=== PATIENT | male | born 1940 | race Caucasian/White ===

== ENCOUNTER 2020-01-12 19:39 | Emergency (ER) | payer MEDICARE, MEDICAID, SELFPAY ==
[2020-01-12] VITALS (7 sets, daily range): BP systolic 147–170; BP diastolic 52–63; PULSE 65–76; RESP 18–24; TEMP 37.6; O2SAT 93–98
--- NOTE | ~2020-01-12 | XR_ITS ---
EXAMINATION: XR chest 2V DATE: 01/12/2020 21:04 INDICATION: Shortness of breath. TECHNIQUE: Frontal and lateral views of the chest were obtained. COMPARISON: Chest single view 12/14/2017, CT abdomen and pelvis 12/14/2018 FINDINGS: There is chronic eventration of anterior right hemidiaphragm. There are airspace opacities in the lower lung zones. No pleural effusion or pneumothorax. Calcified right hilar and mediastinal l ymph nodes are consistent with old granulomatous disease. Cardiomegaly is noted. IMPRESSION: 1. Airspace opacities in the lower lung zones, likely atelectasis. 2. Cardiomegaly. Reviewed, dictated and finalized at location A.
--- NOTE | 2020-01-12 20:15 | ED.EXTPRO ---
HPI - Extremity Problem General Chief complaint: Extremity Problem,Nontraumatic Stated complaint: leg swelling, low urine output Time Seen by Provider: 01/12/20 20:02 Source: patient and RN notes reviewed Mode of arrival: ambulatory Limitations: no limitations History of Present Illness HPI Narrative: A 79 y/o male presents to the ED with constant BLE swelling beginning this morning. He states that his kidneys are at 21% but that he hasn't taken a water pill in 2 years. He reports that last night his legs were fine but that when he woke up this morning they were swollen and that he has had a decrease in urine output. He notes that he has chronic chills, chronic SOB, and chronic CP but that his CP has gotten more severe today. He also notes some epistaxis today. He denies any N/V/D or fevers. MD Complaint: extremity swelling Onset (ago): hour(s) (this morning) Pain Consistency: constant Location: lower extremity (CÉSAR) Associated symptoms: chest pain (chronic but has gotten more severe), shortness of breath (chronic) and other (chills (chornic), decreased urine output, and epistaxis) Related Data Home Medications Medication Instructions Recorded Confirmed aspirin 81 mg tablet,delayed 81 mg PO DAILY 12/13/19 release cholecalciferol (vitamin D3) 125 5,000 unit PO DAILY 12/13/19 mcg (5,000 unit) capsule hydralazine 50 mg tablet 50 mg PO TID 12/13/19 insulin aspart U-100 100 unit/mL 1 sliding scale dose SUB-Q 12/13/19 subcutaneous cartridge USEASDIRECTD insulin degludec 100 unit/mL (3 100 unit SUB-Q DAILY 12/13/19 mL) subcutaneous pen lutein 20 mg capsule 40 mg PO DAILY 12/13/19 omeprazole 20 mg tablet,delayed 20 mg PO DAILY 12/13/19 release diltiazem HCl 60 mg 240 mg PO DAILY cap 12/14/19 capsule,extended release 12 hr fluticasone propionate 50 1 spray NASAL DAILY 12/14/19 mcg/actuation nasal spray,suspension Allergies Allergy/AdvReac Type Severity Reaction Status Date / Time ranitidine Allergy Severe HIVES Verified 01/12/20 19:48 tocainide Allergy Severe HIVES Verified 01/12/20 19:48 lorazepam Allergy Unknown Other Verified 01/12/20 19:48 Review of Systems Review of Systems: All systems reviewed & are unremarkable except as noted in HPI and below Constitutional: Constitutional: Reports chills (chronic) and Denies fever(s) ENT: Reports epistaxis Cardiovascular: Cardiovascular: Reports chest pain (chornic but more severe) and Reports leg edema (CÉSAR) Respiratory: Respiratory: Reports dyspnea (chronic) Gastrointestinal: Gastrointestinal: Denies diarrhea, Denies nausea and Denies vomiting Genitourinary: Genitourinary: Reports other (decreased urine output) [facility] Past Medical History Medical History (Updated 01/13/20 @ 04:06 by Alf Cohn MD) A-fib Acute and chronic respiratory failure with hypoxia Acute hypercapnic respiratory failure due to obstructive sleep apnea Anemia Arthritis CKD (chronic kidney disease) Diabetes Dialysis patient Diaphragm paralysis Diverticulitis DM II (diabetes mellitus, type II), controlled Early cataracts, bilateral GERD (gastroesophageal reflux disease) History of colon cancer History of hemodialysis History of inguinal hernia History of kidney stones Hx: UTI (urinary tract infection) Hypercholesteremia Hypertension BILL (obstructive sleep apnea) Pancreatitis Surgical History Surgical History (Updated 01/12/20 @ 20:28 by Christiano Pizarro) H/O arthroscopy of knee H/O prostatectomy History of appendectomy History of bladder surgery History of colonoscopy History of hemorrhoidectomy History of inguinal hernia repair History of local excision of skin lesion History of spinal surgery History of transurethral resection of prostate Hx of arthroscopic knee surgery Hx of colectomy Hx of tracheostomy Social History Social History (Updated 01/12/20 @ 20:38 by Christiano Pizarro) Smoking status: Unknown if ever smoked Exam Const: General: no
--- NOTE | 2020-01-12 20:24 | ECG_ITS ---
Measurements Intervals [place] Rate: 67 P: 28 DC: 207 QRS: -58 QRSD: 126 T: 82 QT: 393 QTc: 415 Interpretive Statements SINUS RHYTHM WITH FIRST DEGREE AV BLOCK LEFT ANTERIOR FASCICULAR BLOCK VOLTAGE CRITERIA FOR LVH LATERAL INFARCT, AGE INDETERMINATE BASELINE ARTIFACT- I, II, AVR ABNORMAL ECG Electronically Signed On 01-13-2020 8:20:05 CDT by Jose De Jesus Saunders D.O.
[2020-01-12 20:36] LABS: Basophils Percent Auto 0.3 % (0.2-1.2); Eosinophils Absolute Auto 0.1 K/mm3 (0-0.3); Hematocrit 30.2 % (42.0-52.0); Hemoglobin 9.1 g/dL (14.0-18.0); Immature Granulocyte Absolute 0.03 K/mm3 (0.00-0.031); Immature Granulocyte Percent A 0.3 % (0-0.5); Lymphocytes Absolute Auto 0.89 K/mm3 (0.9-3.2); Lymphocytes Percent Auto 10.1 % (18.3-44.2); Mean Corpuscular HGB Conc 30.1 g/dl (32-36); Mean Corpuscular Hemoglobin 27.7 pg (26-34); Mean Corpuscular Volume 91.8 fl (80-100); Mean Platelet Volume 9.7 fl (7.4-10.4); Monocytes Absolute Auto 0.9 K/mm3 (0.1-0.6); Monocytes Percent Auto 9.8 % (2.6-8.5); Neutrophils Absolute Auto 6.9 K/mm3 (1.3-6.7); Neutrophils Percent Auto 78.5 % (45.5-73.1); Platelet Count Result 208 k/mm3 (150-375); Red Blood Count 3.29 M/mm3 (4.6-6.20); Red Cell Distribution Width 14.6 % (11.5-14.5); White Blood Count 8.8 K/mm3 (4.5-10.0)
[2020-01-12 20:42] LABS: Base Excess ABG 0.5 mEq/l (+/-2.0); Fractional Inspired Oxygen 24 %; HCO3 ABG 26.9 mEq/l (22.0-26.0); Oxygen Content ABG 12.9 %vol (16.0-22.0); Oxygen Saturation ABG 92.9 % (95.0-100.0); PCO2 ABG 52.4 mmHg (35.0-45.0); PO2 ABG 70.8 mmHg (80.0-100.0); PO2 FiO2 Ratio Arterial Blood 2.95 %; Total Hemoglobin 9.9 g/dL (12.0-18.0); pH ABG 7.329 (7.350-7.450)
[2020-01-12 20:44] LABS: Device NASAL CANNULA; Modified Allen's Test Pass; Site Drawn RIGHT RADIAL
[2020-01-12 20:46] LABS: Prothrombin Time 12.9 Seconds (11.1-14.7)
[2020-01-12 20:47] LABS: Partial Thromboplastin Time 33.5 SECONDS (22.3-36.8)
[2020-01-12 20:48] LABS: Blood Urea Nitrogen 59 mg/dL (9-20); Calcium 8.7 mg/dL (8.4-10.2); Carbon Dioxide 29 mmol/L (22-30); Chloride 104 mmol/L (98-107); Estimated CRCL calculation 19 ml/min; Estimated Glomerular Filt Rate 18; Glucose 113 mg/dL (75-110); Potassium 4.8 mmol/L (3.4-5.0); Sodium 139 mmol/L (137-145)
[2020-01-12 21:00] LABS: NT Pro B Type Natriuretic Pept 621 PG/ML (5-100); Troponin I 0.015 ng/mL (0.000-0.034)
== END 2020-01-12 22:53 | disposition home or self-care (01) ==
PROVIDERS: Emergency Provider Emergency Medicine; PCP Family Medicine
DX: R06.00 Dyspnea, unspecified (principal); E11.22 Type 2 diabetes mellitus with diabetic chronic kidney disease; I12.0 Hypertensive chronic kidney disease with stage 5 chronic kidney disease or end stage renal disease; N18.6 End stage renal disease; Z99.2 Dependence on renal dialysis; Z79.4 Long term (current) use of insulin; I48.91 Unspecified atrial fibrillation; M19.90 Unspecified osteoarthritis, unspecified site; D64.9 Anemia, unspecified; K21.9 Gastro-esophageal reflux disease without esophagitis; H26.9 Unspecified cataract; Z85.038 Personal history of other malignant neoplasm of large intestine; Z87.442 Personal history of urinary calculi; Z87.440 Personal history of urinary (tract) infections; E78.00 Pure hypercholesterolemia, unspecified; G47.33 Obstructive sleep apnea (adult) (pediatric); J96.21 Acute and chronic respiratory failure with hypoxia; Z90.49 Acquired absence of other specified parts of digestive tract; Z90.79 Acquired absence of other genital organ(s); I44.0 Atrioventricular block, first degree; I44.4 Left anterior fascicular block; R94.31 Abnormal electrocardiogram [ECG] [EKG]
CPT/HCPCS: 36415; 36600; 71046; 80048; 82805; 83880; 84484; 85025; 85610; 85730; 93005; 99284

== ENCOUNTER 2020-05-02 21:45 | Inpatient (IN) | payer MEDICARE, SELFPAY ==
--- NOTE | ~2020-05-02 | XR_ITS ---
XR chest 1V portable DATE: 05/12/2020 06:23 INDICATION: Pneumonia TECHNIQUE: Portable AP chest on 05/12/2020 at 0519 hours COMPARISON: 05/11/2020 portable AP chest at 0544 hours FINDINGS: ET tube tip 3.4 cm above aicha in satisfactory position. A nasogastric tube is present in the stomach. IMPRESSION: Reviewed, dictated and finalized at location A. IMPRESSION:
--- NOTE | ~2020-05-02 | XR_ITS ---
EXAMINATION: XR abdomen obstructive series DATE: 05/07/2020 13:01 INDICATION: Small bowel obstruction. TECHNIQUE: Upright and supine views of the abdomen were obtained. COMPARISON: CT abdomen and pelvis 05/02/2020, chest single view 05/07/2020 FINDINGS: There are no dilated loops of bowel. There is no free intraperitoneal gas. The nasogastric tube tip is in the stomach. There is a cholecystostomy tube in expected position. There are airspace opacities at the lung bases. Calcified right hilar and mediastinal lymph nodes are consistent with ol d granulomatous disease. IMPRESSION: 1. Normal bowel gas pattern. 2. Stable airspace opacities at the lung bases, consistent with atelectasis versus pneumonia. Reviewed, dictated and finalized at location A. IMPRESSION: 1. Normal bowel gas pattern. 2. Stable airspace opacities at the lung bases, consistent with atelectasis luis miguel cesar pneumonia.
--- NOTE | ~2020-05-02 | XR_ITS ---
XR chest 1V portable DATE: 05/11/2020 06:14 INDICATION: Pneumonia TECHNIQUE: Portable AP chest on 05/11/2020 0544 hours COMPARISON: 05/10/2020 portable AP chest at 0531 hours FINDINGS: ET and NG tubes in satisfactory position. Moderately large right pleural effusion is again noted, as well as infiltrate and/or atelectasis thro ughout the right lung and left perihilar and lower lung zones. There is no significant change compare d to 05/10/2020. IMPRESSION: No significant change in moderately large right pleural effusion and bilateral infiltrate s since 05/10/2020 Reviewed, dictated and finalized at location A. IMPRESSION: No significant change in moderately large right pleural effusion an d bilateral infiltrates since 05/10/2020
--- NOTE | ~2020-05-02 | XR_ITS ---
EXAMINATION: XR chest 1V portable DATE: 05/08/2020 06:13 INDICATION: Acute respiratory failure. Pneumonia. TECHNIQUE: A single frontal view of the chest was obtained. COMPARISON: Chest single view 05/07/2020, CT abdomen and pelvis 05/02/2020 FINDINGS: There is a small right pleural effusion. There are airspace opacities in all right lung zon es with a lower zone predominance. Calcified right lung nodules and calcified right hilar and mediast inal lymph nodes are consistent with old granulomatous disease. There are airspace opacities in left mid and lower lung zones with a lower lung predominance. No pneumothorax. Cardiomegaly is noted. The endotracheal tube tip is 2.3 cm above the aicha. The nasogastric tube tip is beyond the inferior mar gin of the radiograph, but at least to the stomach. IMPRESSION: 1. Diffuse lung disease with a lower lung predominance with worsening on the left, consistent with at electasis versus pneumonia. 2. Stable small right pleural effusion. 3. Cardiomegaly. Reviewed, dictated and finalized at location A. IMPRESSION: 1. Diffuse lung disease with a lower lung predominance with worsening on the le ft, consistent with atelectasis versus pneumonia. 2. Stable small right pleural effusion. 3. Cardiomegaly.
--- NOTE | ~2020-05-02 | CT_ITS ---
EXAMINATION: CT brain wo con DATE: 05/09/2020 11:50 INDICATION: Sudden left upper extremity paresis TECHNIQUE: Computed tomography (CT) of the head was performed without intravenous contrast. The mA wa s adjusted according to patient size. Iterative reconstruction technique was employed. Exam dose: 68 1.00 mGy-cm total exam DLP. COMPARISON: 05/03/2020 CT brain FINDINGS: Bilateral vertebral artery and carotid siphon internal carotid artery calcifications are no corinna. There is nonspecific diminished attenuation of the subcortical and periventricular cerebral white mat ter, likely due to chronic small vessel ischemic changes. No intracranial mass lesion or hemorrhage is evident. No midline shift or mass effect. No subdural or epidural hematoma. No fracture or bone destruction of the cranial vault. The paranasal sinuses and mastoid air cells ar e unremarkable, with minimal soft tissue thickening. IMPRESSION: Cerebral atherosclerosis and chronic small vessel ischemic changes of the cerebral hemis phere No acute intracranial abnormality Reviewed, dictated and finalized at Location A. Reviewed, dictated and finalized at location B. IMPRESSION: Cerebral atherosclerosis and chronic small vessel ischemic changes of the cerebral hemisphere No acute intracranial abnormality
--- NOTE | ~2020-05-02 | XR_ITS ---
EXAMINATION: XR chest 1V portable DATE: 05/06/2020 06:40 INDICATION: Acute respiratory failure. Pneumonia. TECHNIQUE: A single frontal view of the chest was obtained. COMPARISON: Chest single view 05/05/2020 FINDINGS: There are airspace opacities in the mid and lower lung zones with a lower lung predominance , right worse than left. There are small pleural effusions. No pneumothorax. Calcified right hilar an d mediastinal lymph nodes are consistent with old granulomatous disease. The heart size is normal. Th e endotracheal tube tip is 2.4 cm above the aicha. The nasogastric tube tip is in the stomach. There is a cholecystostomy tube in expected position. IMPRESSION: 1. Worsened airspace opacities in the mid and lower lung zones, right worse than left, consistent wit h atelectasis versus pneumonia. 2. Stable small pleural effusions. Reviewed, dictated and finalized at location A. IMPRESSION: 1. Worsened airspace opacities in the mid and lower lung zones, right worse suhas n left, consistent with atelectasis versus pneumonia. 2. Stable small pleural effusions.
--- NOTE | ~2020-05-02 | XR_ITS ---
EXAMINATION: XR chest 1V portable EXAM DATE: 05/16/2020 06:06 INDICATION: Respiratory failure. Pneumonia TECHNIQUE: Portable AP frontal chest x-ray was obtained. Comparison is made to prior examination from 05/15. FINDINGS: Endotracheal tube tip is 2-3 centimeters above the aicha (ideal range is between 2 to 5 cm ). Nasogastric tube is in position. Small to moderate right pleural effusion, probably partially loculated. There is moderate amount of b ilateral edema and/or pneumonia. Scattered regions of linear subsegmental atelectasis. There is no pn eumothorax suspected. There is cardiomegaly. The bones and soft tissues are unremarkable. Account ing for differences in technique, there is no significant interval change. IMPRESSION: 1. Tubes in position. 2. Stable airspace disease. 3. Small to moderate right pleural effusion. Reviewed, dictated and finalized at location A.
--- NOTE | ~2020-05-02 | XR_ITS ---
EXAMINATION: XR abdomen NG/feed tube insert INDICATION: OG placement TECHNIQUE: Portable AP KUB-NG at 1733 hours COMPARISON: 05/07/2020 FINDINGS: The OG tube is in the stomach. There are airspace opacities of the visualized lung bases. C ardiomegaly is noted. IMPRESSION: 1. OG tube in the stomach. Reviewed, dictated and finalized at location A. IMPRESSION: 1. OG tube in the stomach.
--- NOTE | ~2020-05-02 | CT_ITS ---
EXAMINATION: CT guide absc cath placement DATE: 05/03/2020 16:56 INDICATION: Acute cholecystitis TECHNIQUE: The procedure including the risks and benefits was discussed with the patient. Risks discu ssed included bleeding and infection. The patient understood the risks and benefits and agreed to pro ceed. The patient was confirmed to be receiving appropriate antibiotic coverage. The skin overlying the abdomen was prepped and draped in usual sterile fashion. Anesthetic was administered with 1% lid ocaine subcutaneously. Sedation was provided by the department of anesthesia. Utilizing CT guidance a n 18-gauge trocar needle was advanced into the gallbladder. The inner stylette was removed and there was spontaneous reflux of black-colored bile. Is a J-wire was advanced and the gallbladder with posit ioning confirmed by CT. Utilizing Seldinger technique the needle was removed over the wire and the tr act was serially dilated to 9 Qatari. An 8.5 Qatari drain was placed over the wire, position confirme d by CT and the pigtail tip was locked. The catheter was stitched to the skin with suture. Antibiotic appointment and a sterile dressing were applied. There were no immediate complications. The dose-nicolasa gth product was 176.03 mGy-cm. FINDINGS: CT images demonstrate the catheter along with a few calcified gallstones within the dilated gallbladder. 20 mL bile was aspirated for testing. IMPRESSION: 1. Successful CT-guided percutaneous cholecystostomy tube placement. 2. Deep mL fluid was sent for aerobic and anaerobic cultures. 3. The catheter will be managed by Dr. Lawson. A catheter cholangiogram may be performed not less than 48 hours after tube placement if clinically indicated to assess cystic duct patency. If cholecystect harper is not eventually performed and the infectious episode has resolved, the tube may be removed over a guidewire, preferably not less than 3 weeks after placement to allow time for a mature catheter tr act to form to prevent bile leakage and peritonitis. Reviewed, dictated and finalized at location A. IMPRESSION: 1. Successful CT-guided percutaneous cholecystostomy tube placement. 2. Deep mL fluid was sent for aerobic and anaerobic cultures. 3. The catheter will be managed by Dr. Lawson. A catheter cholangiogram may be p erformed not less than 48 hours after tube placement if clinically indicated to assess cystic duct patency. If cholecystectomy is not eventually performed and the infectious episode has resolved, the tube may be removed over a guidewire, preferably not less than 3 weeks after placement to allow time for a mature ca theter tract to form to prevent bile leakage and peritonitis.
--- NOTE | ~2020-05-02 | CT_ITS ---
EXAMINATION: CT brain wo con DATE: 05/03/2020 15:54 INDICATION: Lethargy. TECHNIQUE: Computed tomography (CT) of the head was performed without intravenous contrast. The mA wa s adjusted according to patient size. Iterative reconstruction technique was employed. The dose-lengt h product was 681.00 mGy-cm. COMPARISON: Head CT 05/01/2018 FINDINGS: Motion artifact is noted. There is no intracranial hemorrhage, acute infarction, or abnorma l intracranial mass lesion. There are scattered areas of low attenuation in the cerebral white matter , which is within normal limits for the patient's age. The ventricles are normal in size. There is mi ld mucosal thickening in the paranasal sinuses. The mastoid air cells are normal. IMPRESSION: 1. Normal aging brain. Sensitivity is decreased by motion artifact. Reviewed, dictated and finalized at location A.
--- NOTE | ~2020-05-02 | XR_ITS ---
EXAMINATION: XR chest 1V portable DATE: 05/10/2020 06:14 INDICATION: Pneumonia. TECHNIQUE: A single frontal view of the chest was obtained. COMPARISON: Chest single view 05/09/2020 FINDINGS: There is a moderate-sized right pleural effusion. There are airspace opacities in all right lung zones and in left mid and lower lung zones. No pneumothorax. Cardiomegaly is noted. Calcified r ight hilar and mediastinal lymph nodes are consistent with old granulomatous disease. The endotrachea l tube tip is 3.2 cm above the aicha. The nasogastric tube tip is in the stomach. IMPRESSION: 1. Worsened moderate-sized right pleural effusion. 2. Airspace opacities in all right lung zones and in left mid and lower lung zones with slight worsen ing on the left, consistent with atelectasis versus pneumonia. 3. Cardiomegaly. Reviewed, dictated and finalized at location A. IMPRESSION: 1. Worsened moderate-sized right pleural effusion. 2. Airspace opacities in all right lung zones and in left mid and lower lung zo tarsha with slight worsening on the left, consistent with atelectasis versus pneum onia. 3. Cardiomegaly.
--- NOTE | ~2020-05-02 | XR_ITS ---
EXAMINATION: XR chest 1V portable DATE: 05/14/2020 13:24 INDICATION: Right pleural effusion status post thoracentesis. TECHNIQUE: A single frontal view of the chest was obtained. COMPARISON: Chest single view at 5:42 AM, CT abdomen and pelvis 05/02/2020 FINDINGS: There are airspace opacities in all right lung zones and in left perihilar region and left lower lung zone. There is a small loculated right pleural effusion. No pneumothorax. Cardiomegaly is noted. The endotracheal tube tip is 1.9 cm above the aicha. The nasogastric tube tip is beyond the i nferior margin of the radiograph, but at least to the stomach. IMPRESSION: 1. Small loculated right pleural effusion with improvement status post thoracentesis. 2. Stable airspace opacities in right lung, left perihilar region, and left lower lung zone, consiste nt with atelectasis versus pneumonia. 3. Cardiomegaly. Reviewed, dictated and finalized at location A. IMPRESSION: 1. Small loculated right pleural effusion with improvement status post thoracen tesis. 2. Stable airspace opacities in right lung, left perihilar region, and left low er lung zone, consistent with atelectasis versus pneumonia. 3. Cardiomegaly.
--- NOTE | ~2020-05-02 | XR_ITS ---
EXAMINATION: XR abdomen NG/feed tube insert EXAM DATE: 05/07/2020 13:52 INDICATION: Feeding tube placement. TECHNIQUE: Frontal projection(s) of the abdomen for interpretation. Comparison is made to prior exami nation from earlier same date. FINDINGS: Feeding tube tip, side-port project over gastric bubble, adequate. Upper abdominal bowel g as pattern is nonobstructive. Bibasilar airspace disease and small pleural effusions. IMPRESSION: Feeding tube overlying expected position. Reviewed, dictated and finalized at location A.
--- NOTE | ~2020-05-02 | XR_ITS ---
EXAMINATION: XR abdomen NG/feed tube insert DATE: 05/03/2020 21:08 INDICATION: Orogastric tube placement. TECHNIQUE: A supine view of the abdomen on 2 radiographs was obtained. COMPARISON: Abdomen single view 12/06/2017 FINDINGS: The right lower abdomen is excluded. There are no dilated loops of bowel. The nasogastric t ube tip is in the stomach. There is a cholecystostomy tube in expected position. IMPRESSION: 1. Nasogastric tube tip in the stomach. Reviewed, dictated and finalized at location A.
--- NOTE | ~2020-05-02 | XR_ITS ---
EXAMINATION: XR chest 1V portable DATE: 05/09/2020 06:07 INDICATION: Acute respiratory failure. Pneumonia. TECHNIQUE: A single frontal view of the chest was obtained. COMPARISON: Chest single view 05/08/2020, CT abdomen and pelvis 05/02/2020 FINDINGS: Calcified right lung nodules and calcified right hilar and mediastinal lymph nodes are cons istent with old granulomatous disease. There are airspace opacities in all right lung zones with a lo wer lung predominance. There are airspace opacities in left lower lung zone. There is a small right p leural effusion. No pneumothorax. Cardiomegaly is noted. The endotracheal tube tip is 2.9 cm above th e aicha. The nasogastric tube tip is beyond the inferior margin of the radiograph, but at least to t he stomach. IMPRESSION: 1. Airspace opacities in right lung and left lower lung zone with worsening on the right, consistent with atelectasis versus pneumonia. 2. Stable small right pleural effusion. 3. Cardiomegaly. Reviewed, dictated and finalized at location A.
--- NOTE | ~2020-05-02 | XR_ITS ---
EXAMINATION: XR chest 1V portable DATE: 05/03/2020 17:16 INDICATION: Abnormal lung auscultation. TECHNIQUE: A single frontal view of the chest was obtained. COMPARISON: Chest 2 views 01/12/2020 FINDINGS: Again seen is elevation of right hemidiaphragm. There are airspace opacities in the lower l kristy zones. No pleural effusion or pneumothorax. Cardiomegaly is noted. IMPRESSION: 1. Airspace opacities in the lower lung zones with worsening on the left, consistent with atelectasis versus pneumonia. 2. Chronic elevation of right hemidiaphragm. 3. Cardiomegaly. Reviewed, dictated and finalized at location A. IMPRESSION: 1. Airspace opacities in the lower lung zones with worsening on the left, consi stent with atelectasis versus pneumonia. 2. Chronic elevation of right hemidiaphragm. 3. Cardiomegaly.
--- NOTE | ~2020-05-02 | XR_ITS ---
EXAMINATION: XR chest ET placement EXAM DATE: 05/07/2020 13:52 INDICATION: ReIntubated. Respiratory failure. TECHNIQUE: Portable AP frontal chest x-ray was obtained. Comparison is made to prior examination from earlier same date. FINDINGS: Endotracheal tube tip is 2-3 centimeters above the aicha (ideal range is between 2 to 5 cm ). There is a nasogastric tube seen with tip collimated off the study, but below the left hemidiaphr agm. Again there is patchy bilateral mid and lower lung zone atelectasis and/or infection. There are likel y small pleural effusions. There is no pneumothorax suspected. The cardiomediastinal silhouette is prominent but magnified on this AP technique. The bones and soft tissues are unremarkable. There is no significant interval change compared to prior exam. IMPRESSION: 1. Line(s) and tube(s) in position. 2. Stable airspace disease and other findings as above. Reviewed, dictated and finalized at location A.
--- NOTE | ~2020-05-02 | XR_ITS ---
EXAMINATION: XR chest 1V portable INDICATION: Acute respiratory failure, pneumonia TECHNIQUE: Portable AP chest at 0537 hours COMPARISON: 05/04/2020 FINDINGS: The endotracheal tube ends approximately 3.0 cm above the aicha. The nasogastric tube is in the stomach. The lung volumes are low. There is stable elevation of the right hemidiaphragm. Perih ilar and bibasilar airspace opacities persist without significant change. There is a small stable rig ht pleural effusion. No pneumothorax is identified. The cardiomediastinal silhouette is stable. IMPRESSION: 1. Stable perihilar and bibasilar airspace opacities, consistent with atelectasis versus pneumonia. 2. Small, stable right pleural effusion. Reviewed, dictated and finalized at location A. IMPRESSION: 1. Stable perihilar and bibasilar airspace opacities, consistent with atelectas is versus pneumonia. 2. Small, stable right pleural effusion.
--- NOTE | ~2020-05-02 | XR_ITS ---
EXAMINATION: XR chest ET placement DATE: 05/03/2020 21:03 INDICATION: Intubation. TECHNIQUE: A single frontal view of the chest was obtained. COMPARISON: Chest single view at 5:08 PM FINDINGS: There is elevation of right hemidiaphragm. There are airspace opacities in the perihilar re gions and lower lung zones. There is a small right pleural effusion. No pneumothorax. Cardiomegaly is noted. Calcified right hilar lymph nodes are consistent with old granulomatous disease. The endotrac heal tube tip is 1.9 cm above the aicha. The nasogastric tube tip is in the stomach. IMPRESSION: 1. Worsened airspace opacities in the perihilar regions and lower lung zones, consistent with atelect asis versus pneumonia. 2. Small right pleural effusion. 3. Cardiomegaly. Reviewed, dictated and finalized at location A. IMPRESSION: 1. Worsened airspace opacities in the perihilar regions and lower lung zones, c onsistent with atelectasis versus pneumonia. 2. Small right pleural effusion. 3. Cardiomegaly.
--- NOTE | ~2020-05-02 | XR_ITS ---
EXAMINATION: XR chest 1V portable EXAM DATE: 05/13/2020 06:04 INDICATION: Respiratory failure. Pneumonia TECHNIQUE: Portable AP frontal chest x-ray was obtained. Comparison is made to prior examination from 05/12/2020. FINDINGS: Endotracheal tube tip is 2-3 centimeters above the aicha (ideal range is between 2 to 5 cm ). Nasogastric tube is in position. Moderate right pleural effusion. There is moderate amount of bilateral edema and/or pneumonia. There is no pneumothorax suspected. The cardiomediastinal silhouette is prominent but magnified on this AP technique. The bones and soft tissues are unremarkable. There is no significant interval change compared to prior exam. IMPRESSION: 1. Tubes in position. 2. Stable airspace disease and other findings as above. Reviewed, dictated and finalized at location A.
--- NOTE | ~2020-05-02 | XR_ITS ---
EXAMINATION: XR chest ET placement INDICATION: Endotracheal tube placement TECHNIQUE: Portable AP chest at 1734 hours COMPARISON: 0519 hours FINDINGS: The endotracheal tube ends approximately 2.5 cm above the aicha. The nasogastric tube is f ollowed as far as the stomach. Its tip is beyond the inferior margin of the radiograph. There are dif fuse airspace opacities throughout the right hemithorax. A moderate to large right pleural effusion i s unchanged. There are stable stable left basilar airspace opacities. No pneumothorax is identified. Stable cardiomegaly is noted. IMPRESSION: 1. Endotracheal and nasogastric tubes in adequate position. 2. Diffuse opacification of the right hemithorax and left lung base, consistent with atelectasis vers us pneumonia. 3. Moderate to large right pleural effusion. Reviewed, dictated and finalized at location A. IMPRESSION: 1. Endotracheal and nasogastric tubes in adequate position. 2. Diffuse opacification of the right hemithorax and left lung base, consistent with atelectasis versus pneumonia. 3. Moderate to large right pleural effusion.
--- NOTE | ~2020-05-02 | XR_ITS ---
EXAMINATION: XR chest 1V portable EXAM DATE: 05/15/2020 05:50 INDICATION: Respiratory failure. Pneumonia TECHNIQUE: Portable AP frontal chest x-ray was obtained. Comparison is made to prior examination from . FINDINGS: Endotracheal tube tip is 2 centimeters above the aicha (ideal range is between 2 to 5 cm). Nasogastric tube is in position. Small right pleural effusion. There is moderate amount of bilateral edema and/or pneumonia. Scattered regions of linear subsegmental atelectasis. There is no pneumothorax suspected. The cardiomediasti nal silhouette is prominent but magnified on this AP technique. The bones and soft tissues are unre markable. There is no significant interval change compared to prior exam. IMPRESSION: 1. Tubes in position. 2. Stable airspace disease. 3. Small right pleural effusion Reviewed, dictated and finalized at location A.
--- NOTE | ~2020-05-02 | US_ITS ---
EXAMINATION: US thoracentesis DATE: 05/14/2020 13:34 INDICATION: pleural effusion TECHNIQUE: The skin was prepped and draped in sterile fashion. 1% lidocaine was used for local anesth esia. Under ultrasound guidance, a 5 Fr catheter with trochar was advanced into the right pleural eff usion. Fluid was aspirated. The catheter was removed, and a dressing was applied. There were no immed iate complications. FINDINGS: Ultrasound images demonstrate a right pleural effusion and the catheter within the fluid. IMPRESSION: 1. Successful ultrasound-guided thoracentesis yielding 150 mL of serosanguineous fluid. Reviewed, dictated and finalized at location A. IMPRESSION: 1. Successful ultrasound-guided thoracentesis yielding 150 mL of serosanguineo us fluid.
--- NOTE | ~2020-05-02 | XR_ITS ---
EXAMINATION: XR chest 1V portable EXAM DATE: 05/14/2020 06:08 INDICATION: Respiratory failure. Pneumonia TECHNIQUE: Portable AP frontal chest x-ray was obtained. Comparison is made to prior examination from 05/13/2020. FINDINGS: Endotracheal tube tip is 2-3 centimeters above the aicha (ideal range is between 2 to 5 cm ). Nasogastric tube is in position. Moderate right pleural effusion. There is moderate amount of bilateral edema and/or pneumonia. There is no pneumothorax suspected. The cardiomediastinal silhouette is prominent but magnified on this AP technique. The bones and soft tissues are unremarkable. There is no significant interval change compared to prior exam. IMPRESSION: 1. Tubes in position. 2. Stable airspace disease and other findings as above. Reviewed, dictated and finalized at location A.
--- NOTE | ~2020-05-02 | US_ITS ---
EXAMINATION: US renal BI DATE: 05/04/2020 15:33 INDICATION: Acute kidney disease on chronic kidney disease. TECHNIQUE: Multiple ultrasound grayscale images of the kidneys were obtained. COMPARISON: CT abdomen and pelvis 05/02/2020 FINDINGS: Sensitivity is decreased by obesity. The right kidney measures 9.0 x 5.1 x 6.5 cm. The left kidney me asures 10.9 x 5.6 x 5.5 cm. The kidneys demonstrate normal parenchymal echogenicity. There is no hydr onephrosis. The bladder is decompressed by a Merrill catheter. IMPRESSION: 1. Normal kidney sizes. No hydronephrosis. Reviewed, dictated and finalized at location A.
--- NOTE | ~2020-05-02 | XR_ITS ---
EXAMINATION: XR chest 1V portable DATE: 05/07/2020 06:19 INDICATION: Acute respiratory failure. Pneumonia. TECHNIQUE: A single frontal view of the chest was obtained. COMPARISON: Chest single view 05/06/2020, CT abdomen and pelvis 05/02/2020 FINDINGS: There is mild elevation of right hemidiaphragm. There are airspace opacities in right mid a nd lower lung zones and left lower lung zone. There are small pleural effusions. Calcified hilar and mediastinal lymph nodes are consistent with old granulomatous disease. No pneumothorax. Cardiomegaly is noted. The endotracheal tube tip is 3.1 cm above the aicha. The nasogastric tube tip is beyond th e inferior margin of the radiograph, but at least to the stomach. IMPRESSION: 1. Airspace opacities in right mid and lower lung zones and left lower lung zone with slight improvem ent, consistent with atelectasis versus pneumonia. 2. Small pleural effusions. 3. Cardiomegaly. Reviewed, dictated and finalized at location A. IMPRESSION: 1. Airspace opacities in right mid and lower lung zones and left lower lung zon e with slight improvement, consistent with atelectasis versus pneumonia. 2. Small pleural effusions. 3. Cardiomegaly.
--- NOTE | ~2020-05-02 | XR_ITS ---
EXAMINATION: XR chest 1V portable DATE: 05/17/2020 10:09 INDICATION: Pneumonia. TECHNIQUE: A single frontal view of the chest was obtained. COMPARISON: Chest single view 05/16/2020, CT abdomen and pelvis 05/02/2020 FINDINGS: Again seen is elevation of right hemidiaphragm. There is a small right pleural effusion. Th ere are airspace opacities in all right lung zones with a lower lung predominance. There are mild air space opacities in left lower lung zone. Calcified right lung nodules and calcified right hilar and m ediastinal lymph nodes are consistent with old granulomatous disease. No pneumothorax. Cardiomegaly i s noted. The endotracheal tube tip is 4.2 cm above the aicha. The nasogastric tube tip is in the sto mach. There is a cholecystostomy tube in right upper quadrant. IMPRESSION: 1. Stable small right pleural effusion. 2. Unchanged airspace opacities in right lung and left lower lung zone, consistent with atelectasis v ersus pneumonia. 3. Cardiomegaly. Reviewed, dictated and finalized at location A. IMPRESSION: 1. Stable small right pleural effusion. 2. Unchanged airspace opacities in right lung and left lower lung zone, consist ent with atelectasis versus pneumonia. 3. Cardiomegaly.
--- NOTE | ~2020-05-02 | US_ITS ---
EXAMINATION: US abdomen limited DATE: 05/03/2020 12:27 INDICATION: Acute cholecystitis for plan percutaneous cholecystostomy tube placement. TECHNIQUE: Multiple grayscale and Doppler ultrasound images of the upper quadrant of the abdomen were obtained. COMPARISON: None FINDINGS: And seen is dilation of the gallbladder with wall thickening consistent with acute cholecystitis. The liver and gallbladder are high riding position entirely above the anterior inferior costal margin. T he pleura and aerated lung overlie much of the planned anterior transhepatic approach to the gallblad jordan. And there were multiple loops of bowel positioned anterior to the gallbladder. A direct peroneal approach to the gallbladder is precluded by loops of bowel which extend between the gallbladder and anterior abdominal wall. IMPRESSION: 1. Acute cholecystitis with no safe approach to the gallbladder identified on the press operator apprentice ultrasound fo r planned ultrasound-guided cholecystostomy tube placement which was deferred. Cholecystostomy tube p lacement will be attempted utilizing CT guidance. Reviewed, dictated and finalized at location A. IMPRESSION: 1. Acute cholecystitis with no safe approach to the gallbladder identified on t he press operator apprentice ultrasound for planned ultrasound-guided cholecystostomy tube placemen t which was deferred. Cholecystostomy tube placement will be attempted utilrain g CT guidance.
--- NOTE | ~2020-05-02 | CT_ITS ---
EXAMINATION: CT abdomen pelvis wo con DATE: 05/02/2020 22:51 INDICATION: Right upper quadrant abdominal pain. TECHNIQUE: Computed tomography (CT) of the abdomen and pelvis was performed without intravenous contr ast. Automated exposure control and iterative reconstruction technique were employed. The dose-length product was 1115.41 mGy-cm. COMPARISON: CT abdomen and pelvis 12/14/2018 FINDINGS: The visualized portions of the lung bases demonstrate mild atelectasis. There is elevation of right hemidiaphragm. No pleural effusion. Calcified right hilar and mediastinal lymph nodes are co nsistent with old granulomatous disease. Cardiomegaly is noted. There are coronary artery calcificati ons. No pericardial effusion. There is a 4.2 cm cyst in the liver. Calcifications in the liver and sp gale are consistent with old granulomatous disease. The gallbladder is distended and contains gallsto tarsha. Gallbladder wall thickening is noted. These findings are consistent with acute cholecystitis. Th e pancreas and adrenal glands are normal. There are cysts in the kidneys measuring up to 2.6 cm on th e left. The prostate is severely enlarged. There is diverticulosis of the colon without evidence of d iverticulitis. There are changes of right hemicolectomy. There are no pathologically enlarged lymph n odes. There is no free intraperitoneal fluid. There are bridging endplate osteophytes at multiple lev els in the spine, consistent with diffuse idiopathic skeletal hyperostosis (DISH). There is moderate lumbar spondylosis. IMPRESSION: 1. Acute cholecystitis. Reviewed, dictated and finalized at location A. IMPRESSION: 1. Acute cholecystitis.
--- NOTE | ~2020-05-02 | XR_ITS ---
XR shoulder LT 1V DATE: 05/12/2020 10:00 INDICATION: Left shoulder pain TECHNIQUE: Portable AP view COMPARISON: None FINDINGS: No fracture or dislocation, periosteal reaction or bone destruction is detected. ET and NG tubes are incidentally noted. IMPRESSION: No fracture or dislocation Reviewed, dictated and finalized at location A. IMPRESSION: No fracture or dislocation
--- NOTE | ~2020-05-02 | XR_ITS ---
EXAMINATION: XR chest 1V portable INDICATION: Respiratory failure TECHNIQUE: Portable AP chest at 0529 hours COMPARISON: 05/03/2020 FINDINGS: The endotracheal tube ends 2.5 cm above the aicha. The nasogastric tube is in the stomach. Elevation of the right hemidiaphragm is again noted. Bibasilar and perihilar airspace opacities pers ist with slight improvement. A small right pleural effusion is unchanged. There is no pneumothorax. S table cardiomegaly is noted. IMPRESSION: 1. Persistent but improved perihilar and bibasilar opacities, consistent with atelectasis versus pneu monia. 2. Small right pleural effusion, stable. 3. Stable cardiomegaly. Reviewed, dictated and finalized at location A. IMPRESSION: 1. Persistent but improved perihilar and bibasilar opacities, consistent with a telectasis versus pneumonia. 2. Small right pleural effusion, stable. 3. Stable cardiomegaly.
--- NOTE | ~2020-05-02 | US_ITS ---
EXAMINATION: US carotid duplex BI DATE: 05/10/2020 09:30 INDICATION: Left hemiparesis. TECHNIQUE: Grayscale, color Doppler, and pulsed Doppler images of the cervical carotid arteries were obtained. The degree of vessel stenosis is placed in one of the following categories: normal, <50%, 5 0-69%, >=70% but less than near-occlusion, near-occlusion, or total occlusion. Note that percent sten osis relative to normal distal artery lumen diameter is indirectly measured from velocity measurement s as described by Alf, et al. Radiology 2003; 229:340-346. COMPARISON: None. FINDINGS: RIGHT: The right common carotid artery (CCA) peak systolic velocity (PSV) is 98 cm/s. The right internal car otid artery (ICA) PSV is 169 cm/s. The right ICA end-diastolic velocity (EDV) is 9 cm/s. The right IC A/CCA PSV ratio is 1.7. Grayscale and color Doppler images yield an estimate of >=50% diameter reduct ion from plaque in the ICA. There is antegrade flow in the right vertebral artery. LEFT: The left CCA PSV is 132 cm/s. The left ICA PSV is 136 cm/s. The left ICA EDV is 14 cm/s. The left ICA /CCA PSV ratio is 1.0. Grayscale and color Doppler images yield an estimate of <50% diameter reductio n from plaque in the ICA. There is antegrade flow in the left vertebral artery. IMPRESSION: 1. 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 2. <50% stenosis in the left internal carotid artery. Reviewed, dictated and finalized at location A.
[2020-05-02 21:47] VITALS: BP 177/53; PULSE 71; RESP 19; TEMP 37.1; O2SAT 94
[2020-05-02 22:15] LABS: Basophils Percent Auto 0.3 % (0.2-1.2); Eosinophils Percent Auto 0.3 % (0-4.4); Hematocrit 30.4 % (42.0-52.0); Hemoglobin 9.5 g/dL (14.0-18.0); Immature Granulocyte Absolute 0.07 K/mm3 (0.00-0.031); Immature Granulocyte Percent A 0.5 % (0-0.5); Lymphocytes Percent Auto 5.3 % (18.3-44.2); Mean Corpuscular HGB Conc 31.3 g/dl (32-36); Mean Corpuscular Hemoglobin 28.8 pg (26-34); Mean Corpuscular Volume 92.1 fl (80-100); Mean Platelet Volume 8.8 fl (7.4-10.4); Monocytes Absolute Auto 0.8 K/mm3 (0.1-0.6); Monocytes Percent Auto 6.2 % (2.6-8.5); Neutrophils Absolute Auto 11.5 K/mm3 (1.3-6.7); Neutrophils Percent Auto 87.4 % (45.5-73.1); Platelet Count Result 224 k/mm3 (150-375); Red Cell Distribution Width 14.2 % (11.5-14.5); White Blood Count 13.2 K/mm3 (4.5-10.0)
[2020-05-02 22:27] LABS: Alanine Aminotransferase 17 U/L (4-50); Alkaline Phosphatase 116 U/L (38-126); Aspartate Amino Transferase 23 U/L (17-59); Bilirubin,Total 0.9 mg/dL (0.2-1.3); Blood Urea Nitrogen 59 mg/dL (9-20); Carbon Dioxide 30 mmol/L (22-30); Chloride 100 mmol/L (98-107); Estimated CRCL calculation 17 ml/min; Estimated Glomerular Filt Rate 16; Glucose 152 mg/dL (75-110); Lipase 134 U/L (23-300); Potassium 5.2 mmol/L (3.4-5.0); Sodium 136 mmol/L (137-145)
[2020-05-02] MEDS: MORPHINE SULFATE 4 MG/ML INJ IV PUSH (22:36)
[2020-05-02] MEDS: ONDANSETRON INJ 4 MG/2 ML VIAL IV PUSH (22:36)
--- NOTE | 2020-05-02 22:47 | ED.GENADULT ---
HPI - General Adult General Chief complaint: Abdominal Pain Stated complaint: Abd and back pain Time Seen by Provider: 05/02/20 22:12 History of Present Illness HPI narrative: Patient is a 80-year-old male who presents the ER with upper abdominal pain. Reports he had symptoms yesterday last several hours sharp and associated nausea. It went away overnight and he woke up pain-free. This evening he ate about 5 [employer] tacos and had sudden onset upper abdominal pain. He rates to his back. Mild nausea but no vomiting. He has had no fever/chills/sweats. No history of gallbladder disease. He is found no alleviating factors. Related Data Home Medications Medication Instructions Recorded Confirmed aspirin 81 mg tablet,delayed 81 mg PO DAILY 09/01/19 05/03/20 release lutein 20 mg capsule 40 mg PO DAILY 09/01/19 05/03/20 cholecalciferol (vitamin D3) 125 5,000 unit PO DAILY 12/13/19 05/03/20 mcg (5,000 unit) capsule diltiazem HCl [DILT-XR] 240 mg PO DAILY 05/03/20 05/03/20 hydralazine 50 mg PO Q8H 05/03/20 05/03/20 insulin aspart U-100 [Novolog 5 - 15 unit SUBCUT 24XD 05/03/20 05/03/20 Flexpen U-100 Insulin] insulin degludec [Tresiba 20 - 25 unit SUBCUT HS 05/03/20 05/03/20 FlexTouch U-100] Allergies Allergy/AdvReac Type Severity Reaction Status Date / Time lisinopril Allergy Unknown Verified 03/08/20 15:48 lorazepam AdvReac Unknown unknown Verified 03/08/20 15:48 ranitidine AdvReac Unknown unknown Verified 03/08/20 15:48 tocainide AdvReac Unknown unknown Verified 03/08/20 15:48 Review of Systems Review of Systems: All systems reviewed & are unremarkable except as noted in HPI and below Constitutional: Constitutional: Denies chills, Denies fever(s) and Denies weakness Cardiovascular: Cardiovascular: Denies chest pain Respiratory: Respiratory: Denies dyspnea and Denies wheezing Gastrointestinal: Gastrointestinal: Reports abdominal pain, Denies diarrhea, Reports nausea and Denies vomiting [facility] Past Medical History Medical History A-fib Acute and chronic respiratory failure with hypoxia Acute hypercapnic respiratory failure due to obstructive sleep apnea Anemia Arthritis CKD (chronic kidney disease) Complex sleep apnea syndrome Diabetes Dialysis patient Diaphragm paralysis Diverticulitis DM II (diabetes mellitus, type II), controlled Early cataracts, bilateral GERD (gastroesophageal reflux disease) History of colon cancer History of hemodialysis History of inguinal hernia History of kidney stones Hx: UTI (urinary tract infection) Hypercholesteremia Hypertension BILL (obstructive sleep apnea) Pancreatitis Restrictive lung disease Surgical History Surgical History H/O arthroscopy of knee H/O prostatectomy History of appendectomy History of bladder surgery History of colonoscopy History of hemorrhoidectomy History of inguinal hernia repair History of local excision of skin lesion History of spinal surgery History of transurethral resection of prostate Hx of arthroscopic knee surgery Hx of colectomy Hx of tracheostomy Family History Family History Mother Family history of cardiovascular disease, Onset Age: 94 Acute myocardial infarction Father Malignant neoplasm of prostate Sibling Diabetes mellitus Acute myocardial infarction Other Hypertension Social History Social History Smoking status: Never smoker Alcohol intake: never Substance use: never Substance use type: does not use Gender identity (if verbalized by the patient): Male Spiritual care concerns: No Exam Narrative: Exam Narrative: GENERAL: Chronically ill and uncomfortable-appearing, well-nourished. HEAD: Normocephalic, atraumatic. ENT: Mucous membranes moist. CHEST: Clear to ausculta
[2020-05-02 22:59] VITALS: BP 195/58; PULSE 80; RESP 20; O2SAT 94
--- NOTE | 2020-05-02 23:27 | PC.NURSE ---
Assumed care of pt at this time. Report from YUDI Jansen
[2020-05-02 23:30] LABS: Add Urine Microscopic? YES; Appearance Urine Clear (Clear); Bilirubin Urine Negative (Negative); Blood Urine Negative (Negative); Color Urine Yellow (Yellow); Glucose Urine UA Negative (Negative); Ketones Urine Negative (Negative); Leukocyte Esterase Ur Negative LEU/UL (Negative); Mucus Urine Rare /lpf; Nitrate Urine Negative (Negative); Protein Urine 2+ mg/dL (Negative); RBC Urine 0-2 /hpf (0-2); Specific Grav Ur 1.016 (1.001-1.035); Squamous Epithelial Cell Urine Rare /hpf (Few); Urobilinogen Urine Negative mg/dL (<2.0); WBC Urine 0-3 /hpf
[2020-05-02 23:41] VITALS: BP 199/64; PULSE 84; RESP 15; O2SAT 92
[2020-05-03] VITALS (19 sets, daily range): BP systolic 129–180; BP diastolic 36–85; PULSE 61–82; RESP 15–25; TEMP 36.2–36.8; O2SAT 90–100; BMI 31.9
--- NOTE | 2020-05-03 00:56 | ADMGEN ---
This patient, Jose Miguel Suarez Sr., was admitted to 2 Medical Room 248-. Patient/family oriented to hospital policies and general routines including ID bracelet, bed and alarms, visiting hours, pain management, procedures, bathroom and other care routines, personal items, smoking policy, room service/diet, and visiting hours. Valuables list has been completed. Information on how to activate the Rapid Response Team has been discussed. Patient/Family are encouraged to report perceived risks to care and to ask questions if they do not understand what they are told or what they should do.
--- NOTE | 2020-05-03 03:23 | PM.IMHP ---
H&P: HPI History of Present Illness Chief complaint: cholecystitis Narrative: This is a Diabetic 80 year old male with known CKD stage IV and Chronic respiratory failure who presented to the hospital with a complaint of RUQ abdominal pain that started after he ate fast food. He describes his pain as stabbing and occuring in the Epigastrium and RUQ and radiating towards his back and right shoulder. Associated symptoms include nausea. He denies any fever, chills, vomiting, chest pain,cough, dysuria, hematuria, diarrhea, or worsening shortness of breath. Routine labs were obtained in the ER and he was found to have mild leukocytosis. CT abd/pelvis demonstrated acute cholecystitis. The patient was treated w/ IV Zosyn and General Surgery was consulted by ER provider. We have been asked to admit the patient to the hospital for further care. He has no other complaints. Review of Systems Review of Systems: All systems reviewed & are unremarkable except as noted in HPI and below PMFSH Past Medical History Medical History A-fib Acute and chronic respiratory failure with hypoxia Acute hypercapnic respiratory failure due to obstructive sleep apnea Anemia Arthritis CKD (chronic kidney disease) Complex sleep apnea syndrome Diabetes Dialysis patient Diaphragm paralysis Diverticulitis DM II (diabetes mellitus, type II), controlled Early cataracts, bilateral GERD (gastroesophageal reflux disease) History of colon cancer History of hemodialysis History of inguinal hernia History of kidney stones Hx: UTI (urinary tract infection) Hypercholesteremia Hypertension BILL (obstructive sleep apnea) Pancreatitis Restrictive lung disease Surgical History Surgical History H/O arthroscopy of knee H/O prostatectomy History of appendectomy History of bladder surgery History of colonoscopy History of hemorrhoidectomy History of inguinal hernia repair History of local excision of skin lesion History of spinal surgery History of transurethral resection of prostate Hx of arthroscopic knee surgery Hx of colectomy Hx of tracheostomy Family History Family History Mother Family history of cardiovascular disease, Onset Age: 94 Acute myocardial infarction Father Malignant neoplasm of prostate Sibling Diabetes mellitus Acute myocardial infarction Other Hypertension Social History Social History Smoking status: Never smoker Alcohol intake: never Substance use: never Substance use type: does not use Gender identity (if verbalized by the patient): Male Spiritual care concerns: No Meds Home Medications and Allergies Home Medications Medication Instructions Recorded Confirmed Type aspirin 81 mg tablet,delayed 81 mg PO DAILY 09/01/19 12/19/19 History release lutein 20 mg capsule 20 mg PO DAILY 09/01/19 12/19/19 History cholecalciferol (vitamin D3) 125 5,000 unit PO DAILY 12/13/19 History mcg (5,000 unit) capsule omeprazole 20 mg tablet,delayed 20 mg PO DAILY 12/13/19 History release fluticasone propionate 50 1 spray NASAL DAILY 12/14/19 History mcg/actuation nasal spray,suspension albuterol sulfate 90 mcg/actuation 1 inhalation INHALATION Q4H #8.5 gm 01/25/20 Rx aerosol inhaler insulin degludec 100 unit/mL (3 10 - 20 unit SUB-Q DAILY 90 Days 04/25/20 05/03/20 Rx mL) subcutaneous pen #20 ml diltiazem HCl [DILT-XR] 240 mg PO DAILY 05/03/20 05/03/20 History hydralazine 50 mg PO Q8H 05/03/20 05/03/20 History Allergies Allergy/AdvReac Type Severity Reaction Status Date / Time lisinopril Allergy Unknown Verified 03/08/20 15:48 lorazepam AdvReac Unknown unknown Verified 03/08/20 15:48 ranitidine AdvReac Unknown unknown Verified 03/08/20 15:48 tocainide AdvReac Unknown unknown Veri
[2020-05-03] MEDS: SODIUM CHLORIDE 0.9% IV 1,000 ML 75 ML IV CONT (04:41)
[2020-05-03 05:44] LABS: Basophils Percent Auto 0.2 % (0.2-1.2); Hematocrit 31.9 % (42.0-52.0); Hemoglobin 9.6 g/dL (14.0-18.0); Immature Granulocyte Absolute 0.11 K/mm3 (0.00-0.031); Immature Granulocyte Percent A 0.8 % (0-0.5); Lymphocytes Absolute Auto 0.75 K/mm3 (0.9-3.2); Lymphocytes Percent Auto 5.6 % (18.3-44.2); Mean Corpuscular HGB Conc 30.1 g/dl (32-36); Mean Corpuscular Hemoglobin 27.9 pg (26-34); Mean Corpuscular Volume 92.7 fl (80-100); Mean Platelet Volume 9.3 fl (7.4-10.4); Monocytes Percent Auto 7.1 % (2.6-8.5); Neutrophils Absolute Auto 11.5 K/mm3 (1.3-6.7); Neutrophils Percent Auto 86.3 % (45.5-73.1); Platelet Count Result 236 k/mm3 (150-375); Red Blood Count 3.44 M/mm3 (4.6-6.20); Red Cell Distribution Width 14.3 % (11.5-14.5); White Blood Count 13.4 K/mm3 (4.5-10.0)
[2020-05-03 05:57] LABS: Blood Urea Nitrogen 69 mg/dL (9-20); Calcium 8.7 mg/dL (8.4-10.2); Carbon Dioxide 31 mmol/L (22-30); Chloride 101 mmol/L (98-107); Estimated CRCL calculation 20 ml/min; Estimated Glomerular Filt Rate 16; Glucose 160 mg/dL (75-110); Potassium 5.5 mmol/L (3.4-5.0); Sodium 137 mmol/L (137-145)
[2020-05-03 06:46] LABS: Glucose Point of Care 160 (65-105)
[2020-05-03] MEDS: PANTOPRAZOLE SODIUM IV 40 MG VIAL IV PUSH (08:23)
[2020-05-03] MEDS: SODIUM POLYSTYRENE SULFONONATE 15 GM/60 ML BTL PO (08:24)
--- NOTE | 2020-05-03 08:45 | PC.NURSE ---
Called patient's Luanne with updates on patient's status and plan of care for today. Per Luanne, patient can have episodes of confusion and lethargy at baseline. It is typical for patient to have some degree of confusion in morning and afternoon hours. Will call and notify surgeon and find out plan from surgery's standpoint.
--- NOTE | 2020-05-03 08:48 | PM.CNGS ---
Assessment and Plan Assessment and plan (1) Acute cholecystitis: Code(s): K81.0 - Acute cholecystitis Status: Acute Assessment and Plan: Patient is very lethargic this morning and not answering questions appropriately, white count slightly increased, continue antibiotics will check stat coags, set up for percutaneous cholecystostomy (2) Acute on chronic renal failure: Qualifiers: Acute renal failure type: unspecified Chronic kidney disease stage: stage 3 (moderate) Qualified Code(s): N17.9 - Acute kidney failure, unspecified; N18.3 - Chronic kidney disease, stage 3 (moderate) Code(s): N17.9 - Acute kidney failure, unspecified; N18.9 - Chronic kidney disease, unspecified Status: Acute Assessment and Plan: continue current management per primary team, last hemodialysis in 2018 (3) Type 2 diabetes mellitus with hyperglycemia: Qualifiers: Diabetes mellitus termite helper insulin use: with termite helper use Qualified Code(s): E11.65 - Type 2 diabetes mellitus with hyperglycemia; Z79.4 - termite helper (current) use of insulin Code(s): E11.65 - Type 2 diabetes mellitus with hyperglycemia Status: Chronic Assessment and Plan: continue current management per primary team (4) Essential hypertension: Code(s): I10 - Essential (primary) hypertension Status: Chronic Assessment and Plan: continue current management per primary team History of Present Illness Consult details Consult date: 05/03/20 Reason for consult: abdominal pain Requesting physician: Lobo Ruiz MD Narrative: The patient is a 80-year-old male with multiple medical issues including chronic renal failure, diabetes presenting to the hospital complaining of severe upper abdominal pain over the last 24-48 hours. The patient reports that the pain is mostly located in the middle and right upper abdomen. The patient reports that the pain had actually resolved overnight however, returned after eating some fast food. The patient reports associated bloating and nausea. The patient reports similar symptoms in the past, but never this severe. The patient is somewhat lethargic this morning, and is having difficulty answering questions. I did talk to his , she confirmed this is his baseline. Review of Systems Review of Systems: ROS unobtainable: Yes unobtainable due to mental status PMFSH Past Medical History Medical History A-fib Acute and chronic respiratory failure with hypoxia Acute hypercapnic respiratory failure due to obstructive sleep apnea Anemia Arthritis CKD (chronic kidney disease) Complex sleep apnea syndrome Diabetes Dialysis patient Diaphragm paralysis Diverticulitis DM II (diabetes mellitus, type II), controlled Early cataracts, bilateral GERD (gastroesophageal reflux disease) History of colon cancer History of hemodialysis History of inguinal hernia History of kidney stones Hx: UTI (urinary tract infection) Hypercholesteremia Hypertension BILL (obstructive sleep apnea) Pancreatitis Restrictive lung disease Surgical History Surgical History H/O arthroscopy of knee H/O prostatectomy History of appendectomy History of bladder surgery History of colonoscopy History of hemorrhoidectomy History of inguinal hernia repair History of local excision of skin lesion History of spinal surgery History of transurethral resection of prostate Hx of arthroscopic knee surgery Hx of colectomy Hx of tracheostomy Family History Family History Mother Family history of cardiovascular disease, Onset Age: 94 Acute myocardial infarction Father Malignant neoplasm of prostate Sibling Diabetes mellitus Acute myocardial infarction Other Hypertension Social History Social History (Reviewed 05/03/20 @ 08:55 by Kristi
--- NOTE | 2020-05-03 09:42 | PM.IMPN ---
Progress Note: A&P Assessment and Plan (1) Acute cholecystitis: Code(s): K81.0 - Acute cholecystitis Status: Acute Assessment and Plan: Patient presents with abdominal pain, nausea, and vomiting; CT abdomen shows acute cholecystitis. Appreciate general surgery recommendations - noted plan for perc cholecystostoomy tube this afternoon. NPO. Continue IV zosyn. Given lethargy I have ordered blood cultures but results may not be as sensitive since he has received antibiotics already. Leukocytosis improved today, will monitor. Pain control. (2) Acute on chronic renal failure: Qualifiers: Acute renal failure type: unspecified Chronic kidney disease stage: stage 3 (moderate) Qualified Code(s): N17.9 - Acute kidney failure, unspecified; N18.3 - Chronic kidney disease, stage 3 (moderate) Code(s): N17.9 - Acute kidney failure, unspecified; N18.9 - Chronic kidney disease, unspecified Status: Acute Assessment and Plan: Cr 3.6 this AM; was previously on hemodialysis per patient. 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 Monitor urine output and renal function. Avoid nephrotoxic agents. Renally dose medications. (3) Hyperkalemia: Code(s): E87.5 - Hyperkalemia Status: Acute Assessment and Plan: Hyperkalemia may be related to worsening renal function. Up to 5.5 this AM, given Kayexelate and monitor BMP. Check Mg in AM. (4) Chronic respiratory failure not affecting current episode of care: Code(s): J96.10 - Chronic respiratory failure, unspecified whether with hypoxia or hypercapnia Status: Chronic Assessment and Plan: Tolerating his home O2 requirement of 2L/min NC today. No evidence of respiratory distress. Continue bronchodilators prn. (5) Essential hypertension: Code(s): I10 - Essential (primary) hypertension Status: Chronic Assessment and Plan: Last ; home cardizem and oral hydralazine held due to NPO for procedure, will resume when he can have a diet. Hydralazine IV available PRN if needed. Monitor BP and adjust treatment as needed. (6) Anemia of chronic kidney failure: Qualifiers: Chronic kidney disease stage: stage 3 (moderate) Qualified Code(s): N18.3 - Chronic kidney disease, stage 3 (moderate); D63.1 - Anemia in chronic kidney disease Code(s): N18.9 - Chronic kidney disease, unspecified; D63.1 - Anemia in chronic kidney disease Status: Chronic Assessment and Plan: H&H low but stable. No evidence of acute bleeding. Monitor CBC and transfuse PRN. 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 NPO for procedure. Check A1c in AM. Subjective Date/time seen: 05/03/20 09:35 Interval history: Mr. Suarez is a 80yo M admitted due to acute cholecystitis. He is lethargic this morning, answers all of my questions appropriately but drifts to sleep in between. He describes abdominal pain but denies nausea or vomiting this morning. He tells me he wears 2L O2 at home and denies chest pain or SOB. Review of Systems Review of Systems: Narrative: Twelve systems were reviewed with pertinent positives and negatives as per HPI. Exam Narrative: Exam Narrative: General: Male resting sitting up in bed in no acute distress, trouble staying awake on my
[2020-05-03 10:12] LABS: INR 1.1; Prothrombin Time 13.9 Seconds (11.1-14.7)
[2020-05-03 10:13] LABS: Partial Thromboplastin Time 38.3 SECONDS (22.3-36.8)
--- NOTE | 2020-05-03 11:16 | PCOTNOTE ---
Attempted OT evaluation, Per RN pt is currently off the unit for a procedure. Will attempt at later time.
[2020-05-03 12:40] LABS: Glucose Point of Care 150 (65-105)
--- NOTE | 2020-05-03 13:01 | WPDANESEPPF ---
Anes - Initial Pre Proc Eval Procedure: Operation Date: 05/03/20 14:00 Proposed Procedures p Post Procedure Recovery- Abscess Drain Placement - Brannon Johnson MD Date/Time: 05/03/20 13:01 Surgeon: Lobo Ruiz MD Pre Op Diagnosis: cholecystitis Patient Data Age: 80 Gender: M Height: 6 ft Weight: 106.9 kg Last Vital Signs Temp 97.7 F 05/03/20 08:38 Pulse 64 05/03/20 08:38 Resp 16 05/03/20 08:38 BP 146/53 H 05/03/20 08:38 Pulse Ox 91 05/03/20 09:37 Allergies Allergy/AdvReac Type Severity Reaction Status Date / Time lisinopril Allergy Unknown Verified 03/08/20 15:48 lorazepam AdvReac Unknown unknown Verified 03/08/20 15:48 ranitidine AdvReac Unknown unknown Verified 03/08/20 15:48 tocainide AdvReac Unknown unknown Verified 03/08/20 15:48 Home Medications Medication Instructions Recorded Confirmed Type aspirin 81 mg tablet,delayed 81 mg PO DAILY 09/01/19 05/03/20 History release lutein 20 mg capsule 40 mg PO DAILY 09/01/19 05/03/20 History cholecalciferol (vitamin D3) 125 5,000 unit PO DAILY 12/13/19 05/03/20 History mcg (5,000 unit) capsule diltiazem HCl [DILT-XR] 240 mg PO DAILY 05/03/20 05/03/20 History hydralazine 50 mg PO Q8H 05/03/20 05/03/20 History insulin aspart U-100 [Novolog 5 - 15 unit SUBCUT 24XD 05/03/20 05/03/20 History Flexpen U-100 Insulin] insulin degludec [Tresiba 20 - 25 unit SUBCUT HS 05/03/20 05/03/20 History FlexTouch U-100] Laboratory Tests 05/02/20 05/02/20 05/02/20 22:02 22:02 23:12 WBC 13.2 K/mm3 H K/mm3 (4.5-10.0) RBC 3.30 M/mm3 L M/mm3 (4.6-6.20) Hgb 9.5 g/dL L g/dL (14.0-18.0) Hct 30.4 % L % (42.0-52.0) MCV 92.1 fl fl (80-100) MCH 28.8 pg pg (26-34) MCHC 31.3 g/dl L g/dl (32-36) RDW 14.2 % % (11.5-14.5) Plt Count 224 k/mm3 k/mm3 (150-375) MPV 8.8 fl fl (7.4-10.4) Immature Gran % (Auto) 0.5 % % (0-0.5) Neut % (Auto) 87.4 % H % (45.5-73.1) Lymph % (Auto) 5.3 % L % (18.3-44.2) Morris % (Auto) 6.2 % % (2.6-8.5) Eos % (Auto) 0.3 % % (0-4.4) Baso % (Auto) 0.3 % % (0.2-1.2) Lymph # (Auto) 0.70 K/mm3 L K/mm3 (0.9-3.2) Morris # (Auto) 0.8 K/mm3 H K/mm3 (0.1-0.6) Eos # (Auto) 0.0 K/mm3 K/mm3 (0-0.3) Baso # (Auto) 0.0 K/mm3 K/mm3 (0.0-0.1) Abs Immat Gran (auto) 0.07 K/mm3 H K/mm3 (0.00-0.031) Absolute Neuts (auto) 11.5 K/mm3 H K/mm3 (1.3-6.7) Absolute Nucleated RBC 0.0 K/mm3 K/mm3 (0.0-0.012) Nucleated RBC % 0.0 % % (0.0-0.2) PT INR APTT Sodium 136 mmol/L L mmol/L (137-145) Potassium 5.2 mmol/L H mmol/L (3.4-5.0) Chloride 100 mmol/L mmol/L (98-107) Carbon Dioxide 30 mmol/L mmol/L (22-30) BUN 59 mg/dL H mg/dL (9-20) Creatinine 3.70 mg/dL H mg/dL (0.7-1.3) Estim Creat Clear Calc 17 ml/min ml/min Estimated GFR 16 L (59 - ) Glucose 152 mg/dL H mg/dL (75-110) POC Capillary Glucose Calcium 9.0 mg/dL mg/dL (8.4-10.2) Total Bilirubin 0.9 mg/dL mg/dL (0.2-1.3) AST 23 U/L U/L (17-59) ALT 17 U/L U/L (4-50) Alkaline Phosphatase 116 U/L U/L (38-126) Total Protein 8.0 g/dL g/dL (6.3-8.2) Albumin 4.0 g/dL g/dL (3.5-5.1) Lipase 134 U/L U/L (23-300) Urine Color Yellow (Yellow) Urine Appearance Clear (Clear) Urine pH 5.0 (5.0-9.0) Ur Specific Thomas 1.016 (1.001-1.035) Urine Protein 2+ mg/dL H mg/dL (Negative) Urine Glucose (UA) Negative mg/dL mg/dL (Negative) Urine Ketones Negative mg/dL mg/dL (Negative) Ur Blood (Man) Negative (Negative
--- NOTE | 2020-05-03 14:40 | PM.CNNEP ---
Assessment and Plan Assessment and plan (1) FELIPE (acute kidney injury): Code(s): N17.9 - Acute kidney failure, unspecified Status: Acute (2) Chronic kidney disease, stage IV (severe): Code(s): N18.4 - Chronic kidney disease, stage 4 (severe) Status: Chronic (3) Hyperkalemia: Code(s): E87.5 - Hyperkalemia Status: Acute (4) Acute cholecystitis: Code(s): K81.0 - Acute cholecystitis Status: Acute (5) Essential hypertension: Code(s): I10 - Essential (primary) hypertension Status: Chronic (6) Diabetes: Code(s): E11.9 - Type 2 diabetes mellitus without complications Status: Chronic (7) Anemia: Code(s): D64.9 - Anemia, unspecified Status: Acute Assessment and Plan: . Additional Plan Jose Miguel has suffered an acute insult on top of his baseline kidney disease. I suspect his acute insult is more related to his recently diagnosed acute cholecystitis perhaps worsened by some prerenal factors as I am unclear how well he was eating and drinking prior to admission. I suppose there could be some component of disease progression given his known chronic kidney disease but when he last saw Dr. White in clinic approximately three months ago, his kidney function had been relatively stable at around 2.8-2.9 mg/dL. For further evaluation of his acute kidney injury, I will check a renal ultrasound, check urine electrolytes, and follow the trend of his urine output and repeat labs. Given the severity of his kidney disease at baseline with a GFR in the 20s, there is a possibility that he may require renal replacement therapy/dialysis again although it is difficult to say if it will be temporary as it was two years ago versus chronic since his kidney function may not recover. I will continue follow the patient with you while he was hospitalized make further recommendations during his hospital course. Thank you for allowing me to participate in the care this patient. History of Present Illness Reason for Consult Consult date: 05/03/20 Reason for consult: acute renal failure (on chronic kidney disease stage IV) Chief Complaint Chief complaint: cholecystitis History of Present Illness Narrative: All of the information I have obtain has been from review of the electronic medical record as well as discussion with physicians and nurses involved in his care as the patient is unable to provide me any meaningful history due to his current clinical status/mentation. The patient is a 80 year old male with and extensive past medical history as outlined below who presented to [facility] ER with complaints of right upper quadrant abdominal pain. The patient's abdominal pain started almost immediately after he had some fast food and described it as a stabbing sensation localized to the epigastric area as well as the right upper quadrant with radiation to his back and right shoulder. Associated symptoms included nausea but no fever, chills, vomiting, chest pain, hematuria, or dysuria.As the symptoms seem to be progressively getting worse, he presented to the hospital ER for further evaluation. Workup and evaluation in the emergency room demonstrated the patient to be hemodynamically stable but routine labs demonstrated a mild leukocytosis As well as an elevated BUN and creatinine above his baseline. A CT scan of the abdomen and pelvis demonstrated evidence of acute cholecystitis. Appropriate cultures were obtained and he was started on IV antibiotic therapy and general surgery was consulted for further evaluation of this finding. He was subsequent admitted the hospital for further evaluation and therapy. Since his admission, he has been seen by General surgery and he is tentatively on schedule for placement of a cholecystectomy tube for decompression of his gallbladder later today. Renal consultation was requested due to his acute kidney injury on top of his ba
--- NOTE | 2020-05-03 15:15 | PC.NURSE ---
Patient to CT via stretcher for CT guided abscess catheter placement.
[2020-05-03 17:06] LABS: Glucose Point of Care 169 (65-105)
[2020-05-03] MEDS: NALOXONE HCL 0.4 MG/ML VIAL 0.2 MG IV PUSH (17:06)
--- NOTE | 2020-05-03 17:16 | SUR.PHASEI ---
1715: Dr. Ross called to come observe patient for a higher level of care.
--- NOTE | 2020-05-03 17:17 | SUR.PHASEI ---
Anesthesia at the bedside when patient arrived to recovery. Patient had a nasal airway present and was wearing a simple mask w/ 10L O2. He was only sating at 91% and belly breathing. Patient was very lethargic and arousable only for a brief second with a sternal rub. RN checked BG and it was 169. Patient was then given 0.5mL of Narcan. Until the Bipap arrived, anesthesia was bagging the patient. Patient was more alert after the Narcan and stated, I can't breathe! The Bipap was applied by respiratory and stat chest x-ray was taken. The settings on the Bipap are 15/5; Rate=10; and 50% FIO2.
--- NOTE | 2020-05-03 18:14 | PM.IMPN ---
Subjective Date/time seen: 05/03/20 18:14 Interval history: Mr. Suarez is a 80yo M admitted due to acute cholecystitis. pt sob in recovery started on bipap abg ordered, cxr shows left sided pneumonia. pt needed narcan presently on bipap. transfer to imu order abg, bc and start iv abx pt seen and examined post op rrr chest decreased bs bl abdo post op cholecystitis tender abdo legs non edematous Objective Data Vital Signs Vital Signs: Vital Signs - 24 hr 05/02/20 21:47 05/02/20 22:59 05/02/20 23:41 Temperature 37.1 C Pulse Rate 71 80 84 Respiratory Rate 19 20 15 Blood Pressure 177/53 H 195/58 H 199/64 H Pulse Oximetry 94 94 92 05/03/20 00:08 05/03/20 00:46 05/03/20 01:00 Temperature 36.2 C L Pulse Rate 78 82 80 Respiratory Rate 18 15 16 Blood Pressure 164/85 H 161/54 H 180/60 H Pulse Oximetry 90 90 95 05/03/20 06:00 05/03/20 08:38 05/03/20 09:37 Temperature 36.8 C 36.5 C Pulse Rate 76 64 Respiratory Rate 18 16 Blood Pressure 141/50 H 146/53 H Pulse Oximetry 96 91 91 05/03/20 14:00 05/03/20 17:10 05/03/20 17:15 Temperature 36.2 C L Pulse Rate 62 69 69 Respiratory Rate 16 22 H 19 Blood Pressure 153/36 H 178/55 H Pulse Oximetry 99 98 98 Intake/Output Intake/Output: Intake & Output 04/30/20 05/01/20 05/02/20 05/03/20 23:59 23:59 23:59 23:59 Intake Total 150 Output Total 300 Balance -150 Meds/Results Medications: Active Medications Generic Name Dose Route Start Last Admin Trade Name Freq PRN Reason Stop Dose Admin Albuterol 2.5 mg 05/03/20 03:24 Albuterol Sulf Neb 2.5mg/0.5ml INHALATION Q6HRT PRN Shortness Of Breath Albuterol 1 puff 05/03/20 08:00 Proventil Hfa INHALATION Q4HRT ALEX Dextrose 12.5 gm 05/03/20 00:52 Dextrose 50% Syringe IV PUSH PRN PRN Hypoglycemia Protocol Glucagon 1 mg 05/03/20 00:52 Glucagon For Inj IM PRN PRN Hypoglycemia Protocol Hydralazine HCl 10 mg 05/03/20 07:20 Apresoline Hcl Inj IV PUSH Q8H PRN Blood Pressure - High Acetaminophen 1,000 mg in 100 mls @ 400 mls/hr 05/02/20 23:58 Ofirmev 1,000 Mg Ivpb IVPB 05/03/20 23:59 Q6H PRN Mild Pain (1-3) or Fever Piperacillin Sod/Tazobactam Sod 2.25 gm in 50 mls @ 100 mls/hr 05/03/20 07:00 05/03/20 14:08 Zosyn 2.25 Gm/D5w 50 Ml IVPB Infused Q8HR ALEX Infusion Dextrose 1,000 mls @ 100 mls/hr 05/03/20 00:52 Dextrose 5% 1,000 Ml IVPB PRN PRN Hypoglycemia Protocol Sodium Chloride 1,000 mls @ 75 mls/hr 05/03/20 00:55 05/03/20 04:41 Normal Saline Iv IV CONT 75 mls/hr .[id number] ALEX Administration Lactated Ringer's 1,000 mls @ 30 mls/hr 05/03/20 15:25 Lr - Lactated Ringers Iv IV CONT .Q24H ALEX Insulin Aspart 2 - 5 units 05/03/20 06:00 05/03/20 12:38 Novolog SUB-Q Not Given Q6HR ALEX Protocol Morphine Sulfate 2 mg 05/03/20 07:22 Morphine Sulfate Inj IV PUSH Q4H PRN Pain Rated 7-10 Ondansetron HCl 4 mg 05/02/20 23:58 Zofran Inj IV PUSH Q4H PRN Nausea Pantoprazole Sodium 40 mg 05/03/20 09:00 05/03/20 08:23 Protonix Iv IV PUSH 40 mg QAM ALEX Administration Radiology Results: ITS Impressions Abdomen/Pelvis CT 05/02/20 22:55 IMPRESSION: 1. Acute cholecystitis. Abdomen Ultrasound 05/03/20 12:33 IMPRESSION: 1. Acute cholecystitis with no safe approach to the gallbladder identified on the geek squad manager ultrasound for planned ultrasound-guided cholecystostomy tube placement which was deferred. Cholecystostomy tube placement will be attempted utilizing CT guidance. Head CT 05/03/20 16:04 IMPRESSION: 1. Normal aging brain. Sensitivity is decreased by motion artifact. Catheter Placement CT 05/03/20 17:08 IMPRESSION: 1. Successful CT-guided percutaneous cholecystostomy tube placement. 2. Deep mL fluid was sent for aerobic and anaerobic cultures. 3. The catheter will be
[2020-05-03 18:31] LABS: Alveolar/Arterial O2 Gradient 185.3 mmHg; Base Excess ABG -3.3 mEq/l (+/-2.0); Fractional Inspired Oxygen 50 %; HCO3 ABG 28.2 mEq/l (22.0-26.0); Oxygen Content ABG 14.3 %vol (16.0-22.0); Oxyhemoglobin 89.5 % THb (90.0-100.0); PO2 ABG 65.8 mmHg (80.0-100.0); PO2 FiO2 Ratio Arterial Blood 1.32 %; Total Hemoglobin 11.3 g/dL (12.0-18.0)
[2020-05-03 18:36] LABS: Oxygen Saturation ABG 83.4 % (95.0-100.0); PCO2 ABG 93.7 mmHg (35.0-45.0); pH ABG 7.096 (7.350-7.450)
[2020-05-03 18:37] LABS: Device NON-INVASIVE VENT; Modified Allen's Test Pass; Non-Invasive Expiratory Pressure 5 CMH2O; Non-Invasive Inspiratory Pressure 15 CMH2O; Non-Invasive Vent Rate 10 /MIN; Site Drawn LEFT RADIAL
--- NOTE | 2020-05-03 18:55 | SUR.PHASEI ---
174: Dr. Ross returned RN's call and came down to see the patient in PACU a little later. She put in orders for a STAT ABG.
--- NOTE | 2020-05-03 19:25 | SUR.PHASEI ---
0: Called Luanne to get consent for patient to be intubated in PACU and sent to ICU. YUDI Conti Verified as well.
--- NOTE | 2020-05-03 19:33 | PC.NURSE ---
Pt significant other, Luanne & David villavicencio notified that patient is being intubated & will be transferred to ICU.
--- NOTE | 2020-05-03 19:45 | SUR.PHASEI ---
1939: PATIENT INTUBATED IN RECOVERY AND TRANSFERRED TO ICU BED 9.
--- NOTE | 2020-05-03 19:50 | PC.NURSE ---
This patient, Jose Miguel Kristi Suarez Sr., was received from [[id number] ] on 05/03/20 at 1950. Personal belongings list checked and signed. Patient/family oriented to unit policies and routines
--- NOTE | 2020-05-03 19:50 | PCDIET ---
This patient, Jose Miguel Kristi Suarez Sr., was received from [ [id number]] on 05/03/20 at 1950. Personal belongings list checked and signed. Patient/family oriented to unit policies and routines
--- NOTE | 2020-05-03 19:56 | WPDPROCEDUR ---
Procedures Intubation Intubation Date: 05/03/20 Intubation Time: 19:45 Consent: Consent given from POA A pre-procedural Time-Out was completed immediately before starting the procedure and confirmed: Patient Identification, Site, Procedure, Patient Position and the Availability of Requisite Equipment: Yes Sedative: other (propofol) Mg given: 100 Paralytic: succinylcholine Mg given: 100 Laryngoscope: other (Glidescope 4) ET tube size: 7.5 Tube secured depth (cm): 23 Tube secured location: teeth Tube placement confirmation: visualized tube passing through cords, equal breath sounds bilaterally and no breath sounds over epigastrium Patient tolerated procedure: no complications Intubation complications: difficult intubation (First attempt with MAC 4 blade provided a grade 4 view, very limited extension on neck. Glidescope 4 provided full grade 1 view and easy intubation.)
[2020-05-03] MEDS: MIDAZOLAM HCL 2 MG/2 ML VIAL 4 MG IV PUSH (20:55)
[2020-05-03 21:00] LABS: Glucose Point of Care 164 (65-105)
[2020-05-03] MEDS: MORPHINE SULFATE 2 MG/ML INJ IV PUSH (21:01)
[2020-05-03 21:34] LABS: Alveolar/Arterial O2 Gradient 426.1 mmHg; Base Excess ABG -1.8 mEq/l (+/-2.0); Carboxyhemoglobin 0.4 % THb (0-2.0); Fractional Inspired Oxygen 100 %; HCO3 ABG 26.9 mEq/l (22.0-26.0); Methemoglobin ABG 0.5 %THb (0-1.5); Oxygen Content ABG 18.7 %vol (16.0-22.0); Oxygen Saturation ABG 99.3 % (95.0-100.0); Oxyhemoglobin 97.9 % THb (90.0-100.0); PO2 ABG 222.1 mmHg (80.0-100.0); PO2 FiO2 Ratio Arterial Blood 2.22 %; Reduced Hemoglobin 1.2 %THb (0-5.0); Total Hemoglobin 13.2 g/dL (12.0-18.0)
[2020-05-03 21:37] LABS: pH ABG 7.236 (7.350-7.450)
[2020-05-03 21:38] LABS: Arterial Blood Gas Vent Mode CMV; Arterial Blood Gas Ventilator rate 15 /MIN; Device VENTILATOR; Modified Allen's Test Pass; PCO2 ABG 64.8 mmHg (35.0-45.0); Site Drawn LEFT RADIAL
[2020-05-03 21:39] LABS: Arterial Blood Gas PEEP 5 cmH2O; Arterial Blood Gas Pressure Support 0 cmH2O; Arterial Blood Gas Tidal Volume 450 ml
[2020-05-04] VITALS (32 sets, daily range): BP systolic 120–149; BP diastolic 56–68; PULSE 51–69; RESP 17–20; TEMP 36.4–37.3; O2SAT 100
[2020-05-04 00:28] LABS: Alveolar/Arterial O2 Gradient 220.2 mmHg; Base Excess ABG 1.1 mEq/l (+/-2.0); Carboxyhemoglobin 0.3 % THb (0-2.0); Fractional Inspired Oxygen 60 %; Methemoglobin ABG 0.6 %THb (0-1.5); Oxygen Content ABG 13.4 %vol (16.0-22.0); Oxygen Saturation ABG 99.2 % (95.0-100.0); Oxyhemoglobin 97.5 % THb (90.0-100.0); PCO2 ABG 36.4 mmHg (35.0-45.0); PO2 ABG 167.6 mmHg (80.0-100.0); PO2 FiO2 Ratio Arterial Blood 2.79 %; Reduced Hemoglobin 1.6 %THb (0-5.0); Total Hemoglobin 9.5 g/dL (12.0-18.0); pH ABG 7.454 (7.350-7.450)
[2020-05-04 00:29] LABS: Arterial Blood Gas Vent Mode CMV; Arterial Blood Gas Ventilator rate 19 /MIN; Device VENTILATOR; Modified Allen's Test Pass; Site Drawn RIGHT RADIAL
[2020-05-04 00:30] LABS: Arterial Blood Gas PEEP 5 cmH2O; Arterial Blood Gas Pressure Support 0 cmH2O; Arterial Blood Gas Tidal Volume 450 ml
[2020-05-04 01:25] LABS: Glucose Point of Care 142 (65-105)
[2020-05-04 04:24] LABS: Alveolar/Arterial O2 Gradient 218.6 mmHg; Arterial Blood Gas Ventilator rate 19 /MIN; Base Excess ABG 1.3 mEq/l (+/-2.0); Device VENTILATOR; Fractional Inspired Oxygen 50 %; HCO3 ABG 24.1 mEq/l (22.0-26.0); Modified Allen's Test Pass; Oxygen Content ABG 18.8 %vol (16.0-22.0); PCO2 ABG 32.7 mmHg (35.0-45.0); PO2 ABG 101.1 mmHg (80.0-100.0); PO2 FiO2 Ratio Arterial Blood 2.02 %; Site Drawn LEFT RADIAL; Total Hemoglobin 13.7 g/dL (12.0-18.0); pH ABG 7.485 (7.350-7.450)
[2020-05-04 04:25] LABS: Arterial Blood Gas PEEP 5 cmH2O; Arterial Blood Gas Tidal Volume 450 ml; Arterial Blood Gas Vent Mode CMV
[2020-05-04 04:51] LABS: Basophils Percent Auto 0.1 % (0.2-1.2); Hematocrit 25.4 % (42.0-52.0); Hemoglobin 8.2 g/dL (14.0-18.0); Immature Granulocyte Absolute 0.03 K/mm3 (0.00-0.031); Immature Granulocyte Percent A 0.3 % (0-0.5); Lymphocytes Absolute Auto 0.31 K/mm3 (0.9-3.2); Lymphocytes Percent Auto 3.3 % (18.3-44.2); Mean Corpuscular HGB Conc 32.3 g/dl (32-36); Mean Corpuscular Hemoglobin 28.7 pg (26-34); Mean Corpuscular Volume 88.8 fl (80-100); Mean Platelet Volume 9.7 fl (7.4-10.4); Monocytes Absolute Auto 0.6 K/mm3 (0.1-0.6); Monocytes Percent Auto 6.8 % (2.6-8.5); Neutrophils Absolute Auto 8.5 K/mm3 (1.3-6.7); Neutrophils Percent Auto 89.5 % (45.5-73.1); Platelet Count Result 181 k/mm3 (150-375); Red Blood Count 2.86 M/mm3 (4.6-6.20); Red Cell Distribution Width 14.1 % (11.5-14.5); White Blood Count 9.5 K/mm3 (4.5-10.0)
[2020-05-04 04:54] LABS: Glucose Point of Care 154 (65-105)
[2020-05-04 05:03] LABS: Alanine Aminotransferase 19 U/L (4-50); Albumin Level 3.3 g/dL (3.5-5.1); Alkaline Phosphatase 70 U/L (38-126); Aspartate Amino Transferase 20 U/L (17-59); Bilirubin,Total 1.4 mg/dL (0.2-1.3); Blood Urea Nitrogen 76 mg/dL (9-20); Calcium 8.5 mg/dL (8.4-10.2); Carbon Dioxide 27 mmol/L (22-30); Chloride 101 mmol/L (98-107); Estimated CRCL calculation 17 ml/min; Estimated Glomerular Filt Rate 13; Glucose 164 mg/dL (75-110); Magnesium 2.5 mg/dL (1.6-2.3); Potassium 5.1 mmol/L (3.4-5.0); Sodium 135 mmol/L (137-145)
[2020-05-04 05:22] LABS: Hemoglobin A1C 5.7 % (<5.7)
[2020-05-04] MEDS: SODIUM CHLORIDE 0.9% IV 1,000 ML 999 ML IV CONT (08:31)
[2020-05-04] MEDS: PANTOPRAZOLE SODIUM IV 40 MG VIAL IV PUSH (08:31)
--- NOTE | 2020-05-04 09:12 | WPDCNINT ---
Assessment and Plan Assessment and plan (1) Acute and chronic respiratory failure with hypercapnia: Code(s): J96.22 - Acute and chronic respiratory failure with hypercapnia Status: Acute Assessment and Plan: Patient with acute hypercapnic respiratory failure post cholecystostomy tube placement normal could be related to sedation and pain medication. Patient failed BiPAP and was intubated on 05/03/2020 -chest x-ray and ABGs reviewed. Hypercapnia has resolved, patient with peep of 5 and 50% FiO2, -wean FiO2 and decreased respiratory rate -continue bronchodilators -patient on vancomycin and Zosyn -on fentanyl and Versed for sedation, maintain RASS of 0 to -2, daily sedation vacation (2) Acute cholecystitis: Code(s): K81.0 - Acute cholecystitis Status: Acute Assessment and Plan: Patient presented with abdominal pain with nausea. CT scan of the abdomen and pelvis revealed acute cholecystitis -status post cholecystostomy drain placement on 05/03/2020 -WBC count has normalized -continue vancomycin and Zosyn (3) Acute on chronic renal failure: Qualifiers: Acute renal failure type: unspecified Chronic kidney disease stage: stage 3 (moderate) Qualified Code(s): N17.9 - Acute kidney failure, unspecified; N18.3 - Chronic kidney disease, stage 3 (moderate) Code(s): N17.9 - Acute kidney failure, unspecified; N18.9 - Chronic kidney disease, unspecified Status: Acute Assessment and Plan: Patient with acute on chronic kidney disease, baseline creatinine of 2.8-2.9 per nephrology note. -patient with severe sepsis, not adequately fluid-resuscitated -will give additional IV fluid bolus of 1 L today -continue maintenance IV fluids -nephrology following the patient -right upper quadrant ultrasound has been ordered and pending (4) Hyperkalemia: Code(s): E87.5 - Hyperkalemia Status: Acute Assessment and Plan: Hyperkalemia improving after Kayexalate (5) Essential hypertension: Code(s): I10 - Essential (primary) hypertension Status: Chronic Assessment and Plan: Patient with history of essential hypertension, blood pressures have been stable (6) Type 2 diabetes mellitus with hyperglycemia: Qualifiers: Diabetes mellitus termination clerk insulin use: with shelter use Qualified Code(s): E11.65 - Type 2 diabetes mellitus with hyperglycemia; Z79.4 - termite inspector (current) use of insulin Code(s): E11.65 - Type 2 diabetes mellitus with hyperglycemia Status: Chronic Assessment and Plan: Continue sliding scale insulin and Accu-Cheks (7) Anemia: Code(s): D64.9 - Anemia, unspecified Status: Acute Assessment and Plan: Anemia likely related to chronic kidney disease -will check stool for occult blood and iron panel along with folic acid and vitamin B12 -continue to monitor hemoglobin, transfuse as needed (8) DVT prophylaxis: Code(s): Z29.9 - Encounter for prophylactic measures, unspecified Status: Acute Assessment and Plan: SCDs Additional Plan Will discuss with family and updated them with patient's condition and plan of care Code status: Full code Critical care time spent: 47 minutes Due to a high probability of clinically significant, life threatening deterioration, the patient required my highest level of preparedness to intervene emergently and I personally spent this critical care time directly and personally managing the patient. This critical care time included obtaining a history; examining the patient; pulse oximetry; ordering and review of studies; arranging urgent treatment with development of a management plan; evaluation of patient's response to treatment; frequent reassessment; and discussions with other providers. It was exclusive of separately billable procedures and treating other patients and teaching time. Please see Assessment and Plan section and the rest of the note for fu
--- NOTE | 2020-05-04 09:25 | PCOTNOTE ---
D/C from OT at this time due to severe decline in medical status. Patient transferred to ICU and intubated at this time. OT evaluation will be completed when medically appropriate.
[2020-05-04] MEDS: SODIUM CHLORIDE 0.9% IV 1,000 ML 75 ML IV CONT (09:42)
--- NOTE | 2020-05-04 09:49 | PM.PNGS ---
Progress Note: A&P Assessment and Plan (1) Acute cholecystitis: Code(s): K81.0 - Acute cholecystitis Status: Acute Assessment and Plan: cholecystostomy tube in place and draining. This should alleviate the acute cholecystitis. Continue to gravity drainage. (2) Acute and chronic respiratory failure with hypercapnia: Code(s): J96.22 - Acute and chronic respiratory failure with hypercapnia Status: Acute Assessment and Plan: Continue critical care management per Medical Services. Subjective Subjective Date/Time Seen: 05/04/20 09:49 Interval history: Unable to obtain as patient developed respiratory failure after is cholecystostomy tube was placed yesterday. He is sedated and on mechanical ventilation in the ICU. Cholecystostomy tube was able to be placed using CT guidance. Review of Systems Review of Systems: ROS unobtainable: Yes unobtainable due to endotracheal tube Exam GI: Inspection: non-distended and other ( Cholecystostomy tube in place, draining bile) GI Palp: Yes Soft to palpation and No Tenderness to palpation present (GI) ( patient sedated unable to determine) Auscultation: Hypoactive bowel sounds present Objective Data Vital Signs Vital Signs: Vital Signs - 24 hr 05/03/20 14:00 05/03/20 17:10 05/03/20 17:15 Temperature 36.2 C L Pulse Rate 62 69 69 Respiratory Rate 16 22 H 19 Blood Pressure 153/36 H 178/55 H Pulse Oximetry 99 98 98 05/03/20 17:30 05/03/20 17:45 05/03/20 18:00 Temperature Pulse Rate 65 64 63 Respiratory Rate 23 H 23 H 25 H Blood Pressure 166/50 H 161/54 H 160/53 H Pulse Oximetry 98 97 94 05/03/20 18:15 05/03/20 18:30 05/03/20 18:45 Temperature Pulse Rate 64 68 68 Respiratory Rate 20 24 H 24 H Blood Pressure 151/50 H 163/48 H 168/58 H Pulse Oximetry 96 97 96 05/03/20 20:00 05/03/20 20:07 05/03/20 22:00 Temperature 36.6 C Pulse Rate 61 64 63 Respiratory Rate 16 21 H Blood Pressure 178/61 H 129/67 Pulse Oximetry 100 100 100 05/03/20 22:20 05/04/20 00:00 05/04/20 01:57 Temperature 37.3 C Pulse Rate 66 62 68 Respiratory Rate 20 Blood Pressure 133/68 Pulse Oximetry 100 100 05/04/20 01:58 05/04/20 04:00 05/04/20 04:31 Temperature 36.6 C Pulse Rate 68 67 67 Respiratory Rate 19 19 Blood Pressure 134/62 137/60 Pulse Oximetry 100 100 100 05/04/20 06:00 05/04/20 08:00 05/04/20 08:23 Temperature 37.0 C Pulse Rate 66 68 67 Respiratory Rate 19 19 Blood Pressure 136/68 149/64 H Pulse Oximetry 100 100 100 05/04/20 09:26 Temperature Pulse Rate 62 Respiratory Rate 17 Blood Pressure Pulse Oximetry Intake/Output Intake/Output: Intake & Output 05/01/20 05/02/20 05/03/20 05/04/20 23:59 23:59 23:59 23:59 Intake Total 400 949 Output Total 380 730 Balance 20 219 Meds/Results Medications: Active Medications Generic Name Dose Route Start Last Admin Trade Name Freq PRN Reason Stop Dose Admin Albuterol 2.5 mg 05/04/20 14:00 Albuterol Sulf Neb 2.5mg/0.5ml INHALATION Q6HRT ALEX Dextrose 12.5 gm 05/03/20 00:52 Dextrose 50% Syringe IV PUSH PRN PRN Hypoglycemia Protocol Glucagon 1 mg 05/03/20 00:52 Glucagon For Inj IM PRN PRN Hypoglycemia Protocol Hydralazine HCl 10 mg 05/03/20 07:20 Apresoline Hcl Inj IV PUSH Q8H PRN Blood Pressure - High Piperacillin Sod/Tazobactam Sod 2.25 gm in 50 mls @ 100 mls/hr 05/03/20 07:00 05/04/20 05:35 Zosyn 2.25 Gm/D5w 50 Ml IVPB Infused Q8HR ALEX Infusion Dextrose 1,000 mls @ 100 mls/hr 05/03/20 00:52 Dextrose 5% 1,000 Ml IVPB PRN PRN Hypoglycemia Protocol Azithromycin 250 mg/ Dextrose 250 mls @ 250 mls/hr 05/03/20 20:00 05/03/20 23:30 IVPB Infused Q24H ALEX Infusion Midazolam HCl 50 mg in 100 mls @ 6 mls/hr 05/03/20 20:15 07/18/20 09:26 Versed 50 Mg/D5w 100 Ml IV CONT 3 mg/hr .[id number] ALEX 6 mls/hr Admin
--- NOTE | 2020-05-04 09:53 | PCPTNOTE ---
Patient has experienced a significant decline in his medical situation...he is now on the ICU and intubated...he will be d/c'd from PT...we will happy to re-evaluate this patient again as circumstances permit
[2020-05-04 11:42] LABS: Folic Acid 6.6 ng/mL (2.76->20)
[2020-05-04 11:48] LABS: Glucose Point of Care 116 (65-105)
[2020-05-04 11:48] LABS: Iron 13 ug/dL (49-181)
[2020-05-04 11:58] LABS: Percent Iron Saturation 6 % (20-50)
--- NOTE | 2020-05-04 12:36 | PM.PNNEP ---
Progress Note: A&P Assessment and Plan (1) FELIPE (acute kidney injury): Code(s): N17.9 - Acute kidney failure, unspecified Status: Acute Assessment and Plan: suspect due to acute infection (cholecystitis) on top of possible pre-renal factors urine electrolytes pending renal ultrasound without hydronephrosis still making urine agree with trial of IVFs (2) Chronic kidney disease, stage IV (severe): Code(s): N18.4 - Chronic kidney disease, stage 4 (severe) Status: Chronic Assessment and Plan: baseline creatinine ~ 2.8 - 2.9mg/dl from review of outpatient records due to diabetes, hypertension, and BILL (3) Hyperkalemia: Code(s): E87.5 - Hyperkalemia Status: Acute Assessment and Plan: resolving likely due to #1 (4) Acute cholecystitis: Code(s): K81.0 - Acute cholecystitis Status: Acute Assessment and Plan: General Surgery following s/p cholecystectomy tube placement continue antibiotics (5) Essential hypertension: Code(s): I10 - Essential (primary) hypertension Status: Chronic Assessment and Plan: stable hemodynamics at this time follow trend (6) Anemia: Code(s): D64.9 - Anemia, unspecified Status: Acute Assessment and Plan: due to acute illness and CKD follow trend of H/H consider Epogen if H/H falls further (7) Diabetes: Code(s): E11.9 - Type 2 diabetes mellitus without complications Status: Chronic Assessment and Plan: follow accuchecks on SSI Will continue to follow. Subjective Date/time seen: 05/04/20 12:36 Events noted yesterday afternoon/evening -- s/p cholecystectomy tube placement but following procedure, appeared more lethargic and short of breath; ABG with significant CO2 retention so attempted BiPAP but failed this intervention and patient subsequently intubated; no distress at this time and discussed case with family at bedside. Exam Narrative: Exam Narrative: General: WD/WN male in NAD; intubated and sedated Heart: normal S1 and S2; no rub Lungs: decreased at tje faser Abdomen: soft, nontender, nondistended, positive bowel sounds Extremities: no cyanosis or clubbing; no edema Skin: warm and dry Objective Data Vital Signs Vital Signs: Vital Signs Temp Pulse Resp BP Pulse Ox 05/04/20 12:00 36.7 C 69 17 147/63 H 100 05/04/20 11:33 60 17 05/04/20 11:25 62 17 05/04/20 10:00 62 17 146/60 H 100 05/04/20 09:26 62 17 05/04/20 08:23 67 100 05/04/20 08:00 37.0 C 68 19 149/64 H 100 05/04/20 06:00 66 19 136/68 100 05/04/20 04:31 67 100 05/04/20 04:00 36.6 C 67 19 137/60 100 05/04/20 01:58 68 19 134/62 100 05/04/20 01:57 68 05/04/20 00:00 37.3 C 62 20 133/68 100 05/03/20 22:20 66 100 05/03/20 22:00 63 21 H 129/67 100 05/03/20 20:07 64 100 05/03/20 20:00 36.6 C 61 16 178/61 H 100 05/03/20 18:45 68 24 H 168/58 H 96 05/03/20 18:30 68 24 H 163/48 H 97 05/03/20 18:15 64 20 151/50 H 96 05/03/20 18:00 63 25 H 160/53 H 94 05/03/20 17:45 64 23 H 161/54 H 97 05/03/20 17:30 65 23 H 166/50 H 98 05/03/20 17:15 69 19 178/55 H 98 05/03/20 17:10 69 22 H 98 05/03/20 14:00 36.2 C L 62 16 153/36 H 99 Intake/Output Intake/Output: Intake & Output 05/01/20 05/02/20 05/03/20 05/04/20 23:59 23:59 23:59 23:59 Intake Total 400 2010 Output Total 380 730 Balance 20 1280 Meds/Results Medications: Active Medications Generic Name Dose Route Start Last Admin Trade Name Freq PRN Reason Stop Dose Admin Albuterol 2.5 mg 05/04/20 14:00 Albuterol Sulf Neb 2.5mg/0.5ml INHALATION Q6HRT [facility] Dextrose 12.5 gm 05/03/20 00:52 Dextrose 50% Syringe IV PUSH PRN PRN Hypoglycemia Protocol Glucagon 1 mg 05/03/20 00:52 Glucagon For Inj IM PRN PRN Hy
[2020-05-04] MEDS: ALBUTEROL SULFATE NEB 2.5 MG/0.5 ML INH INHALATION ×2 (15:12→19:45)
[2020-05-04] MEDS: IPRATROPIUM BR 0.02% INH SOLN 0.5 MG/2.5 ML VIAL INHALATION ×2 (15:13→19:45)
--- NOTE | 2020-05-04 15:55 | PM.IMPN ---
Progress Note: A&P Assessment and Plan (1) Acute cholecystitis: Code(s): K81.0 - Acute cholecystitis Status: Acute Assessment and Plan: Patient presents with abdominal pain, nausea, and vomiting; CT abdomen shows acute cholecystitis. perc cholecystostoomy tube placed 05/03 Continue IV zosyn and vancomycin. WBC now normal (2) Acute on chronic renal failure: Qualifiers: Acute renal failure type: unspecified Chronic kidney disease stage: stage 3 (moderate) Qualified Code(s): N17.9 - Acute kidney failure, unspecified; N18.3 - Chronic kidney disease, stage 3 (moderate) Code(s): N17.9 - Acute kidney failure, unspecified; N18.9 - Chronic kidney disease, unspecified Status: Acute Assessment and Plan: Cr 4.3 this AM; was previously on hemodialysis per patient. Monitor urine output and renal function. Nephrology seeing and renal sonogram from today pending. (3) Hyperkalemia: Code(s): E87.5 - Hyperkalemia Status: Acute Assessment and Plan: Hyperkalemia may be related to worsening renal function. Up to 5.1 this AM, (4) Essential hypertension: Code(s): I10 - Essential (primary) hypertension Status: Chronic Assessment and Plan: Last ; home cardizem and oral hydralazine held, . Hydralazine IV available PRN if needed. Monitor BP and adjust treatment as needed. (5) Anemia of chronic kidney failure: Qualifiers: Chronic kidney disease stage: stage 3 (moderate) Qualified Code(s): N18.3 - Chronic kidney disease, stage 3 (moderate); D63.1 - Anemia in chronic kidney disease Code(s): N18.9 - Chronic kidney disease, unspecified; D63.1 - Anemia in chronic kidney disease Status: Chronic Assessment and Plan: H&H low but stable. No evidence of acute bleeding. Monitor CBC and transfuse PRN. (6) Type 2 diabetes mellitus with hyperglycemia: Qualifiers: Diabetes mellitus termite control servicer insulin use: with termite control servicer use Qualified Code(s): E11.65 - Type 2 diabetes mellitus with hyperglycemia; Z79.4 - exterminator helper termite (current) use of insulin Code(s): E11.65 - Type 2 diabetes mellitus with hyperglycemia Status: Chronic Assessment and Plan: Monitor accu-cheks and cover with SSI for now. NPO for procedure. A1c only 5.7. (7) Acute and chronic respiratory failure with hypercapnia: Code(s): J96.22 - Acute and chronic respiratory failure with hypercapnia Status: Acute Assessment and Plan: Lethargic post cholecystostomy tube. Placement and failed BiPAP so mechanically ventilated after intubation. Wean as possible Subjective Date/time seen: 05/04/20 15:55 Interval history: Date of visit 05/04, Mr. Suarez is a 80yo M admitted due to acute cholecystitis. pt sob in recovery after choly cystostomy tube placement, started on bipap and eventually had to be intubated and mechanically ventilated. Now sedated on mechanical ventilation in ICU Exam Narrative: Exam Narrative: Blood pressure 134/56 pulse 60 sat 100% on FiO2 of 40% peep of 5 afebrile HEENT: Pupils midposition and and minimal reactive. Cardiovascular: Rate and rhythm are regular. Respiratory: Lungs clear to auscultation. Respirations even and nonlabored. Abdomen: Soft, mildly distended, obese bowel sounds present. Extremities: Peripheral pulses intact. No edema appreciated. Neuro: On the vent sedated Objective Data Vital Signs Vital Signs: Vital Signs - 24 hr 05/03/20 17:10 05/03/20 17:15 05/03/20 17:30 Temperature Pulse Rate 69 69 65 Respiratory Rate 22 H 19 23 H Blood Pressure 178/55 H 166/50 H Pulse Oximetry 98 98 98 05/03/20 17:45 05/03/20 18:00 05/03/20 18:15 Temperature Pulse Rate 64 63 64 Respiratory Rate 23 H 25 H 20 Blood Pr
[2020-05-04 18:13] LABS: Glucose Point of Care 86 (65-105)
[2020-05-05] VITALS (38 sets, daily range): BP systolic 124–176; BP diastolic 52–104; PULSE 50–81; RESP 16–19; TEMP 36.6–37.3; O2SAT 97–100
[2020-05-05] MEDS: IPRATROPIUM BR 0.02% INH SOLN 0.5 MG/2.5 ML VIAL INHALATION ×4 (01:01→19:39)
[2020-05-05] MEDS: ALBUTEROL SULFATE NEB 2.5 MG/0.5 ML INH INHALATION ×4 (01:01→19:39)
[2020-05-05] MEDS: SODIUM CHLORIDE 0.9% IV 1,000 ML 75 ML IV CONT ×2 (01:14→14:13)
[2020-05-05 01:27] LABS: Glucose Point of Care 83 (65-105)
[2020-05-05 04:06] LABS: Hematocrit 28.5 % (42.0-52.0); Hemoglobin 8.9 g/dL (14.0-18.0); Mean Corpuscular HGB Conc 31.2 g/dl (32-36); Mean Corpuscular Hemoglobin 28.5 pg (26-34); Mean Corpuscular Volume 91.3 fl (80-100); Mean Platelet Volume 9.8 fl (7.4-10.4); Platelet Count Result 187 k/mm3 (150-375); Red Blood Count 3.12 M/mm3 (4.6-6.20); Red Cell Distribution Width 14.5 % (11.5-14.5); White Blood Count 12.9 K/mm3 (4.5-10.0)
[2020-05-05 04:18] LABS: Lactic Acid 1.4 mmol/L (0.7-2.1)
[2020-05-05 04:19] LABS: Alveolar/Arterial O2 Gradient 122.6 mmHg; Base Excess ABG -0.1 mEq/l (+/-2.0); Carboxyhemoglobin 0.3 % THb (0-2.0); Device VENTILATOR; Fractional Inspired Oxygen 35 %; HCO3 ABG 24.2 mEq/l (22.0-26.0); Methemoglobin ABG 0.3 %THb (0-1.5); Modified Allen's Test Unable to perform; Oxygen Content ABG 14.8 %vol (16.0-22.0); Oxygen Saturation ABG 96.4 % (95.0-100.0); Oxyhemoglobin 94.2 % THb (90.0-100.0); PCO2 ABG 38.1 mmHg (35.0-45.0); PO2 ABG 82.7 mmHg (80.0-100.0); PO2 FiO2 Ratio Arterial Blood 2.36 %; Reduced Hemoglobin 5.2 %THb (0-5.0); Site Drawn LEFT RADIAL; Total Hemoglobin 11.1 g/dL (12.0-18.0)
[2020-05-05 04:20] LABS: Arterial Blood Gas PEEP 5 cmH2O; Arterial Blood Gas Tidal Volume 450 ml; Arterial Blood Gas Vent Mode CMV; Arterial Blood Gas Ventilator rate 17 /MIN
[2020-05-05 04:20] LABS: Alanine Aminotransferase 16 U/L (4-50); Albumin Level 3.2 g/dL (3.5-5.1); Alkaline Phosphatase 67 U/L (38-126); Aspartate Amino Transferase 23 U/L (17-59); Bilirubin,Total 1.1 mg/dL (0.2-1.3); Blood Urea Nitrogen 76 mg/dL (9-20); Calcium 8.4 mg/dL (8.4-10.2); Carbon Dioxide 24 mmol/L (22-30); Chloride 106 mmol/L (98-107); Estimated CRCL calculation 18 ml/min; Estimated Glomerular Filt Rate 15; Glucose 92 mg/dL (75-110); Magnesium 2.5 mg/dL (1.6-2.3); Phosphorus 3.6 mg/dL (2.5-4.5); Potassium 4.3 mmol/L (3.4-5.0); Sodium 139 mmol/L (137-145)
[2020-05-05 05:58] LABS: Glucose Point of Care 86 (65-105)
[2020-05-05] MEDS: PANTOPRAZOLE SODIUM IV 40 MG VIAL IV PUSH (08:17)
[2020-05-05] MEDS: hydrALAZINE HCL 20 MG/ML VIAL 10 MG IV PUSH (11:07)
[2020-05-05 12:03] LABS: Glucose Point of Care 86 (65-105)
--- NOTE | 2020-05-05 12:13 | PM.PNGS ---
Progress Note: A&P Assessment and Plan (1) Acute cholecystitis: Code(s): K81.0 - Acute cholecystitis Status: Acute Assessment and Plan: discussed with answering service telephone operator . okay to start tube feedings. Cholecystitis being drained externally and working well. (2) Acute and chronic respiratory failure with hypercapnia: Code(s): J96.22 - Acute and chronic respiratory failure with hypercapnia Status: Acute Assessment and Plan: Possibly start trying to extubate tomorrow. Subjective Subjective Date/Time Seen: 05/05/20 12:13 Patient reports: other ( Unable to obtain, patient still on ventilator) Review of Systems Review of Systems: ROS unobtainable: Yes unobtainable due to endotracheal tube Exam GI: Inspection: incision ( pigtail catheter in place, draining bile) GI Palp: Yes Soft to palpation and No Tenderness to palpation present (GI) Objective Data Vital Signs Vital Signs: Vital Signs - 24 hr 05/04/20 12:40 05/04/20 13:25 05/04/20 14:00 Temperature Pulse Rate 58 L 64 57 L Respiratory Rate 17 17 Blood Pressure 134/56 L Pulse Oximetry 100 100 05/04/20 14:50 05/04/20 15:00 05/04/20 15:15 Temperature Pulse Rate 58 L 59 L 62 Respiratory Rate 17 17 Blood Pressure Pulse Oximetry 100 05/04/20 15:25 05/04/20 16:00 05/04/20 16:48 Temperature 36.7 C Pulse Rate 58 L 56 L 60 Respiratory Rate 17 17 17 Blood Pressure 137/60 Pulse Oximetry 100 05/04/20 16:49 05/04/20 17:15 05/04/20 18:00 Temperature Pulse Rate 60 58 L 60 Respiratory Rate 17 17 Blood Pressure 139/62 Pulse Oximetry 100 100 05/04/20 19:47 05/04/20 19:49 05/04/20 19:57 Temperature Pulse Rate 57 L 57 L 58 L Respiratory Rate 17 17 Blood Pressure Pulse Oximetry 100 05/04/20 20:00 05/04/20 22:00 05/04/20 23:25 Temperature 36.4 C L Pulse Rate 53 L 54 L 51 L Respiratory Rate 17 17 Blood Pressure 120/57 L 141/60 H Pulse Oximetry 100 100 100 05/04/20 23:53 05/05/20 00:00 05/05/20 00:55 Temperature 36.6 C Pulse Rate 50 L 57 L Respiratory Rate 17 Blood Pressure 147/62 H Pulse Oximetry 100 100 100 05/05/20 01:01 05/05/20 01:19 05/05/20 02:00 Temperature Pulse Rate 59 L 61 57 L Respiratory Rate 17 17 17 Blood Pressure 141/62 H Pulse Oximetry 100 05/05/20 02:06 05/05/20 02:07 05/05/20 03:57 Temperature Pulse Rate 59 L 59 L 60 Respiratory Rate 17 17 Blood Pressure Pulse Oximetry 99 05/05/20 04:00 05/05/20 05:25 05/05/20 05:28 Temperature Pulse Rate 67 56 L 57 L Respiratory Rate 18 17 17 Blood Pressure 157/67 H Pulse Oximetry 100 05/05/20 06:00 05/05/20 07:40 05/05/20 07:48 Temperature Pulse Rate 58 L 61 57 L Respiratory Rate 19 17 18 Blood Pressure 164/63 H Pulse Oximetry 100 05/05/20 07:50 05/05/20 07:56 05/05/20 08:00 Temperature 36.9 C Pulse Rate 57 L 58 L 56 L Respiratory Rate 17 17 Blood Pressure 167/71 H Pulse Oximetry 100 100 05/05/20 08:08 05/05/20 08:11 05/05/20 10:00 Temperature Pulse Rate 61 60 60 Respiratory Rate 17 17 17 Blood Pressure 166/65 H Pulse Oximetry 100 Intake/Output Intake/Output: Intake & Output 05/02/20 05/03/20 05/04/20 05/05/20 23:59 23:59 23:59 23:59 Intake Total 400 3019 1048 Output Total 380 1480 990 Balance 20 1539 58 Meds/Results Medications: Active Medications Generic Name Dose Route Start Last Admin Trade Name Freq PRN Reason Stop Dose Admin Albuterol 2.5 mg 05/04/20 14:00 05/05/20 07:47 Albuterol Sulf Neb 2.5mg/0.5ml INHALATION 2.5 mg Q6HRT ALEX Administration Dextrose 12.5 gm 05/03/20 00:52 Dextrose 50% Syringe IV PUSH PRN PRN Hypoglycemia Protocol Glucagon 1 mg 05/03/20 00:52 Glucagon For Inj IM PRN PRN Hypoglycemia Protocol Hydralazine HCl 10 mg 05/03/20 07:20 05/05/20 11:07 Apresoline Hcl Inj IV PUSH 10 mg Q8H PRN A
--- NOTE | 2020-05-05 13:03 | WPDINTPN ---
Progress Note: A&P Assessment and Plan (1) Acute and chronic respiratory failure with hypercapnia: Code(s): J96.22 - Acute and chronic respiratory failure with hypercapnia Status: Acute Assessment and Plan: Patient with acute hypercapnic respiratory failure post cholecystostomy tube placement normal could be related to sedation and pain medication. Patient failed BiPAP and was intubated on 05/03/2020 -chest x-ray and ABGs reviewed. Hypercapnia has resolved, patient with peep of 5 and 50% FiO2, -wean FiO2 and decreased respiratory rate -continue bronchodilators -patient on vancomycin and Zosyn -on fentanyl and Versed for sedation, maintain RASS of 0 to -2, daily sedation vacation (2) Acute cholecystitis: Code(s): K81.0 - Acute cholecystitis Status: Acute Assessment and Plan: Patient presented with abdominal pain with nausea. CT scan of the abdomen and pelvis revealed acute cholecystitis -status post cholecystostomy drain placement on 05/03/2020 -leukocytosis persists -cultures from the gallbladder fluid growing Enterococcus species -continue vancomycin and Zosyn -discuss with surgery, okay to start tube feeds (3) Acute on chronic renal failure: Qualifiers: Acute renal failure type: unspecified Chronic kidney disease stage: stage 3 (moderate) Qualified Code(s): N17.9 - Acute kidney failure, unspecified; N18.3 - Chronic kidney disease, stage 3 (moderate) Code(s): N17.9 - Acute kidney failure, unspecified; N18.9 - Chronic kidney disease, unspecified Status: Acute Assessment and Plan: Patient with acute on chronic kidney disease, baseline creatinine of 2.8-2.9 per nephrology note. -patient with severe sepsis, not adequately fluid-resuscitated -patient received IV fluid bolus on 05/04/2020: Urine output March improved with improvement in creatinine and -continue maintenance IV fluids -nephrology following the patient -renal ultrasound showed normal kidney, no hydronephrosis (4) Hyperkalemia: Code(s): E87.5 - Hyperkalemia Status: Acute Assessment and Plan: Resolved (5) Essential hypertension: Code(s): I10 - Essential (primary) hypertension Status: Chronic Assessment and Plan: Patient with hypertension, will add amlodipine and hydralazine per tube (6) Type 2 diabetes mellitus with hyperglycemia: Qualifiers: Diabetes mellitus terminal make up operator insulin use: with terminal make up operator use Qualified Code(s): E11.65 - Type 2 diabetes mellitus with hyperglycemia; Z79.4 - residential (current) use of insulin Code(s): E11.65 - Type 2 diabetes mellitus with hyperglycemia Status: Chronic Assessment and Plan: Continue sliding scale insulin and Accu-Cheks (7) Anemia: Qualifiers: Anemia type: unspecified type Qualified Code(s): D64.9 - Anemia, unspecified Code(s): D64.9 - Anemia, unspecified Status: Acute Assessment and Plan: Anemia likely related to chronic kidney disease -will check stool for occult blood -likely anemia of chronic disease -continue to monitor hemoglobin, transfuse as needed (8) DVT prophylaxis: Code(s): Z29.9 - Encounter for prophylactic measures, unspecified Status: Acute Assessment and Plan: SCDs Additional Plan Discussed with patient's POA significant other and updated her with patient's condition and plan of care. I answered all questions. According the POA patient's wishes a do not resuscitate Code status: Do not resuscitate Critical care time spent: 36 minutes Due to a high probability of clinically significant, life threatening deterioration, the patient required my highest level of preparedness to intervene emergently and I personally spent this critical care time directly and personally managing the patient. This critical care time included obtaining a history; examining the patient; pulse oximetry; ordering and review of studies; arranging u
[2020-05-05] MEDS: hydrALAZINE HCL 25 MG TABLET PO (13:14)
[2020-05-05] MEDS: amLODIPine BESYLATE 5 MG TABLET 10 MG PO (13:14)
[2020-05-05 14:45] LABS: Blood Urea Nitrogen 72 mg/dL (9-20); Calcium 8.6 mg/dL (8.4-10.2); Carbon Dioxide 24 mmol/L (22-30); Chloride 107 mmol/L (98-107); Estimated CRCL calculation 18 ml/min; Estimated Glomerular Filt Rate 14; Glucose 108 mg/dL (75-110); Magnesium 2.3 mg/dL (1.6-2.3); Potassium 4.1 mmol/L (3.4-5.0); Sodium 140 mmol/L (137-145)
[2020-05-05] MEDS: METOPROLOL TARTRATE 25 MG TABLET PO ×2 (14:56→20:23)
--- NOTE | 2020-05-05 15:35 | PM.PNNEP ---
Progress Note: A&P Assessment and Plan (1) FELIPE (acute kidney injury): Code(s): N17.9 - Acute kidney failure, unspecified Status: Acute Assessment and Plan: suspect due to acute infection (cholecystitis) on top of possible pre-renal factors urine electrolytes pending renal ultrasound without hydronephrosis still making urine agree with trial of IVFs (2) Chronic kidney disease, stage IV (severe): Code(s): N18.4 - Chronic kidney disease, stage 4 (severe) Status: Chronic Assessment and Plan: baseline creatinine ~ 2.8 - 2.9mg/dl from review of outpatient records due to diabetes, hypertension, and BILL (3) Hyperkalemia: Code(s): E87.5 - Hyperkalemia Status: Acute Assessment and Plan: resolving likely due to #1 (4) Acute cholecystitis: Code(s): K81.0 - Acute cholecystitis Status: Acute Assessment and Plan: General Surgery following s/p cholecystostomy tube placement gallbladder fluid culture positive for Enterococcus continue antibiotics (5) Essential hypertension: Code(s): I10 - Essential (primary) hypertension Status: Chronic Assessment and Plan: stable hemodynamics at this time follow trend (6) Anemia: Qualifiers: Anemia type: unspecified type Qualified Code(s): D64.9 - Anemia, unspecified Code(s): D64.9 - Anemia, unspecified Status: Acute Assessment and Plan: due to acute illness and CKD follow trend of H/H consider Epogen if H/H falls further (7) Diabetes: Code(s): E11.9 - Type 2 diabetes mellitus without complications Status: Chronic Assessment and Plan: follow accuchecks on SSI Will continue to follow. Subjective Date/time seen: 05/05/20 15:35 Remains on mechanical ventilation/ventilator support; remains hemodynamically stable; reasonable urine output in the last 24 hours; no other acute issues overnight or this AM. Exam Narrative: Exam Narrative: General: WD/WN male in NAD; intubated and sedated Heart: normal S1 and S2; no rub Lungs: decreased at tje faser Abdomen: soft, nontender, nondistended, positive bowel sounds Extremities: no cyanosis or clubbing; no edema Skin: warm and dry Objective Data Vital Signs Vital Signs: Vital Signs Temp Pulse Resp BP Pulse Ox 05/05/20 14:56 70 05/05/20 14:22 71 16 100 05/05/20 14:00 81 17 152/58 H 100 05/05/20 13:38 72 17 05/05/20 13:36 79 17 05/05/20 12:10 79 97 05/05/20 12:00 37.0 C 79 17 176/88 H 100 05/05/20 10:00 60 17 166/65 H 100 05/05/20 08:11 60 17 05/05/20 08:08 61 17 05/05/20 08:00 36.9 C 56 L 17 167/71 H 100 05/05/20 07:56 58 L 17 05/05/20 07:50 57 L 100 05/05/20 07:48 57 L 18 05/05/20 07:40 61 17 05/05/20 06:00 58 L 19 164/63 H 100 05/05/20 05:28 57 L 17 05/05/20 05:25 56 L 17 05/05/20 04:00 67 18 157/67 H 100 05/05/20 03:57 60 99 05/05/20 02:07 59 L 17 05/05/20 02:06 59 L 17 05/05/20 02:00 57 L 17 141/62 H 100 05/05/20 01:19 61 17 05/05/20 01:01 59 L 17 05/05/20 00:55 57 L 100 05/05/20 00:00 36.6 C 50 L 17 147/62 H 100 05/04/20 23:53 100 05/04/20 23:25 51 L 100 05/04/20 22:00 54 L 17 141/60 H 100 05/04/20 20:00 36.4 C L 53 L 17 120/57 L 100 05/04/20 19:57 58 L 17 05/04/20 19:49 57 L 100 05/04/20 19:47 57 L 17 05/04/20 18:00 60 17 139/62 100 05/04/20 17:15 58 L 100 05/04/20 16:49 60 17 05/04/20 16:48 60 17 05/04/20 16:00 36.7 C 56 L 17 137/60 100 Intake/Output Intake/Output: Intake & Output 07/16/20 05/03/20 05/04/20 05/05/20 23:59 23:59 23:59 23:59 Intake Total 400 3019 1803 Output Total 380 1480 990 Balance 20 7119 813 Meds/Results Medications: Active Medications Generic Name Dose Route Start Last Ad
--- NOTE | 2020-05-05 15:35 | P.PNNP_ITS ---
Progress Note: A&P Assessment and Plan (1) FELIPE (acute kidney injury): Code(s): N17.9 - Acute kidney failure, unspecified Status: Acute Assessment and Plan: * suspect due to acute infection (cholecystitis) on top of possible pre-renal factors * urine electrolytes pending * renal ultrasound without hydronephrosis * still making urine * agree with trial of IVFs (2) Chronic kidney disease, stage IV (severe): Code(s): N18.4 - Chronic kidney disease, stage 4 (severe) Status: Chronic Assessment and Plan: * baseline creatinine ~ 2.8 - 2.9mg/dl from review of outpatient records * due to diabetes, hypertension, and BILL (3) Hyperkalemia: Code(s): E87.5 - Hyperkalemia Status: Acute Assessment and Plan: * resolving * likely due to #1 (4) Acute cholecystitis: Code(s): K81.0 - Acute cholecystitis Status: Acute Assessment and Plan: * General Surgery following * s/p cholecystostomy tube placement * gallbladder fluid culture positive for Enterococcus * continue antibiotics (5) Essential hypertension: Code(s): I10 - Essential (primary) hypertension Status: Chronic Assessment and Plan: * stable hemodynamics at this time * follow trend (6) Anemia: Qualifiers: Anemia type: unspecified type Qualified Code(s): D64.9 - Anemia, unspecified Code(s): D64.9 - Anemia, unspecified Status: Acute Assessment and Plan: * due to acute illness and CKD * follow trend of H/H * consider Epogen if H/H falls further (7) Diabetes: Code(s): E11.9 - Type 2 diabetes mellitus without complications Status: Chronic Assessment and Plan: * follow accuchecks * on SSI Will continue to follow. Subjective Date/time seen: 05/05/20 15:35 Remains on mechanical ventilation/ventilator support; remains hemodynamically stable; reasonable urine output in the last 24 hours; no other acute issues overnight or this AM. Exam Narrative: Exam Narrative: General: WD/WN male in NAD; intubated and sedated Heart: normal S1 and S2; no rub Lungs: decreased at tje faser Abdomen: soft, nontender, nondistended, positive bowel sounds Extremities: no cyanosis or clubbing; no edema Skin: warm and dry Objective Data Vital Signs Vital Signs: Vital Signs Temp Pulse Resp BP Pulse Ox 05/05/20 14:56 70 05/05/20 14:22 71 16 100 05/05/20 14:00 81 17 152/58 H 100 05/05/20 13:38 72 17 05/05/20 13:36 79 17 05/05/20 12:10 79 97 05/05/20 12:00 37.0 C 79 17 176/88 H 100 05/05/20 10:00 60 17 166/65 H 100 05/05/20 08:11 60 17 05/05/20 08:08 61 17 05/05/20 08:00 36.9 C 56 L 17 167/71 H 100 05/05/20 07:56 58 L 17 05/05/20 07:50 57 L 100 05/05/20 07:48 57 L 18 05/05/20 07:40 61 17 05/05/20 06:00 58 L 19 164/63 H 100 05/05/20 05:28 57 L 17 05/05/20 05:25 56 L 17 05/05/20 04:00 67 18 157/67 H 100 05/05/20 03:57 60 99 05/05/20 02:07 59 L 17 05/05/20 02:06 59 L 17 05/05/20 02:00 57 L 17 141/62 H 100 05/05/20 01:19 61 17 05/05/20 01:01 59 L 17 05/05/20 00:55 57 L 100
--- NOTE | 2020-05-05 17:32 | PM.IMPN ---
Progress Note: A&P Assessment and Plan (1) Acute cholecystitis: Code(s): K81.0 - Acute cholecystitis Status: Acute Assessment and Plan: Patient presents with abdominal pain, nausea, and vomiting; CT abdomen shows acute cholecystitis. perc cholecystostoomy tube placed 05/03 Continue IV zosyn and vancomycin. WBC now normal anf bile growing enterococcus (2) Acute on chronic renal failure: Qualifiers: Acute renal failure type: unspecified Chronic kidney disease stage: stage 3 (moderate) Qualified Code(s): N17.9 - Acute kidney failure, unspecified; N18.3 - Chronic kidney disease, stage 3 (moderate) Code(s): N17.9 - Acute kidney failure, unspecified; N18.9 - Chronic kidney disease, unspecified Status: Acute Assessment and Plan: Cr 4.1 this AM; was previously on hemodialysis per patient. Monitor urine output and renal function. Nephrology seeing and renal sonogram 05/04 no obstruction (3) Hyperkalemia: Code(s): E87.5 - Hyperkalemia Status: Acute Assessment and Plan: Hyperkalemia may be related to worsening renal function. Up to 4.3 this AM, (4) Essential hypertension: Code(s): I10 - Essential (primary) hypertension Status: Chronic Assessment and Plan: Last 150/56; can restart oral med per OG when needed. Hydralazine IV available PRN if needed. Monitor BP and adjust treatment as needed. (5) Anemia of chronic kidney failure: Qualifiers: Chronic kidney disease stage: stage 3 (moderate) Qualified Code(s): N18.3 - Chronic kidney disease, stage 3 (moderate); D63.1 - Anemia in chronic kidney disease Code(s): N18.9 - Chronic kidney disease, unspecified; D63.1 - Anemia in chronic kidney disease Status: Chronic Assessment and Plan: H&H low but stable. No evidence of acute bleeding. Monitor CBC , suspect all anemia Chronic disease (6) Type 2 diabetes mellitus with hyperglycemia: Qualifiers: Diabetes mellitus correction insulin use: with ad terminal makeup operator use Qualified Code(s): E11.65 - Type 2 diabetes mellitus with hyperglycemia; Z79.4 - terminal system operator (current) use of insulin Code(s): E11.65 - Type 2 diabetes mellitus with hyperglycemia Status: Chronic Assessment and Plan: Monitor accu-cheks and cover with SSI for now. A1c only 5.7. (7) Acute and chronic respiratory failure with hypercapnia: Code(s): J96.22 - Acute and chronic respiratory failure with hypercapnia Status: Acute Assessment and Plan: Lethargic post cholecystostomy tube. Placement and failed BiPAP so mechanically ventilated after intubation. Wean as possible Subjective Date/time seen: 05/05/20 17:32 Interval history: Date of visit 05/05, Mr. Suarez is a 80yo M admitted due to acute cholecystitis. pt sob in recovery after choly cystostomy tube placement, started on bipap and eventually had to be intubated and mechanically ventilated. Now sedated on mechanical ventilation in ICU Exam Narrative: Exam Narrative: Blood pressure 1350/56 pulse 70 sat 100% on FiO2 of 35% peep of 5 afebrile HEENT: Pupils midposition and and reactive. Mouth ET and OG tubes secured Cardiovascular: Rate and rhythm are regular. Respiratory: Lungs clear to auscultation. Respirations even and nonlabored. Abdomen: Soft, mildly distended, obese bowel sounds present. percutaneous RUQ cholecystostomy tube in place and draing dark bile. Extremities: Peripheral pulses intact. No edema appreciated. Neuro: On the vent sedated Objective Data Vital Signs Vital Signs: Vital Signs - 24 hr 05/04/20 18:00 05/04/20 19:47 05/04/20 19:49 Temperature Pulse Rate 60 57 L 57 L Respiratory Rate 17 17 Blood Pressure 139/62 Pulse Oximetry 100 100 05/04/20 19:57 07
[2020-05-05 18:09] LABS: Glucose Point of Care 97 (65-105)
[2020-05-05 22:50] LABS: Creatinine Urine 83.6 mg/dL; Total Protein Urine Random 151 mg/dL
[2020-05-05 22:58] LABS: Sodium Urine Random 45 meq/L
[2020-05-06] VITALS (38 sets, daily range): BP systolic 123–154; BP diastolic 52–69; PULSE 58–85; RESP 17–25; TEMP 36.5–37.3; O2SAT 95–100; BMI 34.2
[2020-05-06 00:10] LABS: Glucose Point of Care 160 (65-105)
[2020-05-06] MEDS: ALBUTEROL SULFATE NEB 2.5 MG/0.5 ML INH INHALATION ×4 (01:20→20:24)
[2020-05-06] MEDS: IPRATROPIUM BR 0.02% INH SOLN 0.5 MG/2.5 ML VIAL INHALATION ×4 (01:21→20:24)
[2020-05-06 03:24] LABS: Alveolar/Arterial O2 Gradient 120.1 mmHg; Base Excess ABG -2.9 mEq/l (+/-2.0); Carboxyhemoglobin 0.3 % THb (0-2.0); Fractional Inspired Oxygen 35 %; HCO3 ABG 21.3 mEq/l (22.0-26.0); Methemoglobin ABG 0.4 %THb (0-1.5); Oxygen Content ABG 13.1 %vol (16.0-22.0); Oxygen Saturation ABG 96.9 % (95.0-100.0); Oxyhemoglobin 94.8 % THb (90.0-100.0); PCO2 ABG 34.7 mmHg (35.0-45.0); PO2 ABG 89.1 mmHg (80.0-100.0); PO2 FiO2 Ratio Arterial Blood 2.55 %; Reduced Hemoglobin 4.5 %THb (0-5.0); Total Hemoglobin 9.7 g/dL (12.0-18.0); pH ABG 7.406 (7.350-7.450)
[2020-05-06 03:26] LABS: Device VENTILATOR; Modified Allen's Test Pass; Site Drawn RIGHT RADIAL
[2020-05-06 03:27] LABS: Arterial Blood Gas PEEP 5 cmH2O; Arterial Blood Gas Pressure Support 0 cmH2O; Arterial Blood Gas Tidal Volume 450 ml; Arterial Blood Gas Vent Mode CMV; Arterial Blood Gas Ventilator rate 17 /MIN
[2020-05-06 04:48] LABS: Hematocrit 28.1 % (42.0-52.0); Hemoglobin 8.8 g/dL (14.0-18.0); Mean Corpuscular HGB Conc 31.3 g/dl (32-36); Mean Corpuscular Hemoglobin 28.6 pg (26-34); Mean Corpuscular Volume 91.2 fl (80-100); Platelet Count Result 263 k/mm3 (150-375); Red Blood Count 3.08 M/mm3 (4.6-6.20); Red Cell Distribution Width 14.6 % (11.5-14.5); White Blood Count 9.5 K/mm3 (4.5-10.0)
[2020-05-06 05:01] LABS: Lactic Acid 1.2 mmol/L (0.7-2.1)
[2020-05-06 05:03] LABS: Alanine Aminotransferase 16 U/L (4-50); Albumin Level 3.5 g/dL (3.5-5.1); Alkaline Phosphatase 68 U/L (38-126); Aspartate Amino Transferase 23 U/L (17-59); Blood Urea Nitrogen 75 mg/dL (9-20); Calcium 8.8 mg/dL (8.4-10.2); Carbon Dioxide 23 mmol/L (22-30); Chloride 106 mmol/L (98-107); Estimated CRCL calculation 18 ml/min; Estimated Glomerular Filt Rate 14; Glucose 155 mg/dL (75-110); Magnesium 2.5 mg/dL (1.6-2.3); Phosphorus 4.9 mg/dL (2.5-4.5); Potassium 4.5 mmol/L (3.4-5.0); Sodium 137 mmol/L (137-145)
[2020-05-06] MEDS: SODIUM CHLORIDE 0.9% IV 1,000 ML 75 ML IV CONT ×2 (05:03→18:06)
[2020-05-06] MEDS: amLODIPine BESYLATE 5 MG TABLET 10 MG PO (08:33)
[2020-05-06] MEDS: PANTOPRAZOLE SODIUM IV 40 MG VIAL IV PUSH (08:34)
[2020-05-06] MEDS: METOPROLOL TARTRATE 25 MG TABLET PO ×2 (08:34→21:20)
--- NOTE | 2020-05-06 11:30 | P.PNNP_ITS ---
Progress Note: A&P Assessment and Plan (1) FELIPE (acute kidney injury): Code(s): N17.9 - Acute kidney failure, unspecified Status: Acute Assessment and Plan: * suspect due to acute infection (cholecystitis) on top of possible pre-renal factors * urine electrolytes non pre renal * renal ultrasound without hydronephrosis * still making urine. This improved with IV fluids yesterday. Creatinine is stable around 4. (2) Chronic kidney disease, stage IV (severe): Code(s): N18.4 - Chronic kidney disease, stage 4 (severe) Status: Chronic Assessment and Plan: * baseline creatinine ~ 2.8 - 2.9mg/dl from review of outpatient records * His creatinine does vary quite a bit however and has been as high as 4 as an outpatient in the past. * At 1 point he was on dialysis during an episode of acute kidney injury. * due to diabetes, hypertension, and BILL . He also has dysautoregulation and so over control of his blood pressure will tend to make his creatinine rise. His systolic is 147 right now which is about where he belongs. (3) Hyperkalemia: Code(s): E87.5 - Hyperkalemia Status: Acute Assessment and Plan: * resolving * likely due to #1 (4) Acute cholecystitis: Code(s): K81.0 - Acute cholecystitis Status: Acute Assessment and Plan: * General Surgery following * s/p cholecystostomy tube placement * gallbladder fluid culture positive for Enterococcus * Afebrile and his white count is okay. * continue antibiotics (5) Essential hypertension: Code(s): I10 - Essential (primary) hypertension Status: Chronic Assessment and Plan: * stable hemodynamics at this time * Goal is a systolic of 140-150. (6) Anemia: Qualifiers: Anemia type: unspecified type Qualified Code(s): D64.9 - Anemia, unspecified Code(s): D64.9 - Anemia, unspecified Status: Acute Assessment and Plan: * due to acute illness and CKD * follow trend of H/H * consider Epogen if H/H falls further (7) Diabetes: Code(s): E11.9 - Type 2 diabetes mellitus without complications Status: Chronic Assessment and Plan: * follow accuchecks * on SSI Will continue to follow. Additional Plan Subjective Date/time seen: 05/06/20 11:30 Interval history: Jose Miguel is in the ICU on the ventilator. Sedated with midazolam and fentanyl. He looks comfortable. Review of Systems Review of Systems: ROS unobtainable: Yes unobtainable due to endotracheal tube Exam Narrative: Exam Narrative: General: WD/WN male in NAD; intubated and sedated Heart: normal S1 and S2; no rub Lungs: decreased at tje faser Abdomen: soft, nontender, nondistended, positive bowel sounds Extremities: no edema Skin: No rash Objective Data Vital Signs Vital Signs: Vital Signs - 24 hr 05/05/20 12:00 05/05/20 12:10 05/05/20 13:36 Temperature 37.0 C Pulse Rate 79 79 79 Respiratory Rate 17 17 Blood Pressure 176/88 H Pulse Oximetry 100 97 05/05/20 13:38 05/05/20 14:00 05/05/20 14:22 Temperature Pulse Rate 72 81 71 Respiratory Rate 17 17 16 Blood Pressure 152/58 H Pulse Oximetry 100 100 05/05/20 14:56 05/05/20 16:00 05/05/20 17:06
--- NOTE | 2020-05-06 11:30 | PM.PNNEP ---
Progress Note: A&P Assessment and Plan (1) FELIPE (acute kidney injury): Code(s): N17.9 - Acute kidney failure, unspecified Status: Acute Assessment and Plan: suspect due to acute infection (cholecystitis) on top of possible pre-renal factors urine electrolytes non pre renal renal ultrasound without hydronephrosis still making urine. This improved with IV fluids yesterday. Creatinine is stable around 4. (2) Chronic kidney disease, stage IV (severe): Code(s): N18.4 - Chronic kidney disease, stage 4 (severe) Status: Chronic Assessment and Plan: baseline creatinine ~ 2.8 - 2.9mg/dl from review of outpatient records His creatinine does vary quite a bit however and has been as high as 4 as an outpatient in the past. At 1 point he was on dialysis during an episode of acute kidney injury. due to diabetes, hypertension, and BILL . He also has dysautoregulation and so over control of his blood pressure will tend to make his creatinine rise. His systolic is 147 right now which is about where he belongs. (3) Hyperkalemia: Code(s): E87.5 - Hyperkalemia Status: Acute Assessment and Plan: resolving likely due to #1 (4) Acute cholecystitis: Code(s): K81.0 - Acute cholecystitis Status: Acute Assessment and Plan: General Surgery following s/p cholecystostomy tube placement gallbladder fluid culture positive for Enterococcus Afebrile and his white count is okay. continue antibiotics (5) Essential hypertension: Code(s): I10 - Essential (primary) hypertension Status: Chronic Assessment and Plan: stable hemodynamics at this time Goal is a systolic of 140-150. (6) Anemia: Qualifiers: Anemia type: unspecified type Qualified Code(s): D64.9 - Anemia, unspecified Code(s): D64.9 - Anemia, unspecified Status: Acute Assessment and Plan: due to acute illness and CKD follow trend of H/H consider Epogen if H/H falls further (7) Diabetes: Code(s): E11.9 - Type 2 diabetes mellitus without complications Status: Chronic Assessment and Plan: follow accuchecks on SSI Will continue to follow. Additional Plan Subjective Date/time seen: 05/06/20 11:30 Interval history: Jose Miguel is in the ICU on the ventilator. Sedated with midazolam and fentanyl. He looks comfortable. Review of Systems Review of Systems: ROS unobtainable: Yes unobtainable due to endotracheal tube Exam Narrative: Exam Narrative: General: WD/WN male in NAD; intubated and sedated Heart: normal S1 and S2; no rub Lungs: decreased at tje faser Abdomen: soft, nontender, nondistended, positive bowel sounds Extremities: no edema Skin: No rash Objective Data Vital Signs Vital Signs: Vital Signs - 24 hr 05/05/20 12:00 05/05/20 12:10 05/05/20 13:36 Temperature 37.0 C Pulse Rate 79 79 79 Respiratory Rate 17 17 Blood Pressure 176/88 H Pulse Oximetry 100 97 05/05/20 13:38 05/05/20 14:00 05/05/20 14:22 Temperature Pulse Rate 72 81 71 Respiratory Rate 17 17 16 Blood Pressure 152/58 H Pulse Oximetry 100 100 05/05/20 14:56 05/05/20 16:00 05/05/20 17:06 Temperature 37.2 C Pulse Rate 70 70 72 Respiratory Rate 17 Blood Pressure 153/58 H Pulse Oximetry 100 98 05/05/20 17:10 05/05/20 18:00 05/05/20 18:35 Temperature Pulse Rate 68 66 66 Respiratory Rate 17 17 17 Blood Pressure 155/52 H Pulse Oximetry 100 05/05/20 19:40 05/05/20 19:55 05/05/20 20:00 Temperature 37.3 C Pulse Rate 68 62 68 Respiratory Rate 16 16 18 Blood Pressure 163/56 H Pulse Oximetry 98 99 05/05/20 20:23 05/05/20 22:00 05/05/20 22:50 Temperature Pulse Rate 66 58 L 57 L Respiratory Rate 17 Blood Pressure 124/104 H Pulse Oximetry 100 100 05/06/20 00:00 05/06/20 01:21 05/06/20 02:00 Temperature 36.5 C Pulse Rate 64 64 61 Resp
[2020-05-06 12:19] LABS: Glucose Point of Care 165 (65-105)
--- NOTE | 2020-05-06 13:16 | WPDINTPN ---
Progress Note: A&P Assessment and Plan (1) Acute and chronic respiratory failure with hypercapnia: Code(s): J96.22 - Acute and chronic respiratory failure with hypercapnia Status: Acute Assessment and Plan: Patient with acute hypercapnic respiratory failure post cholecystostomy tube placement normal could be related to sedation and pain medication. Patient failed BiPAP and was intubated on 05/03/2020 -chest x-ray and ABGs reviewed. Hypercapnia has resolved, patient with peep of 5 and 35% FiO2, -wean FiO2 and decreased respiratory rate -continue bronchodilators -patient on vancomycin and Zosyn - patient on 35% FiO2, will switch fentanyl and Versed to Precedex infusion - once patient is more awake, will place him on spontaneous breathing trial and evaluate for extubation (2) Acute cholecystitis: Code(s): K81.0 - Acute cholecystitis Status: Acute Assessment and Plan: Patient presented with abdominal pain with nausea. CT scan of the abdomen and pelvis revealed acute cholecystitis -status post cholecystostomy drain placement on 05/03/2020 -leukocytosis persists -cultures from the gallbladder fluid growing Enterococcus species -continue vancomycin and Zosyn -discuss with surgery, tolerating tube, currently on hold for possible extubation (3) Acute on chronic renal failure: Qualifiers: Acute renal failure type: unspecified Chronic kidney disease stage: stage 3 (moderate) Qualified Code(s): N17.9 - Acute kidney failure, unspecified; N18.3 - Chronic kidney disease, stage 3 (moderate) Code(s): N17.9 - Acute kidney failure, unspecified; N18.9 - Chronic kidney disease, unspecified Status: Acute Assessment and Plan: Patient with acute on chronic kidney disease, baseline creatinine of 2.9-4.[address] White with his healthcare administrative assistant -patient with severe sepsis, not adequately fluid-resuscitated -patient received IV fluid bolus on 05/04/2020: Urine output March improved with improvement in creatinine and -continue maintenance IV fluids -nephrology following the patient -renal ultrasound showed normal kidney, no hydronephrosis - will maintain systolic blood pressures close to 140s which per Dr. White higher blood pressures improved his creatinine (4) Hyperkalemia: Code(s): E87.5 - Hyperkalemia Status: Acute Assessment and Plan: Resolved (5) Essential hypertension: Code(s): I10 - Essential (primary) hypertension Status: Chronic Assessment and Plan: Patient with hypertension, continue amlodipine and metoprolol (6) Type 2 diabetes mellitus with hyperglycemia: Qualifiers: Diabetes mellitus terminal press operator insulin use: with fpc use Qualified Code(s): E11.65 - Type 2 diabetes mellitus with hyperglycemia; Z79.4 - penitentiary (current) use of insulin Code(s): E11.65 - Type 2 diabetes mellitus with hyperglycemia Status: Chronic Assessment and Plan: Continue sliding scale insulin and Accu-Cheks (7) Anemia: Qualifiers: Anemia type: unspecified type Qualified Code(s): D64.9 - Anemia, unspecified Code(s): D64.9 - Anemia, unspecified Status: Acute Assessment and Plan: Anemia likely related to chronic kidney disease -will check stool for occult blood -likely anemia of chronic disease -continue to monitor hemoglobin, transfuse as needed (8) DVT prophylaxis: Code(s): Z29.9 - Encounter for prophylactic measures, unspecified Status: Acute Assessment and Plan: SCDs Additional Plan Discussed with patient's POA significant other and updated her with patient's condition and plan of care. I answered all questions. Code status: Do not resuscitate Critical care time spent: 33 minutes Due to a high probability of clinically significant, life threatening deterioration, the patient required my highest level of preparedness to intervene emergently and I personally spen
--- NOTE | 2020-05-06 14:46 | PM.PNGS ---
Progress Note: A&P Assessment and Plan (1) Acute cholecystitis: Code(s): K81.0 - Acute cholecystitis Status: Acute Assessment and Plan: cont drain and abx, improving (2) Acute and chronic respiratory failure with hypercapnia: Code(s): J96.22 - Acute and chronic respiratory failure with hypercapnia Status: Acute Assessment and Plan: wean vent as rohit per water meter mechanic (3) Chronic kidney disease, stage IV (severe): Code(s): N18.4 - Chronic kidney disease, stage 4 (severe) Status: Chronic Assessment and Plan: cont to follow closely, may need acute HD (4) Diabetes: Code(s): E11.9 - Type 2 diabetes mellitus without complications Status: Chronic Assessment and Plan: mgmt per primary Subjective Subjective Date/Time Seen: 05/06/20 14:46 intubated, no acute issues Review of Systems Review of Systems: ROS unobtainable: Yes unobtainable due to endotracheal tube Exam Resp: Auscultation: diminished lung sounds Cardio: Rate: regular rate Rhythm: regular rhythm GI: Other: soft, sl dist, RUQ drain c bilious output Objective Data Vital Signs Vital Signs: Vital Signs - 24 hr 05/05/20 14:56 05/05/20 16:00 05/05/20 17:06 Temperature 37.2 C Pulse Rate 70 70 72 Respiratory Rate 17 Blood Pressure 153/58 H Pulse Oximetry 100 98 05/05/20 17:10 05/05/20 18:00 05/05/20 18:35 Temperature Pulse Rate 68 66 66 Respiratory Rate 17 17 17 Blood Pressure 155/52 H Pulse Oximetry 100 05/05/20 19:40 05/05/20 19:55 05/05/20 20:00 Temperature 37.3 C Pulse Rate 68 62 68 Respiratory Rate 16 16 18 Blood Pressure 163/56 H Pulse Oximetry 98 99 05/05/20 20:23 05/05/20 22:00 05/05/20 22:50 Temperature Pulse Rate 66 58 L 57 L Respiratory Rate 17 Blood Pressure 124/104 H Pulse Oximetry 100 100 05/06/20 00:00 05/06/20 01:21 05/06/20 02:00 Temperature 36.5 C Pulse Rate 64 64 61 Respiratory Rate 18 17 17 Blood Pressure 151/62 H 145/54 H Pulse Oximetry 99 98 100 05/06/20 04:00 05/06/20 04:23 05/06/20 05:26 Temperature 36.8 C Pulse Rate 67 76 66 Respiratory Rate 17 17 Blood Pressure 154/57 H Pulse Oximetry 99 96 05/06/20 06:00 05/06/20 07:55 05/06/20 08:00 Temperature 37.2 C Pulse Rate 66 66 66 Respiratory Rate 17 17 17 Blood Pressure 125/52 L 131/69 Pulse Oximetry 99 99 96 05/06/20 08:34 05/06/20 09:50 05/06/20 09:51 Temperature Pulse Rate 71 70 71 Respiratory Rate 17 17 Blood Pressure Pulse Oximetry 05/06/20 09:53 05/06/20 10:00 05/06/20 10:50 Temperature Pulse Rate 70 70 70 Respiratory Rate 17 17 17 Blood Pressure 141/60 H Pulse Oximetry 100 05/06/20 11:10 05/06/20 12:00 05/06/20 12:10 Temperature Pulse Rate 62 61 62 Respiratory Rate 17 17 Blood Pressure 123/53 L Pulse Oximetry 99 98 05/06/20 12:15 05/06/20 13:09 05/06/20 14:00 Temperature 36.6 C Pulse Rate 60 60 Respiratory Rate 17 17 Blood Pressure 124/52 L Pulse Oximetry 98 05/06/20 14:08 Temperature Pulse Rate 60 Respiratory Rate 17 Blood Pressure Pulse Oximetry Intake/Output Intake/Output: Intake & Output 05/03/20 05/04/20 05/05/20 05/06/20 23:59 23:59 23:59 23:59 Intake Total 400 3019 2379 2326.9 Output Total 380 1480 2070 1220 Balance 20 3344 029 0359.9 Meds/Results Medications: Active Medications Generic Name Dose Route Start Last Admin Trade Name Freq PRN Reason Stop Dose Admin Albuterol 2.5 mg 05/04/20 14:00 05/06/20 13:58 Albuterol Sulf Neb 2.5mg/0.5ml INHALATION 2.5 mg Q6HRT ALEX Administration Amlodipine Besylate 10 mg 05/05/20 12:25 05/06/20 08:33 Norvasc PO 10 mg QAM ALEX Administration Dextrose 12.5 gm 05/03/20 00:52 Dextrose 50% Syringe IV PUSH PRN PRN Hypoglycemia Protocol Glucagon 1 mg 05/03/20 00:52 Glucagon For Inj IM PRN PRN Hypoglycemia Protocol Hydra
[2020-05-06 18:02] LABS: Glucose Point of Care 167 (65-105)
[2020-05-06 23:18] LABS: Glucose Point of Care 205 (65-105)
[2020-05-06] MEDS: INSULIN ASPART (*BKC) 100 UNITS/ML SUB-Q (23:36)
--- NOTE | 2020-05-06 23:56 | PM.IMPN ---
Progress Note: A&P Assessment and Plan (1) Acute cholecystitis: Code(s): K81.0 - Acute cholecystitis Status: Acute Assessment and Plan: Patient presents with abdominal pain, nausea, and vomiting; CT abdomen shows acute cholecystitis. perc cholecystostoomy tube placed 05/03 Continue IV zosyn and vancomycin. WBC now normal and bile growing enterococcus (2) Acute on chronic renal failure: Qualifiers: Acute renal failure type: unspecified Chronic kidney disease stage: stage 3 (moderate) Qualified Code(s): N17.9 - Acute kidney failure, unspecified; N18.3 - Chronic kidney disease, stage 3 (moderate) Code(s): N17.9 - Acute kidney failure, unspecified; N18.9 - Chronic kidney disease, unspecified Status: Acute Assessment and Plan: Cr 4.1 again this AM; was previously on hemodialysis per patient. Monitor urine output and renal function. Nephrology seeing and renal sonogram 05/04 no obstruction (3) Hyperkalemia: Code(s): E87.5 - Hyperkalemia Status: Acute Assessment and Plan: Hyperkalemia may be related to worsening renal function. Up to 4.5 this AM, (4) Essential hypertension: Code(s): I10 - Essential (primary) hypertension Status: Chronic Assessment and Plan: Last 150/56; can restart oral med per OG when needed. Hydralazine IV available PRN if needed. Monitor BP and adjust treatment as needed. (5) Anemia of chronic kidney failure: Qualifiers: Chronic kidney disease stage: stage 3 (moderate) Qualified Code(s): N18.3 - Chronic kidney disease, stage 3 (moderate); D63.1 - Anemia in chronic kidney disease Code(s): N18.9 - Chronic kidney disease, unspecified; D63.1 - Anemia in chronic kidney disease Status: Chronic Assessment and Plan: H&H low but stable hgb 8.8,. No evidence of acute bleeding. Monitor CBC , suspect all anemia Chronic disease (6) Type 2 diabetes mellitus with hyperglycemia: Qualifiers: Diabetes mellitus marine oil terminal superintendent insulin use: with marine oil terminal superintendent use Qualified Code(s): E11.65 - Type 2 diabetes mellitus with hyperglycemia; Z79.4 - continuous churn buttermaker (current) use of insulin Code(s): E11.65 - Type 2 diabetes mellitus with hyperglycemia Status: Chronic Assessment and Plan: Monitor accu-cheks and cover with SSI for now. A1c only 5.7. (7) Acute and chronic respiratory failure with hypercapnia: Code(s): J96.22 - Acute and chronic respiratory failure with hypercapnia Status: Acute Assessment and Plan: Lethargic post cholecystostomy tube. failed BiPAP so mechanically ventilated after intubation. Wean as possible Subjective Date/time seen: 05/06/20 23:56 Interval history: Date of visit 05/06, Mr. Suarez is a 80yo M admitted due to acute cholecystitis. pt sob in recovery after choly cystostomy tube placement, started on bipap and eventually had to be intubated and mechanically ventilated. Now sedated on mechanical ventilation in ICU Exam Narrative: Exam Narrative: Blood pressure 142/50 pulse 60 sat 100% on FiO2 of 35% peep of 5 afebrile HEENT: Pupils midposition and and reactive. Mouth ET and OG tubes secured with tube feedings now Cardiovascular: Rate and rhythm are regular. Respiratory: Lungs clear to auscultation. Respirations even and nonlabored. Abdomen: Soft, mildly distended, obese bowel sounds present. percutaneous RUQ cholecystostomy tube in place and draining dark bile. Extremities: Peripheral pulses intact. No edema appreciated. Neuro: On the vent sedated Objective Data Vital Signs Vital Signs: Vital Signs - 24 hr 05/06/20 00:00 05/06/20 01:21 05/06/20 02:00 Temperature 36.5 C Pulse Rate 64 64 61 Respiratory Rate 18 17 17 Blood Pressure 151/62 H 145/54 H Pulse
[2020-05-07] VITALS (38 sets, daily range): BP systolic 117–179; BP diastolic 54–87; PULSE 55–118; RESP 16–28; TEMP 36.4–37.3; O2SAT 95–100
[2020-05-07] MEDS: IPRATROPIUM BR 0.02% INH SOLN 0.5 MG/2.5 ML VIAL INHALATION ×4 (02:52→20:35)
[2020-05-07] MEDS: ALBUTEROL SULFATE NEB 2.5 MG/0.5 ML INH INHALATION ×4 (02:52→20:16)
[2020-05-07 04:21] LABS: Hematocrit 23.1 % (42.0-52.0); Hemoglobin 7.2 g/dL (14.0-18.0); Mean Corpuscular HGB Conc 31.2 g/dl (32-36); Mean Corpuscular Hemoglobin 28.1 pg (26-34); Mean Corpuscular Volume 90.2 fl (80-100); Mean Platelet Volume 9.1 fl (7.4-10.4); Platelet Count Result 204 k/mm3 (150-375); Red Blood Count 2.56 M/mm3 (4.6-6.20); Red Cell Distribution Width 14.4 % (11.5-14.5); White Blood Count 7.1 K/mm3 (4.5-10.0)
[2020-05-07 04:37] LABS: Alanine Aminotransferase 16 U/L (4-50); Alkaline Phosphatase 80 U/L (38-126); Aspartate Amino Transferase 19 U/L (17-59); Bilirubin,Total 1.2 mg/dL (0.2-1.3); Blood Urea Nitrogen 66 mg/dL (9-20); Calcium 8.5 mg/dL (8.4-10.2); Carbon Dioxide 23 mmol/L (22-30); Chloride 109 mmol/L (98-107); Estimated CRCL calculation 19 ml/min; Estimated Glomerular Filt Rate 15; Glucose 180 mg/dL (75-110); Magnesium 2.5 mg/dL (1.6-2.3); Phosphorus 4.5 mg/dL (2.5-4.5); Potassium 4.6 mmol/L (3.4-5.0); Sodium 138 mmol/L (137-145)
[2020-05-07 04:46] LABS: Alveolar/Arterial O2 Gradient 104.7 mmHg; Base Excess ABG -2.9 mEq/l (+/-2.0); Carboxyhemoglobin 0.3 % THb (0-2.0); Fractional Inspired Oxygen 30 %; HCO3 ABG 21.3 mEq/l (22.0-26.0); Methemoglobin ABG 0.5 %THb (0-1.5); Oxygen Content ABG 10.5 %vol (16.0-22.0); Oxygen Saturation ABG 94.2 % (95.0-100.0); Oxyhemoglobin 91.5 % THb (90.0-100.0); PCO2 ABG 34.3 mmHg (35.0-45.0); PO2 ABG 68.9 mmHg (80.0-100.0); Reduced Hemoglobin 7.7 %THb (0-5.0); Total Hemoglobin 8.1 g/dL (12.0-18.0); pH ABG 7.411 (7.350-7.450)
[2020-05-07 04:50] LABS: Arterial Blood Gas PEEP 5 cmH2O; Arterial Blood Gas Tidal Volume 450 ml; Arterial Blood Gas Vent Mode CMV; Arterial Blood Gas Ventilator rate 17 /MIN; Device VENTILATOR; Modified Allen's Test Pass; Site Drawn RIGHT RADIAL
[2020-05-07] MEDS: SODIUM CHLORIDE 0.9% IV 1,000 ML 75 ML IV CONT (08:13)
[2020-05-07] MEDS: PANTOPRAZOLE SODIUM IV 40 MG VIAL IV PUSH (08:16)
--- NOTE | 2020-05-07 08:53 | P.PNNP_ITS ---
Progress Note: A&P Assessment and Plan (1) FELIPE (acute kidney injury): Code(s): N17.9 - Acute kidney failure, unspecified Status: Acute Assessment and Plan: * suspect due to acute infection (cholecystitis) on top of possible pre-renal factors * urine electrolytes non pre renal * renal ultrasound without hydronephrosis * still making urine. * creatinine is a little bit better at 3.8. Will Stop the routine IV fluids. I think he is hydrated enough. And he is getting obligate IV fluids with all his IV medications. (2) Chronic kidney disease, stage IV (severe): Code(s): N18.4 - Chronic kidney disease, stage 4 (severe) Status: Chronic Assessment and Plan: * baseline creatinine ~ 2.8 - 2.9mg/dl from review of outpatient records * His creatinine does vary quite a bit however and has been as high as 4 as an outpatient in the past. * At 1 point he was on dialysis during an episode of acute kidney injury. * due to diabetes, hypertension, and BILL . He also has dysautoregulation and so over control of his blood pressure will tend to make his creatinine rise. His systolic is 147 right now which is about where he belongs. (3) Hyperkalemia: Code(s): E87.5 - Hyperkalemia Status: Acute Assessment and Plan: * resolving * likely due to #1 (4) Acute cholecystitis: Code(s): K81.0 - Acute cholecystitis Status: Acute Assessment and Plan: * General Surgery following * s/p cholecystostomy tube placement * gallbladder fluid culture positive for Enterococcus * Afebrile and his white count is okay. * continue antibiotics (5) Essential hypertension: Code(s): I10 - Essential (primary) hypertension Status: Chronic Assessment and Plan: * stable hemodynamics at this time * Goal is a systolic of 140s-150s. (6) Anemia: Qualifiers: Anemia type: unspecified type Qualified Code(s): D64.9 - Anemia, unspecified Code(s): D64.9 - Anemia, unspecified Status: Acute Assessment and Plan: * due to acute illness and CKD * Will give EPO. (7) Diabetes: Code(s): E11.9 - Type 2 diabetes mellitus without complications Status: Chronic Assessment and Plan: * follow accuchecks * on SSI Will continue to follow. Additional Plan Subjective Date/time seen: 05/07/20 08:53 Interval history: Jose Miguel is in the ICU on the ventilator. fentanyl and midazolam were stopped. Now on Precedex. He looks comfortable. He rouse is a little when I shake his shoulder and call his name. But he does not open his eyes. Review of Systems Review of Systems: ROS unobtainable: Yes unobtainable due to endotracheal tube Exam Narrative: Exam Narrative: General: WD/WN male in NAD; intubated and sedated Heart: normal S1 and S2; no rub Lungs: decreased at the bases Abdomen: soft, nontender, nondistended, positive bowel sounds Extremities: no edema Skin: No rash Or subcu nodules Objective Data Vital Signs Vital Signs: Vital Signs - 24 hr 05/06/20 09:50 05/06/20 09:51 05/06/20 09:53 Temperature Pulse Rate 70 71 70 Respiratory Rate 17 17 17 Blood Pressure Pulse Oximetry 05/06/20 10:00 05/06/20 10:50 05/06/20 11:10 Temperature Pulse Rate 70 70
--- NOTE | 2020-05-07 08:53 | PM.PNNEP ---
Progress Note: A&P Assessment and Plan (1) FELIPE (acute kidney injury): Code(s): N17.9 - Acute kidney failure, unspecified Status: Acute Assessment and Plan: suspect due to acute infection (cholecystitis) on top of possible pre-renal factors urine electrolytes non pre renal renal ultrasound without hydronephrosis still making urine. creatinine is a little bit better at 3.8. Will Stop the routine IV fluids. I think he is hydrated enough. And he is getting obligate IV fluids with all his IV medications. (2) Chronic kidney disease, stage IV (severe): Code(s): N18.4 - Chronic kidney disease, stage 4 (severe) Status: Chronic Assessment and Plan: baseline creatinine ~ 2.8 - 2.9mg/dl from review of outpatient records His creatinine does vary quite a bit however and has been as high as 4 as an outpatient in the past. At 1 point he was on dialysis during an episode of acute kidney injury. due to diabetes, hypertension, and BILL . He also has dysautoregulation and so over control of his blood pressure will tend to make his creatinine rise. His systolic is 147 right now which is about where he belongs. (3) Hyperkalemia: Code(s): E87.5 - Hyperkalemia Status: Acute Assessment and Plan: resolving likely due to #1 (4) Acute cholecystitis: Code(s): K81.0 - Acute cholecystitis Status: Acute Assessment and Plan: General Surgery following s/p cholecystostomy tube placement gallbladder fluid culture positive for Enterococcus Afebrile and his white count is okay. continue antibiotics (5) Essential hypertension: Code(s): I10 - Essential (primary) hypertension Status: Chronic Assessment and Plan: stable hemodynamics at this time Goal is a systolic of 140s-150s. (6) Anemia: Qualifiers: Anemia type: unspecified type Qualified Code(s): D64.9 - Anemia, unspecified Code(s): D64.9 - Anemia, unspecified Status: Acute Assessment and Plan: due to acute illness and CKD Will give EPO. (7) Diabetes: Code(s): E11.9 - Type 2 diabetes mellitus without complications Status: Chronic Assessment and Plan: follow accuchecks on SSI Will continue to follow. Additional Plan Subjective Date/time seen: 05/07/20 08:53 Interval history: Jose Miguel is in the ICU on the ventilator. fentanyl and midazolam were stopped. Now on Precedex. He looks comfortable. He rouse is a little when I shake his shoulder and call his name. But he does not open his eyes. Review of Systems Review of Systems: ROS unobtainable: Yes unobtainable due to endotracheal tube Exam Narrative: Exam Narrative: General: WD/WN male in NAD; intubated and sedated Heart: normal S1 and S2; no rub Lungs: decreased at the bases Abdomen: soft, nontender, nondistended, positive bowel sounds Extremities: no edema Skin: No rash Or subcu nodules Objective Data Vital Signs Vital Signs: Vital Signs - 24 hr 05/06/20 09:50 05/06/20 09:51 05/06/20 09:53 Temperature Pulse Rate 70 71 70 Respiratory Rate 17 17 17 Blood Pressure Pulse Oximetry 05/06/20 10:00 05/06/20 10:50 05/06/20 11:10 Temperature Pulse Rate 70 70 62 Respiratory Rate 17 17 Blood Pressure 141/60 H Pulse Oximetry 100 99 05/06/20 12:00 05/06/20 12:10 05/06/20 12:15 Temperature 36.6 C Pulse Rate 61 62 Respiratory Rate 17 17 Blood Pressure 123/53 L Pulse Oximetry 98 05/06/20 13:09 05/06/20 14:00 05/06/20 14:04 Temperature Pulse Rate 60 60 61 Respiratory Rate 17 17 Blood Pressure 124/52 L Pulse Oximetry 98 99 05/06/20 14:08 05/06/20 15:10 05/06/20 15:38 Temperature Pulse Rate 60 61 62 Respiratory Rate 17 17 17 Blood Pressure Pulse Oximetry 05/06/20 16:00 05/06/20 16:33 05/06/20 17:23 Temperature 36.8 C Pulse Rate 60 60 Respirat
--- NOTE | 2020-05-07 09:41 | P.PNIM_ITS ---
Progress Note: A&P Assessment and Plan (1) Acute and chronic respiratory failure with hypercapnia: Code(s): J96.22 - Acute and chronic respiratory failure with hypercapnia Status: Acute Assessment and Plan: * Lethargic post cholecystostomy tube requiring BiPAP. He ultimately failed BiPAP so mechanically ventilated after intubation on 05/03/20. * Chest x-ray multi lobar airspace disease with some improvement. * Continue albuterol And Atrovent * Wean mechanical ventilation as tolerated. * Appreciate spares scheduler input.. (2) Acute cholecystitis: Code(s): K81.0 - Acute cholecystitis Status: Acute Assessment and Plan: * Patient presents with abdominal pain, nausea, and vomiting with CT abdomen showing acute cholecystitis. * Perc cholecystostomy tube placed 05/03/20 and being followed by Gen Surg - appreciate their input. * Cx growing Enterococus; UCx Negative; BCx NGTD. WBC remaining normal * Continue IV zosyn and vancomycin * Consider Reglan to help with gut motility and TF. (3) Acute on chronic renal failure: Qualifiers: Acute renal failure type: unspecified Chronic kidney disease stage: stage 3 (moderate) Qualified Code(s): N17.9 - Acute kidney failure, unspecified; N18.3 - Chronic kidney disease, stage 3 (moderate) Code(s): N17.9 - Acute kidney failure, unspecified; N18.9 - Chronic kidney disease, unspecified Status: Acute Assessment and Plan: * Baseline creatinine 2.8 to 3.4 range. * Creatinine climbed to 4.3 before trending down to 3.9 today. * Patient was previously on hemodialysis in the past * renal ultrasound showed normal size kidneys. No hydronephrosis. * Good urine output. Nephrology following and appreciate their input. (4) Hyperkalemia: Code(s): E87.5 - Hyperkalemia Status: Acute Assessment and Plan: * potassium 5.5 early in admission. * Hyperkalemia may be related to worsening renal function. * Potassium improved and remaining stable. Continue to monitor. (5) Essential hypertension: Code(s): I10 - Essential (primary) hypertension Status: Chronic Assessment and Plan: * Blood pressure reviewed on 05/07/2020. * Blood pressure well controlled. * Currently on Norvasc and metoprolol. Metoprolol held this morning because of low heart rate which has improved. * Oral hydralazine has been held. * Continue Hydralazine IV available PRN if needed. Monitor BP and adjust treatment as needed. (6) Anemia of chronic kidney failure: Qualifiers: Chronic kidney disease stage: stage 3 (moderate) Qualified Code(s): N18.3 - Chronic kidney disease, stage 3 (moderate); D63.1 - Anemia in chronic kidney disease Code(s): N18.9 - Chronic kidney disease, unspecified; D63.1 - Anemia in chronic kidney disease Status: Chronic Assessment and Plan: * hemoglobin low but only in the 10-11 range. * Since admission, hemoglobin in the 8-9 range but 7.2 today. * No evidence of active bleeding. Continue Protonix. * repeat H&H later today to ensure stability. (7) Type 2 diabetes mellitus with hyperglycemia: Qualifiers: Diabetes mellitus half-way insulin use: with half-way use Qualified Code(s): E11.65 - Type 2 diabetes mellitus with hyperglycemia; Z79.4 - showcase maker (current) use of insulin Code(s): E11.65 - Type 2 diabetes mellitus with h
--- NOTE | 2020-05-07 09:41 | PM.IMPN ---
Progress Note: A&P Assessment and Plan (1) Acute and chronic respiratory failure with hypercapnia: Code(s): J96.22 - Acute and chronic respiratory failure with hypercapnia Status: Acute Assessment and Plan: Lethargic post cholecystostomy tube requiring BiPAP. He ultimately failed BiPAP so mechanically ventilated after intubation on 05/03/20. Chest x-ray multi lobar airspace disease with some improvement. Continue albuterol And Atrovent Wean mechanical ventilation as tolerated. Appreciate repairer resistance welding machines input.. (2) Acute cholecystitis: Code(s): K81.0 - Acute cholecystitis Status: Acute Assessment and Plan: Patient presents with abdominal pain, nausea, and vomiting with CT abdomen showing acute cholecystitis. Perc cholecystostomy tube placed 05/03/20 and being followed by Gen Surg - appreciate their input. Cx growing Enterococus; UCx Negative; BCx NGTD. WBC remaining normal Continue IV zosyn and vancomycin Consider Reglan to help with gut motility and TF. (3) Acute on chronic renal failure: Qualifiers: Acute renal failure type: unspecified Chronic kidney disease stage: stage 3 (moderate) Qualified Code(s): N17.9 - Acute kidney failure, unspecified; N18.3 - Chronic kidney disease, stage 3 (moderate) Code(s): N17.9 - Acute kidney failure, unspecified; N18.9 - Chronic kidney disease, unspecified Status: Acute Assessment and Plan: Baseline creatinine 2.8 to 3.4 range. Creatinine climbed to 4.3 before trending down to 3.9 today. Patient was previously on hemodialysis in the past renal ultrasound showed normal size kidneys. No hydronephrosis. Good urine output. Nephrology following and appreciate their input. (4) Hyperkalemia: Code(s): E87.5 - Hyperkalemia Status: Acute Assessment and Plan: potassium 5.5 early in admission. Hyperkalemia may be related to worsening renal function. Potassium improved and remaining stable. Continue to monitor. (5) Essential hypertension: Code(s): I10 - Essential (primary) hypertension Status: Chronic Assessment and Plan: Blood pressure reviewed on 05/07/2020. Blood pressure well controlled. Currently on Norvasc and metoprolol. Metoprolol held this morning because of low heart rate which has improved. Oral hydralazine has been held. Continue Hydralazine IV available PRN if needed. Monitor BP and adjust treatment as needed. (6) Anemia of chronic kidney failure: Qualifiers: Chronic kidney disease stage: stage 3 (moderate) Qualified Code(s): N18.3 - Chronic kidney disease, stage 3 (moderate); D63.1 - Anemia in chronic kidney disease Code(s): N18.9 - Chronic kidney disease, unspecified; D63.1 - Anemia in chronic kidney disease Status: Chronic Assessment and Plan: hemoglobin low but only in the 10-11 range. Since admission, hemoglobin in the 8-9 range but 7.2 today. No evidence of active bleeding. Continue Protonix. repeat H&H later today to ensure stability. (7) Type 2 diabetes mellitus with hyperglycemia: Qualifiers: Diabetes mellitus director long term care insulin use: with halfway use Qualified Code(s): E11.65 - Type 2 diabetes mellitus with hyperglycemia; Z79.4 - senior care (current) use of insulin Code(s): E11.65 - Type 2 diabetes mellitus with hyperglycemia Status: Chronic Assessment and Plan: A1c 5.7. Glucose monitored on 05/07/2020. Glucose well controlled. Continue Monitor accu-cheks and cover with SSI for now. Subjective Date/time seen: 05/07/20 09:41 Interval history: 80yo male here for acute cholecystitis. Pt SOB in recovery after Cholecystostomy tube placement
[2020-05-07] MEDS: amLODIPine BESYLATE 5 MG TABLET 10 MG PO (09:49)
[2020-05-07] MEDS: EPOETIN ALFA 10,000 UNITS/ML VIAL 10000 UNITS IV PUSH (09:49)
[2020-05-07] MEDS: BISACODYL 10 MG SUPPOSITORY RECTAL (10:55)
--- NOTE | 2020-05-07 11:04 | PM.PNGS ---
Progress Note: A&P Assessment and Plan (1) Acute cholecystitis: Code(s): K81.0 - Acute cholecystitis Status: Acute Assessment and Plan: Improving. WBC normal, afebrile. Cholecystostomy tube working well. Continue to monitor drain and continue IV antibiotics. (2) Acute and chronic respiratory failure with hypercapnia: Code(s): J96.22 - Acute and chronic respiratory failure with hypercapnia Status: Acute Assessment and Plan: Wean vent per Batch Records Clerk. (3) Chronic kidney disease, stage IV (severe): Code(s): N18.4 - Chronic kidney disease, stage 4 (severe) Status: Chronic Assessment and Plan: Continue to monitor, slight improvement today. Nephrology following and stopped IV fluids today. Has not required HD as of yet. (4) Diabetes: Code(s): E11.9 - Type 2 diabetes mellitus without complications Status: Chronic Assessment and Plan: Management per primary service Additional Plan Discussed plan of care with Dr. Lawson. Subjective Subjective Date/Time Seen: 05/07/20 09:04 Interval history: Patient intubated and sedated in the ICU. Review of Systems Review of Systems: ROS unobtainable: Yes unobtainable due to endotracheal tube Exam Const: General: no acute distress and other (sedated, intubated) Resp: Auscultation: diminished lung sounds Cardio: Rate: regular rate Rhythm: regular rhythm GI: Inspection: non-distended GI Palp: Yes Soft to palpation and Yes Tenderness to palpation present (GI) (grimacing with upper abd palpation) Other: RUQ drain with bilious output Urinary Catheter: Urinary Catheter: patent and draining Extrem: General: normal to inspection and no edema Objective Data Vital Signs Vital Signs: Vital Signs - 24 hr 05/06/20 11:10 05/06/20 12:00 05/06/20 12:10 Temperature Pulse Rate 62 61 62 Respiratory Rate 17 17 Blood Pressure 123/53 L Pulse Oximetry 99 98 05/06/20 12:15 05/06/20 13:09 05/06/20 14:00 Temperature 98 F Pulse Rate 60 60 Respiratory Rate 17 17 Blood Pressure 124/52 L Pulse Oximetry 98 05/06/20 14:04 05/06/20 14:08 05/06/20 15:10 Temperature Pulse Rate 61 60 61 Respiratory Rate 17 17 Blood Pressure Pulse Oximetry 99 05/06/20 15:38 05/06/20 16:00 05/06/20 16:33 Temperature 98.3 F Pulse Rate 62 60 Respiratory Rate 17 17 Blood Pressure 139/57 L Pulse Oximetry 99 05/06/20 17:23 05/06/20 18:00 05/06/20 20:00 Temperature 98.2 F Pulse Rate 60 60 63 Respiratory Rate 17 17 Blood Pressure 142/58 H 142/60 H Pulse Oximetry 100 99 97 05/06/20 20:24 05/06/20 20:31 05/06/20 20:33 Temperature Pulse Rate 66 64 66 Respiratory Rate 19 25 H Blood Pressure Pulse Oximetry 98 05/06/20 21:14 05/06/20 21:20 05/06/20 22:00 Temperature Pulse Rate 71 67 62 Respiratory Rate 17 17 Blood Pressure 144/54 H Pulse Oximetry 96 05/06/20 23:21 05/07/20 00:00 05/07/20 02:00 Temperature 97.9 F Pulse Rate 61 62 62 Respiratory Rate 17 17 Blood Pressure 156/56 H 153/57 H Pulse Oximetry 95 96 96 05/07/20 02:10 05/07/20 02:52 05/07/20 02:58 Temperature Pulse Rate 58 L 57 L 57 L Respiratory Rate 17 17 Blood Pressure Pulse Oximetry 96 05/07/20 04:00 05/07/20 05:07 05/07/20 06:00 Temperature 97.6 F Pulse Rate 59 L 61 56 L Respiratory Rate 17 17 Blood Pressure 162/87 H 160/58 H Pulse Oximetry 96 96 96 05/07/20 07:58 05/07/20 08:00 05/07/20 08:19 Temperature 98.3 F Pulse Rate 56 L 55 L Respiratory Rate 17 17 Blood Pressure 147/54 H Pulse Oximetry 97 05/07/20 09:00 05/07/20 09:10 05/07/20 09:49 Temperature Pulse Rate 70 69 65 Respiratory Rate 17 17 Blood Pressure Pulse Oximetry 96 05/07/20 10:00 Temperature Pulse Rate 64 Respiratory Rate 16 Blood Pressure 145/55 H Pulse Oximetry 97 Intake/Output Intake/Output: Intake & Output 05/04/20 05/05/20 05/06/20
--- NOTE | 2020-05-07 11:24 | PCDIET ---
Nutrition Follow-Up Complete: Nutrition Diagnosis: Inadequate oral intake related to oral intubation as evidenced by need for enteral feedings. Nutrition Goal: Patient to meet estimated nutritional needs. Goal in progress. Tube feedings held earlier today for 330mL residual. Bowel sounds hypoactive. MD sarita Lackey with plan to re-start tube feedings later today. Last recorded weight is 116.8 kg which is increased from last review. +I/O. Bowel Motility: No documented BM. Dulcolax suppository given. Labs Reviewed: Hgb (7.2), Hct (23.1), Glu (180), BUN (66), Cr (3.9), Ma (2.5), Alb (3.0) Meds Noted: Albuterol, Precedex, Azithromycin, Fentanyl, Zosyn, Reglan, Novolog, Versed, Protonix, Vancomycin Additional Notes: No reported skin breakdown. Will continue to monitor with same goal. Nutrition Monitoring and Evaluation: Follow up every Wednesday/Wednesday. Follow daily in ICU rounds.
[2020-05-07 11:35] LABS: Hemoglobin 8.4 g/dL (14.0-18.0)
[2020-05-07 11:36] LABS: Glucose Point of Care 186 (65-105)
[2020-05-07] MEDS: METOCLOPRAMIDE HCL INJ 10 MG/2 ML VIAL 5 MG IV PUSH ×3 (11:50→23:39)
--- NOTE | 2020-05-07 12:39 | WPDINTPN ---
Progress Note: A&P Assessment and Plan (1) Acute and chronic respiratory failure with hypercapnia: Code(s): J96.22 - Acute and chronic respiratory failure with hypercapnia Status: Acute Assessment and Plan: Patient with acute hypercapnic respiratory failure post cholecystostomy tube placement normal could be related to sedation and pain medication. Patient failed BiPAP and was intubated on 05/03/2020 -chest x-ray and ABGs reviewed. Hypercapnia has resolved, patient with peep of 5 and 35% FiO2, -wean FiO2 and decreased respiratory rate -continue bronchodilators -patient on vancomycin and Zosyn - patient on 35% FiO2, on Precedex infusion, with thick yellow secretions - once patient is more awake, will place him on spontaneous breathing trial and evaluate for extubation (2) Acute cholecystitis: Code(s): K81.0 - Acute cholecystitis Status: Acute Assessment and Plan: Patient presented with abdominal pain with nausea. CT scan of the abdomen and pelvis revealed acute cholecystitis -status post cholecystostomy drain placement on 05/03/2020 -leukocytosis persists -cultures from the gallbladder fluid growing Enterococcus species -continue vancomycin and Zosyn -discuss with surgery, tolerating tube, patient with high tube feed residuals, currently tube feeds on hold, started on Reglan, (3) Acute on chronic renal failure: Qualifiers: Acute renal failure type: unspecified Chronic kidney disease stage: stage 3 (moderate) Qualified Code(s): N17.9 - Acute kidney failure, unspecified; N18.3 - Chronic kidney disease, stage 3 (moderate) Code(s): N17.9 - Acute kidney failure, unspecified; N18.9 - Chronic kidney disease, unspecified Status: Acute Assessment and Plan: Patient with acute on chronic kidney disease, baseline creatinine of 2.9-4.[address] White with his systems software manager -patient with severe sepsis, not adequately fluid-resuscitated -patient received IV fluid bolus on 05/04/2020: Urine output much improved with improvement in creatinine -continue maintenance IV fluids -nephrology following the patient -renal ultrasound showed normal kidney, no hydronephrosis - will maintain systolic blood pressures close to 140s which per Dr. White higher blood pressures improved his creatinine (4) Hyperkalemia: Code(s): E87.5 - Hyperkalemia Status: Acute Assessment and Plan: Resolved (5) Essential hypertension: Code(s): I10 - Essential (primary) hypertension Status: Chronic Assessment and Plan: Patient with hypertension, continue amlodipine and metoprolol (6) Type 2 diabetes mellitus with hyperglycemia: Qualifiers: Diabetes mellitus termite helper insulin use: with senior care use Qualified Code(s): E11.65 - Type 2 diabetes mellitus with hyperglycemia; Z79.4 - long-term (current) use of insulin Code(s): E11.65 - Type 2 diabetes mellitus with hyperglycemia Status: Chronic Assessment and Plan: Continue sliding scale insulin and Accu-Cheks (7) Anemia: Qualifiers: Anemia type: unspecified type Qualified Code(s): D64.9 - Anemia, unspecified Code(s): D64.9 - Anemia, unspecified Status: Acute Assessment and Plan: Anemia likely related to chronic kidney disease -will check stool for occult blood -likely anemia of chronic disease -continue to monitor hemoglobin, transfuse as needed (8) DVT prophylaxis: Code(s): Z29.9 - Encounter for prophylactic measures, unspecified Status: Acute Assessment and Plan: SCDs Additional Plan Discussed with patient's POA significant other and updated her with patient's condition and plan of care. I answered all questions. Code status: Do not resuscitate Critical care time spent: 32 minutes Due to a high probability of clinically significant, life threatening deterioration, the patient required my highest level of preparedness to
--- NOTE | 2020-05-07 14:07 | PC.NURSE ---
05/07/20 @ 1300 Nurse responded to patient room. Ventilator alarming disconnected while x-ray staff attempting to take picture. Tubing was checked and appeared to be intact. Respiratory as well as ICU doctor responded to room. Patient appeared to be in distress, calming techniques attempted as well as manual ventilation with ambu bag. Patient was re-intubated with larger ETT. Patient tolerated well. Will continue to monitor.
--- NOTE | 2020-05-07 14:19 | PC.NURSE ---
Call placed to family-updated about patient condition.
--- NOTE | 2020-05-07 14:51 | PM.EVENT ---
Event Note Event Note Event Note: on 05/07/2020 patient bedside RN noted patient was desaturated after a KUB was done, RT tried to bag the patient was very difficult to bag, rescue catheter was inserted and patient had a large mucus plug. After which it was easy to bag the patient and the O2 sats came up significantly. Patient was really intubated, will ETT had thick yellow secretions.
--- NOTE | 2020-05-07 14:53 | WPDPROCEDUR ---
Procedures Intubation Intubation Date: 05/07/20 A pre-procedural Time-Out was completed immediately before starting the procedure and confirmed: Patient Identification, Site, Procedure, Patient Position and the Availability of Requisite Equipment: Yes Sedative: etomidate Paralytic: rocuronium Laryngoscope: fiber optic video scope Assist device used: fiber optic device ET tube size: 8 Tube secured depth (cm): 26 Tube secured location: lips Tube placement confirmation: visualized tube passing through cords, equal breath sounds bilaterally, no breath sounds over epigastrium and confirmation by capnometry Patient tolerated procedure: well Intubation complications: none Additional comments: swelling around the vocal cords and hypopharyngeal swelling was noted, vocal cord early easily visualized and ET tube was inserted without any difficulty
[2020-05-07 17:12] LABS: Glucose Point of Care 227 (65-105)
[2020-05-07] MEDS: INSULIN ASPART (*BKC) 100 UNITS/ML SUB-Q ×2 (17:15→23:41)
[2020-05-07] MEDS: hydrALAZINE HCL 20 MG/ML VIAL 10 MG IV PUSH (17:17)
[2020-05-07 19:56] LABS: Vancomycin Trough 11.7 ug/mL (10.0-20.0)
[2020-05-07] MEDS: METOPROLOL TARTRATE 25 MG TABLET PO (20:32)
[2020-05-07] MEDS: DORNASE ALFA INH SOLN 1 MG/ML 2.5 ML AMP 2.5 MG INHALATION (20:34)
[2020-05-07 23:38] LABS: Glucose Point of Care 237 (65-105)
[2020-05-08] VITALS (29 sets, daily range): BP systolic 129–174; BP diastolic 53–67; PULSE 57–74; RESP 17–20; TEMP 36.6–37.4; O2SAT 96–100
[2020-05-08] MEDS: IPRATROPIUM BR 0.02% INH SOLN 0.5 MG/2.5 ML VIAL INHALATION ×4 (03:19→20:27)
[2020-05-08] MEDS: ALBUTEROL SULFATE NEB 2.5 MG/0.5 ML INH INHALATION ×4 (03:19→20:27)
[2020-05-08 04:04] LABS: Alveolar/Arterial O2 Gradient 209.1 mmHg; Base Excess ABG -4.6 mEq/l (+/-2.0); Carboxyhemoglobin 0.3 % THb (0-2.0); Fractional Inspired Oxygen 50 %; HCO3 ABG 19.8 mEq/l (22.0-26.0); Methemoglobin ABG 0.4 %THb (0-1.5); Oxygen Content ABG 11.7 %vol (16.0-22.0); Oxyhemoglobin 96.3 % THb (90.0-100.0); PCO2 ABG 33.4 mmHg (35.0-45.0); PO2 ABG 109.8 mmHg (80.0-100.0); Total Hemoglobin 8.5 g/dL (12.0-18.0)
[2020-05-08 04:06] LABS: Device VENTILATOR; Modified Allen's Test Pass; Site Drawn LEFT RADIAL
[2020-05-08 04:07] LABS: Arterial Blood Gas PEEP 5 cmH2O; Arterial Blood Gas Tidal Volume 450 ml; Arterial Blood Gas Vent Mode CMV; Arterial Blood Gas Ventilator rate 17 /MIN
[2020-05-08 04:25] LABS: Hematocrit 24.2 % (42.0-52.0); Hemoglobin 7.6 g/dL (14.0-18.0); Mean Corpuscular HGB Conc 31.4 g/dl (32-36); Mean Corpuscular Hemoglobin 28.4 pg (26-34); Mean Corpuscular Volume 90.3 fl (80-100); Mean Platelet Volume 9.6 fl (7.4-10.4); Platelet Count Result 213 k/mm3 (150-375); Red Blood Count 2.68 M/mm3 (4.6-6.20); Red Cell Distribution Width 14.5 % (11.5-14.5)
[2020-05-08 04:38] LABS: Alanine Aminotransferase 25 U/L (4-50); Alkaline Phosphatase 82 U/L (38-126); Aspartate Amino Transferase 22 U/L (17-59); Bilirubin,Total 2.3 mg/dL (0.2-1.3); Blood Urea Nitrogen 64 mg/dL (9-20); Calcium 8.7 mg/dL (8.4-10.2); Carbon Dioxide 22 mmol/L (22-30); Chloride 107 mmol/L (98-107); Estimated CRCL calculation 19 ml/min; Estimated Glomerular Filt Rate 15; Glucose 224 mg/dL (75-110); Magnesium 2.6 mg/dL (1.6-2.3); Phosphorus 4.9 mg/dL (2.5-4.5); Potassium 4.4 mmol/L (3.4-5.0); Sodium 137 mmol/L (137-145)
[2020-05-08] MEDS: METOCLOPRAMIDE HCL INJ 10 MG/2 ML VIAL 5 MG IV PUSH (06:02)
[2020-05-08] MEDS: INSULIN ASPART (*BKC) 100 UNITS/ML SUB-Q ×3 (06:03→23:28)
[2020-05-08 08:05] LABS: Immature Reticulocyte Fraction 10.3 % (3.0-15.9); Reticulocyte Hemoglobin Conten 24.2 pg (28.2-35.7); Reticulocyte Percent 2.09 % (0.7-4.3); Reticulocytes Absolute 0.05 B/L (32.2-175.7)
[2020-05-08] MEDS: DORNASE ALFA INH SOLN 1 MG/ML 2.5 ML AMP 2.5 MG INHALATION ×2 (08:14→20:30)
[2020-05-08] MEDS: PANTOPRAZOLE SODIUM IV 40 MG VIAL IV PUSH (09:04)
--- NOTE | 2020-05-08 10:14 | P.PNNP_ITS ---
Progress Note: A&P Assessment and Plan (1) FELIPE (acute kidney injury): Code(s): N17.9 - Acute kidney failure, unspecified Status: Acute Assessment and Plan: * suspect due to acute infection (cholecystitis) on top of possible pre-renal factors * urine electrolytes non pre renal * renal ultrasound without hydronephrosis * still making urine. * creatinine is about the same. * (2) Chronic kidney disease, stage IV (severe): Code(s): N18.4 - Chronic kidney disease, stage 4 (severe) Status: Chronic Assessment and Plan: * baseline creatinine ~ 2.8 - 2.9mg/dl from review of outpatient records * His creatinine does vary quite a bit however and has been as high as 4 as an outpatient in the past. * due to diabetes, hypertension, and BILL . He also has dysautoregulation and so over control of his blood pressure will tend to make his creatinine rise. His systolic is 147 right now which is about where he belongs. (3) Hyperkalemia: Code(s): E87.5 - Hyperkalemia Status: Acute Assessment and Plan: * resolved (4) Acute cholecystitis: Code(s): K81.0 - Acute cholecystitis Status: Acute Assessment and Plan: * General Surgery following * s/p cholecystostomy tube placement * gallbladder fluid culture positive for Enterococcus * Afebrile and his white count is okay. * continue antibiotics (5) Essential hypertension: Code(s): I10 - Essential (primary) hypertension Status: Chronic Assessment and Plan: * stable hemodynamics at this time * Goal is a systolic of 140s-150s. * A little high Today. * Will and hydralazine (6) Anemia: Qualifiers: Anemia type: unspecified type Qualified Code(s): D64.9 - Anemia, unspecified Code(s): D64.9 - Anemia, unspecified Status: Acute Assessment and Plan: * due to acute illness and CKD * on EPO. (7) Diabetes: Code(s): E11.9 - Type 2 diabetes mellitus without complications Status: Chronic Assessment and Plan: * follow accuchecks * on SSI Will continue to follow. Additional Plan Subjective Date/time seen: 05/08/20 10:14 Interval history: Jose Miguel is in the ICU on the ventilator. he is on Precedex. He looks comfortable. he opens his eyes when I shake his shoulder and call his name. But he does not interactive very much more. Review of Systems Review of Systems: ROS unobtainable: Yes unobtainable due to endotracheal tube Exam Narrative: Exam Narrative: General: WD/WN male in NAD; intubated and sedated Heart: normal S1 and S2; no rub Or gallop Lungs: decreased at the bases Abdomen: positive bowel sounds and no tenderness Extremities: no edema Skin: No rash Objective Data Vital Signs Vital Signs: Vital Signs - 24 hr 05/07/20 11:15 05/07/20 11:47 05/07/20 12:00 Temperature 36.9 C Pulse Rate 70 67 71 Respiratory Rate 17 17 Blood Pressure 152/58 H Pulse Oximetry 96 97 05/07/20 12:42 05/07/20 13:00 05/07/20 13:04 Temperature Pulse Rate 74 69 118 H Respiratory Rate 17 17 28 H Blood Pressure Pulse Oximetry 05/07/20 13:08 05/07/20 14:00 05/07/20 14:34 Temperature
--- NOTE | 2020-05-08 10:14 | PM.PNNEP ---
Progress Note: A&P Assessment and Plan (1) FELIPE (acute kidney injury): Code(s): N17.9 - Acute kidney failure, unspecified Status: Acute Assessment and Plan: suspect due to acute infection (cholecystitis) on top of possible pre-renal factors urine electrolytes non pre renal renal ultrasound without hydronephrosis still making urine. creatinine is about the same. (2) Chronic kidney disease, stage IV (severe): Code(s): N18.4 - Chronic kidney disease, stage 4 (severe) Status: Chronic Assessment and Plan: baseline creatinine ~ 2.8 - 2.9mg/dl from review of outpatient records His creatinine does vary quite a bit however and has been as high as 4 as an outpatient in the past. due to diabetes, hypertension, and BILL . He also has dysautoregulation and so over control of his blood pressure will tend to make his creatinine rise. His systolic is 147 right now which is about where he belongs. (3) Hyperkalemia: Code(s): E87.5 - Hyperkalemia Status: Acute Assessment and Plan: resolved (4) Acute cholecystitis: Code(s): K81.0 - Acute cholecystitis Status: Acute Assessment and Plan: General Surgery following s/p cholecystostomy tube placement gallbladder fluid culture positive for Enterococcus Afebrile and his white count is okay. continue antibiotics (5) Essential hypertension: Code(s): I10 - Essential (primary) hypertension Status: Chronic Assessment and Plan: stable hemodynamics at this time Goal is a systolic of 140s-150s. A little high Today. Will and hydralazine (6) Anemia: Qualifiers: Anemia type: unspecified type Qualified Code(s): D64.9 - Anemia, unspecified Code(s): D64.9 - Anemia, unspecified Status: Acute Assessment and Plan: due to acute illness and CKD on EPO. (7) Diabetes: Code(s): E11.9 - Type 2 diabetes mellitus without complications Status: Chronic Assessment and Plan: follow accuchecks on SSI Will continue to follow. Additional Plan Subjective Date/time seen: 05/08/20 10:14 Interval history: Jose Miguel is in the ICU on the ventilator. he is on Precedex. He looks comfortable. he opens his eyes when I shake his shoulder and call his name. But he does not interactive very much more. Review of Systems Review of Systems: ROS unobtainable: Yes unobtainable due to endotracheal tube Exam Narrative: Exam Narrative: General: WD/WN male in NAD; intubated and sedated Heart: normal S1 and S2; no rub Or gallop Lungs: decreased at the bases Abdomen: positive bowel sounds and no tenderness Extremities: no edema Skin: No rash Objective Data Vital Signs Vital Signs: Vital Signs - 24 hr 05/07/20 11:15 05/07/20 11:47 05/07/20 12:00 Temperature 36.9 C Pulse Rate 70 67 71 Respiratory Rate 17 17 Blood Pressure 152/58 H Pulse Oximetry 96 97 05/07/20 12:42 05/07/20 13:00 05/07/20 13:04 Temperature Pulse Rate 74 69 118 H Respiratory Rate 17 17 28 H Blood Pressure Pulse Oximetry 05/07/20 13:08 05/07/20 14:00 05/07/20 14:34 Temperature Pulse Rate 69 98 73 Respiratory Rate 17 17 Blood Pressure 164/63 H Pulse Oximetry 95 96 05/07/20 16:00 05/07/20 17:48 05/07/20 17:50 Temperature 36.7 C Pulse Rate 66 75 86 Respiratory Rate 17 17 Blood Pressure 165/67 H Pulse Oximetry 100 96 05/07/20 18:00 05/07/20 20:00 05/07/20 20:17 Temperature 37.3 C Pulse Rate 80 61 65 Respiratory Rate 17 17 17 Blood Pressure 179/64 H 145/62 H Pulse Oximetry 100 100 05/07/20 20:18 05/07/20 20:32 05/07/20 20:35 Temperature Pulse Rate 65 70 69 Respiratory Rate 17 Blood Pressure Pulse Oximetry 100 05/07/20 20:55 05/07/20 21:52 05/07/20 22:00 Temperature Pulse Rate 59 L 57 L Respiratory Rate 18 18 Blood Pressure 117/60 Pul
[2020-05-08] MEDS: METOCLOPRAMIDE HCL INJ 10 MG/2 ML VIAL IV PUSH ×3 (11:10→23:24)
[2020-05-08] MEDS: amLODIPine BESYLATE 5 MG TABLET 10 MG PO (11:10)
[2020-05-08 11:15] LABS: Glucose Point of Care 228 (65-105)
--- NOTE | 2020-05-08 11:46 | PCDIET ---
ICU Rounding Note: Tube feedings paused for 270mL residual on rate of 20mL/hr Jevity 1.2. increasing dose of Reglan with plan to resume feedings. Last recorded weight is 100.6kg which is decreased from last review. -I/O. Bowel Motility: BM x 2 on 05/07/20. Labs Reviewed: Hgb (7.6), Hct (24.2), Glu (224), BUN (64), Cr (3.90), Alb (3.0) Meds Noted: Albuterol, Novolog, Azithromycin, Atrovent, Precedex, Reglan, Vancomycin, Epogen, Protonix, Zosyn Additional Notes: RUQ drain with decreased output, per nursing. Skin intact. Following daily in ICU rounds. Assessing/reassessing every Wednesday/Wednesday.
--- NOTE | 2020-05-08 12:10 | PM.PNGS ---
Progress Note: A&P Assessment and Plan (1) Acute cholecystitis: Code(s): K81.0 - Acute cholecystitis Status: Acute Assessment and Plan: Improving. WBC normal, afebrile. Cholecystostomy tube working well. Continue to monitor drain and continue IV antibiotics. (2) Acute and chronic respiratory failure with hypercapnia: Code(s): J96.22 - Acute and chronic respiratory failure with hypercapnia Status: Acute Assessment and Plan: Wean vent per Code Number Stamper. (3) Chronic kidney disease, stage IV (severe): Code(s): N18.4 - Chronic kidney disease, stage 4 (severe) Status: Chronic Assessment and Plan: Continue to monitor, creatinine 3.9 today. Nephrology following. (4) Diabetes: Code(s): E11.9 - Type 2 diabetes mellitus without complications Status: Chronic Assessment and Plan: Management per primary service Additional Plan Discussed plan of care with Dr. Lawson. Tube feedings have been held due to high residual. Abdominal x-ray shows normal bowel gas pattern. His abdominal exam is benign and he has good bowel sounds. BM x 2 yesterday. Continue to monitor. Advance tube feeding as tolerated once restarted. Subjective Subjective Date/Time Seen: 05/08/20 12:10 Interval history: Patient intubated and sedated. Shakes his head no when asked if having abdominal pain. Per the nurse, the patient had 2 BMs yesterday, one large. Has had to hold tube feeding yesterday and today due to high residuals. Currently on Reglan. Review of Systems Review of Systems: ROS unobtainable: Yes unobtainable due to endotracheal tube Exam Const: General: no acute distress and other (sedated, intubated) Resp: Auscultation: diminished lung sounds Cardio: Rate: regular rate Rhythm: regular rhythm GI: Inspection: non-distended GI Palp: Yes Soft to palpation, Yes Tenderness to palpation present (GI) (grimacing with epigastric and RUQ palpation) and Yes Hernia present (soft reducible midline incisional hernia) Auscultation: normal bowel sounds Other: RUQ drain with bilious output Urinary Catheter: Urinary Catheter: patent and draining and urine dark Skin: General skin exam: normal color Neuro: Other: Patient intubated and sedated. Easily arousable to name. Tracking with eyes and nods appropriately to yes/no questions. Follows commands. Extrem: General: normal to inspection and no edema Objective Data Vital Signs Vital Signs: Vital Signs - 24 hr 05/07/20 12:42 05/07/20 13:00 05/07/20 13:04 Temperature Pulse Rate 74 69 118 H Respiratory Rate 17 17 28 H Blood Pressure Pulse Oximetry 05/07/20 13:08 05/07/20 14:00 05/07/20 14:34 Temperature Pulse Rate 69 98 73 Respiratory Rate 17 17 Blood Pressure 164/63 H Pulse Oximetry 95 96 05/07/20 16:00 05/07/20 17:48 05/07/20 17:50 Temperature 98.1 F Pulse Rate 66 75 86 Respiratory Rate 17 17 Blood Pressure 165/67 H Pulse Oximetry 100 96 05/07/20 18:00 05/07/20 20:00 05/07/20 20:17 Temperature 99.2 F Pulse Rate 80 61 65 Respiratory Rate 17 17 17 Blood Pressure 179/64 H 145/62 H Pulse Oximetry 100 100 05/07/20 20:18 05/07/20 20:32 05/07/20 20:35 Temperature Pulse Rate 65 70 69 Respiratory Rate 17 Blood Pressure Pulse Oximetry 100 05/07/20 20:55 05/07/20 21:52 05/07/20 22:00 Temperature Pulse Rate 59 L 57 L Respiratory Rate 18 18 Blood Pressure 117/60 Pulse Oximetry 100 95 05/07/20 23:04 05/07/20 23:50 05/08/20 00:00 Temperature 99.4 F Pulse Rate 55 L 58 L Respiratory Rate 18 Blood Pressure 129/59 L Pulse Oximetry 100 100 100 05/08/20 02:00 05/08/20 03:20 05/08/20 03:21 Temperature Pulse Rate 66 68 68 Respiratory Rate 20 19 Blood Pressure 142/57 H Pulse Oximetry 99 99 05/08/20 03:30 05/08/20 04:00 05/08/20 05:30 Temperature Pulse Rate 72 66 67 Respiratory Rate 19 18 Blood Pressure 139/57 L Pulse Oximetry 99
[2020-05-08] MEDS: MIDAZOLAM HCL 2 MG/2 ML VIAL (13:49)
--- NOTE | 2020-05-08 14:04 | WPDINTPN ---
Progress Note: A&P Assessment and Plan (1) Acute and chronic respiratory failure with hypercapnia: Code(s): J96.22 - Acute and chronic respiratory failure with hypercapnia Status: Acute Assessment and Plan: Patient with acute hypercapnic respiratory failure post cholecystostomy tube placement normal could be related to sedation and pain medication. Patient failed BiPAP and was intubated on 05/03/2020 -chest x-ray and ABGs reviewed. Hypercapnia has resolved, patient with peep of 5 and 35% FiO2, -wean FiO2 and decreased respiratory rate -continue bronchodilators -patient on vancomycin and Zosyn - patient on 50% FiO2, on Precedex infusion, with thick yellow secretions, continue Pulmozyme, wean FiO2 as tolerated -will obtain sputum culture (2) Acute cholecystitis: Code(s): K81.0 - Acute cholecystitis Status: Acute Assessment and Plan: Patient presented with abdominal pain with nausea. CT scan of the abdomen and pelvis revealed acute cholecystitis -status post cholecystostomy drain placement on 05/03/2020 -leukocytosis persists -cultures from the gallbladder fluid growing Enterococcus species -continue vancomycin and Zosyn -discuss with surgery, tolerating tube, patient with high tube feed residuals, currently tube feeds on hold, increased Reglan, will restart tube feeds at a lower rate - obstructive series on 05/07 did not show any ileus or small-bowel obstruction (3) Acute on chronic renal failure: Qualifiers: Acute renal failure type: unspecified Chronic kidney disease stage: stage 3 (moderate) Qualified Code(s): N17.9 - Acute kidney failure, unspecified; N18.3 - Chronic kidney disease, stage 3 (moderate) Code(s): N17.9 - Acute kidney failure, unspecified; N18.9 - Chronic kidney disease, unspecified Status: Acute Assessment and Plan: Patient with acute on chronic kidney disease, baseline creatinine of 2.9-4.[address] White with his locomotive firer/fireman -patient with severe sepsis, not adequately fluid-resuscitated -patient received IV fluid bolus on 05/04/2020: Urine output much improved with improvement in creatinine -continue maintenance IV fluids -nephrology following the patient -renal ultrasound showed normal kidney, no hydronephrosis - will maintain systolic blood pressures close to 140s which per Dr. White higher blood pressures improved his creatinine (4) Hyperkalemia: Code(s): E87.5 - Hyperkalemia Status: Acute Assessment and Plan: Resolved (5) Essential hypertension: Code(s): I10 - Essential (primary) hypertension Status: Chronic Assessment and Plan: Patient with hypertension, continue amlodipine and metoprolol (6) Type 2 diabetes mellitus with hyperglycemia: Qualifiers: Diabetes mellitus mcc insulin use: with director long term care use Qualified Code(s): E11.65 - Type 2 diabetes mellitus with hyperglycemia; Z79.4 - halfway (current) use of insulin Code(s): E11.65 - Type 2 diabetes mellitus with hyperglycemia Status: Chronic Assessment and Plan: Continue sliding scale insulin and Accu-Cheks (7) Anemia: Qualifiers: Anemia type: unspecified type Qualified Code(s): D64.9 - Anemia, unspecified Code(s): D64.9 - Anemia, unspecified Status: Acute Assessment and Plan: Anemia likely related to chronic kidney disease -will check stool for occult blood -likely anemia of chronic disease -continue to monitor hemoglobin, transfuse as needed (8) DVT prophylaxis: Code(s): Z29.9 - Encounter for prophylactic measures, unspecified Status: Acute Assessment and Plan: SCDs Additional Plan Discussed with patient's POA significant other and updated her with patient's condition and plan of care. I answered all questions. Code status: Do not resuscitate Critical care time spent: 32 minutes Due to a high probability of clinically significan
[2020-05-08 17:54] LABS: Glucose Point of Care 198 (65-105)
--- NOTE | 2020-05-08 20:10 | P.PNIM_ITS ---
Progress Note: A&P Assessment and Plan (1) Acute and chronic respiratory failure with hypercapnia: Code(s): J96.22 - Acute and chronic respiratory failure with hypercapnia Status: Acute Assessment and Plan: * Lethargic post cholecystostomy tube requiring BiPAP. He ultimately failed BiPAP so mechanically ventilated after intubation on 05/03/20. * Chest x-ray multi lobar airspace disease with some improvement. * Continue albuterol and Atrovent * Wean mechanical ventilation as tolerated. * Appreciate hospice art therapist input.. (2) Acute cholecystitis: Code(s): K81.0 - Acute cholecystitis Status: Acute Assessment and Plan: * Patient presents with abdominal pain, nausea, and vomiting with CT abdomen showing acute cholecystitis. * Perc cholecystostomy tube placed 05/03/20 and being followed by Gen Surg - appreciate their input. * Cx growing Enterococus; UCx Negative; BCx NGTD. WBC remaining normal * Continue IV zosyn and vancomycin * Continue Reglan to help with gut motility. (3) Acute on chronic renal failure: Qualifiers: Acute renal failure type: unspecified Chronic kidney disease stage: stage 3 (moderate) Qualified Code(s): N17.9 - Acute kidney failure, unspecified; N18.3 - Chronic kidney disease, stage 3 (moderate) Code(s): N17.9 - Acute kidney failure, unspecified; N18.9 - Chronic kidney disease, unspecified Status: Acute Assessment and Plan: * Baseline creatinine 2.8 to 3.4 range. * Creatinine climbed to 4.3 before trending down to 3.9 and has stablized. * Patient was previously on hemodialysis in the past * Renal ultrasound showed normal size kidneys. No hydronephrosis. * Good urine output. Nephrology following and appreciate their input. (4) Hyperkalemia: Code(s): E87.5 - Hyperkalemia Status: Acute Assessment and Plan: * potassium 5.5 early in admission. * Hyperkalemia may be related to worsening renal function. * Potassium improved and remaining stable. Continue to monitor. (5) Essential hypertension: Code(s): I10 - Essential (primary) hypertension Status: Chronic Assessment and Plan: * Blood pressure reviewed on 05/08/2020. * Blood pressure reasonably well controlled. * Currently on Norvasc, hydralazine and metoprolol. * Plan to keep BP elevated to the 150 range to help with renal perfusion. * Continue Hydralazine IV available PRN if needed. Monitor BP and adjust treatment as needed. (6) Anemia of chronic kidney failure: Qualifiers: Chronic kidney disease stage: stage 3 (moderate) Qualified Code(s): N18.3 - Chronic kidney disease, stage 3 (moderate); D63.1 - Anemia in chronic kidney disease Code(s): N18.9 - Chronic kidney disease, unspecified; D63.1 - Anemia in chronic kidney disease Status: Chronic Assessment and Plan: * hemoglobin low but only in the 10-11 range chronically * Since admission, hemoglobin has dropped to 7-8 range * No evidence of active bleeding. Continue Protonix. (7) Type 2 diabetes mellitus with hyperglycemia: Qualifiers: Diabetes mellitus usp insulin use: with equipment operator intermodal yard use Qualified Code(s): E11.65 - Type 2 diabetes mellitus with hyperglycemia; Z79.4 - intermediate accountant (current) use of insulin Code(s): E11.65 - Type 2 diabetes mellitus with hyperglycemia Status: Chronic Assessmen
--- NOTE | 2020-05-08 20:10 | PM.IMPN ---
Progress Note: A&P Assessment and Plan (1) Acute and chronic respiratory failure with hypercapnia: Code(s): J96.22 - Acute and chronic respiratory failure with hypercapnia Status: Acute Assessment and Plan: Lethargic post cholecystostomy tube requiring BiPAP. He ultimately failed BiPAP so mechanically ventilated after intubation on 05/03/20. Chest x-ray multi lobar airspace disease with some improvement. Continue albuterol and Atrovent Wean mechanical ventilation as tolerated. Appreciate cost consultant input.. (2) Acute cholecystitis: Code(s): K81.0 - Acute cholecystitis Status: Acute Assessment and Plan: Patient presents with abdominal pain, nausea, and vomiting with CT abdomen showing acute cholecystitis. Perc cholecystostomy tube placed 05/03/20 and being followed by Gen Surg - appreciate their input. Cx growing Enterococus; UCx Negative; BCx NGTD. WBC remaining normal Continue IV zosyn and vancomycin Continue Reglan to help with gut motility. (3) Acute on chronic renal failure: Qualifiers: Acute renal failure type: unspecified Chronic kidney disease stage: stage 3 (moderate) Qualified Code(s): N17.9 - Acute kidney failure, unspecified; N18.3 - Chronic kidney disease, stage 3 (moderate) Code(s): N17.9 - Acute kidney failure, unspecified; N18.9 - Chronic kidney disease, unspecified Status: Acute Assessment and Plan: Baseline creatinine 2.8 to 3.4 range. Creatinine climbed to 4.3 before trending down to 3.9 and has stablized. Patient was previously on hemodialysis in the past Renal ultrasound showed normal size kidneys. No hydronephrosis. Good urine output. Nephrology following and appreciate their input. (4) Hyperkalemia: Code(s): E87.5 - Hyperkalemia Status: Acute Assessment and Plan: potassium 5.5 early in admission. Hyperkalemia may be related to worsening renal function. Potassium improved and remaining stable. Continue to monitor. (5) Essential hypertension: Code(s): I10 - Essential (primary) hypertension Status: Chronic Assessment and Plan: Blood pressure reviewed on 05/08/2020. Blood pressure reasonably well controlled. Currently on Norvasc, hydralazine and metoprolol. Plan to keep BP elevated to the 150 range to help with renal perfusion. Continue Hydralazine IV available PRN if needed. Monitor BP and adjust treatment as needed. (6) Anemia of chronic kidney failure: Qualifiers: Chronic kidney disease stage: stage 3 (moderate) Qualified Code(s): N18.3 - Chronic kidney disease, stage 3 (moderate); D63.1 - Anemia in chronic kidney disease Code(s): N18.9 - Chronic kidney disease, unspecified; D63.1 - Anemia in chronic kidney disease Status: Chronic Assessment and Plan: hemoglobin low but only in the 10-11 range chronically Since admission, hemoglobin has dropped to 7-8 range No evidence of active bleeding. Continue Protonix. (7) Type 2 diabetes mellitus with hyperglycemia: Qualifiers: Diabetes mellitus terminal superintendent insulin use: with terminal superintendent use Qualified Code(s): E11.65 - Type 2 diabetes mellitus with hyperglycemia; Z79.4 - FPC (current) use of insulin Code(s): E11.65 - Type 2 diabetes mellitus with hyperglycemia Status: Chronic Assessment and Plan: A1c 5.7. Glucose monitored on 05/08/2020. Glucose higher in the 200's more frequently Continue to monitor accu-cheks and cover with SSI. Add Lantus if persistently elevated and tolerating TF Subjective Date/time seen: 05/08/20 20:10 Interval history: 80yo male here for acute cholecystitis. Pt SOB in recovery room after Cholec
[2020-05-08] MEDS: MORPHINE SULFATE 2 MG/ML INJ IV PUSH (20:16)
[2020-05-08] MEDS: MIDAZOLAM HCL 2 MG/2 ML VIAL IV PUSH (23:23)
[2020-05-08 23:35] LABS: Glucose Point of Care 263 (65-105)
[2020-05-09] VITALS (37 sets, daily range): BP systolic 134–196; BP diastolic 51–95; PULSE 56–85; RESP 17–23; TEMP 36.4–37.6; O2SAT 96–100
[2020-05-09] MEDS: ALBUTEROL SULFATE NEB 2.5 MG/0.5 ML INH INHALATION ×4 (01:56→20:14)
[2020-05-09] MEDS: IPRATROPIUM BR 0.02% INH SOLN 0.5 MG/2.5 ML VIAL INHALATION ×4 (01:56→20:14)
[2020-05-09 04:35] LABS: Hematocrit 24.4 % (42.0-52.0); Hemoglobin 7.8 g/dL (14.0-18.0); Mean Corpuscular Hemoglobin 28.6 pg (26-34); Mean Corpuscular Volume 89.4 fl (80-100); Mean Platelet Volume 10.5 fl (7.4-10.4); Platelet Count Result 247 k/mm3 (150-375); Red Blood Count 2.73 M/mm3 (4.6-6.20); Red Cell Distribution Width 14.6 % (11.5-14.5); White Blood Count 8.4 K/mm3 (4.5-10.0)
[2020-05-09 04:54] LABS: Alveolar/Arterial O2 Gradient 146.6 mmHg; Carboxyhemoglobin 0.3 % THb (0-2.0); Fractional Inspired Oxygen 40 %; HCO3 ABG 21.5 mEq/l (22.0-26.0); Methemoglobin ABG 0.3 %THb (0-1.5); Oxygen Content ABG 11.1 %vol (16.0-22.0); Oxygen Saturation ABG 96.7 % (95.0-100.0); Oxyhemoglobin 95.1 % THb (90.0-100.0); PCO2 ABG 36.2 mmHg (35.0-45.0); PO2 ABG 88.2 mmHg (80.0-100.0); Reduced Hemoglobin 4.3 %THb (0-5.0); Total Hemoglobin 8.2 g/dL (12.0-18.0); pH ABG 7.392 (7.350-7.450)
[2020-05-09 04:55] LABS: Device VENTILATOR; Modified Allen's Test Unable to perform; Site Drawn RIGHT RADIAL
[2020-05-09 04:56] LABS: Alanine Aminotransferase 24 U/L (4-50); Alkaline Phosphatase 89 U/L (38-126); Anion Gap 13.7 mmol/L (7-16); Aspartate Amino Transferase 18 U/L (17-59); Bilirubin,Total 1.8 mg/dL (0.2-1.3); Blood Urea Nitrogen 69 mg/dL (9-20); Calcium 8.9 mg/dL (8.4-10.2); Carbon Dioxide 22 mmol/L (22-30); Chloride 107 mmol/L (98-107); Estimated CRCL calculation 18 ml/min; Estimated Glomerular Filt Rate 15; Glucose 244 mg/dL (75-110); Magnesium 2.8 mg/dL (1.6-2.3); Phosphorus 5.4 mg/dL (2.5-4.5); Potassium 4.7 mmol/L (3.4-5.0); Sodium 138 mmol/L (137-145)
[2020-05-09 04:57] LABS: Arterial Blood Gas PEEP 8 cmH2O; Arterial Blood Gas Tidal Volume 450 ml; Arterial Blood Gas Vent Mode CMV; Arterial Blood Gas Ventilator rate 17 /MIN
[2020-05-09 05:38] LABS: Glucose Point of Care 230 (65-105)
[2020-05-09] MEDS: INSULIN ASPART (*BKC) 100 UNITS/ML SUB-Q ×4 (05:38→23:39)
[2020-05-09] MEDS: METOCLOPRAMIDE HCL INJ 10 MG/2 ML VIAL IV PUSH ×4 (05:42→23:39)
[2020-05-09] MEDS: DORNASE ALFA INH SOLN 1 MG/ML 2.5 ML AMP 2.5 MG INHALATION ×2 (08:15→20:23)
[2020-05-09] MEDS: amLODIPine BESYLATE 5 MG TABLET 10 MG PO (08:29)
[2020-05-09] MEDS: PANTOPRAZOLE SODIUM IV 40 MG VIAL IV PUSH (08:29)
[2020-05-09] MEDS: METOPROLOL TARTRATE 25 MG TABLET PO ×2 (08:29→23:37)
[2020-05-09] MEDS: hydrALAZINE 10 MG TABLET PO ×2 (08:29→16:28)
[2020-05-09] MEDS: INSULIN DETEMIR 100 UNITS/ML SUB-Q ×2 (08:31→23:37)
[2020-05-09] MEDS: MORPHINE SULFATE 2 MG/ML INJ IV PUSH ×2 (08:34→16:57)
[2020-05-09] MEDS: FUROSEMIDE INJ 40 MG/4 ML VIAL IV PUSH (09:05)
--- NOTE | 2020-05-09 11:10 | P.PNNP_ITS ---
Progress Note: A&P Assessment and Plan (1) FELIPE (acute kidney injury): Code(s): N17.9 - Acute kidney failure, unspecified Status: Acute Assessment and Plan: * suspect due to acute infection (cholecystitis) on top of possible pre-renal factors * urine electrolytes non pre renal * renal ultrasound without hydronephrosis * still making urine. * creatinine is about the same. (2) Chronic kidney disease, stage IV (severe): Code(s): N18.4 - Chronic kidney disease, stage 4 (severe) Status: Chronic Assessment and Plan: * baseline creatinine ~ 2.8 - 2.9mg/dl from review of outpatient records * His creatinine does vary quite a bit however and has been as high as 4 as an outpatient in the past. * due to diabetes, hypertension, and BILL . He also has dysautoregulation and so over control of his blood pressure will tend to make his creatinine rise. His systolic is 147 right now which is about where he belongs. (3) Hyperkalemia: Code(s): E87.5 - Hyperkalemia Status: Acute Assessment and Plan: * resolved (4) Acute cholecystitis: Code(s): K81.0 - Acute cholecystitis Status: Acute Assessment and Plan: * General Surgery following * s/p cholecystostomy tube placement * gallbladder fluid culture positive for Enterococcus * Afebrile and his white count is okay. * continuing antibiotics (5) Essential hypertension: Code(s): I10 - Essential (primary) hypertension Status: Chronic Assessment and Plan: * stable hemodynamics at this time * Goal is a systolic of 140s-150s. * blood pressure doing pretty well at 153 (6) Anemia: Qualifiers: Anemia type: unspecified type Qualified Code(s): D64.9 - Anemia, unspecified Code(s): D64.9 - Anemia, unspecified Status: Acute Assessment and Plan: * due to acute illness and CKD * on EPO. (7) Diabetes: Code(s): E11.9 - Type 2 diabetes mellitus without complications Status: Chronic Assessment and Plan: * follow accuchecks * on SSI Will continue to follow. (8) Acute and chronic respiratory failure with hypercapnia: Code(s): J96.22 - Acute and chronic respiratory failure with hypercapnia Status: Acute Assessment and Plan: Patient still on the ventilator. Sedation is track announcer in patient is waking up. Chest x-ray has some infiltrates. possibly a combination of fluid and infection. Discussed with Dr Cabrera and will get some diuretics today. Additional Plan Subjective Date/time seen: 05/09/20 11:10 Interval history: Jose Miguel is in the ICU on the ventilator. he is on Precedex. He looks comfortable. he opens his eyes and follows some commands. Review of Systems Review of Systems: ROS unobtainable: Yes unobtainable due to endotracheal tube Exam Narrative: Exam Narrative: General: WD/WN male in NAD; intubated and sedated Heart: normal S1 and S2; no rub or gallop Lungs: decreased at the bases and mild coarse breath sounds on both sides Abdomen: positive bowel sounds and no tenderness Extremities: no edema Skin: No rash Or subcu nodules Objective Data Vital Signs Vital Signs: Vital Signs - 24 hr 05/08/20 11:30 05/08/20 12:00 05/08/20 14:00 Temperature 36.7 C Pulse Rate 60 74 60 Respiratory Rate 17 1
--- NOTE | 2020-05-09 11:10 | PM.PNNEP ---
Progress Note: A&P Assessment and Plan (1) FELIPE (acute kidney injury): Code(s): N17.9 - Acute kidney failure, unspecified Status: Acute Assessment and Plan: suspect due to acute infection (cholecystitis) on top of possible pre-renal factors urine electrolytes non pre renal renal ultrasound without hydronephrosis still making urine. creatinine is about the same. (2) Chronic kidney disease, stage IV (severe): Code(s): N18.4 - Chronic kidney disease, stage 4 (severe) Status: Chronic Assessment and Plan: baseline creatinine ~ 2.8 - 2.9mg/dl from review of outpatient records His creatinine does vary quite a bit however and has been as high as 4 as an outpatient in the past. due to diabetes, hypertension, and BILL . He also has dysautoregulation and so over control of his blood pressure will tend to make his creatinine rise. His systolic is 147 right now which is about where he belongs. (3) Hyperkalemia: Code(s): E87.5 - Hyperkalemia Status: Acute Assessment and Plan: resolved (4) Acute cholecystitis: Code(s): K81.0 - Acute cholecystitis Status: Acute Assessment and Plan: General Surgery following s/p cholecystostomy tube placement gallbladder fluid culture positive for Enterococcus Afebrile and his white count is okay. continuing antibiotics (5) Essential hypertension: Code(s): I10 - Essential (primary) hypertension Status: Chronic Assessment and Plan: stable hemodynamics at this time Goal is a systolic of 140s-150s. blood pressure doing pretty well at 153 (6) Anemia: Qualifiers: Anemia type: unspecified type Qualified Code(s): D64.9 - Anemia, unspecified Code(s): D64.9 - Anemia, unspecified Status: Acute Assessment and Plan: due to acute illness and CKD on EPO. (7) Diabetes: Code(s): E11.9 - Type 2 diabetes mellitus without complications Status: Chronic Assessment and Plan: follow accuchecks on SSI Will continue to follow. (8) Acute and chronic respiratory failure with hypercapnia: Code(s): J96.22 - Acute and chronic respiratory failure with hypercapnia Status: Acute Assessment and Plan: Patient still on the ventilator. Sedation is play back operator in patient is waking up. Chest x-ray has some infiltrates. possibly a combination of fluid and infection. Discussed with Dr Cabrera and will get some diuretics today. Additional Plan Subjective Date/time seen: 05/09/20 11:10 Interval history: Jose Miguel is in the ICU on the ventilator. he is on Precedex. He looks comfortable. he opens his eyes and follows some commands. Review of Systems Review of Systems: ROS unobtainable: Yes unobtainable due to endotracheal tube Exam Narrative: Exam Narrative: General: WD/WN male in NAD; intubated and sedated Heart: normal S1 and S2; no rub or gallop Lungs: decreased at the bases and mild coarse breath sounds on both sides Abdomen: positive bowel sounds and no tenderness Extremities: no edema Skin: No rash Or subcu nodules Objective Data Vital Signs Vital Signs: Vital Signs - 24 hr 05/08/20 11:30 05/08/20 12:00 05/08/20 14:00 Temperature 36.7 C Pulse Rate 60 74 60 Respiratory Rate 17 17 Blood Pressure 166/63 H 149/58 H Pulse Oximetry 100 100 97 05/08/20 14:32 05/08/20 14:35 05/08/20 14:45 Temperature Pulse Rate 61 60 60 Respiratory Rate 17 20 Blood Pressure Pulse Oximetry 97 05/08/20 16:00 05/08/20 17:00 05/08/20 18:00 Temperature 36.9 C Pulse Rate 60 60 60 Respiratory Rate 17 17 Blood Pressure 151/63 H 141/58 H Pulse Oximetry 98 98 98 05/08/20 20:00 05/08/20 20:30 05/08/20 20:31 Temperature 36.6 C Pulse Rate 57 L 62 57 L Respiratory Rate 17 20 Blood Pressure 153/58 H Pulse Oximetry 99 98 05/08/20 20:40 05/08/20 22:00 0
--- NOTE | 2020-05-09 11:12 | PM.PNGS ---
Progress Note: A&P Assessment and Plan (1) Acute cholecystitis: Code(s): K81.0 - Acute cholecystitis Status: Acute Assessment and Plan: cont drain, abx, no acute surgical intervention planned, improved exam, WBC (2) Acute and chronic respiratory failure with hypercapnia: Code(s): J96.22 - Acute and chronic respiratory failure with hypercapnia Status: Acute Assessment and Plan: wean as rohit (3) Chronic kidney disease, stage IV (severe): Code(s): N18.4 - Chronic kidney disease, stage 4 (severe) Status: Chronic Assessment and Plan: mgmt per nephrology (4) Diabetes: Code(s): E11.9 - Type 2 diabetes mellitus without complications Status: Chronic Assessment and Plan: mgmt per primary team Subjective Subjective Date/Time Seen: 05/09/20 11:12 Pt seen and examined, no acute issues overnight. Pt alert on vent and following commands. Rohit TFs @ 40 s issue. Review of Systems Review of Systems: ROS unobtainable: Yes unobtainable due to endotracheal tube Exam Const: General: comfortable Resp: Auscultation: crackles and diminished lung sounds Cardio: Rate: regular rate Rhythm: regular rhythm GI: Other: S, sl dist, cholecystostomy tube C/D/I c bilious drainage Objective Data Vital Signs Vital Signs: Vital Signs - 24 hr 05/08/20 11:30 05/08/20 12:00 05/08/20 14:00 Temperature 36.7 C Pulse Rate 60 74 60 Respiratory Rate 17 17 Blood Pressure 166/63 H 149/58 H Pulse Oximetry 100 100 97 05/08/20 14:32 05/08/20 14:35 05/08/20 14:45 Temperature Pulse Rate 61 60 60 Respiratory Rate 17 20 Blood Pressure Pulse Oximetry 97 05/08/20 16:00 05/08/20 17:00 05/08/20 18:00 Temperature 36.9 C Pulse Rate 60 60 60 Respiratory Rate 17 17 Blood Pressure 151/63 H 141/58 H Pulse Oximetry 98 98 98 05/08/20 20:00 05/08/20 20:30 05/08/20 20:31 Temperature 36.6 C Pulse Rate 57 L 62 57 L Respiratory Rate 17 20 Blood Pressure 153/58 H Pulse Oximetry 99 98 05/08/20 20:40 05/08/20 22:00 05/08/20 23:09 Temperature Pulse Rate 58 L 59 L 63 Respiratory Rate 18 17 Blood Pressure 155/53 H Pulse Oximetry 96 97 05/09/20 00:00 05/09/20 01:55 05/09/20 01:57 Temperature 36.9 C Pulse Rate 63 58 L 57 L Respiratory Rate 17 17 Blood Pressure 159/56 H Pulse Oximetry 98 97 05/09/20 02:00 05/09/20 02:08 05/09/20 04:00 Temperature 36.8 C Pulse Rate 61 57 L 59 L Respiratory Rate 17 17 17 Blood Pressure 149/53 H 155/95 H Pulse Oximetry 96 97 05/09/20 05:02 05/09/20 05:11 05/09/20 05:12 Temperature Pulse Rate 58 L 65 65 Respiratory Rate 17 17 Blood Pressure Pulse Oximetry 98 05/09/20 06:00 05/09/20 08:00 05/09/20 08:29 Temperature 36.6 C Pulse Rate 57 L 59 L 56 L Respiratory Rate 17 17 Blood Pressure 135/90 142/59 H Pulse Oximetry 97 98 05/09/20 08:40 05/09/20 09:02 05/09/20 09:07 Temperature Pulse Rate 63 60 65 Respiratory Rate 23 H 20 Blood Pressure 153/51 H Pulse Oximetry 100 98 Intake/Output Intake/Output: Intake & Output 05/06/20 05/07/20 05/08/20 05/09/20 23:59 23:59 23:59 23:59 Intake Total 3744.9 2174 1793.0 664 Output Total 1550 2110 1215 570 Balance 2194.9 64 578.0 94 Meds/Results Medications: Active Medications Generic Name Dose Route Start Last Admin Trade Name Freq PRN Reason Stop Dose Admin Acetylcysteine 200 mg 05/09/20 12:00 Mucomyst 20% Inhal Soln INHALATION Q6HR ALEX Albuterol 2.5 mg 05/04/20 14:00 05/09/20 01:56 Albuterol Sulf Neb 2.5mg/0.5ml INHALATION 2.5 mg Q6HRT ALEX Administration Amlodipine Besylate 10 mg 05/05/20 12:25 05/09/20 08:29 Norvasc PO 10 mg QAM ALEX Administration Dextrose 12.5 gm 05/03/20 00:52 Dextrose 50% Syringe IV PUSH PRN PRN Hypoglycemia Protocol Dornase Ian 2.5 mg 05/07/20 20:00 05/08/20 20:30 Pulmozyme INHALATION 2.5 mg Q12H
--- NOTE | 2020-05-09 11:18 | PCDIET ---
ICU Rounding Note: Patient tolerating tube feedings which are advancing toward goal of 60mL/hr (currently at 40mL/hr). Last recorded weight is 114.5kg which is up from last review. +I/O noted. Bowel Motility: BM x 2 on 05/07/20. +Bowel sounds. Labs Reviewed: Hgb (7.8), Hct (24.4), Glu (230), BUN (69), Cr (4.0), PO4 (5.4) Meds Noted: Albuterol, Atrovent, Precedex, Reglan, Epogen, Versed, Novolog, Protonix, Levemir, Zosyn, Vancomycin Additional Notes: RUQ drain. No documented pressure ulcers. Following daily in ICU rounds. Assessing/reassessing every Wednesday/Wednesday
--- NOTE | 2020-05-09 11:34 | PC.NURSE ---
1110 Patient unable to hold clipboard. Writing note to RN I can't raze my arm. Assessment completed able to raise right arm above head - unable to raise left arm. no change from prior assessment with squeeze/strength of [place] upper and lower extremities. C/O shoulder pain. 1111 Dr. Cabrera to bedside - stat CT head ordered. 1123 Patient lifting left arm half way up and able to hold clipboard [address] with RT and RN.
--- NOTE | 2020-05-09 12:07 | PC.NURSE ---
Shaneka spoke with Luanne - update given.
[2020-05-09 12:33] LABS: Glucose Point of Care 248 (65-105)
--- NOTE | 2020-05-09 13:38 | WPDINTPN ---
Progress Note: A&P Assessment and Plan (1) Left arm weakness: Code(s): R29.898 - Other symptoms and signs involving the musculoskeletal system Status: Acute Assessment and Plan: patient developed sudden onset left upper arm weakness. He was able to move both upper extremities this morning, was using his right arm to write a note and the left arm to hold the note pad. - The nurse suddenly noted he was not able to move his left upper extremity and was flaccid. Stat CT scan of the brain was done which did not show acute intracranial abnormality - started patient on aspirin - will allow permissive hyper tension - neurology has been consulted - upon arrival from the CT scanner was able to move the left upper arm without any difficulty. - Unable to perform a CT angiogram of the brain due to renal dysfunction (2) Acute and chronic respiratory failure with hypercapnia: Code(s): J96.22 - Acute and chronic respiratory failure with hypercapnia Status: Acute Assessment and Plan: Patient with acute hypercapnic respiratory failure post cholecystostomy tube placement normal could be related to sedation and pain medication. Patient failed BiPAP and was intubated on 05/03/2020 -chest x-ray and ABGs reviewed. Hypercapnia has resolved, patient with peep of 5 and 35% FiO2, -wean FiO2 and decreased respiratory rate -continue bronchodilators -patient on vancomycin and Zosyn - patient on 40% FiO2, peep 5, on Precedex infusion, with thick yellow secretions, continue Pulmozyme, wean FiO2 as tolerated. Also ordered Mucomyst inhalation to thin the secretions - sputum cultures have been obtained and pending (3) Acute cholecystitis: Code(s): K81.0 - Acute cholecystitis Status: Acute Assessment and Plan: Patient presented with abdominal pain with nausea. CT scan of the abdomen and pelvis revealed acute cholecystitis -status post cholecystostomy drain placement on 05/03/2020 -leukocytosis persists -cultures from the gallbladder fluid growing Enterococcus species -continue vancomycin and Zosyn -discuss with surgery, tolerating tube, patient with high tube feed residuals, currently tube feeds on hold, increased Reglan, will restart tube feeds at a lower rate - obstructive series on 05/07 did not show any ileus or small-bowel obstruction (4) Acute on chronic renal failure: Qualifiers: Acute renal failure type: unspecified Chronic kidney disease stage: stage 3 (moderate) Qualified Code(s): N17.9 - Acute kidney failure, unspecified; N18.3 - Chronic kidney disease, stage 3 (moderate) Code(s): N17.9 - Acute kidney failure, unspecified; N18.9 - Chronic kidney disease, unspecified Status: Acute Assessment and Plan: Patient with acute on chronic kidney disease, baseline creatinine of 2.9-4.[address] White with his pension adviser -patient with severe sepsis, not adequately fluid-resuscitated -patient received IV fluid bolus on 05/04/2020: Urine output much improved with improvement in creatinine -continue maintenance IV fluids -nephrology following the patient -renal ultrasound showed normal kidney, no hydronephrosis - will maintain systolic blood pressures close to 140s which per Dr. White higher blood pressures improved his creatinine (5) Hyperkalemia: Code(s): E87.5 - Hyperkalemia Status: Acute Assessment and Plan: Resolved (6) Essential hypertension: Code(s): I10 - Essential (primary) hypertension Status: Chronic Assessment and Plan: Patient with hypertension, continue amlodipine and metoprolol (7) Type 2 diabetes mellitus with hyperglycemia: Qualifiers: Diabetes mellitus intermediate designer insulin use: with intermediate designer use Qualified Code(s): E11.65 - Type 2 diabetes mellitus with hyperglycemia; Z79.4 - intermediate designer (current) use of insulin Code(s): E11.65 - Type 2 diabetes mellitus with hyperglycemia Status: Chronic
[2020-05-09] MEDS: ASPIRIN 81 MG CHEWABLE TABLET 324 MG FEED TUBE (14:15)
[2020-05-09] MEDS: EPOETIN ALFA-EPBX 10,000 UNITS/ML VIAL 10000 UNITS SUB-Q (14:17)
[2020-05-09] MEDS: ACETYLCYSTEINE 20% INHAL SOLN 800 MG/4 ML VIAL 200 MG INHALATION ×2 (15:06→20:14)
[2020-05-09 17:21] LABS: Glucose Point of Care 273 (65-105)
--- NOTE | 2020-05-09 20:46 | P.PNIM_ITS ---
Progress Note: A&P Assessment and Plan (1) Left arm weakness: Code(s): R29.898 - Other symptoms and signs involving the musculoskeletal system Status: Acute Assessment and Plan: * Patient with acute LUE weakness that resolved completely * Head CT showing no acute findings. * Probably TIA * Continue ASA; agree with permissive HTN * Check carotid US and Echo (2) Acute and chronic respiratory failure with hypercapnia: Code(s): J96.22 - Acute and chronic respiratory failure with hypercapnia Status: Acute Assessment and Plan: * Lethargic post cholecystostomy tube requiring BiPAP. He ultimately failed BiPAP so mechanically ventilated after intubation on 05/03/20. * Chest x-ray reviewed showing worsening right sided airspace disease. * Continue albuterol and Atrovent * Wean mechanical ventilation as tolerated. * Appreciate admitting counselor input. (3) Acute cholecystitis: Code(s): K81.0 - Acute cholecystitis Status: Acute Assessment and Plan: * Patient presents with abdominal pain, nausea, and vomiting with CT abdomen showing acute cholecystitis. * Percutaneous cholecystostomy tube placed 05/03/20 and being followed by Gen Surg - appreciate their input. * Cx growing Enterococus; UCx Negative; BCx NGTD. WBC remaining normal * Continue IV zosyn and vancomycin * Continue Reglan to help with gut motility. (4) Acute on chronic renal failure: Qualifiers: Acute renal failure type: unspecified Chronic kidney disease stage: stage 3 (moderate) Qualified Code(s): N17.9 - Acute kidney failure, unspe cified; N18.3 - Chronic kidney disease, stage 3 (moderate) Code(s): N17.9 - Acute kidney failure, unspecified; N18.9 - Chronic kidney disease, unspecified Status: Acute Assessment and Plan: * Baseline creatinine 2.8 to 3.4 range. * Creatinine climbed to 4.3 before trending down to 3.9-4.0 range and has stablized (new normal?). * Patient was previously on hemodialysis in the past * Renal ultrasound showed normal size kidneys. No hydronephrosis. * Receiving intermittent Lasix IV with good urine output. Nephrology following and appreciate their input. (5) Essential hypertension: Code(s): I10 - Essential (primary) hypertension Status: Chronic Assessment and Plan: * Blood pressure reviewed on 05/09/2020. * Blood pressure mildly elevated * Currently on Norvasc, hydralazine and metoprolol. * Plan to keep BP elevated to help with renal perfusion and now for permissive HTN from probable TIA * Continue Hydralazine IV available PRN if needed. Monitor BP and adjust treatment as needed. (6) Hyperkalemia: Code(s): E87.5 - Hyperkalemia Status: Acute Assessment and Plan: * potassium 5.5 early in admission. * Hyperkalemia may be related to worsening renal function. * Potassium improved and remaining stable. Continue to monitor. (7) Anemia of chronic kidney failure: Qualifiers: Chronic kidney disease stage: stage 3 (moderate) Qualified Code(s): N18.3 - Chronic kidney disease, stage 3 (moderate); D63.1 - Anemia in chronic kidney disease Code(s): N18.9 - Chronic kidney disease, unspecified; D63.1 - Anemia in chronic kidney disease Status: Chronic Assessment and Plan: * hemoglobin in the 10-11 range chronically * Since admission, hemoglobin has dropped to 7-8 range
--- NOTE | 2020-05-09 20:46 | PM.IMPN ---
Progress Note: A&P Assessment and Plan (1) Left arm weakness: Code(s): R29.898 - Other symptoms and signs involving the musculoskeletal system Status: Acute Assessment and Plan: Patient with acute LUE weakness that resolved completely Head CT showing no acute findings. Probably TIA Continue ASA; agree with permissive HTN Check carotid US and Echo (2) Acute and chronic respiratory failure with hypercapnia: Code(s): J96.22 - Acute and chronic respiratory failure with hypercapnia Status: Acute Assessment and Plan: Lethargic post cholecystostomy tube requiring BiPAP. He ultimately failed BiPAP so mechanically ventilated after intubation on 05/03/20. Chest x-ray reviewed showing worsening right sided airspace disease. Continue albuterol and Atrovent Wean mechanical ventilation as tolerated. Appreciate gynaecological oncologist input. (3) Acute cholecystitis: Code(s): K81.0 - Acute cholecystitis Status: Acute Assessment and Plan: Patient presents with abdominal pain, nausea, and vomiting with CT abdomen showing acute cholecystitis. Percutaneous cholecystostomy tube placed 05/03/20 and being followed by Gen Surg - appreciate their input. Cx growing Enterococus; UCx Negative; BCx NGTD. WBC remaining normal Continue IV zosyn and vancomycin Continue Reglan to help with gut motility. (4) Acute on chronic renal failure: Qualifiers: Acute renal failure type: unspecified Chronic kidney disease stage: stage 3 (moderate) Qualified Code(s): N17.9 - Acute kidney failure, unspecified; N18.3 - Chronic kidney disease, stage 3 (moderate) Code(s): N17.9 - Acute kidney failure, unspecified; N18.9 - Chronic kidney disease, unspecified Status: Acute Assessment and Plan: Baseline creatinine 2.8 to 3.4 range. Creatinine climbed to 4.3 before trending down to 3.9-4.0 range and has stablized (new normal?). Patient was previously on hemodialysis in the past Renal ultrasound showed normal size kidneys. No hydronephrosis. Receiving intermittent Lasix IV with good urine output. Nephrology following and appreciate their input. (5) Essential hypertension: Code(s): I10 - Essential (primary) hypertension Status: Chronic Assessment and Plan: Blood pressure reviewed on 05/09/2020. Blood pressure mildly elevated Currently on Norvasc, hydralazine and metoprolol. Plan to keep BP elevated to help with renal perfusion and now for permissive HTN from probable TIA Continue Hydralazine IV available PRN if needed. Monitor BP and adjust treatment as needed. (6) Hyperkalemia: Code(s): E87.5 - Hyperkalemia Status: Acute Assessment and Plan: potassium 5.5 early in admission. Hyperkalemia may be related to worsening renal function. Potassium improved and remaining stable. Continue to monitor. (7) Anemia of chronic kidney failure: Qualifiers: Chronic kidney disease stage: stage 3 (moderate) Qualified Code(s): N18.3 - Chronic kidney disease, stage 3 (moderate); D63.1 - Anemia in chronic kidney disease Code(s): N18.9 - Chronic kidney disease, unspecified; D63.1 - Anemia in chronic kidney disease Status: Chronic Assessment and Plan: hemoglobin in the 10-11 range chronically Since admission, hemoglobin has dropped to 7-8 range No evidence of active bleeding. Continue Protonix. (8) Type 2 diabetes mellitus with hyperglycemia: Qualifiers: Diabetes mellitus shelter insulin use: with shelter use Qualified Code(s): E11.65 - Type 2 diabetes mellitus with hyperglycemia; Z79.4 - [facility] (current) use of insulin Code(s): E11.65 - Type 2 diabetes mellitus with hyperglycemia Sta
[2020-05-09 23:57] LABS: Glucose Point of Care 285 (65-105)
[2020-05-10] VITALS (29 sets, daily range): BP systolic 123–166; BP diastolic 34–71; PULSE 57–76; RESP 16–99; TEMP 36.7–37.7; O2SAT 17–100
--- NOTE | 2020-05-10 | ECHO_ITS ---
Patient Info Name: Jose Miguel Suarez Age: 80 years : 1940 Gender: Male Ht: 72 in Wt: 252 lbs BSA: 2.45 m2 HR: 61 bpm BP: 133 / 60 mmHg Technical Quality: Good Exam Date: 05/10/2020 9:28 AM Exam Location: [facility] Patient Status: Inpatient Admit Date: 05/03/2020 Staff Ordering Physician: Esequiel Love MD [employer] Necktie Operator: Hai Alonso, SAMMY, RT Attending Provider: Esequiel Love MD Exam Type: CA echo doppler w bubble study Study Info Indications G45.9 - Transient cerebral ischemic attack, unspecified Complete two-dimensional, color flow and Doppler transthoracic echocardiogram is performed with agitated saline. Summary 1. Left ventricular chamber dimension is mildly enlarged. 2. Left ventricular systolic function is normal, estimated at 60-65%. 3. There is moderately increased left ventricular wall thickness. 4. The left ventricular diastolic function is grade I diastolic dysfunction. 5. E/e' 9 is minimally elevated. 6. Agitated saline injection twice opacified right heart chambers and several bubbles shunted to left cardiac chambers suggestive of patent foramen ovale. 7. Interatrial septum not well visualized by 2D imaging. 8. There is mild aortic valve sclerosis. 9. There is mild tricuspid valve regurgitation. 10. Severe pulmonary hypertension, estimated pulmonary arterial systolic pressure is 64 mmHg. 11. Small atheroma in anterior and posterior aortic root. 12. Dilated inferior vena cava with >50% collapse upon inspiration consistent with elevated right atrial pressure, 10 mmHg. Left Ventricle E/e' 9 is minimally elevated. Left ventricular chamber dimension is mildly enlarged. Left ventricular systolic function is normal, estimated at 60-65%. There is moderately increased left ventricular wall thickness. The left ventricular diastolic function is grade I diastolic dysfunction. Right Ventricle Right ventricular chamber dimension is normal. Right ventricular systolic function is normal. Left Atria Left atrial chamber dimension is normal. Right Atria Right atrial chamber dimension is normal. Atrial Septum Agitated saline injection twice opacified right heart chambers and several bubbles shunted to left cardiac chambers suggestive of patent foramen ovale. Interatrial septum not well visualized by 2D imaging. Aortic Valve The aortic valve is trileaflet. There is mild aortic valve sclerosis. There is no aortic valve stenosis. There is no aortic valve regurgitation. Pulmonic Valve There is no pulmonic regurgitation. Mitral Valve There is no mitral valve stenosis. There is no mitral valve regurgitation. Tricuspid Valve There is mild tricuspid valve regurgitation. Severe pulmonary hypertension, estimated pulmonary arterial systolic pressure is 64 mmHg. Pericardium/Pleural There is no pericardial effusion. Inferior Vena Cava Dilated inferior vena cava with >50% collapse upon inspiration consistent with elevated right atrial pressure, 10 mmHg. Aorta Small atheroma in anterior and posterior aortic root. The aortic root size at the sinus of Valsalva is normal. Left Ventricular Outflow Tract Name Value Normal LVOT 2D LVOT Diameter 2.1 cm
[2020-05-10] MEDS: IPRATROPIUM BR 0.02% INH SOLN 0.5 MG/2.5 ML VIAL INHALATION ×4 (02:05→20:47)
[2020-05-10] MEDS: ALBUTEROL SULFATE NEB 2.5 MG/0.5 ML INH INHALATION ×4 (02:05→20:47)
[2020-05-10] MEDS: ACETYLCYSTEINE 20% INHAL SOLN 800 MG/4 ML VIAL 200 MG INHALATION ×3 (02:05→11:37)
[2020-05-10 03:20] LABS: Chloride Rand Ur 26 mmol/L (32-290); Chloride/Creatinine Rand Ur 31 (23-275); Creatinine Random Urine 83 mg/dL (20-320)
[2020-05-10 04:49] LABS: Alveolar/Arterial O2 Gradient 153.3 mmHg; Base Excess ABG -2.6 mEq/l (+/-2.0); Carboxyhemoglobin 0.3 % THb (0-2.0); Fractional Inspired Oxygen 40 %; HCO3 ABG 22.1 mEq/l (22.0-26.0); Methemoglobin ABG 0.3 %THb (0-1.5); Oxygen Content ABG 11.1 %vol (16.0-22.0); Oxygen Saturation ABG 96.7 % (95.0-100.0); Oxyhemoglobin 95.2 % THb (90.0-100.0); PCO2 ABG 37.5 mmHg (35.0-45.0); PO2 ABG 88.8 mmHg (80.0-100.0); PO2 FiO2 Ratio Arterial Blood 2.22 %; Reduced Hemoglobin 4.2 %THb (0-5.0); Total Hemoglobin 8.2 g/dL (12.0-18.0); pH ABG 7.388 (7.350-7.450)
[2020-05-10 04:52] LABS: Arterial Blood Gas PEEP 5 cmH2O; Arterial Blood Gas Tidal Volume 450 ml; Arterial Blood Gas Vent Mode CMV; Arterial Blood Gas Ventilator rate 17 /MIN; Device VENTILATOR; Modified Allen's Test Unable to perform; Site Drawn RIGHT RADIAL
[2020-05-10 05:12] LABS: Hematocrit 23.7 % (42.0-52.0); Hemoglobin 7.5 g/dL (14.0-18.0); Mean Corpuscular HGB Conc 31.6 g/dl (32-36); Mean Corpuscular Hemoglobin 28.4 pg (26-34); Mean Corpuscular Volume 89.8 fl (80-100); Mean Platelet Volume 10.1 fl (7.4-10.4); Platelet Count Result 289 k/mm3 (150-375); Red Blood Count 2.64 M/mm3 (4.6-6.20); Red Cell Distribution Width 14.5 % (11.5-14.5)
[2020-05-10 05:26] LABS: Anion Gap 12.5 mmol/L (7-16); Blood Urea Nitrogen 73 mg/dL (9-20); Calcium 8.9 mg/dL (8.4-10.2); Carbon Dioxide 23 mmol/L (22-30); Chloride 103 mmol/L (98-107); Estimated CRCL calculation 18 ml/min; Estimated Glomerular Filt Rate 14; Glucose 309 mg/dL (75-110); Magnesium 2.8 mg/dL (1.6-2.3); Phosphorus 5.6 mg/dL (2.5-4.5); Potassium 4.5 mmol/L (3.4-5.0); Sodium 134 mmol/L (137-145)
[2020-05-10 05:44] LABS: Glucose Point of Care 302 (65-105)
[2020-05-10] MEDS: INSULIN ASPART (*BKC) 100 UNITS/ML SUB-Q ×3 (05:46→17:42)
[2020-05-10] MEDS: DORNASE ALFA INH SOLN 1 MG/ML 2.5 ML AMP 2.5 MG INHALATION ×2 (07:17→20:48)
[2020-05-10] MEDS: METOCLOPRAMIDE HCL INJ 10 MG/2 ML VIAL IV PUSH ×3 (08:40→17:42)
[2020-05-10] MEDS: hydrALAZINE 10 MG TABLET PO ×2 (08:41→17:42)
[2020-05-10] MEDS: amLODIPine BESYLATE 5 MG TABLET 10 MG PO (08:41)
[2020-05-10] MEDS: METOPROLOL TARTRATE 25 MG TABLET PO ×2 (08:41→21:00)
[2020-05-10] MEDS: PANTOPRAZOLE SODIUM IV 40 MG VIAL IV PUSH (08:42)
[2020-05-10] MEDS: ASPIRIN 81 MG CHEWABLE TABLET 324 MG FEED TUBE (08:44)
[2020-05-10] MEDS: MORPHINE SULFATE 2 MG/ML INJ IV PUSH ×3 (08:44→19:04)
[2020-05-10] MEDS: INSULIN DETEMIR 100 UNITS/ML 12 UNITS SUB-Q (08:47)
--- NOTE | 2020-05-10 09:10 | WPDINTPN ---
Progress Note: A&P Assessment and Plan (1) Left arm weakness: Code(s): R29.898 - Other symptoms and signs involving the musculoskeletal system Status: Acute Assessment and Plan: patient developed sudden onset left upper arm weakness. He was able to move both upper extremities this morning, was using his right arm to write a note and the left arm to hold the note pad. - The nurse suddenly noted he was not able to move his left upper extremity and was flaccid. Stat CT scan of the brain was done which did not show acute intracranial abnormality - started patient on aspirin - will allow permissive hypertension - neurology has been consulted - upon arrival from the CT scanner was able to move the left upper arm without any difficulty - still has good movement today (2) Acute and chronic respiratory failure with hypercapnia: Code(s): J96.22 - Acute and chronic respiratory failure with hypercapnia Status: Acute Assessment and Plan: Patient with acute hypercapnic respiratory failure post cholecystostomy tube placement normal could be related to sedation and pain medication. Patient failed BiPAP and was intubated on 05/03/2020 -chest x-ray and ABGs reviewed. Hypercapnia has resolved, patient with peep of 5 and 35% FiO2, -wean FiO2 and decreased respiratory rate -continue bronchodilators -patient on vancomycin and Zosyn - patient on 40% FiO2, peep 5, on Precedex infusion, with thick yellow secretions, wean FiO2 as tolerated. Start hypertonic saline nebs for pulmonary toilet. SBT when secretions improved. - sputum cultures have been obtained and pending (3) Acute cholecystitis: Code(s): K81.0 - Acute cholecystitis Status: Acute Assessment and Plan: Patient presented with abdominal pain with nausea. CT scan of the abdomen and pelvis revealed acute cholecystitis -status post cholecystostomy drain placement on 05/03/2020 -leukocytosis persists -cultures from the gallbladder fluid growing Enterococcus species -continue vancomycin and Zosyn -discuss with surgery, tolerating tube, patient with high tube feed residuals, currently tube feeds on hold, increased Reglan, will restart tube feeds at a lower rate - obstructive series on 05/07 did not show any ileus or small-bowel obstruction (4) Acute on chronic renal failure: Qualifiers: Acute renal failure type: unspecified Chronic kidney disease stage: stage 3 (moderate) Qualified Code(s): N17.9 - Acute kidney failure, unspecified; N18.3 - Chronic kidney disease, stage 3 (moderate) Code(s): N17.9 - Acute kidney failure, unspecified; N18.9 - Chronic kidney disease, unspecified Status: Acute Assessment and Plan: Patient with acute on chronic kidney disease, baseline creatinine of 2.9-4.[address] White with his postal superintendent -patient with severe sepsis, not adequately fluid-resuscitated -patient received IV fluid bolus on 05/04/2020: Urine output much improved with improvement in creatinine -continue maintenance IV fluids -nephrology following the patient -renal ultrasound showed normal kidney, no hydronephrosis - will maintain systolic blood pressures close to 140s which per Dr. White higher blood pressures improved his creatinine (5) Hyperkalemia: Code(s): E87.5 - Hyperkalemia Status: Acute Assessment and Plan: Resolved (6) Essential hypertension: Code(s): I10 - Essential (primary) hypertension Status: Chronic Assessment and Plan: Patient with hypertension, continue amlodipine and metoprolol (7) Type 2 diabetes mellitus with hyperglycemia: Qualifiers: Diabetes mellitus fdc insulin use: with fdc use Qualified Code(s): E11.65 - Type 2 diabetes mellitus with hyperglycemia; Z79.4 - intermission coordinator (current) use of insulin Code(s): E11.65 - Type 2 diabetes mellitus with hyperglycemia Status: Chronic Assessment and Plan: Continue sliding
--- NOTE | 2020-05-10 11:22 | PCDIET ---
Nutrition Follow-Up Complete: Nutrition Diagnosis: Inadequate oral intake related to oral intubation as evidenced by need for enteral feedings. Nutrition Goal: Patient to meet estimated nutritional needs. Goal met. Patient tolerating Jevity 1.2 at 60mL/hr goal rate with residuals 120mL and below. Discussed change to Glucerna 1.2 at same rate with MD for potentially improved glucose control; verbal order obtained. Last recorded weight is 115 kg which is slightly increased from last review. +I/O. Bowel Motility: Small stools reported with last significant BM on 05/07/20. MD notified during rounding. Labs Reviewed: Hgb (7.5), Hct (23.7), Glu (302), BUN (73), Cr (4.1), Na (134), PO4 (5.6), Mg (2.8) Meds Noted: Morphine, Protonix, Zosyn, Vancomycin, Atrovent, Reglan, Versed, Albuterol, Precedex, Retacrit, Novolog, Levemir Additional Notes: No documented pressure sores. RUQ with drain. Will continue to monitor with same goal. Nutrition Monitoring and Evaluation: Follow up every Wednesday/Wednesday. Follow daily in ICU rounds.
[2020-05-10 12:07] LABS: Glucose Point of Care 338 (65-105)
[2020-05-10] MEDS: SODIUM CHLOR 3% 15 ML NEB (RESPIRATORY THERAPY) 6 ML INHALATION ×2 (14:49→21:01)
--- NOTE | 2020-05-10 14:59 | WPDNEURCNPN ---
Assessment and Plan Assessment and plan (1) DVT prophylaxis: Code(s): Z29.9 - Encounter for prophylactic measures, unspecified Status: Acute (2) Acute and chronic respiratory failure with hypercapnia: Code(s): J96.22 - Acute and chronic respiratory failure with hypercapnia Status: Acute (3) Anemia: Qualifiers: Anemia type: unspecified type Qualified Code(s): D64.9 - Anemia, unspecified Code(s): D64.9 - Anemia, unspecified Status: Acute (4) Diabetes: Code(s): E11.9 - Type 2 diabetes mellitus without complications Status: Chronic (5) Chronic kidney disease, stage IV (severe): Code(s): N18.4 - Chronic kidney disease, stage 4 (severe) Status: Chronic (6) FELIPE (acute kidney injury): Code(s): N17.9 - Acute kidney failure, unspecified Status: Acute (7) Leukocytosis: Qualifiers: Leukocytosis type: unspecified Qualified Code(s): D72.829 - Elevated white blood cell count, unspecified Code(s): D72.829 - Elevated white blood cell count, unspecified Status: Acute (8) Hyperkalemia: Code(s): E87.5 - Hyperkalemia Status: Acute (9) Acute on chronic renal failure: Qualifiers: Acute renal failure type: unspecified Chronic kidney disease stage: stage 3 (moderate) Qualified Code(s): N17.9 - Acute kidney failure, unspecified; N18.3 - Chronic kidney disease, stage 3 (moderate) Code(s): N17.9 - Acute kidney failure, unspecified; N18.9 - Chronic kidney disease, unspecified Status: Acute (10) Acute cholecystitis: Code(s): K81.0 - Acute cholecystitis Status: Acute (11) Anemia of chronic kidney failure: Qualifiers: Chronic kidney disease stage: stage 3 (moderate) Qualified Code(s): N18.3 - Chronic kidney disease, stage 3 (moderate); D63.1 - Anemia in chronic kidney disease Code(s): N18.9 - Chronic kidney disease, unspecified; D63.1 - Anemia in chronic kidney disease Status: Chronic (12) BILL (obstructive sleep apnea): Code(s): G47.33 - Obstructive sleep apnea (adult) (pediatric) Status: Acute (13) Acute and chronic respiratory failure with hypoxia: Code(s): J96.21 - Acute and chronic respiratory failure with hypoxia Status: Acute (14) 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10 - Chronic respiratory failure, unspecified whether with hypoxia or hypercapnia Status: Chronic (19) Restrictive lung disease: Code(s): J98.4 - Other disorders of lung Status: Acute (20) Dietary counseling and surveillance: Code(s): Z71.3 - Dietary counseling and surveillance Status: Acute (21) Essential hypertension: Code(s): I10 - Essential (primary) hypertension Status: Chronic (22) History of pancreatitis: Code(s): Z87.19 - Personal history of other diseases of the digestive system Status: Acute (23) Type 2 diabetes mellitus with hyperglycemia: Qualifiers: Diabetes mellitus nursing home insulin use: with termite technician use Qualified Code(s): E11.65 - Type 2 diabetes mellitus with hyperglycemia; Z79.4 - adjunct faculty for medical terminology (current) use of insulin Code(s): E11.65 - Type 2 diabetes mellitus with hyperglycemia Stat
--- NOTE | 2020-05-10 15:05 | P.PNNP_ITS ---
Progress Note: A&P Assessment and Plan (1) FELIPE (acute kidney injury): Code(s): N17.9 - Acute kidney failure, unspecified Status: Acute Assessment and Plan: * suspect due to acute infection (cholecystitis) on top of possible pre-renal factors * urine electrolytes non pre renal * renal ultrasound without hydronephrosis * still making urine. * creatinine is about the same. Ranging around 4.0. * Discussed with Dr. Love and Dr. Zarco (2) Chronic kidney disease, stage IV (severe): Code(s): N18.4 - Chronic kidney disease, stage 4 (severe) Status: Chronic Assessment and Plan: * baseline creatinine ~ 2.8 - 2.9mg/dl from review of outpatient records * His creatinine does vary quite a bit however and has been as high as 4 as an outpatient in the past. (3) Hyperkalemia: Code(s): E87.5 - Hyperkalemia Status: Acute Assessment and Plan: * resolved (4) Acute cholecystitis: Code(s): K81.0 - Acute cholecystitis Status: Acute Assessment and Plan: * General Surgery following * s/p cholecystostomy tube placement * gallbladder fluid culture positive for Enterococcus * Afebrile and his white count is okay. * continuing antibiotics (5) Essential hypertension: Code(s): I10 - Essential (primary) hypertension Status: Chronic Assessment and Plan: * stable hemodynamics at this time * blood pressure doing well. (6) Anemia: Qualifiers: Anemia type: unspecified type Qualified Code(s): D64.9 - Anemia, unspecified Code(s): D64.9 - Anemia, unspecified Status: Acute Assessment and Plan: * due to acute illness and CKD * on EPO. (7) Diabetes: Code(s): E11.9 - Type 2 diabetes mellitus without complications Status: Chronic Assessment and Plan: * follow accuchecks * on SSI Will continue to follow. (8) Acute and chronic respiratory failure with hypercapnia: Code(s): J96.22 - Acute and chronic respiratory failure with hypercapnia Status: Acute Assessment and Plan: Patient still on the ventilator. Sedation is planning feeder in patient is waking up. Now up in a chair. Thick secretions. Additional Plan Subjective Date/time seen: 05/10/20 15:05 Interval history: Jose Miguel is in the ICU on the ventilator. he is on Precedex. up in a chair. He is more alert. Review of Systems Review of Systems: ROS unobtainable: Yes unobtainable due to endotracheal tube Exam Narrative: Exam Narrative: General: WD/WN male in NAD; intubated and sedated Heart: normal S1 and S2; no rub Lungs: decreased at the bases and mild coarse breath sounds on both sides Abdomen: positive bowel sounds and no tenderness Extremities: no edema Skin: No rash Objective Data Vital Signs Vital Signs: Vital Signs - 24 hr 05/09/20 15:07 05/09/20 16:00 05/09/20 16:29 Temperature 37.6 C Pulse Rate 72 78 70 Respiratory Rate 18 17 17 Blood Pressure 149/55 H Pulse Oximetry 96 05/09/20 17:05 05/09/20 17:06 05/09/20 18:00 Temperature Pulse Rate 70 71 74 Respiratory Rate 17 17 Blood Pressure 169/54 H Pulse Oximetry 96 97 05/09/20 20:00
--- NOTE | 2020-05-10 15:05 | PM.PNNEP ---
Progress Note: A&P Assessment and Plan (1) FELIPE (acute kidney injury): Code(s): N17.9 - Acute kidney failure, unspecified Status: Acute Assessment and Plan: suspect due to acute infection (cholecystitis) on top of possible pre-renal factors urine electrolytes non pre renal renal ultrasound without hydronephrosis still making urine. creatinine is about the same. Ranging around 4.0. Discussed with Dr. Love and Dr. Zarco (2) Chronic kidney disease, stage IV (severe): Code(s): N18.4 - Chronic kidney disease, stage 4 (severe) Status: Chronic Assessment and Plan: baseline creatinine ~ 2.8 - 2.9mg/dl from review of outpatient records His creatinine does vary quite a bit however and has been as high as 4 as an outpatient in the past. (3) Hyperkalemia: Code(s): E87.5 - Hyperkalemia Status: Acute Assessment and Plan: resolved (4) Acute cholecystitis: Code(s): K81.0 - Acute cholecystitis Status: Acute Assessment and Plan: General Surgery following s/p cholecystostomy tube placement gallbladder fluid culture positive for Enterococcus Afebrile and his white count is okay. continuing antibiotics (5) Essential hypertension: Code(s): I10 - Essential (primary) hypertension Status: Chronic Assessment and Plan: stable hemodynamics at this time blood pressure doing well. (6) Anemia: Qualifiers: Anemia type: unspecified type Qualified Code(s): D64.9 - Anemia, unspecified Code(s): D64.9 - Anemia, unspecified Status: Acute Assessment and Plan: due to acute illness and CKD on EPO. (7) Diabetes: Code(s): E11.9 - Type 2 diabetes mellitus without complications Status: Chronic Assessment and Plan: follow accuchecks on SSI Will continue to follow. (8) Acute and chronic respiratory failure with hypercapnia: Code(s): J96.22 - Acute and chronic respiratory failure with hypercapnia Status: Acute Assessment and Plan: Patient still on the ventilator. Sedation is scleroscope tester in patient is waking up. Now up in a chair. Thick secretions. Additional Plan Subjective Date/time seen: 05/10/20 15:05 Interval history: Jose Miguel is in the ICU on the ventilator. he is on Precedex. up in a chair. He is more alert. Review of Systems Review of Systems: ROS unobtainable: Yes unobtainable due to endotracheal tube Exam Narrative: Exam Narrative: General: WD/WN male in NAD; intubated and sedated Heart: normal S1 and S2; no rub Lungs: decreased at the bases and mild coarse breath sounds on both sides Abdomen: positive bowel sounds and no tenderness Extremities: no edema Skin: No rash Objective Data Vital Signs Vital Signs: Vital Signs - 24 hr 05/09/20 15:07 05/09/20 16:00 05/09/20 16:29 Temperature 37.6 C Pulse Rate 72 78 70 Respiratory Rate 18 17 17 Blood Pressure 149/55 H Pulse Oximetry 96 05/09/20 17:05 05/09/20 17:06 05/09/20 18:00 Temperature Pulse Rate 70 71 74 Respiratory Rate 17 17 Blood Pressure 169/54 H Pulse Oximetry 96 97 05/09/20 20:00 05/09/20 20:17 05/09/20 20:20 Temperature 36.4 C L Pulse Rate 65 65 67 Respiratory Rate 20 18 Blood Pressure 154/60 H Pulse Oximetry 96 100 05/09/20 20:26 05/09/20 22:00 05/09/20 23:13 Temperature 36.8 C Pulse Rate 66 62 76 Respiratory Rate 20 18 Blood Pressure 145/66 H Pulse Oximetry 96 97 05/09/20 23:37 05/10/20 00:00 05/10/20 02:00 Temperature 36.7 C Pulse Rate 72 65 60 Respiratory Rate 16 16 Blood Pressure 158/63 H 166/60 H Pulse Oximetry 97 96 05/10/20 02:05 05/10/20 02:15 05/10/20 04:23 Temperature Pulse Rate 64 61 65 Respiratory Rate 20 17 Blood Pressure Pulse Oximetry 97 98 05/10/20 05:00 05/10/20 06:00 05/10/20 07:17 Temperature 36.8 C Pulse Rate 58
--- NOTE | 2020-05-10 15:22 | PC.NURSE ---
Patient up to recliner in room.
--- NOTE | 2020-05-10 16:29 | P.PNIM_ITS ---
Progress Note: A&P Assessment and Plan (1) Left arm weakness: Code(s): R29.898 - Other symptoms and signs involving the musculoskeletal system Status: Acute Assessment and Plan: * Patient with acute LUE weakness that resolved completely on 05/09/20 * Head CT showing no acute findings. Carotid US showing 50-69% stenosis Rt ICA. * Echo showing EF 60-65%, severe pulm HTN and patent foramen ovaleGrade I diastolic dysfunction * Probably TIA * Continue ASA; agree with permissive HTN (2) Acute and chronic respiratory failure with hypercapnia: Code(s): J96.22 - Acute and chronic respiratory failure with hypercapnia Status: Acute Assessment and Plan: * Lethargic so proceeded with cholecystostomy tube. Requiring BiPAP but ultimately failed so mechanically ventilated after intubation on 05/03/20. * Chest x-ray reviewed showing worsening right sided airspace disease. * Continue albuterol and Atrovent * Wean mechanical ventilation as tolerated. * Appreciate manager employee relations input. (3) Acute cholecystitis: Code(s): K81.0 - Acute cholecystitis Status: Acute Assessment and Plan: * Patient presents with abdominal pain, nausea, and vomiting with CT abdomen showing acute cholecystitis. * Percutaneous cholecystostomy tube placed 05/03/20 and being followed by Gen Surg - appreciate their input. * Cx growing Enterococus; UCx Negative; BCx NGTD. WBC remaining normal * Abx adjusted to Vacno and Cefepime; Will need either Flagyl or change to Unasyn to cover GB pathology. Will add Flagyl * Continue Reglan to help with gut motility. (4) Acute on chronic renal failure: Qualifiers: Acute renal failure type: unspecified Chronic kidney disease stage: stage 3 (moderate) Qualified Code(s): N17.9 - Acute kidney failure, unspecified; N18.3 - Chronic kidney disease, stage 3 (moderate) Code(s): N17.9 - Acute kidney failure, unspecified; N18.9 - Chronic kidney disease, unspecified Status: Acute Assessment and Plan: * Baseline creatinine 2.8 to 3.4 range. * Creatinine climbed to 4.3 before trending down to 3.9-4.1 range and has stablized (new normal?). * Patient was previously on hemodialysis in the past * Renal ultrasound showed normal size kidneys. No hydronephrosis. * Receiving intermittent Lasix IV with good urine output. Nephrology following and appreciate their input. (5) Essential hypertension: Code(s): I10 - Essential (primary) hypertension Status: Chronic Assessment and Plan: * Blood pressure reviewed on 05/10/2020. * Blood pressure well controlled * Currently on Norvasc, hydralazine and metoprolol. * Plan to keep BP elevated to help with renal perfusion and now for permissive HTN from probable TIA * Continue Hydralazine IV available PRN if needed. Monitor BP and adjust treatment as needed. (6) Hyperkalemia: Code(s): E87.5 - Hyperkalemia Status: Acute Assessment and Plan: * potassium 5.5 early in admission. * Hyperkalemia may be related to worsening renal function. * Potassium improved and remaining stable. Continue to monitor. (7) Anemia of chronic kidney failure: Qualifiers: Chronic kidney disease stage: stage 3 (moderate) Qualified Code(s): N18.3 - Chronic kidney disease, stage 3 (moderate); D63.1 - Anemia in chronic kidney disease Code(s): N18.9 - Chronic kidney dise
--- NOTE | 2020-05-10 16:29 | PM.IMPN ---
Progress Note: A&P Assessment and Plan (1) Left arm weakness: Code(s): R29.898 - Other symptoms and signs involving the musculoskeletal system Status: Acute Assessment and Plan: Patient with acute LUE weakness that resolved completely on 05/09/[address] showing no acute findings. Carotid US showing 50-69% stenosis Rt ICA. Echo showing EF 60-65%, severe pulm HTN and patent foramen ovaleGrade I diastolic dysfunction Probably TIA Continue ASA; agree with permissive HTN (2) Acute and chronic respiratory failure with hypercapnia: Code(s): J96.22 - Acute and chronic respiratory failure with hypercapnia Status: Acute Assessment and Plan: Lethargic so proceeded with cholecystostomy tube. Requiring BiPAP but ultimately failed so mechanically ventilated after intubation on 05/03/20. Chest x-ray reviewed showing worsening right sided airspace disease. Continue albuterol and Atrovent Wean mechanical ventilation as tolerated. Appreciate bradley linebacker crewmember input. (3) Acute cholecystitis: Code(s): K81.0 - Acute cholecystitis Status: Acute Assessment and Plan: Patient presents with abdominal pain, nausea, and vomiting with CT abdomen showing acute cholecystitis. Percutaneous cholecystostomy tube placed 05/03/20 and being followed by Gen Surg - appreciate their input. Cx growing Enterococus; UCx Negative; BCx NGTD. WBC remaining normal Abx adjusted to Vacno and Cefepime; Will need either Flagyl or change to Unasyn to cover GB pathology. Will add Flagyl Continue Reglan to help with gut motility. (4) Acute on chronic renal failure: Qualifiers: Acute renal failure type: unspecified Chronic kidney disease stage: stage 3 (moderate) Qualified Code(s): N17.9 - Acute kidney failure, unspecified; N18.3 - Chronic kidney disease, stage 3 (moderate) Code(s): N17.9 - Acute kidney failure, unspecified; N18.9 - Chronic kidney disease, unspecified Status: Acute Assessment and Plan: Baseline creatinine 2.8 to 3.4 range. Creatinine climbed to 4.3 before trending down to 3.9-4.1 range and has stablized (new normal?). Patient was previously on hemodialysis in the past Renal ultrasound showed normal size kidneys. No hydronephrosis. Receiving intermittent Lasix IV with good urine output. Nephrology following and appreciate their input. (5) Essential hypertension: Code(s): I10 - Essential (primary) hypertension Status: Chronic Assessment and Plan: Blood pressure reviewed on 05/10/2020. Blood pressure well controlled Currently on Norvasc, hydralazine and metoprolol. Plan to keep BP elevated to help with renal perfusion and now for permissive HTN from probable TIA Continue Hydralazine IV available PRN if needed. Monitor BP and adjust treatment as needed. (6) Hyperkalemia: Code(s): E87.5 - Hyperkalemia Status: Acute Assessment and Plan: potassium 5.5 early in admission. Hyperkalemia may be related to worsening renal function. Potassium improved and remaining stable. Continue to monitor. (7) Anemia of chronic kidney failure: Qualifiers: Chronic kidney disease stage: stage 3 (moderate) Qualified Code(s): N18.3 - Chronic kidney disease, stage 3 (moderate); D63.1 - Anemia in chronic kidney disease Code(s): N18.9 - Chronic kidney disease, unspecified; D63.1 - Anemia in chronic kidney disease Status: Chronic Assessment and Plan: hemoglobin in the 10-11 range chronically Since admission, hemoglobin has dropped to 7-8 range but stable No evidence of active bleeding. Continue Protonix. (8) Type 2 diabetes mellitus with hyperglycemia: Qualifiers: Diabetes mellitus long ter
[2020-05-10 17:53] LABS: Glucose Point of Care 237 (65-105)
[2020-05-10 21:04] LABS: Glucose Point of Care 191 (65-105)
[2020-05-10] MEDS: metroNIDAZOLE 500 MG/ISO 100ML 500 MG/100 ML BAG 100 MG IVPB (21:04)
[2020-05-10] MEDS: INSULIN DETEMIR 100 UNITS/ML 18 UNITS SUB-Q (21:04)
[2020-05-11] VITALS (39 sets, daily range): BP systolic 129–181; BP diastolic 49–70; PULSE 56–77; RESP 17–30; TEMP 36.5–37.6; O2SAT 91–100
[2020-05-11 00:15] LABS: Glucose Point of Care 178 (65-105)
[2020-05-11] MEDS: METOCLOPRAMIDE HCL INJ 10 MG/2 ML VIAL IV PUSH ×4 (00:20→17:49)
[2020-05-11] MEDS: MORPHINE SULFATE 2 MG/ML INJ IV PUSH ×2 (01:44→12:29)
[2020-05-11] MEDS: ALBUTEROL SULFATE NEB 2.5 MG/0.5 ML INH INHALATION ×4 (02:38→19:49)
[2020-05-11] MEDS: IPRATROPIUM BR 0.02% INH SOLN 0.5 MG/2.5 ML VIAL INHALATION ×4 (02:38→19:49)
[2020-05-11] MEDS: SODIUM CHLOR 3% 15 ML NEB (RESPIRATORY THERAPY) 6 ML INHALATION ×4 (02:52→19:50)
[2020-05-11] MEDS: metroNIDAZOLE 500 MG/ISO 100ML 500 MG/100 ML BAG 100 MG IVPB ×4 (03:09→20:46)
[2020-05-11 04:09] LABS: Hematocrit 23.5 % (42.0-52.0); Hemoglobin 7.2 g/dL (14.0-18.0); Mean Corpuscular HGB Conc 30.6 g/dl (32-36); Mean Corpuscular Hemoglobin 27.5 pg (26-34); Mean Corpuscular Volume 89.7 fl (80-100); Mean Platelet Volume 9.8 fl (7.4-10.4); Platelet Count Result 291 k/mm3 (150-375); Red Blood Count 2.62 M/mm3 (4.6-6.20); Red Cell Distribution Width 14.6 % (11.5-14.5)
[2020-05-11 04:35] LABS: Anion Gap 12.7 mmol/L (7-16); Blood Urea Nitrogen 82 mg/dL (9-20); Calcium 8.8 mg/dL (8.4-10.2); Carbon Dioxide 22 mmol/L (22-30); Chloride 105 mmol/L (98-107); Estimated CRCL calculation 18 ml/min; Estimated Glomerular Filt Rate 14; Glucose 168 mg/dL (75-110); Magnesium 2.9 mg/dL (1.6-2.3); Potassium 4.7 mmol/L (3.4-5.0); Sodium 135 mmol/L (137-145)
[2020-05-11 05:02] LABS: Alveolar/Arterial O2 Gradient 102.3 mmHg; Base Excess ABG -2.7 mEq/l (+/-2.0); Carboxyhemoglobin 0.1 % THb (0-2.0); Fractional Inspired Oxygen 30 %; HCO3 ABG 22.5 mEq/l (22.0-26.0); Methemoglobin ABG 0.2 %THb (0-1.5); Oxygen Content ABG 10.2 %vol (16.0-22.0); Oxyhemoglobin 90.3 % THb (90.0-100.0); PCO2 ABG 40.1 mmHg (35.0-45.0); PO2 ABG 64.5 mmHg (80.0-100.0); PO2 FiO2 Ratio Arterial Blood 2.15 %; Reduced Hemoglobin 9.4 %THb (0-5.0); pH ABG 7.366 (7.350-7.450)
[2020-05-11 05:06] LABS: Arterial Blood Gas PEEP 5 cmH2O; Arterial Blood Gas Tidal Volume 450 ml; Arterial Blood Gas Vent Mode CMV; Arterial Blood Gas Ventilator rate 17 /MIN; Device VENTILATOR; Modified Allen's Test Pass; Site Drawn RIGHT RADIAL
[2020-05-11] MEDS: METOPROLOL TARTRATE 25 MG TABLET PO ×2 (08:35→20:45)
[2020-05-11] MEDS: amLODIPine BESYLATE 5 MG TABLET 10 MG PO (08:35)
[2020-05-11] MEDS: hydrALAZINE 10 MG TABLET PO ×2 (08:37→16:19)
[2020-05-11] MEDS: ASPIRIN 81 MG CHEWABLE TABLET 324 MG FEED TUBE (08:45)
[2020-05-11] MEDS: PANTOPRAZOLE SODIUM IV 40 MG VIAL IV PUSH (08:49)
[2020-05-11] MEDS: INSULIN DETEMIR 100 UNITS/ML 18 UNITS SUB-Q ×2 (08:52→20:42)
--- NOTE | 2020-05-11 09:59 | WPDINTPN ---
Progress Note: A&P Assessment and Plan (1) Left arm weakness: Code(s): R29.898 - Other symptoms and signs involving the musculoskeletal system Status: Acute Assessment and Plan: Patient developed sudden onset left upper arm weakness. Resolved spontaneously - possible TIA. No findings on CT head. Continue ASA. Neurology has evaluated. (2) Acute and chronic respiratory failure with hypercapnia: Code(s): J96.22 - Acute and chronic respiratory failure with hypercapnia Status: Acute Assessment and Plan: Patient with acute hypercapnic respiratory failure post cholecystostomy tube placement. Patient failed BiPAP and was intubated on 05/03/2020. Currently on AC 450x17, FiO2 0.3, PEEP 5. Continue bronchodilators. Noted to have thick secretions/mucus plugs. Started hypertonic saline nebs for pulmonary toilet. SBT daily. He does have a right-sided pleural effusion, will repeat CXR in AM and consider thoracentesis if worse. (3) Acute cholecystitis: Code(s): K81.0 - Acute cholecystitis Status: Acute Assessment and Plan: Status post cholecystostomy drain placement on 05/03/2020. Cultures from the gallbladder fluid growing Enterococcus species; continue vancomycin, Flagyl, and cefepime (stopped Zosyn due to FELIPE). (4) Acute on chronic renal failure: Qualifiers: Acute renal failure type: unspecified Chronic kidney disease stage: stage 3 (moderate) Qualified Code(s): N17.9 - Acute kidney failure, unspecified; N18.3 - Chronic kidney disease, stage 3 (moderate) Code(s): N17.9 - Acute kidney failure, unspecified; N18.9 - Chronic kidney disease, unspecified Status: Acute Assessment and Plan: Patient with acute on chronic kidney disease, baseline creatinine of 2.9-4.[address] White. Will maintain systolic blood pressures close to 140s; per Dr. White higher blood pressures improved his creatinine. (5) Hyperkalemia: Code(s): E87.5 - Hyperkalemia Status: Acute Assessment and Plan: Resolved. (6) Essential hypertension: Code(s): I10 - Essential (primary) hypertension Status: Chronic Assessment and Plan: Patient with hypertension, continue amlodipine, hydralazine, and metoprolol. (7) Type 2 diabetes mellitus with hyperglycemia: Qualifiers: Diabetes mellitus prison insulin use: with remote computer terminal operator use Qualified Code(s): E11.65 - Type 2 diabetes mellitus with hyperglycemia; Z79.4 - halfway (current) use of insulin Code(s): E11.65 - Type 2 diabetes mellitus with hyperglycemia Status: Chronic Assessment and Plan: Continue Levemir, sliding scale insulin, and Accu-Cheks. (8) Anemia: Qualifiers: Anemia type: unspecified type Qualified Code(s): D64.9 - Anemia, unspecified Code(s): D64.9 - Anemia, unspecified Status: Acute Assessment and Plan: Anemia likely related to chronic kidney disease, stable. On EPO. (9) DVT prophylaxis: Code(s): Z29.9 - Encounter for prophylactic measures, unspecified Status: Acute Assessment and Plan: Heparin SC Additional Plan Code status: DNR Critical care time spent: 35 minutes Due to a high probability of clinically significant, life threatening deterioration, the patient required my highest level of preparedness to intervene emergently and I personally spent this critical care time directly and personally managing the patient. This critical care time included obtaining a history; examining the patient; pulse oximetry; ordering and review of studies; arranging urgent treatment with development of a management plan; evaluation of patient's response to treatment; frequent reassessment; and discussions with other providers. It was exclusive of separately billable procedures and treating other patients and teaching time. Please see Assessment and Plan section and the rest of the note for further information on patient assessment a
[2020-05-11] MEDS: EPOETIN ALFA-EPBX 10,000 UNITS/ML VIAL 10000 UNITS SUB-Q (10:57)
[2020-05-11 12:28] LABS: Glucose Point of Care 206 (65-105)
[2020-05-11] MEDS: INSULIN ASPART (*BKC) 100 UNITS/ML SUB-Q ×2 (12:31→17:52)
--- NOTE | 2020-05-11 14:47 | P.PNIM_ITS ---
Progress Note: A&P Assessment and Plan (1) Left arm weakness: Code(s): R29.898 - Other symptoms and signs involving the musculoskeletal system Status: Acute Assessment and Plan: * Patient with acute LUE weakness that resolved completely on 05/09/20 * Head CT showing no acute findings. Carotid US showing 50-69% stenosis Rt ICA. * Echo showing EF 60-65%, severe pulm HTN and patent foramen ovale with Grade I diastolic dysfunction * Probably TIA * Continue ASA; agree with permissive HTN (2) Acute and chronic respiratory failure with hypercapnia: Code(s): J96.22 - Acute and chronic respiratory failure with hypercapnia Status: Acute Assessment and Plan: * Lethargic so proceeded with cholecystostomy tube. Requiring BiPAP but ultimately failed so intubated on 05/03/20. * Chest x-ray reviewed showing persistent mostly right sided airspace disease. * Continue albuterol and Atrovent * Wean mechanical ventilation as tolerated. * Appreciate [employer] sound[employer] group leader input. * Bumex x 2 doses ordered. (3) Acute cholecystitis: Code(s): K81.0 - Acute cholecystitis Status: Acute Assessment and Plan: * Patient presents with abdominal pain, nausea, and vomiting with CT abdomen showing acute cholecystitis. * Percutaneous cholecystostomy tube placed 05/03/20 and being followed by Gen Surg - appreciate their input. * Cx growing Enterococus; UCx/BCx/SputumCx negative. WBC remaining normal * Abx adjusted to Vacno and Cefepime; Flagyl added 05/10 to cover GB pathology * Continue Reglan to help with gut motility. (4) Acute on chronic renal failure: Qualifiers: Acute renal failure type: unspecified Chronic kidney disease stage: stage 3 (moderate) Qualified Code(s): N17.9 - Acute kidney failure, unspecified; N18.3 - Chronic kidney disease, stage 3 (moderate) Code(s): N17.9 - Acute kidney failure, unspecified; N18.9 - Chronic kidney disease, unspecified Status: Acute Assessment and Plan: * Baseline creatinine 2.8 to 3.4 range. * Creatinine climbed to 4.3 before trending down to 3.9-4.2 range and has stabilized (new normal?). * Patient was previously on hemodialysis in the past * Renal ultrasound showed normal size kidneys. No hydronephrosis. * Received Lasix IV once on 05/09. Nephrology following and appreciate their input; santanae have add Bumex for 2 doses. (5) Essential hypertension: Code(s): I10 - Essential (primary) hypertension Status: Chronic Assessment and Plan: * Blood pressure reviewed on 05/11/2020. * Blood pressure mostly well controlled * Currently on Norvasc, hydralazine and metoprolol. * Plan to keep BP mildly elevated to help with renal perfusion and for permissive HTN from probable TIA * Continue Hydralazine IV available PRN if needed. Monitor BP and adjust treatment as needed. (6) Hyperkalemia: Code(s): E87.5 - Hyperkalemia Status: Acute Assessment and Plan: * potassium 5.5 early in admission. * Hyperkalemia may be related to worsening renal function. * Potassium improved and remaining stable. Continue to monitor. (7) Anemia of chronic kidney failure: Qualifiers: Chronic kidney disease stage: stage 3 (moderate) Qualified Code(s): N18.3 - Chronic kidney disease, stage 3 (moderate); D63.1 - Anemia in chronic kidney disease Code(s): N18.9 - Chronic kidney disea
--- NOTE | 2020-05-11 14:47 | PM.IMPN ---
Progress Note: A&P Assessment and Plan (1) Left arm weakness: Code(s): R29.898 - Other symptoms and signs involving the musculoskeletal system Status: Acute Assessment and Plan: Patient with acute LUE weakness that resolved completely on 05/09/[address] showing no acute findings. Carotid US showing 50-69% stenosis Rt ICA. Echo showing EF 60-65%, severe pulm HTN and patent foramen ovale with Grade I diastolic dysfunction Probably TIA Continue ASA; agree with permissive HTN (2) Acute and chronic respiratory failure with hypercapnia: Code(s): J96.22 - Acute and chronic respiratory failure with hypercapnia Status: Acute Assessment and Plan: Lethargic so proceeded with cholecystostomy tube. Requiring BiPAP but ultimately failed so intubated on 05/03/20. Chest x-ray reviewed showing persistent mostly right sided airspace disease. Continue albuterol and Atrovent Wean mechanical ventilation as tolerated. Appreciate boat canvas maker and installer input. Bumex x 2 doses ordered. (3) Acute cholecystitis: Code(s): K81.0 - Acute cholecystitis Status: Acute Assessment and Plan: Patient presents with abdominal pain, nausea, and vomiting with CT abdomen showing acute cholecystitis. Percutaneous cholecystostomy tube placed 05/03/20 and being followed by Gen Surg - appreciate their input. Cx growing Enterococus; UCx/BCx/SputumCx negative. WBC remaining normal Abx adjusted to Vacno and Cefepime; Flagyl added 05/10 to cover GB pathology Continue Reglan to help with gut motility. (4) Acute on chronic renal failure: Qualifiers: Acute renal failure type: unspecified Chronic kidney disease stage: stage 3 (moderate) Qualified Code(s): N17.9 - Acute kidney failure, unspecified; N18.3 - Chronic kidney disease, stage 3 (moderate) Code(s): N17.9 - Acute kidney failure, unspecified; N18.9 - Chronic kidney disease, unspecified Status: Acute Assessment and Plan: Baseline creatinine 2.8 to 3.4 range. Creatinine climbed to 4.3 before trending down to 3.9-4.2 range and has stabilized (new normal?). Patient was previously on hemodialysis in the past Renal ultrasound showed normal size kidneys. No hydronephrosis. Received Lasix IV once on 05/09. Nephrology following and appreciate their input; thye have add Bumex for 2 doses. (5) Essential hypertension: Code(s): I10 - Essential (primary) hypertension Status: Chronic Assessment and Plan: Blood pressure reviewed on 05/11/2020. Blood pressure mostly well controlled Currently on Norvasc, hydralazine and metoprolol. Plan to keep BP mildly elevated to help with renal perfusion and for permissive HTN from probable TIA Continue Hydralazine IV available PRN if needed. Monitor BP and adjust treatment as needed. (6) Hyperkalemia: Code(s): E87.5 - Hyperkalemia Status: Acute Assessment and Plan: potassium 5.5 early in admission. Hyperkalemia may be related to worsening renal function. Potassium improved and remaining stable. Continue to monitor. (7) Anemia of chronic kidney failure: Qualifiers: Chronic kidney disease stage: stage 3 (moderate) Qualified Code(s): N18.3 - Chronic kidney disease, stage 3 (moderate); D63.1 - Anemia in chronic kidney disease Code(s): N18.9 - Chronic kidney disease, unspecified; D63.1 - Anemia in chronic kidney disease Status: Chronic Assessment and Plan: hemoglobin in the 10-11 range chronically Since admission, hemoglobin has dropped to 7-8 range but stable No evidence of active bleeding. Continue Protonix. (8) Type 2 diabetes mellitus with hyperglycemia: Qualifiers: Diabetes mellitus watermelon inspector insu
--- NOTE | 2020-05-11 15:49 | WPDNEUROPN ---
Progress Note: A&P Assessment and Plan (1) TIA (transient ischemic attack): Code(s): G45.9 - Transient cerebral ischemic attack, unspecified Status: Acute (2) DVT prophylaxis: Code(s): Z29.9 - Encounter for prophylactic measures, unspecified Status: Acute (3) Diabetes: Code(s): E11.9 - Type 2 diabetes mellitus without complications Status: Chronic Additional Plan continue present medical management Review of Systems Review of Systems: All systems reviewed & are unremarkable except as noted in HPI and below Exam Const: General: comfortable and no acute distress HENMT: General nose exam: Normal nares present Mouth: Yes moist mucous membranes Eyes: General: appearance normal, both eyes and all related structures Neck: Neck: supple and no JVD Resp: Effort & Inspection: normal respiratory effort Auscultation: clear to auscultation bilaterally Cardio: Rate: regular rate Rhythm: regular rhythm GI: Auscultation: normal bowel sounds Skin: General skin exam: normal color and no rashes or lesions noted Neuro: Other: patient is awake alert follows commands no lateralizing focal motor weakness he is intubated Extrem: General: normal to inspection Psych: Mental Status: mental status grossly normal Objective Data Vital Signs Vital Signs: Vital Signs - 24 hr 05/10/20 16:00 05/10/20 16:44 05/10/20 17:38 Temperature 36.7 C Pulse Rate 76 63 65 Respiratory Rate 17 17 Blood Pressure 137/69 Pulse Oximetry 97 99 05/10/20 18:00 05/10/20 19:03 05/10/20 20:00 Temperature 37.7 C H Pulse Rate 65 71 69 Respiratory Rate 17 17 19 Blood Pressure 129/63 125/62 Pulse Oximetry 98 98 05/10/20 20:10 05/10/20 20:48 05/10/20 20:55 Temperature Pulse Rate 66 72 69 Respiratory Rate 27 H 21 H Blood Pressure Pulse Oximetry 98 05/10/20 22:00 05/10/20 23:03 05/11/20 00:00 Temperature 37.6 C Pulse Rate 62 64 64 Respiratory Rate 19 17 Blood Pressure 123/67 129/49 L Pulse Oximetry 100 99 99 05/11/20 00:24 05/11/20 01:00 05/11/20 02:00 Temperature Pulse Rate 64 63 58 L Respiratory Rate 17 18 Blood Pressure 142/57 H Pulse Oximetry 99 07/25/20 02:10 05/11/20 02:38 05/11/20 02:49 Temperature Pulse Rate 63 67 61 Respiratory Rate 17 18 Blood Pressure Pulse Oximetry 100 05/11/20 04:00 05/11/20 05:07 05/11/20 06:00 Temperature 36.5 C Pulse Rate 68 66 63 Respiratory Rate 21 H 20 Blood Pressure 153/66 H 140/58 L Pulse Oximetry 97 98 95 05/11/20 08:00 05/11/20 08:24 05/11/20 08:26 Temperature 36.7 C Pulse Rate 56 L 56 L 56 L Respiratory Rate 17 17 Blood Pressure 135/53 L Pulse Oximetry 96 98 05/11/20 08:32 05/11/20 08:35 05/11/20 08:51 Temperature Pulse Rate 64 61 64 Respiratory Rate 17 18 Blood Pressure Pulse Oximetry 05/11/20 10:00 05/11/20 10:48 05/11/20 12:00 Temperature 37.0 C Pulse Rate 56 L 60 62 Respiratory Rate 17 17 Blood Pressure 138/49 L 139/50 L Pulse Oximetry 96 95 94 05/11/20 12:21 05/11/20 13:44 05/11/20 14:00 Temperature Pulse Rate 66 77 76 Respiratory Rate 17 17 17 Blood Pressure 181/61 H Pulse Oximetry 91 05/11/20 14:07 05/11/20 14:10 05/11/20 14:23 Temperature Pulse Rate 76 76 76 Respiratory Rate 22 H 28 H Blood Pressure Pulse Oximetry 92 Intake/Output Intake/Output: Intake & Output 05/08/20 05/09/20 05/10/20 05/11/20 23:59 23:59 23:59 23:59 Intake Total 1793.0 1693 1930 1411 Output Total 1215 1530 1830 285 Balance 578.0 808 592 7511 Meds/Results Medications: Active Medications Generic Name Dose Route Start Last Admin Trade Name Freq PRN Reason Stop Dose Admin Albuterol 2.5 mg 05/04/20 14:00 05/11/20 14:03 Albuterol Sulf Neb 2.5mg/0.5ml INHALATION 2.5 mg Q6HRT ALEX Administration Amlodipine Besylate 10 mg 05/05/20 12:25 07/25/20 08:35 Norvasc PO 10 mg QAM ALEX Administration Aspirin
--- NOTE | 2020-05-11 16:30 | P.PNNP_ITS ---
Progress Note: A&P Assessment and Plan (1) FELIPE (acute kidney injury): Code(s): N17.9 - Acute kidney failure, unspecified Status: Acute Assessment and Plan: * suspect due to acute infection (cholecystitis) on top of possible pre-renal factors * urine electrolytes non pre renal * renal ultrasound without hydronephrosis * still making urine. * creatinine is about the same. Ranging around 4.0. * Discussed with Dr. Love (2) Chronic kidney disease, stage IV (severe): Code(s): N18.4 - Chronic kidney disease, stage 4 (severe) Status: Chronic Assessment and Plan: * baseline creatinine ~ 2.8 - 2.9mg/dl from review of outpatient records * His creatinine does vary quite a bit however and has been as high as 4 as an outpatient in the past. (3) Hyperkalemia: Code(s): E87.5 - Hyperkalemia Status: Acute Assessment and Plan: * resolved (4) Acute cholecystitis: Code(s): K81.0 - Acute cholecystitis Status: Acute Assessment and Plan: * General Surgery following * s/p cholecystostomy tube placement * gallbladder fluid culture positive for Enterococcus * Afebrile and his white count is okay. * continuing antibiotics (5) Essential hypertension: Code(s): I10 - Essential (primary) hypertension Status: Chronic Assessment and Plan: * stable hemodynamics at this time * blood pressure doing well. (6) Anemia: Qualifiers: Anemia type: unspecified type Qualified Code(s): D64.9 - Anemia, unspecified Code(s): D64.9 - Anemia, unspecified Status: Acute Assessment and Plan: * due to acute illness and CKD * on EPO. (7) Diabetes: Code(s): E11.9 - Type 2 diabetes mellitus without complications Status: Chronic Assessment and Plan: * follow accuchecks * on SSI Will continue to follow. (8) Acute and chronic respiratory failure with hypercapnia: Code(s): J96.22 - Acute and chronic respiratory failure with hypercapnia Status: Acute Assessment and Plan: Patient still on the ventilator. 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 Thick secretions. Secretion volume is lower. Chest x-ray is worse Will try a couple of doses of loop diuretics. Additional Plan Subjective Date/time seen: 05/11/20 16:30 Interval history: patient is a little more awake. Communicates by writing on a board. Still a bit sleepy. He is on Precedex. Weaning the present x-ray results and anxiety. Still on the ventilator. Secretions are decreased but still thick. Getting tube feedings and tolerating it well. Review of Systems Review of Systems: ROS unobtainable: Yes unobtainable due to endotracheal tube Exam Narrative: Exam Narrative: General: WD/WN male in NAD; intubated and sedated Heart: normal S1 and S2; no rub Lungs: decreased at the bases and mild coarse breath sounds on both sides Abdomen: positive bowel sounds and no tenderness Extremities: no edema Skin: No rash Objective Data Vital Signs Vital Signs: Vital Signs - 24 hr 05/10/20 16:44 05/10/20 17:38 05/10/20 18:00 Temperature Pulse Rate 63 65 65 Respiratory Rate 17 17 Blood Pressure 129/63 Pulse Oximetry 99 98 05/10/20 19:03 05/10
--- NOTE | 2020-05-11 16:30 | PM.PNNEP ---
Progress Note: A&P Assessment and Plan (1) FELIPE (acute kidney injury): Code(s): N17.9 - Acute kidney failure, unspecified Status: Acute Assessment and Plan: suspect due to acute infection (cholecystitis) on top of possible pre-renal factors urine electrolytes non pre renal renal ultrasound without hydronephrosis still making urine. creatinine is about the same. Ranging around 4.0. Discussed with Dr. Love (2) Chronic kidney disease, stage IV (severe): Code(s): N18.4 - Chronic kidney disease, stage 4 (severe) Status: Chronic Assessment and Plan: baseline creatinine ~ 2.8 - 2.9mg/dl from review of outpatient records His creatinine does vary quite a bit however and has been as high as 4 as an outpatient in the past. (3) Hyperkalemia: Code(s): E87.5 - Hyperkalemia Status: Acute Assessment and Plan: resolved (4) Acute cholecystitis: Code(s): K81.0 - Acute cholecystitis Status: Acute Assessment and Plan: General Surgery following s/p cholecystostomy tube placement gallbladder fluid culture positive for Enterococcus Afebrile and his white count is okay. continuing antibiotics (5) Essential hypertension: Code(s): I10 - Essential (primary) hypertension Status: Chronic Assessment and Plan: stable hemodynamics at this time blood pressure doing well. (6) Anemia: Qualifiers: Anemia type: unspecified type Qualified Code(s): D64.9 - Anemia, unspecified Code(s): D64.9 - Anemia, unspecified Status: Acute Assessment and Plan: due to acute illness and CKD on EPO. (7) Diabetes: Code(s): E11.9 - Type 2 diabetes mellitus without complications Status: Chronic Assessment and Plan: follow accuchecks on SSI Will continue to follow. (8) Acute and chronic respiratory failure with hypercapnia: Code(s): J96.22 - Acute and chronic respiratory failure with hypercapnia Status: Acute Assessment and Plan: Patient still on the ventilator. 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 Thick secretions. Secretion volume is lower. Chest x-ray is worse Will try a couple of doses of loop diuretics. Additional Plan Subjective Date/time seen: 05/11/20 16:30 Interval history: patient is a little more awake. Communicates by writing on a board. Still a bit sleepy. He is on Precedex. Weaning the present x-ray results and anxiety. Still on the ventilator. Secretions are decreased but still thick. Getting tube feedings and tolerating it well. Review of Systems Review of Systems: ROS unobtainable: Yes unobtainable due to endotracheal tube Exam Narrative: Exam Narrative: General: WD/WN male in NAD; intubated and sedated Heart: normal S1 and S2; no rub Lungs: decreased at the bases and mild coarse breath sounds on both sides Abdomen: positive bowel sounds and no tenderness Extremities: no edema Skin: No rash Objective Data Vital Signs Vital Signs: Vital Signs - 24 hr 05/10/20 16:44 05/10/20 17:38 05/10/20 18:00 Temperature Pulse Rate 63 65 65 Respiratory Rate 17 17 Blood Pressure 129/63 Pulse Oximetry 99 98 05/10/20 19:03 05/10/20 20:00 05/10/20 20:10 Temperature 37.7 C H Pulse Rate 71 69 66 Respiratory Rate 17 19 Blood Pressure 125/62 Pulse Oximetry 98 98 05/10/20 20:48 05/10/20 20:55 05/10/20 22:00 Temperature Pulse Rate 72 69 62 Respiratory Rate 27 H 21 H 19 Blood Pressure 123/67 Pulse Oximetry 100 05/10/20 23:03 05/11/20 00:00 05/11/20 00:24 Temperature 37.6 C Pulse Rate 64 64 64 Respiratory Rate 17 17 Blood Pressure 129/49 L Pulse Oximetry 99 99 05/11/20 01:00 05/11/20 02:00 05/11/20 02:10 Temperature Pulse Rate 63 58 L 63 Respiratory Rate 18 Blood Pressure 142/57 H Pulse Oximetry 99 100 05/11/20 02:3
[2020-05-11] MEDS: BUMETANIDE INJ 2.5 MG/10 ML VIAL 2 MG IV PUSH (17:47)
[2020-05-11 18:03] LABS: Glucose Point of Care 215 (65-105)
[2020-05-11] MEDS: BISACODYL 10 MG SUPPOSITORY RECTAL (19:28)
[2020-05-11 20:09] LABS: Vancomycin Trough 19.5 ug/mL (10.0-20.0)
[2020-05-11] MEDS: HEPARIN SODIUM 5,000 UNITS/ML VIAL 5000 UNITS SUB-Q (20:46)
[2020-05-11 20:49] LABS: Glucose Point of Care 200 (65-105)
[2020-05-12] VITALS (39 sets, daily range): BP systolic 107–189; BP diastolic 47–72; PULSE 40–103; RESP 17–36; TEMP 36.7–37; O2SAT 91–100
[2020-05-12 00:28] LABS: Glucose Point of Care 178 (65-105)
[2020-05-12] MEDS: METOCLOPRAMIDE HCL INJ 10 MG/2 ML VIAL IV PUSH ×4 (00:28→23:30)
[2020-05-12] MEDS: IPRATROPIUM BR 0.02% INH SOLN 0.5 MG/2.5 ML VIAL INHALATION ×4 (01:38→20:43)
[2020-05-12] MEDS: ALBUTEROL SULFATE NEB 2.5 MG/0.5 ML INH INHALATION ×4 (01:38→20:43)
[2020-05-12] MEDS: SODIUM CHLOR 3% 15 ML NEB (RESPIRATORY THERAPY) 6 ML INHALATION (01:52)
[2020-05-12 03:30] LABS: Alveolar/Arterial O2 Gradient 105.7 mmHg; Base Excess ABG -2.3 mEq/l (+/-2.0); Carboxyhemoglobin 0.4 % THb (0-2.0); Fractional Inspired Oxygen 30 %; HCO3 ABG 22.6 mEq/l (22.0-26.0); Methemoglobin ABG 0.2 %THb (0-1.5); Oxygen Content ABG 10.1 %vol (16.0-22.0); Oxygen Saturation ABG 91.3 % (95.0-100.0); Oxyhemoglobin 89.5 % THb (90.0-100.0); PCO2 ABG 39.4 mmHg (35.0-45.0); PO2 ABG 61.9 mmHg (80.0-100.0); PO2 FiO2 Ratio Arterial Blood 2.06 %; Reduced Hemoglobin 9.9 %THb (0-5.0); pH ABG 7.377 (7.350-7.450)
[2020-05-12 03:33] LABS: Device VENTILATOR; Modified Allen's Test Pass; Site Drawn RIGHT RADIAL
[2020-05-12 03:34] LABS: Arterial Blood Gas PEEP 5 cmH2O; Arterial Blood Gas Tidal Volume 450 ml; Arterial Blood Gas Vent Mode CMV; Arterial Blood Gas Ventilator rate 17 /MIN
[2020-05-12 04:19] LABS: Hematocrit 24.4 % (42.0-52.0); Hemoglobin 7.6 g/dL (14.0-18.0); Mean Corpuscular HGB Conc 31.1 g/dl (32-36); Mean Corpuscular Hemoglobin 27.8 pg (26-34); Mean Corpuscular Volume 89.4 fl (80-100); Mean Platelet Volume 9.8 fl (7.4-10.4); Platelet Count Result 329 k/mm3 (150-375); Red Blood Count 2.73 M/mm3 (4.6-6.20); Red Cell Distribution Width 14.5 % (11.5-14.5); White Blood Count 8.8 K/mm3 (4.5-10.0)
[2020-05-12 04:33] LABS: Anion Gap 13.8 mmol/L (7-16); Blood Urea Nitrogen 92 mg/dL (9-20); Calcium 8.9 mg/dL (8.4-10.2); Carbon Dioxide 23 mmol/L (22-30); Chloride 103 mmol/L (98-107); Estimated CRCL calculation 17 ml/min; Estimated Glomerular Filt Rate 13; Glucose 157 mg/dL (75-110); Magnesium 3.1 mg/dL (1.6-2.3); Phosphorus 6.2 mg/dL (2.5-4.5); Potassium 4.8 mmol/L (3.4-5.0); Sodium 135 mmol/L (137-145)
[2020-05-12] MEDS: metroNIDAZOLE 500 MG/ISO 100ML 500 MG/100 ML BAG 100 MG IVPB ×4 (04:40→19:52)
[2020-05-12] MEDS: MORPHINE SULFATE 2 MG/ML INJ IV PUSH (04:41)
[2020-05-12 04:59] LABS: Glucose Point of Care 150 (65-105)
[2020-05-12] MEDS: HEPARIN SODIUM 5,000 UNITS/ML VIAL 5000 UNITS SUB-Q ×3 (05:00→19:54)
--- NOTE | 2020-05-12 07:36 | WPDINTPN ---
Progress Note: A&P Assessment and Plan (1) Left arm weakness: Code(s): R29.898 - Other symptoms and signs involving the musculoskeletal system Status: Acute Assessment and Plan: Patient developed sudden onset left upper arm weakness. Resolved spontaneously - possible TIA. No findings on CT head. Continue ASA. Neurology has evaluated. He did c/o L shoulder pain on palpation and with passive ROM today - XR ordered but was negative for fracture or dislocation. Will need PT/OT. (2) Acute and chronic respiratory failure with hypercapnia: Code(s): J96.22 - Acute and chronic respiratory failure with hypercapnia Status: Acute Assessment and Plan: Patient with acute hypercapnic respiratory failure post cholecystostomy tube placement. Patient failed BiPAP and was intubated on 05/03/2020. Passed SBT this AM and was extubated. After extubation was complaining of SOB and was hypoxic - started on VM. He became less responsive and ABG showed respiratory acidosis - BiPAP started. Pt was awake and following commands prior to extubation. After extubation, I asked the patient if he would be OK with reintubation if needed and he nodded his head yes. He does have a right-sided pleural effusion, will repeat CXR in AM and consider thoracentesis if worse. Start diuresis. (3) Acute cholecystitis: Code(s): K81.0 - Acute cholecystitis Status: Acute Assessment and Plan: Status post cholecystostomy drain placement on 05/03/2020. Cultures from the gallbladder fluid growing Enterococcus species; continue vancomycin, Flagyl, and cefepime (stopped Zosyn due to FELIPE). (4) Acute on chronic renal failure: Qualifiers: Acute renal failure type: unspecified Chronic kidney disease stage: stage 3 (moderate) Qualified Code(s): N17.9 - Acute kidney failure, unspecified; N18.3 - Chronic kidney disease, stage 3 (moderate) Code(s): N17.9 - Acute kidney failure, unspecified; N18.9 - Chronic kidney disease, unspecified Status: Acute Assessment and Plan: Patient with acute on chronic kidney disease, baseline creatinine of 2.9-4.[address] White. Will maintain systolic blood pressures close to 140s; per Dr. White higher blood pressures improved his creatinine. (5) Hyperkalemia: Code(s): E87.5 - Hyperkalemia Status: Acute Assessment and Plan: Resolved. (6) Essential hypertension: Code(s): I10 - Essential (primary) hypertension Status: Chronic Assessment and Plan: Patient with hypertension, continue amlodipine, hydralazine, and metoprolol. (7) Type 2 diabetes mellitus with hyperglycemia: Qualifiers: Diabetes mellitus mcfp insulin use: with mcfp use Qualified Code(s): E11.65 - Type 2 diabetes mellitus with hyperglycemia; Z79.4 - senior living (current) use of insulin Code(s): E11.65 - Type 2 diabetes mellitus with hyperglycemia Status: Chronic Assessment and Plan: Continue Levemir, sliding scale insulin, and Accu-Cheks. (8) Anemia: Qualifiers: Anemia type: unspecified type Qualified Code(s): D64.9 - Anemia, unspecified Code(s): D64.9 - Anemia, unspecified Status: Acute Assessment and Plan: Anemia likely related to chronic kidney disease, stable. On EPO. (9) DVT prophylaxis: Code(s): Z29.9 - Encounter for prophylactic measures, unspecified Status: Acute Assessment and Plan: Heparin SC Additional Plan Code status: DNR Critical care time spent: 42 minutes Due to a high probability of clinically significant, life threatening deterioration, the patient required my highest level of preparedness to intervene emergently and I personally spent this critical care time directly and personally managing the patient. This critical care time included obtaining a history; examining the patient; pulse oximetry; ordering and review of studies; arranging urgent treatment with develop
[2020-05-12] MEDS: PANTOPRAZOLE SODIUM IV 40 MG VIAL IV PUSH (08:16)
[2020-05-12] MEDS: hydrALAZINE 10 MG TABLET PO (08:16)
[2020-05-12] MEDS: METOPROLOL TARTRATE 25 MG TABLET PO (08:17)
[2020-05-12] MEDS: amLODIPine BESYLATE 5 MG TABLET 10 MG PO (08:17)
[2020-05-12] MEDS: INSULIN DETEMIR 100 UNITS/ML 18 UNITS SUB-Q (08:17)
[2020-05-12] MEDS: BUMETANIDE INJ 2.5 MG/10 ML VIAL 2 MG IV PUSH (08:18)
[2020-05-12] MEDS: ASPIRIN 81 MG CHEWABLE TABLET 324 MG FEED TUBE (08:37)
[2020-05-12 12:12] LABS: Glucose Point of Care 183 (65-105)
[2020-05-12 12:36] LABS: Alveolar/Arterial O2 Gradient 532.9 mmHg; Base Excess ABG -6.8 mEq/l (+/-2.0); Carboxyhemoglobin 0.3 % THb (0-2.0); Device NON-REBREATHER MASK; Fractional Inspired Oxygen 100 %; HCO3 ABG 24.7 mEq/l (22.0-26.0); Methemoglobin ABG 0.5 %THb (0-1.5); Modified Allen's Test Pass; Oxygen Saturation ABG 91.5 % (95.0-100.0); Oxyhemoglobin 90.7 % THb (90.0-100.0); PCO2 ABG 91.7 mmHg (35.0-45.0); PO2 ABG 88.4 mmHg (80.0-100.0); PO2 FiO2 Ratio Arterial Blood 0.88 %; Reduced Hemoglobin 8.5 %THb (0-5.0); Site Drawn RIGHT RADIAL; Total Hemoglobin 10.1 g/dL (12.0-18.0); pH ABG 7.048 (7.350-7.450)
--- NOTE | 2020-05-12 12:36 | P.PNNP_ITS ---
Progress Note: A&P Assessment and Plan (1) FELIPE (acute kidney injury): Code(s): N17.9 - Acute kidney failure, unspecified Status: Acute Assessment and Plan: * suspect due to acute infection (cholecystitis) on top of possible pre-renal factors * urine electrolytes non pre renal * renal ultrasound without hydronephrosis * still making urine. * creatinine is about the same. Ranging around 4.0. * hopefully things will improve as his pulmonary issues resolve. * If he gets much worse he may end up needing dialysis. (2) Chronic kidney disease, stage IV (severe): Code(s): N18.4 - Chronic kidney disease, stage 4 (severe) Status: Chronic Assessment and Plan: * baseline creatinine ~ 2.8 - 2.9mg/dl from review of outpatient records * His creatinine does vary quite a bit however and has been as high as 4 as an outpatient in the past. (3) Hyperkalemia: Code(s): E87.5 - Hyperkalemia Status: Acute Assessment and Plan: * resolved (4) Acute cholecystitis: Code(s): K81.0 - Acute cholecystitis Status: Acute Assessment and Plan: * General Surgery following * s/p cholecystostomy tube placement * gallbladder fluid culture positive for Enterococcus * Afebrile and his white count is okay. * continuing antibiotics (5) Essential hypertension: Code(s): I10 - Essential (primary) hypertension Status: Chronic Assessment and Plan: * stable hemodynamics at this time * blood pressure doing well. (6) Anemia: Qualifiers: Anemia type: unspecified type Qualified Code(s): D64.9 - Anemia, uns pecified Code(s): D64.9 - Anemia, unspecified Status: Acute Assessment and Plan: * due to acute illness and CKD * Hemoglobin is stable in the sevens. * on EPO. * Protect count was just over 2. Will increase the dose of EPO. (7) Diabetes: Code(s): E11.9 - Type 2 diabetes mellitus without complications Status: Chronic Assessment and Plan: * follow accuchecks * on SSI Will continue to follow. (8) Acute and chronic respiratory failure with hypercapnia: Code(s): J96.22 - Acute and chronic respiratory failure with hypercapnia Status: Acute Assessment and Plan: Patient Now extubated. Good oxygen saturation. Will give another couple of doses of diuretics Additional Plan Subjective Date/time seen: 05/12/20 12:36 Interval history: patient is now extubated. Communicates by writing on a board. He is short of breath. his O2 sat is 93%. I re- assured him that we will watch closely but hopefully he would get better. Review of Systems Cardiovascular: Cardiovascular: Reports no additional cardiovascular complaints Respiratory: Respiratory: Reports no additional respiratory complaints Gastrointestinal: Gastrointestinal: Reports no additional gastrointestinal complaints Genitourinary: Genitourinary: Reports no additional male genitourinary complaints Exam Narrative: Exam Narrative: General: WD/WN male in NAD; intubated and sedated Heart: normal S1 and S2; no rub Lungs: decreased at the bases and mild coarse breath sounds on both sides Abdomen: positive bowel sounds and no tenderness Extremities: Trace edema Skin: No rash Objective Data Vital Signs Vital Signs: Vital Sig
--- NOTE | 2020-05-12 12:36 | PM.PNNEP ---
Progress Note: A&P Assessment and Plan (1) FELIPE (acute kidney injury): Code(s): N17.9 - Acute kidney failure, unspecified Status: Acute Assessment and Plan: suspect due to acute infection (cholecystitis) on top of possible pre-renal factors urine electrolytes non pre renal renal ultrasound without hydronephrosis still making urine. creatinine is about the same. Ranging around 4.0. hopefully things will improve as his pulmonary issues resolve. If he gets much worse he may end up needing dialysis. (2) Chronic kidney disease, stage IV (severe): Code(s): N18.4 - Chronic kidney disease, stage 4 (severe) Status: Chronic Assessment and Plan: baseline creatinine ~ 2.8 - 2.9mg/dl from review of outpatient records His creatinine does vary quite a bit however and has been as high as 4 as an outpatient in the past. (3) Hyperkalemia: Code(s): E87.5 - Hyperkalemia Status: Acute Assessment and Plan: resolved (4) Acute cholecystitis: Code(s): K81.0 - Acute cholecystitis Status: Acute Assessment and Plan: General Surgery following s/p cholecystostomy tube placement gallbladder fluid culture positive for Enterococcus Afebrile and his white count is okay. continuing antibiotics (5) Essential hypertension: Code(s): I10 - Essential (primary) hypertension Status: Chronic Assessment and Plan: stable hemodynamics at this time blood pressure doing well. (6) Anemia: Qualifiers: Anemia type: unspecified type Qualified Code(s): D64.9 - Anemia, unspecified Code(s): D64.9 - Anemia, unspecified Status: Acute Assessment and Plan: due to acute illness and CKD Hemoglobin is stable in the sevens. on EPO. Protect count was just over 2. Will increase the dose of EPO. (7) Diabetes: Code(s): E11.9 - Type 2 diabetes mellitus without complications Status: Chronic Assessment and Plan: follow accuchecks on SSI Will continue to follow. (8) Acute and chronic respiratory failure with hypercapnia: Code(s): J96.22 - Acute and chronic respiratory failure with hypercapnia Status: Acute Assessment and Plan: Patient Now extubated. Good oxygen saturation. Will give another couple of doses of diuretics Additional Plan Subjective Date/time seen: 05/12/20 12:36 Interval history: patient is now extubated. Communicates by writing on a board. He is short of breath. his O2 sat is 93%. I re- assured him that we will watch closely but hopefully he would get better. Review of Systems Cardiovascular: Cardiovascular: Reports no additional cardiovascular complaints Respiratory: Respiratory: Reports no additional respiratory complaints Gastrointestinal: Gastrointestinal: Reports no additional gastrointestinal complaints Genitourinary: Genitourinary: Reports no additional male genitourinary complaints Exam Narrative: Exam Narrative: General: WD/WN male in NAD; intubated and sedated Heart: normal S1 and S2; no rub Lungs: decreased at the bases and mild coarse breath sounds on both sides Abdomen: positive bowel sounds and no tenderness Extremities: Trace edema Skin: No rash Objective Data Vital Signs Vital Signs: Vital Signs - 24 hr 05/11/20 13:44 05/11/20 14:00 05/11/20 14:07 Temperature Pulse Rate 77 76 76 Respiratory Rate 17 17 Blood Pressure 181/61 H Pulse Oximetry 91 92 05/11/20 14:10 05/11/20 14:23 05/11/20 16:00 Temperature 37.2 C Pulse Rate 76 76 69 Respiratory Rate 22 H 28 H 17 Blood Pressure 134/70 Pulse Oximetry 95 05/11/20 16:11 05/11/20 16:50 05/11/20 18:00 Temperature Pulse Rate 69 61 63 Respiratory Rate 17 17 Blood Pressure 136/59 L Pulse Oximetry 93 95 05/11/20 18:06 05/11/20 19:10 05/11/20 19:47 Temperature Pulse Rate 62 60 71
[2020-05-12] MEDS: METOPROLOL TARTRATE INJ 5 MG/5 ML VIAL IV PUSH ×2 (12:54→23:30)
[2020-05-12 13:42] LABS: Alveolar/Arterial O2 Gradient 553.2 mmHg; Base Excess ABG -7.1 mEq/l (+/-2.0); Carboxyhemoglobin 0.3 % THb (0-2.0); Fractional Inspired Oxygen 100 %; HCO3 ABG 22.8 mEq/l (22.0-26.0); Methemoglobin ABG 0.3 %THb (0-1.5); Oxygen Content ABG 13.2 %vol (16.0-22.0); Oxygen Saturation ABG 92.9 % (95.0-100.0); Oxyhemoglobin 92.2 % THb (90.0-100.0); PO2 ABG 87.4 mmHg (80.0-100.0); PO2 FiO2 Ratio Arterial Blood 0.87 %; Reduced Hemoglobin 7.2 %THb (0-5.0); Total Hemoglobin 10.1 g/dL (12.0-18.0)
[2020-05-12 13:43] LABS: pH ABG 7.117 (7.350-7.450)
[2020-05-12 13:44] LABS: Device NON-INVASIVE VENT; Modified Allen's Test Pass; Non-Invasive Expiratory Pressure 8 CMH2O; Non-Invasive Inspiratory Pressure 18 CMH2O; Non-Invasive Vent Rate 10 /MIN; PCO2 ABG 72.4 mmHg (35.0-45.0); Site Drawn RIGHT RADIAL
[2020-05-12] MEDS: BUMETANIDE INJ 1 MG/4 ML VIAL 2 MG IV PUSH (16:50)
[2020-05-12 16:51] LABS: Alveolar/Arterial O2 Gradient 422.8 mmHg; Base Excess ABG -5.2 mEq/l (+/-2.0); Carboxyhemoglobin 0.3 % THb (0-2.0); Fractional Inspired Oxygen 85 %; HCO3 ABG 27.4 mEq/l (22.0-26.0); Methemoglobin ABG 0.3 %THb (0-1.5); Oxygen Content ABG 12.2 %vol (16.0-22.0); Oxyhemoglobin 83.6 % THb (90.0-100.0); PO2 ABG 68.5 mmHg (80.0-100.0); PO2 FiO2 Ratio Arterial Blood 0.81 %; Reduced Hemoglobin 15.8 %THb (0-5.0); Total Hemoglobin 10.3 g/dL (12.0-18.0)
[2020-05-12 16:52] LABS: PCO2 ABG 110.6 mmHg (35.0-45.0); pH ABG 7.012 (7.350-7.450)
[2020-05-12 16:53] LABS: Modified Allen's Test Pass; Oxygen Saturation ABG 81.4 % (95.0-100.0); Site Drawn RIGHT RADIAL
[2020-05-12 16:54] LABS: Device NON-INVASIVE VENT; Non-Invasive Expiratory Pressure 8 CMH2O; Non-Invasive Inspiratory Pressure 18 CMH2O; Non-Invasive Vent Rate 10 /MIN
--- NOTE | 2020-05-12 17:15 | WPDPROCEDUR ---
Procedures Intubation Intubation Date: 05/12/20 <KIKE Gonzalez Last Filed: 05/12/20 17:31> Intubation Time: 17:15 <KIKE Gonzalez Last Filed: 05/12/20 17:31> Consent: Patient gave verbal consent to Dr. Khalil when extubated this a.m. <Lachelle Norman PA-C - Last Filed: 05/12/20 17:31> A pre-procedural Time-Out was completed immediately before starting the procedure and confirmed: Patient Identification, Site, Procedure, Patient Position and the Availability of Requisite Equipment: Yes <KIKE Gonzalez Last Filed: 05/12/20 17:31> Sedative: etomidate <KIKE Gonzalez Last Filed: 05/12/20 17:31> Mg given: 20 <Lachelle Norman PA-C - Last Filed: 05/12/20 17:31> Paralytic: succinylcholine <KIKE Gonzalez Last Filed: 05/12/20 17:31> Mg given: 100 <KIKE Gonzalez Last Filed: 05/12/20 17:31> Laryngoscope: fiber optic video scope (MAC 4) <KIKE Gonzalez Last Filed: 05/12/20 17:31> ET tube size: 8 <KIKE Gonzalez Last Filed: 05/12/20 17:31> Tube secured depth (cm): 26 <KIKE Gonzalez Last Filed: 05/12/20 17:31> Tube secured location: teeth <KIKE Gonzalez Last Filed: 05/12/20 17:31> Tube placement confirmation: visualized tube passing through cords, equal breath sounds bilaterally, no breath sounds over epigastrium and confirmation by capnometry <KIKE Gonzalez Last Filed: 05/12/20 17:31> Patient tolerated procedure: well <KIKE Gonzalez Last Filed: 05/12/20 17:31> Intubation complications: none <Lachelle Norman PA-C - Last Filed: 05/12/20 17:31> Additional comments: Dr. Alf Cohn, attending ED physician, was at bedside. Chest x-ray pending. Vent management and sedation per Dr. Zarco. <Lachelle Norman PA-C - Last Filed: 05/12/20 17:31>
[2020-05-12 17:44] LABS: Glucose Point of Care 231 (65-105)
[2020-05-12] MEDS: PROPOFOL IV EMULSION 100 ML 14.2 MG IV CONT ×2 (18:06→23:42)
[2020-05-12] MEDS: INSULIN ASPART (*BKC) 100 UNITS/ML SUB-Q (18:25)
--- NOTE | 2020-05-12 18:42 | P.PNIM_ITS ---
Progress Note: A&P Assessment and Plan (1) Left arm weakness: Code(s): R29.898 - Other symptoms and signs involving the musculoskeletal system Status: Acute Assessment and Plan: * Patient with acute LUE weakness that resolved completely on 05/09/20 * Head CT showing no acute findings. Carotid US showing 50-69% stenosis Rt ICA. * Echo showing EF 60-65%, severe pulm HTN and patent foramen ovale with Grade I diastolic dysfunction * Probably TIA * Continue ASA; agree with permissive HTN (2) Acute and chronic respiratory failure with hypercapnia: Code(s): J96.22 - Acute and chronic respiratory failure with hypercapnia Status: Acute Assessment and Plan: * Lethargic on admission so proceeded with cholecystostomy tube. Requiring BiPAP but ultimately failed so intubated on 05/03/20. * Chest x-ray reviewed showing persistent mostly right sided airspace disease. * Continue albuterol and Atrovent * Wean mechanical ventilation as tolerated. * Appreciate policeman input. * Bumex x 2 doses ordered again * Consider bronchoscopy. (3) Acute cholecystitis: Code(s): K81.0 - Acute cholecystitis Status: Acute Assessment and Plan: * Patient presents with abdominal pain, nausea, and vomiting with CT abdomen showing acute cholecystitis. * Percutaneous cholecystostomy tube placed 05/03/20 and being followed by Gen Surg - appreciate their input. * Cx growing Enterococus; UCx/BCx/SputumCx negative. WBC remaining normal * Abx adjusted to Vanco and Cefepime; Flagyl added 05/10 to cover GB pathology * Continue Reglan to help with gut motility. (4) Acute on chronic renal failure: Qualifiers: Acute renal failure type: unspecified Chronic kidney disease stage: stage 3 (moderate) Qualified Code(s): N17.9 - Acute kidney failure, unspecified; N18.3 - Chronic kidney disease, stage 3 (moderate) Code(s): N17.9 - Acute kidney failure, unspecified; N18.9 - Chronic kidney disease, unspecified Status: Acute Assessment and Plan: * Baseline creatinine 2.8 to 3.4 range. * Creatinine climbed to 4.3 before trending down to 3.9. Cr back up to 4.4 related to diuretics and above events and posibly new normal. * Patient was previously on hemodialysis in the past * Renal ultrasound showed normal size kidneys. No hydronephrosis. * Received Lasix IV once on 05/09. Bumex for 2 doses 05/11 and again for 2 doses on 05/12. (5) Essential hypertension: Code(s): I10 - Essential (primary) hypertension Status: Chronic Assessment and Plan: * Blood pressure reviewed on 05/12/2020. * Blood pressure mostly well controlled (elevated earlier but realted to respiratory distress) * Currently on Norvasc, hydralazine and metoprolol. * Plan to keep BP mildly elevated to help with renal perfusion and for permissive HTN from probable TIA * Continue Hydralazine IV available PRN if needed. Monitor BP and adjust treatment as needed. (6) Hyperkalemia: Code(s): E87.5 - Hyperkalemia Status: Acute Assessment and Plan: * potassium 5.5 early in admission. * Hyperkalemia may be related to worsening renal function. * Potassium improved and remaining stable. Continue to monitor. (7) Anemia of chronic kidney failure: Qualifiers: Chronic kidney disease stage: stage 3 (moderate) Qualified Code(s): N18.3 - Chronic kidney disea
--- NOTE | 2020-05-12 18:42 | PM.IMPN ---
Progress Note: A&P Assessment and Plan (1) Left arm weakness: Code(s): R29.898 - Other symptoms and signs involving the musculoskeletal system Status: Acute Assessment and Plan: Patient with acute LUE weakness that resolved completely on 05/09/[address] showing no acute findings. Carotid US showing 50-69% stenosis Rt ICA. Echo showing EF 60-65%, severe pulm HTN and patent foramen ovale with Grade I diastolic dysfunction Probably TIA Continue ASA; agree with permissive HTN (2) Acute and chronic respiratory failure with hypercapnia: Code(s): J96.22 - Acute and chronic respiratory failure with hypercapnia Status: Acute Assessment and Plan: Lethargic on admission so proceeded with cholecystostomy tube. Requiring BiPAP but ultimately failed so intubated on 05/03/20. Chest x-ray reviewed showing persistent mostly right sided airspace disease. Continue albuterol and Atrovent Wean mechanical ventilation as tolerated. Appreciate digital computer operator input. Bumex x 2 doses ordered again Consider bronchoscopy. (3) Acute cholecystitis: Code(s): K81.0 - Acute cholecystitis Status: Acute Assessment and Plan: Patient presents with abdominal pain, nausea, and vomiting with CT abdomen showing acute cholecystitis. Percutaneous cholecystostomy tube placed 05/03/20 and being followed by Gen Surg - appreciate their input. Cx growing Enterococus; UCx/BCx/SputumCx negative. WBC remaining normal Abx adjusted to Vanco and Cefepime; Flagyl added 05/10 to cover GB pathology Continue Reglan to help with gut motility. (4) Acute on chronic renal failure: Qualifiers: Acute renal failure type: unspecified Chronic kidney disease stage: stage 3 (moderate) Qualified Code(s): N17.9 - Acute kidney failure, unspecified; N18.3 - Chronic kidney disease, stage 3 (moderate) Code(s): N17.9 - Acute kidney failure, unspecified; N18.9 - Chronic kidney disease, unspecified Status: Acute Assessment and Plan: Baseline creatinine 2.8 to 3.4 range. Creatinine climbed to 4.3 before trending down to 3.9. Cr back up to 4.4 related to diuretics and above events and posibly new normal. Patient was previously on hemodialysis in the past Renal ultrasound showed normal size kidneys. No hydronephrosis. Received Lasix IV once on 05/09. Bumex for 2 doses 05/11 and again for 2 doses on 05/12. (5) Essential hypertension: Code(s): I10 - Essential (primary) hypertension Status: Chronic Assessment and Plan: Blood pressure reviewed on 05/12/2020. Blood pressure mostly well controlled (elevated earlier but realted to respiratory distress) Currently on Norvasc, hydralazine and metoprolol. Plan to keep BP mildly elevated to help with renal perfusion and for permissive HTN from probable TIA Continue Hydralazine IV available PRN if needed. Monitor BP and adjust treatment as needed. (6) Hyperkalemia: Code(s): E87.5 - Hyperkalemia Status: Acute Assessment and Plan: potassium 5.5 early in admission. Hyperkalemia may be related to worsening renal function. Potassium improved and remaining stable. Continue to monitor. (7) Anemia of chronic kidney failure: Qualifiers: Chronic kidney disease stage: stage 3 (moderate) Qualified Code(s): N18.3 - Chronic kidney disease, stage 3 (moderate); D63.1 - Anemia in chronic kidney disease Code(s): N18.9 - Chronic kidney disease, unspecified; D63.1 - Anemia in chronic kidney disease Status: Chronic Assessment and Plan: hemoglobin in the 10-11 range chronically Since admission, hemoglobin has dropped to 7-8 range but stable No evidence of active bleeding - slight pink fluid from NGT from recent intubation a
--- NOTE | 2020-05-12 18:46 | PC.NURSE ---
Attempted three times to call POA regarding patients decline and need to be intubation, no answer.
[2020-05-12 19:27] LABS: Alveolar/Arterial O2 Gradient 599.7 mmHg; Base Excess ABG -5.3 mEq/l (+/-2.0); Carboxyhemoglobin 0.3 % THb (0-2.0); Fractional Inspired Oxygen 100 %; HCO3 ABG 21.3 mEq/l (22.0-26.0); Methemoglobin ABG 0.2 %THb (0-1.5); Oxygen Content ABG 10.9 %vol (16.0-22.0); Oxygen Saturation ABG 90.7 % (95.0-100.0); Oxyhemoglobin 90.8 % THb (90.0-100.0); PCO2 ABG 46.6 mmHg (35.0-45.0); PO2 ABG 66.7 mmHg (80.0-100.0); PO2 FiO2 Ratio Arterial Blood 0.67 %; Reduced Hemoglobin 8.7 %THb (0-5.0); Total Hemoglobin 8.5 g/dL (12.0-18.0)
[2020-05-12 19:30] LABS: pH ABG 7.277 (7.350-7.450)
[2020-05-12 19:31] LABS: Device VENTILATOR; Modified Allen's Test Pass; Site Drawn LEFT RADIAL
[2020-05-12 19:32] LABS: Arterial Blood Gas PEEP 5 cmH2O; Arterial Blood Gas Tidal Volume 450 ml; Arterial Blood Gas Vent Mode CMV; Arterial Blood Gas Ventilator rate 22 /MIN
[2020-05-12 23:33] LABS: Glucose Point of Care 152 (65-105)
[2020-05-13] VITALS (35 sets, daily range): BP systolic 110–154; BP diastolic 45–67; PULSE 57–79; RESP 18–23; TEMP 36.7–37.2; O2SAT 96–100
[2020-05-13] MEDS: metroNIDAZOLE 500 MG/ISO 100ML 500 MG/100 ML BAG 100 MG IVPB ×4 (02:04→20:24)
[2020-05-13] MEDS: ALBUTEROL SULFATE NEB 2.5 MG/0.5 ML INH INHALATION ×4 (02:07→19:12)
[2020-05-13] MEDS: IPRATROPIUM BR 0.02% INH SOLN 0.5 MG/2.5 ML VIAL INHALATION ×4 (02:07→19:12)
[2020-05-13 04:49] LABS: Base Excess ABG -8.2 mEq/l (+/-2.0); HCO3 ABG 15.6 mEq/l (22.0-26.0); Oxygen Saturation ABG 96.6 % (95.0-100.0); PCO2 ABG 25.8 mmHg (35.0-45.0); PO2 ABG 85.1 mmHg (80.0-100.0); pH ABG 7.398 (7.350-7.450)
[2020-05-13 04:51] LABS: Alveolar/Arterial O2 Gradient 242.4 mmHg
[2020-05-13 04:52] LABS: Carboxyhemoglobin 0.1 % THb (0-2.0); Methemoglobin ABG 0.2 %THb (0-1.5); Oxyhemoglobin 94.6 % THb (90.0-100.0); Reduced Hemoglobin 5.1 %THb (0-5.0)
[2020-05-13 04:57] LABS: Device VENTILATOR; Fractional Inspired Oxygen 50 %; Modified Allen's Test Pass; Oxygen Content ABG 10.8 %vol (16.0-22.0); Site Drawn LEFT RADIAL
[2020-05-13 04:59] LABS: Arterial Blood Gas PEEP 5 cmH2O; Arterial Blood Gas Tidal Volume 450 ml; Arterial Blood Gas Vent Mode CMV; Arterial Blood Gas Ventilator rate 22 /MIN
[2020-05-13 05:08] LABS: Hemoglobin 7.7 g/dL (14.0-18.0); Mean Corpuscular HGB Conc 32.1 g/dl (32-36); Mean Corpuscular Hemoglobin 28.3 pg (26-34); Mean Corpuscular Volume 88.2 fl (80-100); Platelet Count Result 384 k/mm3 (150-375); Red Blood Count 2.72 M/mm3 (4.6-6.20); Red Cell Distribution Width 14.8 % (11.5-14.5); White Blood Count 11.4 K/mm3 (4.5-10.0)
[2020-05-13 05:23] LABS: Albumin Level 3.1 g/dL (3.5-5.1); Blood Urea Nitrogen 105 mg/dL (9-20); Calcium 8.9 mg/dL (8.4-10.2); Carbon Dioxide 22 mmol/L (22-30); Chloride 101 mmol/L (98-107); Estimated CRCL calculation 14 ml/min; Estimated Glomerular Filt Rate 10; Glucose 95 mg/dL (75-110); Phosphorus 7.3 mg/dL (2.5-4.5); Sodium 135 mmol/L (137-145)
[2020-05-13] MEDS: METOCLOPRAMIDE HCL INJ 10 MG/2 ML VIAL IV PUSH ×4 (05:32→23:16)
[2020-05-13] MEDS: HEPARIN SODIUM 5,000 UNITS/ML VIAL 5000 UNITS SUB-Q ×3 (05:32→20:24)
[2020-05-13] MEDS: METOPROLOL TARTRATE INJ 5 MG/5 ML VIAL IV PUSH ×4 (05:33→23:16)
[2020-05-13 05:54] LABS: Glucose Point of Care 80 (65-105)
[2020-05-13] MEDS: PROPOFOL IV EMULSION 100 ML 10.7 MG IV CONT (06:28)
[2020-05-13] MEDS: BUMETANIDE INJ 1 MG/4 ML VIAL 2 MG IV PUSH (09:20)
[2020-05-13] MEDS: amLODIPine BESYLATE 5 MG TABLET 10 MG PO (09:21)
[2020-05-13] MEDS: PANTOPRAZOLE SODIUM IV 40 MG VIAL IV PUSH (09:21)
[2020-05-13] MEDS: INSULIN DETEMIR 100 UNITS/ML 18 UNITS SUB-Q ×2 (09:28→20:24)
[2020-05-13] MEDS: ASPIRIN 81 MG CHEWABLE TABLET 324 MG FEED TUBE (09:30)
--- NOTE | 2020-05-13 11:04 | PCDIET ---
ICU Rounding Note: Patient is NPO following extubation and reintubation on 05/12/20. MD ordered to resume enteral feedings. Recommend Nepro at goal of 40mL/hr for 1584kcal (1866kcal with Propofol at current rate) and 71g protein. Last recorded weight is 118.5kg which is increased from last review. Bowel Motility: BM x 1 this date. Labs Reviewed: Hgb (7.7), Hct (24.0), BUN (105), Cr (5.4), Na (135), Alb (3.1) Meds Noted: Albuterol, Novolog, Cefepime, Levemir, Retacrit, Reglan, Lasix, Flagyl, Versed, Protonix, Vancomycin, Propofol (rate of 10.7mL/hr provides 282kcal over 24 hours) Additional Notes: Abdomen with drain. No documented pressure ulcers. Following daily in ICU rounds. Assessing/reassessing every Wednesday/Wednesday.
[2020-05-13 12:21] LABS: Glucose Point of Care 95 (65-105)
[2020-05-13] MEDS: PROPOFOL IV EMULSION 100 ML 17.8 MG IV CONT ×2 (12:59→17:58)
--- NOTE | 2020-05-13 13:52 | P.PNNP_ITS ---
Progress Note: A&P Assessment and Plan (1) FELIPE (acute kidney injury): Code(s): N17.9 - Acute kidney failure, unspecified Status: Acute Assessment and Plan: * suspect due to acute infection (cholecystitis) on top of possible pre-renal factors * urine electrolytes non pre renal * renal ultrasound without hydronephrosis * He received diuretics again yesterday And made 2800cc of urine. * however his creatinine has risen to over 5. * Discussed at length with Dr. Cabrera. His chest x-ray is still full of infiltrate but his sputum is thick. Perhaps what is in his lungs is not fluid. Will hold off on diuretics for now and keep an eye on him. * If the creatinine continues to worsen he might need dialysis to keep going , if this is what he would want. (2) Chronic kidney disease, stage IV (severe): Code(s): N18.4 - Chronic kidney disease, stage 4 (severe) Status: Chronic Assessment and Plan: * baseline creatinine ~ 2.8 - 2.9mg/dl from review of outpatient records * His creatinine does vary quite a bit however and has been as high as 4 as an outpatient in the past. (3) Hyperkalemia: Code(s): E87.5 - Hyperkalemia Status: Acute Assessment and Plan: * resolved (4) Acute cholecystitis: Code(s): K81.0 - Acute cholecystitis Status: Acute Assessment and Plan: * General Surgery following * s/p cholecystostomy tube placement * gallbladder fluid culture positive for Enterococcus * Afebrile and his white count is okay. * continuing antibiotics (5) Essential hypertension: Code(s): I10 - Essential (primary) hypertension Status: Chronic Assessment and Plan: * stable hemodynamics at this time * blood pressure doing well. (6) Anemia: Qualifiers: Anemia type: unspecified type Qualified Code(s): D64.9 - Anemia, unspecified Code(s): D64.9 - Anemia, unspecified Status: Acute Assessment and Plan: * due to acute illness and CKD * Hemoglobin is stable in the sevens. * on EPO. * On higher dose of Epogen. (7) Diabetes: Code(s): E11.9 - Type 2 diabetes mellitus without complications Status: Chronic Assessment and Plan: * follow accuchecks * on SSI (8) Acute and chronic respiratory failure with hypercapnia: Code(s): J96.22 - Acute and chronic respiratory failure with hypercapnia Status: Acute Assessment and Plan: Back on the ventilator. Long discussion with Dr Cabrera Additional Plan Subjective Date/time seen: 05/13/20 13:52 Interval history: patient tired out in is now intubated again. He is on sedatives. Review of Systems Review of Systems: ROS unobtainable: Yes unobtainable due to endotracheal tube Exam Narrative: Exam Narrative: General: WD/WN male in NAD; intubated and sedated Heart: normal S1 and S2; no rub Lungs: decreased at the bases and mild coarse breath sounds on both sides Abdomen: positive bowel sounds and no tenderness Extremities: Trace edema Skin: No rash Objective Data Vital Signs Vital Signs: Vital Signs - 24 hr 05/12/20 14:00 05/12/20 14:40 05/12/20 14:48 Temperature Pulse Rate 81 84 82 Respiratory Rate 20 19 23 H Blood Pressure 189/72 H Pulse Oximetry 96 96 07
--- NOTE | 2020-05-13 13:52 | PM.PNNEP ---
Progress Note: A&P Assessment and Plan (1) FELIPE (acute kidney injury): Code(s): N17.9 - Acute kidney failure, unspecified Status: Acute Assessment and Plan: suspect due to acute infection (cholecystitis) on top of possible pre-renal factors urine electrolytes non pre renal renal ultrasound without hydronephrosis He received diuretics again yesterday And made 2800cc of urine. however his creatinine has risen to over 5. Discussed at length with Dr. Cabrera. His chest x-ray is still full of infiltrate but his sputum is thick. Perhaps what is in his lungs is not fluid. Will hold off on diuretics for now and keep an eye on him. If the creatinine continues to worsen he might need dialysis to keep going , if this is what he would want. (2) Chronic kidney disease, stage IV (severe): Code(s): N18.4 - Chronic kidney disease, stage 4 (severe) Status: Chronic Assessment and Plan: baseline creatinine ~ 2.8 - 2.9mg/dl from review of outpatient records His creatinine does vary quite a bit however and has been as high as 4 as an outpatient in the past. (3) Hyperkalemia: Code(s): E87.5 - Hyperkalemia Status: Acute Assessment and Plan: resolved (4) Acute cholecystitis: Code(s): K81.0 - Acute cholecystitis Status: Acute Assessment and Plan: General Surgery following s/p cholecystostomy tube placement gallbladder fluid culture positive for Enterococcus Afebrile and his white count is okay. continuing antibiotics (5) Essential hypertension: Code(s): I10 - Essential (primary) hypertension Status: Chronic Assessment and Plan: stable hemodynamics at this time blood pressure doing well. (6) Anemia: Qualifiers: Anemia type: unspecified type Qualified Code(s): D64.9 - Anemia, unspecified Code(s): D64.9 - Anemia, unspecified Status: Acute Assessment and Plan: due to acute illness and CKD Hemoglobin is stable in the sevens. on EPO. On higher dose of Epogen. (7) Diabetes: Code(s): E11.9 - Type 2 diabetes mellitus without complications Status: Chronic Assessment and Plan: follow accuchecks on SSI (8) Acute and chronic respiratory failure with hypercapnia: Code(s): J96.22 - Acute and chronic respiratory failure with hypercapnia Status: Acute Assessment and Plan: Back on the ventilator. Long discussion with Dr Cabrera Additional Plan Subjective Date/time seen: 05/13/20 13:52 Interval history: patient tired out in is now intubated again. He is on sedatives. Review of Systems Review of Systems: ROS unobtainable: Yes unobtainable due to endotracheal tube Exam Narrative: Exam Narrative: General: WD/WN male in NAD; intubated and sedated Heart: normal S1 and S2; no rub Lungs: decreased at the bases and mild coarse breath sounds on both sides Abdomen: positive bowel sounds and no tenderness Extremities: Trace edema Skin: No rash Objective Data Vital Signs Vital Signs: Vital Signs - 24 hr 05/12/20 14:00 05/12/20 14:40 05/12/20 14:48 Temperature Pulse Rate 81 84 82 Respiratory Rate 20 19 23 H Blood Pressure 189/72 H Pulse Oximetry 96 96 05/12/20 16:00 05/12/20 17:00 05/12/20 17:45 Temperature Pulse Rate 67 64 40 L Respiratory Rate 22 H Blood Pressure 141/54 H Pulse Oximetry 96 92 05/12/20 17:47 05/12/20 18:00 05/12/20 20:00 Temperature 37.0 C Pulse Rate 42 L 62 51 L Respiratory Rate 22 H 22 H Blood Pressure 117/48 L 109/51 L Pulse Oximetry 99 100 05/12/20 20:43 05/12/20 20:46 05/12/20 20:51 Temperature Pulse Rate 50 L 51 L 51 L Respiratory Rate 22 H 22 H Blood Pressure Pulse Oximetry 100 05/12/20 21:33 05/12/20 22:00 05/12/20 22:50 Temperature Pulse Rate 53 L 53 L 56 L Respiratory Rate 18 Blood Pressure 107/47
--- NOTE | 2020-05-13 14:19 | WPDINTPN ---
Progress Note: A&P Assessment and Plan (1) Acute and chronic respiratory failure with hypercapnia: Code(s): J96.22 - Acute and chronic respiratory failure with hypercapnia Status: Acute Assessment and Plan: Patient with acute hypercapnic respiratory failure post cholecystostomy tube placement. Patient failed BiPAP and was intubated on 05/03/2020. - patient was extubated on 05/12/2020 and was reintubate later on the same day due to being less responsive, ABG showed respiratory acidosis, with respiratory distress. - Currently on CMV mode of ventilation, 50% FiO2, peep of 5 - ABGs and chest x-ray reviewed - diuretic currently on hold due to elevated creatinine. Patient has been diuresing well without diuretics. - patient has a possible right-sided pleural effusion, may require thoracentesis if he does not wean off the ventilator (2) Left arm weakness: Code(s): R29.898 - Other symptoms and signs involving the musculoskeletal system Status: Acute Assessment and Plan: Patient developed sudden onset left upper arm weakness. Resolved spontaneously - possible TIA. No findings on CT head. Continue ASA. Neurology has evaluated. He did c/o L shoulder pain on palpation and with passive ROM today - XR ordered but was negative for fracture or dislocation. Will need PT/OT. (3) Acute cholecystitis: Code(s): K81.0 - Acute cholecystitis Status: Acute Assessment and Plan: Status post cholecystostomy drain placement on 05/03/2020. Cultures from the gallbladder fluid growing Enterococcus species; continue vancomycin, Flagyl, and cefepime (stopped Zosyn due to FELIPE). (4) Acute on chronic renal failure: Qualifiers: Acute renal failure type: unspecified Chronic kidney disease stage: stage 3 (moderate) Qualified Code(s): N17.9 - Acute kidney failure, unspecified; N18.3 - Chronic kidney disease, stage 3 (moderate) Code(s): N17.9 - Acute kidney failure, unspecified; N18.9 - Chronic kidney disease, unspecified Status: Acute Assessment and Plan: Patient with acute on chronic kidney disease, baseline creatinine of 2.9-4.[address] White. Will maintain systolic blood pressures close to 140s; per Dr. White higher blood pressures improved his creatinine. (5) Hyperkalemia: Code(s): E87.5 - Hyperkalemia Status: Acute Assessment and Plan: Resolved. (6) Essential hypertension: Code(s): I10 - Essential (primary) hypertension Status: Chronic Assessment and Plan: Patient with hypertension, continue amlodipine, hydralazine, and metoprolol. (7) Type 2 diabetes mellitus with hyperglycemia: Qualifiers: Diabetes mellitus senior care insulin use: with ad terminal makeup operator use Qualified Code(s): E11.65 - Type 2 diabetes mellitus with hyperglycemia; Z79.4 - assisted (current) use of insulin Code(s): E11.65 - Type 2 diabetes mellitus with hyperglycemia Status: Chronic Assessment and Plan: Continue Levemir, sliding scale insulin, and Accu-Cheks. (8) Anemia: Qualifiers: Anemia type: unspecified type Qualified Code(s): D64.9 - Anemia, unspecified Code(s): D64.9 - Anemia, unspecified Status: Acute Assessment and Plan: Anemia likely related to chronic kidney disease, stable. On EPO. (9) DVT prophylaxis: Code(s): Z29.9 - Encounter for prophylactic measures, unspecified Status: Acute Assessment and Plan: Heparin SC Additional Plan Code status: DNR Critical care time spent: 36 minutes Due to a high probability of clinically significant, life threatening deterioration, the patient required my highest level of preparedness to intervene emergently and I personally spent this critical care time directly and personally managing the patient. This critical care time included obtaining a history; examining the patient; pulse oximetry; ordering and review of studies; arranging urgent mario
[2020-05-13 18:05] LABS: Glucose Point of Care 81 (65-105)
[2020-05-13 20:32] LABS: Glucose Point of Care 86 (65-105)
--- NOTE | 2020-05-13 21:48 | P.PNIM_ITS ---
Progress Note: A&P Assessment and Plan (1) Left arm weakness: Code(s): R29.898 - Other symptoms and signs involving the musculoskeletal system Status: Acute Assessment and Plan: * Patient with acute LUE weakness that resolved completely on 05/09/20 * Head CT showing no acute findings. Carotid US showing 50-69% stenosis Rt ICA. * Echo showing EF 60-65%, severe pulm HTN and patent foramen ovaleGrade I diastolic dysfunction * Probably TIA * Continue ASA; agree with permissive HTN (2) Acute and chronic respiratory failure with hypercapnia: Code(s): J96.22 - Acute and chronic respiratory failure with hypercapnia Status: Acute Assessment and Plan: * Lethargic on admission so proceeded with cholecystostomy tube. Requiring BiPAP but ultimately failed so intubated on 05/03/20. * Chest x-ray reviewed showing persistent mostly right sided airspace disease. * Continue albuterol and Atrovent * Wean mechanical ventilation as tolerated. * Appreciate top lift trimmer input. * Consider bronchoscopy (3) Acute cholecystitis: Code(s): K81.0 - Acute cholecystitis Status: Acute Assessment and Plan: * Patient presents with abdominal pain, nausea, and vomiting with CT abdomen showing acute cholecystitis. * Percutaneous cholecystostomy tube placed 05/03/20 and being followed by Gen Surg - appreciate their input. * Cx growing Enterococus; UCx Negative; BCx NGTD. WBC remaining normal * Abx adjusted to Vanco and Cefepime; Flagyl added 05/10 to cover GB pathology * Continue Reglan to help with gut motility. (4) Acute on chronic renal failure: Qualifiers: Acute renal failure type: unspecified Chronic kidney disease stage: stage 3 (moderate) Qualified Code(s): N17.9 - Acute kidney failure, unspecified; N18.3 - Chronic kidney disease, stage 3 (moderate) Code(s): N17.9 - Acute kidney failure, unspecified; N18.9 - Chronic kidney disease, unspecified Status: Acute Assessment and Plan: * Baseline creatinine 2.8 to 3.4 range. * Creatinine climbed to 4.3 before trending down to 3.9. Cr back up to 5.4 related to diuretics and resp failure * Patient was previously on hemodialysis in the past * Renal ultrasound showed normal size kidneys. No hydronephrosis. * Diuretics on hold; good UOP yesterday and today (5) Essential hypertension: Code(s): I10 - Essential (primary) hypertension Status: Chronic Assessment and Plan: * Blood pressure reviewed on 05/13/2020. * Blood pressure well controlled * Currently on Norvasc, hydralazine and metoprolol. * Plan to keep BP elevated to help with renal perfusion and now for permissive HTN from probable TIA * Continue Hydralazine IV available PRN if needed. Monitor BP and adjust treatment as needed. (6) Hyperkalemia: Code(s): E87.5 - Hyperkalemia Status: Acute Assessment and Plan: * potassium 5.5 early in admission. * Hyperkalemia may be related to worsening renal function. * Potassium improved and remaining stable. Continue to monitor. (7) Anemia of chronic kidney failure: Qualifiers: Chronic kidney disease stage: stage 3 (moderate) Qualified Code(s): N18.3 - Chronic kidney disease, stage 3 (moderate); D63.1 - Anemia in chronic kidney disease Code(s): N18.9 - Chronic kidney disease, unspecified; D63.1 - Anemia in chronic kidney disease Statu
--- NOTE | 2020-05-13 21:48 | PM.IMPN ---
Progress Note: A&P Assessment and Plan (1) Left arm weakness: Code(s): R29.898 - Other symptoms and signs involving the musculoskeletal system Status: Acute Assessment and Plan: Patient with acute LUE weakness that resolved completely on 05/09/[address] showing no acute findings. Carotid US showing 50-69% stenosis Rt ICA. Echo showing EF 60-65%, severe pulm HTN and patent foramen ovaleGrade I diastolic dysfunction Probably TIA Continue ASA; agree with permissive HTN (2) Acute and chronic respiratory failure with hypercapnia: Code(s): J96.22 - Acute and chronic respiratory failure with hypercapnia Status: Acute Assessment and Plan: Lethargic on admission so proceeded with cholecystostomy tube. Requiring BiPAP but ultimately failed so intubated on 05/03/20. Chest x-ray reviewed showing persistent mostly right sided airspace disease. Continue albuterol and Atrovent Wean mechanical ventilation as tolerated. Appreciate receptionist input. Consider bronchoscopy (3) Acute cholecystitis: Code(s): K81.0 - Acute cholecystitis Status: Acute Assessment and Plan: Patient presents with abdominal pain, nausea, and vomiting with CT abdomen showing acute cholecystitis. Percutaneous cholecystostomy tube placed 05/03/20 and being followed by Gen Surg - appreciate their input. Cx growing Enterococus; UCx Negative; BCx NGTD. WBC remaining normal Abx adjusted to Vanco and Cefepime; Flagyl added 05/10 to cover GB pathology Continue Reglan to help with gut motility. (4) Acute on chronic renal failure: Qualifiers: Acute renal failure type: unspecified Chronic kidney disease stage: stage 3 (moderate) Qualified Code(s): N17.9 - Acute kidney failure, unspecified; N18.3 - Chronic kidney disease, stage 3 (moderate) Code(s): N17.9 - Acute kidney failure, unspecified; N18.9 - Chronic kidney disease, unspecified Status: Acute Assessment and Plan: Baseline creatinine 2.8 to 3.4 range. Creatinine climbed to 4.3 before trending down to 3.9. Cr back up to 5.4 related to diuretics and resp failure Patient was previously on hemodialysis in the past Renal ultrasound showed normal size kidneys. No hydronephrosis. Diuretics on hold; good UOP yesterday and today (5) Essential hypertension: Code(s): I10 - Essential (primary) hypertension Status: Chronic Assessment and Plan: Blood pressure reviewed on 05/13/2020. Blood pressure well controlled Currently on Norvasc, hydralazine and metoprolol. Plan to keep BP elevated to help with renal perfusion and now for permissive HTN from probable TIA Continue Hydralazine IV available PRN if needed. Monitor BP and adjust treatment as needed. (6) Hyperkalemia: Code(s): E87.5 - Hyperkalemia Status: Acute Assessment and Plan: potassium 5.5 early in admission. Hyperkalemia may be related to worsening renal function. Potassium improved and remaining stable. Continue to monitor. (7) Anemia of chronic kidney failure: Qualifiers: Chronic kidney disease stage: stage 3 (moderate) Qualified Code(s): N18.3 - Chronic kidney disease, stage 3 (moderate); D63.1 - Anemia in chronic kidney disease Code(s): N18.9 - Chronic kidney disease, unspecified; D63.1 - Anemia in chronic kidney disease Status: Chronic Assessment and Plan: hemoglobin in the 10-11 range chronically Since admission, hemoglobin has dropped to 7-8 range but stable No evidence of active bleeding. Continue Protonix. (8) Type 2 diabetes mellitus with hyperglycemia: Qualifiers: Diabetes mellitus watermelon harvesting supervisor insulin use: with detention use Qualified Code(s): E11.65 - Type 2 di
[2020-05-13] MEDS: PROPOFOL IV EMULSION 100 ML 21.3 MG IV CONT (23:12)
[2020-05-13 23:19] LABS: Glucose Point of Care 108 (65-105)
[2020-05-14] VITALS (35 sets, daily range): BP systolic 119–165; BP diastolic 44–82; PULSE 66–92; RESP 20–27; TEMP 36.6–37.1; O2SAT 96–100
[2020-05-14] MEDS: ALBUTEROL SULFATE NEB 2.5 MG/0.5 ML INH INHALATION ×4 (01:32→20:47)
[2020-05-14] MEDS: IPRATROPIUM BR 0.02% INH SOLN 0.5 MG/2.5 ML VIAL INHALATION ×4 (01:33→20:47)
[2020-05-14] MEDS: metroNIDAZOLE 500 MG/ISO 100ML 500 MG/100 ML BAG 100 MG IVPB ×4 (02:27→20:17)
[2020-05-14] MEDS: hydrALAZINE HCL 20 MG/ML VIAL 10 MG IV PUSH (02:27)
[2020-05-14] MEDS: PROPOFOL IV EMULSION 100 ML 21.3 MG IV CONT ×2 (03:44→19:25)
[2020-05-14 04:47] LABS: Alveolar/Arterial O2 Gradient 193.4 mmHg; Base Excess ABG -4.7 mEq/l (+/-2.0); Carboxyhemoglobin 0.3 % THb (0-2.0); Fractional Inspired Oxygen 40 %; HCO3 ABG 19.5 mEq/l (22.0-26.0); Methemoglobin ABG 0.4 %THb (0-1.5); Oxygen Content ABG 10.6 %vol (16.0-22.0); Oxygen Saturation ABG 88.6 % (95.0-100.0); Oxyhemoglobin 85.3 % THb (90.0-100.0); PCO2 ABG 32.6 mmHg (35.0-45.0); PO2 ABG 54.3 mmHg (80.0-100.0); PO2 FiO2 Ratio Arterial Blood 1.36 %; Total Hemoglobin 8.8 g/dL (12.0-18.0); pH ABG 7.395 (7.350-7.450)
[2020-05-14 04:49] LABS: Arterial Blood Gas Vent Mode CMV; Arterial Blood Gas Ventilator rate 22 /MIN; Device VENTILATOR; Modified Allen's Test Pass; Site Drawn RIGHT RADIAL
[2020-05-14 04:50] LABS: Arterial Blood Gas PEEP 5 cmH2O; Arterial Blood Gas Pressure Support 0 cmH2O; Arterial Blood Gas Tidal Volume 450 ml
[2020-05-14] MEDS: METOPROLOL TARTRATE INJ 5 MG/5 ML VIAL IV PUSH ×4 (05:56→23:12)
[2020-05-14] MEDS: HEPARIN SODIUM 5,000 UNITS/ML VIAL 5000 UNITS SUB-Q ×3 (05:56→20:17)
[2020-05-14] MEDS: METOCLOPRAMIDE HCL INJ 10 MG/2 ML VIAL IV PUSH ×4 (05:56→23:12)
[2020-05-14 06:10] LABS: Glucose Point of Care 159 (65-105)
[2020-05-14 06:19] LABS: Hematocrit 27.2 % (42.0-52.0); Hemoglobin 8.5 g/dL (14.0-18.0); Mean Corpuscular HGB Conc 31.3 g/dl (32-36); Mean Corpuscular Hemoglobin 27.4 pg (26-34); Mean Corpuscular Volume 87.7 fl (80-100); Mean Platelet Volume 9.6 fl (7.4-10.4); Platelet Count Result 442 k/mm3 (150-375); Red Cell Distribution Width 14.8 % (11.5-14.5); White Blood Count 12.7 K/mm3 (4.5-10.0)
[2020-05-14 06:46] LABS: Albumin Level 3.2 g/dL (3.5-5.1); Anion Gap 18.6 mmol/L (7-16); Blood Urea Nitrogen 111 mg/dL (9-20); Calcium 8.9 mg/dL (8.4-10.2); Carbon Dioxide 19 mmol/L (22-30); Chloride 102 mmol/L (98-107); Estimated CRCL calculation 13 ml/min; Estimated Glomerular Filt Rate 9; Glucose 148 mg/dL (75-110); Phosphorus 7.9 mg/dL (2.5-4.5); Potassium 4.6 mmol/L (3.4-5.0); Sodium 135 mmol/L (137-145)
[2020-05-14 07:21] LABS: Vancomycin Trough 22.1 ug/mL (10.0-20.0)
[2020-05-14] MEDS: PROPOFOL IV EMULSION 100 ML 17.8 MG IV CONT ×2 (08:24→13:46)
[2020-05-14] MEDS: amLODIPine BESYLATE 5 MG TABLET 10 MG PO (08:38)
[2020-05-14] MEDS: PANTOPRAZOLE SODIUM IV 40 MG VIAL IV PUSH (08:40)
[2020-05-14] MEDS: ASPIRIN 81 MG CHEWABLE TABLET 324 MG FEED TUBE (08:43)
[2020-05-14] MEDS: INSULIN DETEMIR 100 UNITS/ML 14 UNITS SUB-Q ×2 (08:46→20:16)
[2020-05-14] MEDS: EPOETIN ALFA-EPBX 10,000 UNITS/ML VIAL 20000 UNITS SUB-Q (08:49)
[2020-05-14] MEDS: FUROSEMIDE INJ 40 MG/4 ML VIAL IV PUSH (09:03)
[2020-05-14 10:05] LABS: INR 1.5; Prothrombin Time 18.1 Seconds (11.1-14.7)
--- NOTE | 2020-05-14 11:16 | PCDIET ---
Nutrition Follow-Up Complete: Nutrition Diagnosis: Inadequate oral intake related to oral intubation as evidenced by need for enteral feedings. Nutrition Goal: Patient to meet estimated nutritional needs. Goal in progress. Nepro advancing toward goal rate of 40mL/hr (currently at 30mL/hr) without reported issues. Receiving 30mL water flush every 4 hours. Last recorded weight is 118.5 kg which is stable. Bowel Motility: Last documented BM on 05/13/20. Labs Reviewed: Hgb (7.7), Hct (24.0), BUN (105), Cr (5.4), Na (135), Alb (3.1), PO4 (7.3) Meds Noted: Propofol (rate of 17.8mL/hr provides additional 470kcal/day), Albuterol, Novolog, Flagyl, Cefepime, Levemir, Versed, Retacrit, Atrovent, Protonix, Vancomycin, Lasix, Reglan Additional Notes: Levemir decreased from 18u to 14u every 12 hours. RUQ with drain. No documented pressure ulcers. Recommend continuing to advance tube feeding toward goal. Nutrition Monitoring and Evaluation: Follow up every Wednesday/Wednesday. Follow daily in ICU rounds.
[2020-05-14 12:08] LABS: Glucose Point of Care 159 (65-105)
[2020-05-14 13:34] LABS: pH Pleural Fluid 7.312 (7.210-7.500)
[2020-05-14 13:56] LABS: Appearance Pleural Fluid Cloudy (Clear); Color Pleural Fluid Red (Colorless); Pleural fluid source Pleural fluid
[2020-05-14 13:57] LABS: Lymphocytes Pleural Fluid 52 %; Macrophages Pleural Fluid 1 %; Monocytes Pleural Fluid 6 %; Neutrophils Pleural Fluid 40 % (0-25)
[2020-05-14 13:58] LABS: Mesothelial Cells Pleural Flui 1 %
--- NOTE | 2020-05-14 14:42 | WPDINTPN ---
Progress Note: A&P Assessment and Plan (1) Acute and chronic respiratory failure with hypercapnia: Code(s): J96.22 - Acute and chronic respiratory failure with hypercapnia Status: Acute Assessment and Plan: Patient with acute hypercapnic respiratory failure post cholecystostomy tube placement. Patient failed BiPAP and was intubated on 05/03/2020. - patient was extubated on 05/12/2020 and was reintubate later on the same day due to being less responsive, ABG showed respiratory acidosis, with respiratory distress. - Currently on CMV mode of ventilation, 50% FiO2, peep of 5 - ABGs and chest x-ray reviewed - diuretic currently on hold due to elevated creatinine. Patient has been diuresing well without diuretics. - patient has a possible right-sided pleural effusion, thoracentesis with removal of 150 mL of serosanguineous fluid, no Gram stain was noted (2) Left arm weakness: Code(s): R29.898 - Other symptoms and signs involving the musculoskeletal system Status: Acute Assessment and Plan: RESOLVED Patient developed sudden onset left upper arm weakness. Resolved spontaneously - possible TIA. No findings on CT head. Continue ASA. Neurology has evaluated. He did c/o L shoulder pain on palpation and with passive ROM today - XR ordered but was negative for fracture or dislocation. Will need PT/OT. (3) Acute cholecystitis: Code(s): K81.0 - Acute cholecystitis Status: Acute Assessment and Plan: Status post cholecystostomy drain placement on 05/03/2020. Cultures from the gallbladder fluid growing Enterococcus species; continue vancomycin, Flagyl, and cefepime (stopped Zosyn due to FELIPE). (4) Acute on chronic renal failure: Qualifiers: Acute renal failure type: unspecified Chronic kidney disease stage: stage 3 (moderate) Qualified Code(s): N17.9 - Acute kidney failure, unspecified; N18.3 - Chronic kidney disease, stage 3 (moderate) Code(s): N17.9 - Acute kidney failure, unspecified; N18.9 - Chronic kidney disease, unspecified Status: Acute Assessment and Plan: Patient with acute on chronic kidney disease, baseline creatinine of 2.9-4.[address] White. Will maintain systolic blood pressures close to 140s; per Dr. White higher blood pressures improved his creatinine. - CREATININE WORSENING, urine output has been adequate (5) Hyperkalemia: Code(s): E87.5 - Hyperkalemia Status: Acute Assessment and Plan: Resolved. (6) Essential hypertension: Code(s): I10 - Essential (primary) hypertension Status: Chronic Assessment and Plan: Patient with hypertension, continue amlodipine, hydralazine, and metoprolol. 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 (8) Anemia: Qualifiers: Anemia type: unspecified type Qualified Code(s): D64.9 - Anemia, unspecified Code(s): D64.9 - Anemia, unspecified Status: Acute Assessment and Plan: Anemia likely related to chronic kidney disease, stable. On EPO. (9) DVT prophylaxis: Code(s): Z29.9 - Encounter for prophylactic measures, unspecified Status: Acute Assessment and Plan: Heparin SQ Additional Plan discussed with patient and Luanne Patino his POA significant other, I did discuss with them regarding tracheostomy and PEG tube placement. Patient also noted NO to tracheostomy and the POA also stated that these were not his wishes. His quality of life is significantly poor and does not want to suffer anymore. Since thoracentesis was done today, will give patient a
--- NOTE | 2020-05-14 16:42 | P.PNNP_ITS ---
Progress Note: A&P Assessment and Plan (1) FELIPE (acute kidney injury): Code(s): N17.9 - Acute kidney failure, unspecified Status: Acute Assessment and Plan: * suspect due to acute infection (cholecystitis) on top of possible pre-renal factors * urine electrolytes non pre renal * renal ultrasound without hydronephrosis * He received diuretics again yesterday And made 2800cc of urine. * however his creatinine has risen Again to 5.9. * Will continue to hold diuretics. * Discussions with the family indicates that the patient will not be getting dialysis. * Considering comfort measures by tomorrow if he does not improve overnight. (2) Chronic kidney disease, stage IV (severe): Code(s): N18.4 - Chronic kidney disease, stage 4 (severe) Status: Chronic Assessment and Plan: * baseline creatinine ~ 2.8 - 2.9mg/dl from review of outpatient records * His creatinine does vary quite a bit however and has been as high as 4 as an outpatient in the past. (3) Hyperkalemia: Code(s): E87.5 - Hyperkalemia Status: Acute Assessment and Plan: * resolved (4) Acute cholecystitis: Code(s): K81.0 - Acute cholecystitis Status: Acute Assessment and Plan: * General Surgery following * s/p cholecystostomy tube placement (5) Essential hypertension: Code(s): I10 - Essential (primary) hypertension Status: Chronic Assessment and Plan: * Blood pressure is target * blood pressure doing well. (6) Anemia: Qualifiers: Anemia type: unspecified type Qualified Code(s): D64.9 - Anemia, unspe cified Code(s): D64.9 - Anemia, unspecified Status: Acute Assessment and Plan: * due to acute illness and CKD * Hemoglobin is stable in the sevens. * on EPO. (7) Diabetes: Code(s): E11.9 - Type 2 diabetes mellitus without complications Status: Chronic Assessment and Plan: * follow accuchecks * on SSI (8) Acute and chronic respiratory failure with hypercapnia: Code(s): J96.22 - Acute and chronic respiratory failure with hypercapnia Status: Acute Assessment and Plan: Back on the ventilator. Additional Plan Subjective Date/time seen: 05/14/20 16:42 Interval history: The patient is comfortable. He is still on the ventilator. Long discussion between Dr. Cabrera, the patient, and the POA noted. Review of Systems Review of Systems: ROS unobtainable: Yes unobtainable due to endotracheal tube Exam Narrative: Exam Narrative: General: WD/WN male in NAD; intubated and sedated Heart: normal S1 and S2; no rub Lungs: decreased at the bases and mild coarse breath sounds on both sides Abdomen: positive bowel sounds and no tenderness Extremities: Trace edema Skin: No rash Objective Data Vital Signs Vital Signs: Vital Signs - 24 hr 05/13/20 17:58 05/13/20 18:00 05/13/20 19:13 Temperature Pulse Rate 68 63 63 Respiratory Rate 22 H 22 H Blood Pressure 134/50 L Pulse Oximetry 98 99 05/13/20 19:25 05/13/20 20:00 05/13/20 21:55 Temperature 36.8 C Pulse Rate 66 64 79 Respiratory Rate 22 H 22 H Blood Pressure 122/48 L Pulse Oximetry 97
--- NOTE | 2020-05-14 16:42 | PM.PNNEP ---
Progress Note: A&P Assessment and Plan (1) FELIPE (acute kidney injury): Code(s): N17.9 - Acute kidney failure, unspecified Status: Acute Assessment and Plan: suspect due to acute infection (cholecystitis) on top of possible pre-renal factors urine electrolytes non pre renal renal ultrasound without hydronephrosis He received diuretics again yesterday And made 2800cc of urine. however his creatinine has risen Again to 5.9. Will continue to hold diuretics. Discussions with the family indicates that the patient will not be getting dialysis. Considering comfort measures by tomorrow if he does not improve overnight. (2) Chronic kidney disease, stage IV (severe): Code(s): N18.4 - Chronic kidney disease, stage 4 (severe) Status: Chronic Assessment and Plan: baseline creatinine ~ 2.8 - 2.9mg/dl from review of outpatient records His creatinine does vary quite a bit however and has been as high as 4 as an outpatient in the past. (3) Hyperkalemia: Code(s): E87.5 - Hyperkalemia Status: Acute Assessment and Plan: resolved (4) Acute cholecystitis: Code(s): K81.0 - Acute cholecystitis Status: Acute Assessment and Plan: General Surgery following s/p cholecystostomy tube placement (5) Essential hypertension: Code(s): I10 - Essential (primary) hypertension Status: Chronic Assessment and Plan: Blood pressure is target blood pressure doing well. (6) Anemia: Qualifiers: Anemia type: unspecified type Qualified Code(s): D64.9 - Anemia, unspecified Code(s): D64.9 - Anemia, unspecified Status: Acute Assessment and Plan: due to acute illness and CKD Hemoglobin is stable in the sevens. on EPO. (7) Diabetes: Code(s): E11.9 - Type 2 diabetes mellitus without complications Status: Chronic Assessment and Plan: follow accuchecks on SSI (8) Acute and chronic respiratory failure with hypercapnia: Code(s): J96.22 - Acute and chronic respiratory failure with hypercapnia Status: Acute Assessment and Plan: Back on the ventilator. Additional Plan Subjective Date/time seen: 05/14/20 16:42 Interval history: The patient is comfortable. He is still on the ventilator. Long discussion between Dr. Cabrera, the patient, and the POA noted. Review of Systems Review of Systems: ROS unobtainable: Yes unobtainable due to endotracheal tube Exam Narrative: Exam Narrative: General: WD/WN male in NAD; intubated and sedated Heart: normal S1 and S2; no rub Lungs: decreased at the bases and mild coarse breath sounds on both sides Abdomen: positive bowel sounds and no tenderness Extremities: Trace edema Skin: No rash Objective Data Vital Signs Vital Signs: Vital Signs - 24 hr 05/13/20 17:58 05/13/20 18:00 05/13/20 19:13 Temperature Pulse Rate 68 63 63 Respiratory Rate 22 H 22 H Blood Pressure 134/50 L Pulse Oximetry 98 99 05/13/20 19:25 05/13/20 20:00 05/13/20 21:55 Temperature 36.8 C Pulse Rate 66 64 79 Respiratory Rate 22 H 22 H Blood Pressure 122/48 L Pulse Oximetry 97 05/13/20 22:00 05/13/20 23:12 05/13/20 23:16 Temperature Pulse Rate 76 70 72 Respiratory Rate 22 H 22 H Blood Pressure 136/51 L Pulse Oximetry 96 05/13/20 23:40 05/14/20 00:00 05/14/20 01:34 Temperature 37.1 C Pulse Rate 71 73 75 Respiratory Rate 22 H 22 H Blood Pressure 151/52 H Pulse Oximetry 98 100 100 05/14/20 02:00 05/14/20 03:44 05/14/20 04:00 Temperature 36.6 C Pulse Rate 83 82 79 Respiratory Rate 22 H 22 H 25 H Blood Pressure 160/80 H 141/45 H Pulse Oximetry 96 96 05/14/20 04:31 05/14/20 05:56 05/14/20 06:00 Temperature Pulse Rate 84 90 88 Respiratory Rate 26 H Blood Pressure 132/82 Pulse Oximetry 96 96 05/14/20 06:26 05/14/20 08:00 0
--- NOTE | 2020-05-14 17:21 | PC.NURSE ---
Ultrasound guided thoracentesis completed today at bedside. Patient tolerated well. Significant other as well as child updated about procedure as well status. Will continue to monitor.
[2020-05-14 17:53] LABS: Glucose Point of Care 181 (65-105)
--- NOTE | 2020-05-14 17:56 | P.PNIM_ITS ---
Progress Note: A&P Assessment and Plan (1) Left arm weakness: Code(s): R29.898 - Other symptoms and signs involving the musculoskeletal system Status: Acute Assessment and Plan: * Patient with acute LUE weakness that resolved completely on 05/09/20 * Head CT showing no acute findings. Carotid US showing 50-69% stenosis Rt ICA. * Echo showing EF 60-65%, severe pulm HTN and patent foramen ovaleGrade I diastolic dysfunction * Probably TIA * Continue ASA; agree with permissive HTN (2) Acute and chronic respiratory failure with hypercapnia: Code(s): J96.22 - Acute and chronic respiratory failure with hypercapnia Status: Acute Assessment and Plan: * Lethargic on admission so proceeded with cholecystostomy tube. Requiring BiPAP but ultimately failed so intubated on 05/03/20. * Chest x-ray reviewed showing persistent mostly right sided airspace disease. * Continue albuterol and Atrovent * Wean mechanical ventilation as tolerated. * Appreciate liquor maker input. * Consider bronchoscopy (3) Acute cholecystitis: Code(s): K81.0 - Acute cholecystitis Status: Acute Assessment and Plan: * Patient presents with abdominal pain, nausea, and vomiting with CT abdomen showing acute cholecystitis. * Percutaneous cholecystostomy tube placed 05/03/20 and being followed by Gen Surg - appreciate their input. * Cx growing Enterococus; UCx Negative; BCx NGTD. WBC remaining normal * Abx adjusted to Vanco and Cefepime; Flagyl added 05/10 to cover GB pathology * Continue Reglan to help with gut motility. (4) Acute on chronic renal failure: Qualifiers: Acute renal failure type: unspecified Chronic kidney disease stage: stage 3 (moderate) Qualified Code(s): N17.9 - Acute kidney failure, unspecified; N18.3 - Chronic kidney disease, stage 3 (moderate) Code(s): N17.9 - Acute kidney failure, unspecified; N18.9 - Chronic kidney disease, unspecified Status: Acute Assessment and Plan: * Baseline creatinine 2.8 to 3.4 range. * Creatinine climbed to 4.3 before trending down to 3.9. Cr back up to 5.9related to diuretics and resp failure * Patient was previously on hemodialysis in the past * Renal ultrasound showed normal size kidneys. No hydronephrosis. * Diuretics on hold; good UOP yesterday and today (5) Essential hypertension: Code(s): I10 - Essential (primary) hypertension Status: Chronic Assessment and Plan: * Blood pressure reviewed on 05/14/2020. * Blood pressure well controlled * Currently on Norvasc, hydralazine and metoprolol. * Plan to keep BP elevated to help with renal perfusion and now for permissive HTN from probable TIA * Continue Hydralazine IV available PRN if needed. Monitor BP and adjust treatment as needed. (6) Hyperkalemia: Code(s): E87.5 - Hyperkalemia Status: Acute Assessment and Plan: * potassium 5.5 early in admission. * Hyperkalemia may be related to worsening renal function. * Potassium improved and remaining stable. Continue to monitor. (7) Anemia of chronic kidney failure: Qualifiers: Chronic kidney disease stage: stage 3 (moderate) Qualified Code(s): N18.3 - Chronic kidney disease, stage 3 (moderate); D63.1 - Anemia in chronic kidney disease Code(s): N18.9 - Chronic kidney disease, unspecified; D63.1 - Anemia in chronic kidney disease Status
--- NOTE | 2020-05-14 17:56 | PM.IMPN ---
Progress Note: A&P Assessment and Plan (1) Left arm weakness: Code(s): R29.898 - Other symptoms and signs involving the musculoskeletal system Status: Acute Assessment and Plan: Patient with acute LUE weakness that resolved completely on 05/09/[address] showing no acute findings. Carotid US showing 50-69% stenosis Rt ICA. Echo showing EF 60-65%, severe pulm HTN and patent foramen ovaleGrade I diastolic dysfunction Probably TIA Continue ASA; agree with permissive HTN (2) Acute and chronic respiratory failure with hypercapnia: Code(s): J96.22 - Acute and chronic respiratory failure with hypercapnia Status: Acute Assessment and Plan: Lethargic on admission so proceeded with cholecystostomy tube. Requiring BiPAP but ultimately failed so intubated on 05/03/20. Chest x-ray reviewed showing persistent mostly right sided airspace disease. Continue albuterol and Atrovent Wean mechanical ventilation as tolerated. Appreciate operating room aide input. Consider bronchoscopy (3) Acute cholecystitis: Code(s): K81.0 - Acute cholecystitis Status: Acute Assessment and Plan: Patient presents with abdominal pain, nausea, and vomiting with CT abdomen showing acute cholecystitis. Percutaneous cholecystostomy tube placed 05/03/20 and being followed by Gen Surg - appreciate their input. Cx growing Enterococus; UCx Negative; BCx NGTD. WBC remaining normal Abx adjusted to Vanco and Cefepime; Flagyl added 05/10 to cover GB pathology Continue Reglan to help with gut motility. (4) Acute on chronic renal failure: Qualifiers: Acute renal failure type: unspecified Chronic kidney disease stage: stage 3 (moderate) Qualified Code(s): N17.9 - Acute kidney failure, unspecified; N18.3 - Chronic kidney disease, stage 3 (moderate) Code(s): N17.9 - Acute kidney failure, unspecified; N18.9 - Chronic kidney disease, unspecified Status: Acute Assessment and Plan: Baseline creatinine 2.8 to 3.4 range. Creatinine climbed to 4.3 before trending down to 3.9. Cr back up to 5.9related to diuretics and resp failure Patient was previously on hemodialysis in the past Renal ultrasound showed normal size kidneys. No hydronephrosis. Diuretics on hold; good UOP yesterday and today (5) Essential hypertension: Code(s): I10 - Essential (primary) hypertension Status: Chronic Assessment and Plan: Blood pressure reviewed on 05/14/2020. Blood pressure well controlled Currently on Norvasc, hydralazine and metoprolol. Plan to keep BP elevated to help with renal perfusion and now for permissive HTN from probable TIA Continue Hydralazine IV available PRN if needed. Monitor BP and adjust treatment as needed. (6) Hyperkalemia: Code(s): E87.5 - Hyperkalemia Status: Acute Assessment and Plan: potassium 5.5 early in admission. Hyperkalemia may be related to worsening renal function. Potassium improved and remaining stable. Continue to monitor. (7) Anemia of chronic kidney failure: Qualifiers: Chronic kidney disease stage: stage 3 (moderate) Qualified Code(s): N18.3 - Chronic kidney disease, stage 3 (moderate); D63.1 - Anemia in chronic kidney disease Code(s): N18.9 - Chronic kidney disease, unspecified; D63.1 - Anemia in chronic kidney disease Status: Chronic Assessment and Plan: hemoglobin in the 10-11 range chronically Since admission, hemoglobin has dropped to 7-8 range but stable No evidence of active bleeding. Continue Protonix. (8) Type 2 diabetes mellitus with hyperglycemia: Qualifiers: Diabetes mellitus tax compliance representative insulin use: with tax compliance representative use Qualified Code(s): E11.65 - Type 2 carmen
[2020-05-14 20:16] LABS: Glucose Point of Care 183 (65-105)
[2020-05-14] MEDS: INSULIN ASPART (*BKC) 100 UNITS/ML SUB-Q (23:11)
[2020-05-14 23:15] LABS: Glucose Point of Care 201 (65-105)
[2020-05-15] VITALS (34 sets, daily range): BP systolic 110–154; BP diastolic 44–54; PULSE 61–80; RESP 22–26; TEMP 36.8–37; O2SAT 92–100
[2020-05-15] MEDS: PROPOFOL IV EMULSION 100 ML 21.3 MG IV CONT (00:07)
[2020-05-15] MEDS: ALBUTEROL SULFATE NEB 2.5 MG/0.5 ML INH INHALATION ×4 (01:54→19:33)
[2020-05-15] MEDS: IPRATROPIUM BR 0.02% INH SOLN 0.5 MG/2.5 ML VIAL INHALATION ×4 (01:54→19:33)
[2020-05-15] MEDS: metroNIDAZOLE 500 MG/ISO 100ML 500 MG/100 ML BAG 100 MG IVPB ×4 (02:31→21:48)
[2020-05-15] MEDS: PROPOFOL IV EMULSION 100 ML 17.8 MG IV CONT ×4 (04:31→20:52)
[2020-05-15 04:47] LABS: Hematocrit 23.9 % (42.0-52.0); Hemoglobin 7.5 g/dL (14.0-18.0); Mean Corpuscular HGB Conc 31.4 g/dl (32-36); Mean Corpuscular Hemoglobin 27.9 pg (26-34); Mean Corpuscular Volume 88.8 fl (80-100); Mean Platelet Volume 9.6 fl (7.4-10.4); Platelet Count Result 410 k/mm3 (150-375); Red Blood Count 2.69 M/mm3 (4.6-6.20); Red Cell Distribution Width 15.1 % (11.5-14.5); White Blood Count 9.1 K/mm3 (4.5-10.0)
[2020-05-15 05:01] LABS: Alanine Aminotransferase 19 U/L (4-50); Albumin Level 3.1 g/dL (3.5-5.1); Alkaline Phosphatase 148 U/L (38-126); Anion Gap 15.1 mmol/L (7-16); Aspartate Amino Transferase 15 U/L (17-59); Bilirubin,Total 0.9 mg/dL (0.2-1.3); Blood Urea Nitrogen 118 mg/dL (9-20); Calcium 8.6 mg/dL (8.4-10.2); Carbon Dioxide 21 mmol/L (22-30); Chloride 103 mmol/L (98-107); Estimated CRCL calculation 12 ml/min; Estimated Glomerular Filt Rate 9; Glucose 179 mg/dL (75-110); Magnesium 3.2 mg/dL (1.6-2.3); Phosphorus 7.3 mg/dL (2.5-4.5); Potassium 4.1 mmol/L (3.4-5.0); Sodium 135 mmol/L (137-145)
[2020-05-15 05:07] LABS: Alveolar/Arterial O2 Gradient 245.7 mmHg; Base Excess ABG -3.8 mEq/l (+/-2.0); Carboxyhemoglobin 0.3 % THb (0-2.0); Fractional Inspired Oxygen 50 %; Methemoglobin ABG 0.3 %THb (0-1.5); Oxygen Content ABG 11.9 %vol (16.0-22.0); Oxygen Saturation ABG 93.5 % (95.0-100.0); Oxyhemoglobin 91.3 % THb (90.0-100.0); PCO2 ABG 37.1 mmHg (35.0-45.0); PO2 ABG 69.1 mmHg (80.0-100.0); PO2 FiO2 Ratio Arterial Blood 1.38 %; Reduced Hemoglobin 8.1 %THb (0-5.0); Total Hemoglobin 9.2 g/dL (12.0-18.0); pH ABG 7.371 (7.350-7.450)
[2020-05-15 05:08] LABS: Device VENTILATOR; Modified Allen's Test Pass; Site Drawn RIGHT RADIAL
[2020-05-15 05:09] LABS: Arterial Blood Gas PEEP 5 cmH2O; Arterial Blood Gas Tidal Volume 450 ml; Arterial Blood Gas Vent Mode CMV; Arterial Blood Gas Ventilator rate 22 /MIN
[2020-05-15] MEDS: HEPARIN SODIUM 5,000 UNITS/ML VIAL 5000 UNITS SUB-Q ×3 (05:09→21:50)
[2020-05-15] MEDS: METOCLOPRAMIDE HCL INJ 10 MG/2 ML VIAL IV PUSH ×4 (05:09→23:36)
[2020-05-15] MEDS: METOPROLOL TARTRATE INJ 5 MG/5 ML VIAL IV PUSH ×4 (05:10→23:36)
[2020-05-15 05:20] LABS: Vancomycin Random 20.7 ug/mL (10-20)
[2020-05-15 05:36] LABS: Glucose Point of Care 182 (65-105)
[2020-05-15] MEDS: amLODIPine BESYLATE 5 MG TABLET 10 MG PO (09:28)
[2020-05-15] MEDS: ASPIRIN 81 MG CHEWABLE TABLET 324 MG FEED TUBE (09:30)
[2020-05-15] MEDS: PANTOPRAZOLE SODIUM IV 40 MG VIAL IV PUSH (09:31)
[2020-05-15] MEDS: INSULIN DETEMIR 100 UNITS/ML 14 UNITS SUB-Q ×2 (09:41→21:48)
--- NOTE | 2020-05-15 11:05 | PCDIET ---
ICU Rounding Note: Patient tolerating Nepro at goal rate of 40mL/hr. Recommend continuing current tube feedings. Last recorded weight is 118.5kg which is stable. Bowel Motility: BM x 1 today. Labs Reviewed: Hgb (7.5), Hct (23.9), Glu (182), BUN (118), Cr (6.2), Na (135), Alb (3.1), Derick Ca (8.02) Meds Noted: Albuterol, Levemir, Cefepime, Atrovent, Versed, Retacrit, Reglan, Protonix, Sublimaze, Flagyl, Vancomycin, Novolog, Propofol (rate of 17.8mL/hr provides 469kcal over 24 hour period) Additional Notes: No documented skin issues. Following daily in ICU rounds. Assessing/reassessing every Wednesday/Wednesday.
[2020-05-15 12:22] LABS: Glucose Point of Care 164 (65-105)
--- NOTE | 2020-05-15 14:56 | WPDINTPN ---
Progress Note: A&P Assessment and Plan (1) Acute and chronic respiratory failure with hypercapnia: Code(s): J96.22 - Acute and chronic respiratory failure with hypercapnia Status: Acute Assessment and Plan: Patient with acute hypercapnic respiratory failure post cholecystostomy tube placement. Patient failed BiPAP and was intubated on 05/03/2020. - patient was extubated on 05/12/2020 and was reintubate later on the same day due to being less responsive, ABG showed respiratory acidosis, with respiratory distress. - Currently on CMV mode of ventilation, 50% FiO2, peep of 5 - ABGs and chest x-ray reviewed - diuretic currently on hold due to worsening creatinine. Patient has been diuresing well without diuretics. - patient has a possible right-sided pleural effusion, thoracentesis with removal of 150 mL of serosanguineous fluid, no Gram stain was noted - unable to wean from the ventilator, patient and his significant othe and POA do not want tracheostomy or PEG tube placed (2) Left arm weakness: Code(s): R29.898 - Other symptoms and signs involving the musculoskeletal system Status: Acute Assessment and Plan: RESOLVED Patient developed sudden onset left upper arm weakness. Resolved spontaneously - possible TIA. No findings on CT head. Continue ASA. Neurology has evaluated. He did c/o L shoulder pain on palpation and with passive ROM today - XR ordered but was negative for fracture or dislocation. Will need PT/OT. (3) Acute cholecystitis: Code(s): K81.0 - Acute cholecystitis Status: Acute Assessment and Plan: Status post cholecystostomy drain placement on 05/03/2020. Cultures from the gallbladder fluid growing Enterococcus species; continue vancomycin, Flagyl, and cefepime (stopped Zosyn due to FELIPE). (4) Acute on chronic renal failure: Qualifiers: Acute renal failure type: unspecified Chronic kidney disease stage: stage 3 (moderate) Qualified Code(s): N17.9 - Acute kidney failure, unspecified; N18.3 - Chronic kidney disease, stage 3 (moderate) Code(s): N17.9 - Acute kidney failure, unspecified; N18.9 - Chronic kidney disease, unspecified Status: Acute Assessment and Plan: Patient with acute on chronic kidney disease, baseline creatinine of 2.9-4.[address] White. Will maintain systolic blood pressures close to 140s; per Dr. White higher blood pressures improved his creatinine. - CREATININE WORSENING, urine output has been adequate - nephrology following the patient (5) Hyperkalemia: Code(s): E87.5 - Hyperkalemia Status: Acute Assessment and Plan: Resolved. (6) Essential hypertension: Code(s): I10 - Essential (primary) hypertension Status: Chronic Assessment and Plan: Patient with hypertension, continue amlodipine, hydralazine, and metoprolol. 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 (8) Anemia: Qualifiers: Anemia type: unspecified type Qualified Code(s): D64.9 - Anemia, unspecified Code(s): D64.9 - Anemia, unspecified Status: Acute Assessment and Plan: Anemia likely related to chronic kidney disease, stable. On EPO. (9) DVT prophylaxis: Code(s): Z29.9 - Encounter for prophylactic measures, unspecified Status: Acute Assessment and Plan: Heparin SQ Additional Plan 05/14/2020: discussed with patient and Luanne Patino his POA significant other, I did discuss with them regarding tracheostomy and PEG tube placement. Patient also noted NO to tracheostomy and the POA also stat
--- NOTE | 2020-05-15 15:11 | P.PNIM_ITS ---
Progress Note: A&P Assessment and Plan (1) Left arm weakness: Code(s): R29.898 - Other symptoms and signs involving the musculoskeletal system Status: Acute Assessment and Plan: * Patient with acute LUE weakness that resolved completely on 05/09/20 * Head CT showing no acute findings. Carotid US showing 50-69% stenosis Rt ICA. * Echo showing EF 60-65%, severe pulm HTN and patent foramen ovaleGrade I diastolic dysfunction * Probably TIA * Continue ASA; agree with permissive HTN (2) Acute and chronic respiratory failure with hypercapnia: Code(s): J96.22 - Acute and chronic respiratory failure with hypercapnia Status: Acute Assessment and Plan: * Lethargic on admission so proceeded with cholecystostomy tube. Requiring BiPAP but ultimately failed so intubated on 05/03/20. * Extubated 05/12 but reintubated same day when struggled and could not tolerat e * Chest x-ray reviewed showing persistent mostly right sided airspace disease. * Continue albuterol and Atrovent * Wean mechanical ventilation as tolerated.. * Consider bronchoscopy (3) Acute cholecystitis: Code(s): K81.0 - Acute cholecystitis Status: Acute Assessment and Plan: * Patient presents with abdominal pain, nausea, and vomiting with CT abdomen showing acute cholecystitis. * Percutaneous cholecystostomy tube placed 05/03/20 and being followed by Gen Surg - appreciate their input. * Cx growing Enterococus; UCx Negative; BCx NGTD. WBC remaining normal * Abx adjusted to Vanco and Cefepime; Flagyl added 05/10 to cover GB pathology D# 12-13 of total EV antibiotics * Continue Reglan to help with gut motility. (4) Acute on chronic renal failure: Qualifiers: Acute renal failure type: unspecified Chronic kidney disease stage: stage 3 (moderate) Qualified Code(s): N17.9 - Acute kidney failure, unspecified; N18.3 - Chronic kidney disease, stage 3 (moderate) Code(s): N17.9 - Acute kidney failure, unspecified; N18.9 - Chronic kidney disease, unspecified Status: Acute Assessment and Plan: * Baseline creatinine 2.8 to 3.4 range. * Creatinine climbed to 4.3 before trending down to 3.9. Cr back up to 6.2 today. related to diuretics and resp failure * Patient was previously on hemodialysis in the past * Renal ultrasound showed normal size kidneys. No hydronephrosis. * Diuretics on hold; good UOP still (5) Essential hypertension: Code(s): I10 - Essential (primary) hypertension Status: Chronic Assessment and Plan: * Blood pressure reviewed on 05/15/2020. * Blood pressure well controlled * Currently on Norvasc, hydralazine and metoprolol. * Plan to keep BP elevated to help with renal perfusion and now for permissive HTN from probable TIA * Continue Hydralazine IV available PRN if needed. Monitor BP and adjust treatment as needed. (6) Hyperkalemia: Code(s): E87.5 - Hyperkalemia Status: Acute Assessment and Plan: * potassium 5.5 early in admission. * Hyperkalemia related to worsening renal function. * Potassium improved and remaining stable 4.1 today. Continue to monitor. (7) Anemia of chronic kidney failure: Qualifiers: Chronic kidney disease stage: stage 3 (moderate) Qualified Code(s): N18.3 - Chronic kidney disease, stage 3 (moderate); D63.1 - Anemia in chronic kidney disease Code(s): N18.9 - Chronic
--- NOTE | 2020-05-15 15:11 | PM.IMPN ---
Progress Note: A&P Assessment and Plan (1) Left arm weakness: Code(s): R29.898 - Other symptoms and signs involving the musculoskeletal system Status: Acute Assessment and Plan: Patient with acute LUE weakness that resolved completely on 05/09/[address] showing no acute findings. Carotid US showing 50-69% stenosis Rt ICA. Echo showing EF 60-65%, severe pulm HTN and patent foramen ovaleGrade I diastolic dysfunction Probably TIA Continue ASA; agree with permissive HTN (2) Acute and chronic respiratory failure with hypercapnia: Code(s): J96.22 - Acute and chronic respiratory failure with hypercapnia Status: Acute Assessment and Plan: Lethargic on admission so proceeded with cholecystostomy tube. Requiring BiPAP but ultimately failed so intubated on 05/03/20. Extubated 05/12 but reintubated same day when struggled and could not tolerate Chest x-ray reviewed showing persistent mostly right sided airspace disease. Continue albuterol and Atrovent Wean mechanical ventilation as tolerated.. Consider bronchoscopy (3) Acute cholecystitis: Code(s): K81.0 - Acute cholecystitis Status: Acute Assessment and Plan: Patient presents with abdominal pain, nausea, and vomiting with CT abdomen showing acute cholecystitis. Percutaneous cholecystostomy tube placed 05/03/20 and being followed by Gen Surg - appreciate their input. Cx growing Enterococus; UCx Negative; BCx NGTD. WBC remaining normal Abx adjusted to Vanco and Cefepime; Flagyl added 05/10 to cover GB pathology D# 12-13 of total EV antibiotics Continue Reglan to help with gut motility. (4) Acute on chronic renal failure: Qualifiers: Acute renal failure type: unspecified Chronic kidney disease stage: stage 3 (moderate) Qualified Code(s): N17.9 - Acute kidney failure, unspecified; N18.3 - Chronic kidney disease, stage 3 (moderate) Code(s): N17.9 - Acute kidney failure, unspecified; N18.9 - Chronic kidney disease, unspecified Status: Acute Assessment and Plan: Baseline creatinine 2.8 to 3.4 range. Creatinine climbed to 4.3 before trending down to 3.9. Cr back up to 6.2 today. related to diuretics and resp failure Patient was previously on hemodialysis in the past Renal ultrasound showed normal size kidneys. No hydronephrosis. Diuretics on hold; good UOP still (5) Essential hypertension: Code(s): I10 - Essential (primary) hypertension Status: Chronic Assessment and Plan: Blood pressure reviewed on 05/15/2020. Blood pressure well controlled Currently on Norvasc, hydralazine and metoprolol. Plan to keep BP elevated to help with renal perfusion and now for permissive HTN from probable TIA Continue Hydralazine IV available PRN if needed. Monitor BP and adjust treatment as needed. (6) Hyperkalemia: Code(s): E87.5 - Hyperkalemia Status: Acute Assessment and Plan: potassium 5.5 early in admission. Hyperkalemia related to worsening renal function. Potassium improved and remaining stable 4.1 today. Continue to monitor. (7) Anemia of chronic kidney failure: Qualifiers: Chronic kidney disease stage: stage 3 (moderate) Qualified Code(s): N18.3 - Chronic kidney disease, stage 3 (moderate); D63.1 - Anemia in chronic kidney disease Code(s): N18.9 - Chronic kidney disease, unspecified; D63.1 - Anemia in chronic kidney disease Status: Chronic Assessment and Plan: hemoglobin in the 10-11 range chronically Since admission, hemoglobin has dropped to 7-8 range but stable, 7.7 today No evidence of active bleeding. Continue Protonix. (8) Type 2 diabetes mellitus with hyperglycemia: Qualifiers: Diabetes
--- NOTE | 2020-05-15 15:15 | WPDNEUROPN ---
Progress Note: A&P Assessment and Plan (1) TIA (transient ischemic attack): Code(s): G45.9 - Transient cerebral ischemic attack, unspecified Status: Acute (2) Left arm weakness: Code(s): R29.898 - Other symptoms and signs involving the musculoskeletal system Status: Acute (3) Acute and chronic respiratory failure with hypercapnia: Code(s): J96.22 - Acute and chronic respiratory failure with hypercapnia Status: Acute (4) Anemia: Qualifiers: Anemia type: unspecified type Qualified Code(s): D64.9 - Anemia, unspecified Code(s): D64.9 - Anemia, unspecified Status: Acute (5) Diabetes: Code(s): E11.9 - Type 2 diabetes mellitus without complications Status: Chronic (6) DVT prophylaxis: Code(s): Z29.9 - Encounter for prophylactic measures, unspecified Status: Acute (7) Chronic kidney disease, stage IV (severe): Code(s): N18.4 - Chronic kidney disease, stage 4 (severe) Status: Chronic (8) Acute cholecystitis: Code(s): K81.0 - Acute cholecystitis Status: Acute (9) Anemia of chronic kidney failure: Qualifiers: Chronic kidney disease stage: stage 3 (moderate) Qualified Code(s): N18.3 - Chronic kidney disease, stage 3 (moderate); D63.1 - Anemia in chronic kidney disease Code(s): N18.9 - Chronic kidney disease, unspecified; D63.1 - Anemia in chronic kidney disease Status: Chronic (10) BILL (obstructive sleep apnea): Code(s): G47.33 - Obstructive sleep apnea (adult) (pediatric) Status: Acute (11) Acute and chronic respiratory failure with hypoxia: Code(s): J96.21 - Acute and chronic respiratory failure with hypoxia Status: Acute (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 Status: Acute Additional Plan continue aspirin rest of the medical management as per the medical bill processor will follow periodicaly Review of Systems Review of Systems: All systems reviewed & are unremarkable except as noted in HPI and below Exam Const: General: comfortable and no acute distress HENMT: General nose exam: Normal nares present Mouth: Yes moist mucous membranes Eyes: General: appearance normal, both eyes and all related structures Neck: Neck: supple and no JVD Resp: Other: bilateral rhonchi and decreased breath sounds at the bases Cardio: Rate: regular rate Rhythm: regular rhythm GI: Auscultation: normal bowel sounds Neuro: Other: patient on the respirator drowsy but arousable without any lateralizing motor deficit Psych: Other: as best 1 can tell he is able to follow simple commands when he is more alert Objective Data Vital Signs Vital Signs: Vital Signs - 24 hr 05/14/20 16:00 05/14/20 16:33 05/14/20 17:48 Temperature 37.1 C Pulse Rate 85 80 76 Respiratory Rate 24 H Blood Pressure 165/55 H Pulse Oximetry 97 98 05/14/20 18:00 05/14/20 19:25 05/14/20 20:00 Temperature 37.1 C Pulse Rate 66 68 68 Respiratory Rate 22 H 22 H 22 H Blood Pressure 125/45 L 131/46 L Pulse Oximetry 99 100 05/14/20 20:44 05/14/20 20:46 05/14/20 22:00 Temperature Pulse Rate 74 73 78 Respiratory Rate 23 H 25 H Blood Pressure 122/44 L Pulse Oximetry 100 99 05/14/20 23:12 05/14/20 23:24 05/15/20 00:00 Temperature 36.8 C Pulse Rate 75 75 73 Respiratory Rate 22 H Blood Pressure 122/46 L Pulse Oximetry 100 99 05/15/20 00:07 05/15/20 01:55 05/15/20 02:00 Temperature Pulse Rate 72 71 72 Respiratory Rate 22 H 22 H 22 H Blood Pressure 114/44 L Pulse Oximetry 100 100 05/15/20 04:00 05/15/20 04:31 05/15/20 04:47 Temperature 36.8 C Pulse Rate 76 75 75 Respiratory Rate 22 H 22 H Blood Pressure 141/47 H Pulse Oximetry 100 98 05/15/20 05:10 05/15/20 06:00 05/15/20 08:00 Temperature 36.8 C Pulse Rate 80 77 70 Respiratory Rate 22 H 22 H Blood Pressure 137/54 L 131/53 L Pulse Oximetry
[2020-05-15 17:42] LABS: Glucose Point of Care 179 (65-105)
[2020-05-15 23:51] LABS: Glucose Point of Care 189 (65-105)
[2020-05-16] VITALS (36 sets, daily range): BP systolic 99–162; BP diastolic 45–64; PULSE 59–77; RESP 20–26; TEMP 36.7–37.1; O2SAT 22–100
[2020-05-16] MEDS: IPRATROPIUM BR 0.02% INH SOLN 0.5 MG/2.5 ML VIAL INHALATION ×4 (01:53→20:17)
[2020-05-16] MEDS: ALBUTEROL SULFATE NEB 2.5 MG/0.5 ML INH INHALATION ×4 (01:53→20:17)
[2020-05-16] MEDS: PROPOFOL IV EMULSION 100 ML 17.8 MG IV CONT ×3 (02:34→13:05)
[2020-05-16] MEDS: metroNIDAZOLE 500 MG/ISO 100ML 500 MG/100 ML BAG 100 MG IVPB ×4 (02:49→21:23)
[2020-05-16 05:15] LABS: Glucose Pleural Fluid 135 mg/dL; LDH Pleural Fluid 223 U/L
[2020-05-16] MEDS: INSULIN ASPART (*BKC) 100 UNITS/ML SUB-Q (05:25)
[2020-05-16] MEDS: METOCLOPRAMIDE HCL INJ 10 MG/2 ML VIAL IV PUSH ×2 (05:26→11:44)
[2020-05-16] MEDS: HEPARIN SODIUM 5,000 UNITS/ML VIAL 5000 UNITS SUB-Q ×3 (05:26→21:26)
[2020-05-16] MEDS: METOPROLOL TARTRATE INJ 5 MG/5 ML VIAL IV PUSH ×4 (05:27→23:26)
[2020-05-16 05:43] LABS: Glucose Point of Care 201 (65-105)
[2020-05-16 08:06] LABS: Estimated CRCL calculation 13 ml/min; Estimated Glomerular Filt Rate 10
[2020-05-16 09:05] LABS: Alveolar/Arterial O2 Gradient 181.2 mmHg; Base Excess ABG -7.1 mEq/l (+/-2.0); Fractional Inspired Oxygen 40 %; Oxygen Content ABG 10.5 %vol (16.0-22.0); Oxygen Saturation ABG 91.8 % (95.0-100.0); Oxyhemoglobin 88.2 % THb (90.0-100.0); PCO2 ABG 34.1 mmHg (35.0-45.0); PO2 ABG 64.8 mmHg (80.0-100.0); PO2 FiO2 Ratio Arterial Blood 1.62 %; Total Hemoglobin 8.4 g/dL (12.0-18.0)
[2020-05-16 09:06] LABS: Arterial Blood Gas Ventilator rate 22 /MIN; Device VENTILATOR; Modified Allen's Test Pass; Site Drawn RIGHT RADIAL
[2020-05-16 09:07] LABS: Arterial Blood Gas PEEP 5 cmH2O; Arterial Blood Gas Tidal Volume 450 ml; Arterial Blood Gas Vent Mode ASSIST CONTROL
[2020-05-16] MEDS: ASPIRIN 81 MG CHEWABLE TABLET 324 MG FEED TUBE (09:49)
[2020-05-16] MEDS: PANTOPRAZOLE SODIUM IV 40 MG VIAL IV PUSH (09:50)
[2020-05-16] MEDS: EPOETIN ALFA-EPBX 10,000 UNITS/ML VIAL 20000 UNITS SUB-Q (09:50)
[2020-05-16] MEDS: amLODIPine BESYLATE 5 MG TABLET 10 MG PO (09:51)
[2020-05-16] MEDS: INSULIN DETEMIR 100 UNITS/ML 14 UNITS SUB-Q ×2 (09:51→21:26)
--- NOTE | 2020-05-16 10:12 | P.PNNP_ITS ---
Progress Note: A&P Assessment and Plan (1) FELIPE (acute kidney injury): Code(s): N17.9 - Acute kidney failure, unspecified Status: Acute Assessment and Plan: * suspect due to acute infection (cholecystitis) on top of possible pre-renal factors * urine electrolytes non pre renal * renal ultrasound without hydronephrosis * He received diuretics again yesterday And made 2800cc of urine. * his creatinine peaked at 6.2 yesterday and is down to 5.6 today. * Will continue to hold diuretics. (2) Chronic kidney disease, stage IV (severe): Code(s): N18.4 - Chronic kidney disease, stage 4 (severe) Status: Chronic Assessment and Plan: * baseline creatinine ~ 2.8 - 2.9mg/dl from review of outpatient records * His creatinine does vary quite a bit however and has been as high as 4 as an outpatient in the past. (3) Hyperkalemia: Code(s): E87.5 - Hyperkalemia Status: Acute Assessment and Plan: * resolved (4) Acute cholecystitis: Code(s): K81.0 - Acute cholecystitis Status: Acute Assessment and Plan: * General Surgery following * s/p cholecystostomy tube placement (5) Essential hypertension: Code(s): I10 - Essential (primary) hypertension Status: Chronic Assessment and Plan: * Blood pressure is target * blood pressure doing well. (6) Anemia: Qualifiers: Anemia type: unspecified type Qualified Code(s): D64.9 - Anemia, unspecified Code(s): D64.9 - Anemia, unspecified Status: Acute Assessment and Plan: * due to acute illness and CKD * Hemoglobin varies from 7.5-8.5. * on EPO. (7) Diabetes: Code(s): E11.9 - Type 2 diabetes mellitus without complications Status: Chronic Assessment and Plan: * follow accuchecks * on SSI (8) Acute and chronic respiratory failure with hypercapnia: Code(s): J96.22 - Acute and chronic respiratory failure with hypercapnia Status: Acute Assessment and Plan: Back on the ventilator. Additional Plan Subjective Date/time seen: 05/16/20 10:12 Interval history: The patient is comfortable. He is still on the ventilator. He is on sedatives. He does open his eyes and occasionally tries to write to ask a question or make a statement according to nursing but today he is just comfortable. Review of Systems Review of Systems: ROS unobtainable: Yes unobtainable due to endotracheal tube Exam Narrative: Exam Narrative: General: WD/WN male in NAD; intubated and sedated Heart: normal S1 and S2; no rub or gallop Lungs: decreased at the bases and mild coarse breath sounds on both sides Abdomen: positive bowel sounds and no tenderness Extremities: Trace edema Skin: No rash Or subcu nodules Objective Data Vital Signs Vital Signs: Vital Signs - 24 hr 05/15/20 10:16 05/15/20 11:28 05/15/20 12:00 Temperature 37.0 C Pulse Rate 65 71 74 Respiratory Rate 22 H Blood Pressure 121/50 L Pulse Oximetry 98 93 95 05/15/20 12:06 05/15/20 13:53 05/15/20 14:00 Temperature Pulse Rate 72 68 68 Respiratory Rate 22 H 22 H Blood Pressure 125/44 L Pulse Oximetry 96 05/15/20 14:05 05/15/20
--- NOTE | 2020-05-16 10:12 | PM.PNNEP ---
Progress Note: A&P Assessment and Plan (1) FELIPE (acute kidney injury): Code(s): N17.9 - Acute kidney failure, unspecified Status: Acute Assessment and Plan: suspect due to acute infection (cholecystitis) on top of possible pre-renal factors urine electrolytes non pre renal renal ultrasound without hydronephrosis He received diuretics again yesterday And made 2800cc of urine. his creatinine peaked at 6.2 yesterday and is down to 5.6 today. Will continue to hold diuretics. (2) Chronic kidney disease, stage IV (severe): Code(s): N18.4 - Chronic kidney disease, stage 4 (severe) Status: Chronic Assessment and Plan: baseline creatinine ~ 2.8 - 2.9mg/dl from review of outpatient records His creatinine does vary quite a bit however and has been as high as 4 as an outpatient in the past. (3) Hyperkalemia: Code(s): E87.5 - Hyperkalemia Status: Acute Assessment and Plan: resolved (4) Acute cholecystitis: Code(s): K81.0 - Acute cholecystitis Status: Acute Assessment and Plan: General Surgery following s/p cholecystostomy tube placement (5) Essential hypertension: Code(s): I10 - Essential (primary) hypertension Status: Chronic Assessment and Plan: Blood pressure is target blood pressure doing well. (6) Anemia: Qualifiers: Anemia type: unspecified type Qualified Code(s): D64.9 - Anemia, unspecified Code(s): D64.9 - Anemia, unspecified Status: Acute Assessment and Plan: due to acute illness and CKD Hemoglobin varies from 7.5-8.5. on EPO. (7) Diabetes: Code(s): E11.9 - Type 2 diabetes mellitus without complications Status: Chronic Assessment and Plan: follow accuchecks on SSI (8) Acute and chronic respiratory failure with hypercapnia: Code(s): J96.22 - Acute and chronic respiratory failure with hypercapnia Status: Acute Assessment and Plan: Back on the ventilator. Additional Plan Subjective Date/time seen: 05/16/20 10:12 Interval history: The patient is comfortable. He is still on the ventilator. He is on sedatives. He does open his eyes and occasionally tries to write to ask a question or make a statement according to nursing but today he is just comfortable. Review of Systems Review of Systems: ROS unobtainable: Yes unobtainable due to endotracheal tube Exam Narrative: Exam Narrative: General: WD/WN male in NAD; intubated and sedated Heart: normal S1 and S2; no rub or gallop Lungs: decreased at the bases and mild coarse breath sounds on both sides Abdomen: positive bowel sounds and no tenderness Extremities: Trace edema Skin: No rash Or subcu nodules Objective Data Vital Signs Vital Signs: Vital Signs - 24 hr 05/15/20 10:16 05/15/20 11:28 05/15/20 12:00 Temperature 37.0 C Pulse Rate 65 71 74 Respiratory Rate 22 H Blood Pressure 121/50 L Pulse Oximetry 98 93 95 05/15/20 12:06 05/15/20 13:53 05/15/20 14:00 Temperature Pulse Rate 72 68 68 Respiratory Rate 22 H 22 H Blood Pressure 125/44 L Pulse Oximetry 96 05/15/20 14:05 05/15/20 15:56 05/15/20 16:00 Temperature 36.9 C Pulse Rate 67 75 74 Respiratory Rate 22 H 24 H 22 H Blood Pressure 146/53 H Pulse Oximetry 92 05/15/20 17:25 05/15/20 17:40 05/15/20 17:56 Temperature Pulse Rate 79 67 62 Respiratory Rate Blood Pressure Pulse Oximetry 94 05/15/20 18:00 05/15/20 19:35 05/15/20 19:36 Temperature Pulse Rate 61 67 71 Respiratory Rate 22 H 22 H Blood Pressure 110/45 L Pulse Oximetry 94 99 05/15/20 19:45 05/15/20 20:00 05/15/20 20:52 Temperature 36.9 C Pulse Rate 65 65 63 Respiratory Rate 22 H 22 H 22 H Blood Pressure 133/50 L Pulse Oximetry 98 05/15/20 22:00 05/15/20 22:53 05/16/20 00:00 Temperature 37.1 C Pulse Rate 65
[2020-05-16 11:49] LABS: Glucose Point of Care 152 (65-105)
--- NOTE | 2020-05-16 13:49 | WPDINTPN ---
Progress Note: A&P Assessment and Plan (1) Acute and chronic respiratory failure with hypercapnia: Code(s): J96.22 - Acute and chronic respiratory failure with hypercapnia Status: Acute Assessment and Plan: Patient with acute hypercapnic respiratory failure post cholecystostomy tube placement. Patient failed BiPAP and was intubated on 05/03/2020. - patient was extubated on 05/12/2020 and was reintubate later on the same day due to being less responsive, ABG showed respiratory acidosis, with respiratory distress. - Currently on CMV mode of ventilation, 50% FiO2, peep of 5 - ABGs and chest x-ray reviewed - diuretic currently on hold due to worsening creatinine. Patient has been diuresing well without diuretics. - patient has a possible right-sided pleural effusion, thoracentesis with removal of 150 mL of serosanguineous fluid, no Gram stain was noted - unable to wean from the ventilator, patient and his significant other (POA) do not want tracheostomy or PEG tube placed - Patient's 3 sons coming to see the pt before withdrawing support (2) Left arm weakness: Code(s): R29.898 - Other symptoms and signs involving the musculoskeletal system Status: Acute Assessment and Plan: RESOLVED Patient developed sudden onset left upper arm weakness. Resolved spontaneously - possible TIA. No findings on CT head. Continue ASA. Neurology has evaluated. He did c/o L shoulder pain on palpation and with passive ROM today - XR ordered but was negative for fracture or dislocation. Will need PT/OT. (3) Acute cholecystitis: Code(s): K81.0 - Acute cholecystitis Status: Acute Assessment and Plan: Status post cholecystostomy drain placement on 05/03/2020. Cultures from the gallbladder fluid growing Enterococcus species; continue vancomycin, Flagyl, and cefepime (stopped Zosyn due to FELIPE). (4) Acute on chronic renal failure: Qualifiers: Acute renal failure type: unspecified Chronic kidney disease stage: stage 3 (moderate) Qualified Code(s): N17.9 - Acute kidney failure, unspecified; N18.3 - Chronic kidney disease, stage 3 (moderate) Code(s): N17.9 - Acute kidney failure, unspecified; N18.9 - Chronic kidney disease, unspecified Status: Acute Assessment and Plan: Patient with acute on chronic kidney disease, baseline creatinine of 2.9-4.[address] White. Will maintain systolic blood pressures close to 140s; per Dr. White higher blood pressures improved his creatinine. - CREATININE WORSENING, urine output has been adequate - nephrology following the patient (5) Hyperkalemia: Code(s): E87.5 - Hyperkalemia Status: Acute Assessment and Plan: Resolved. (6) Essential hypertension: Code(s): I10 - Essential (primary) hypertension Status: Chronic Assessment and Plan: Patient with hypertension, continue amlodipine, hydralazine, and metoprolol. (7) Type 2 diabetes mellitus with hyperglycemia: Qualifiers: Diabetes mellitus prison insulin use: with meterman use Qualified Code(s): E11.65 - Type 2 diabetes mellitus with hyperglycemia; Z79.4 - [employer] (current) use of insulin Code(s): E11.65 - Type 2 diabetes mellitus with hyperglycemia Status: Chronic Assessment and Plan: Continue Levemir, sliding scale insulin, and Accu-Cheks. (8) Anemia: Qualifiers: Anemia type: unspecified type Qualified Code(s): D64.9 - Anemia, unspecified Code(s): D64.9 - Anemia, unspecified Status: Acute Assessment and Plan: Anemia likely related to chronic kidney disease, stable. On EPO. (9) DVT prophylaxis: Code(s): Z29.9 - Encounter for prophylactic measures, unspecified Status: Acute Assessment and Plan: Heparin SQ Additional Plan 05/16: D/w BALA Stroud, She stated that his 3 sons will be coming Today to say their goodbyes before withdrawing support. 05/14/2020: yovanny
--- NOTE | 2020-05-16 13:59 | PCDIET ---
ICU Rounding Note: Patient continues on Nepro at 40mL/hr without reported issues. Recommend continuing present tube feeding. Last recorded weight is 105.7kg which is significantly decreased. Recommend re-weighing to ensure accuracy. +I/O noted. Bowel Motility: +BM today. Labs Reviewed: Glu (201), Cr (5.6) Meds Noted: Albuterol, Cefepime, Retacrit, Sublimaze, Novolog, Levemir, Atrovent, Flagyl, Versed, Protonix, Vancomycin Additional Notes: No reported skin issue, other than abdominal drain. Following daily in ICU rounds. Assessing/reassessing every Wednesday/Wednesday.
--- NOTE | 2020-05-16 17:02 | P.PNIM_ITS ---
Progress Note: A&P Assessment and Plan (1) Left arm weakness: Code(s): R29.898 - Other symptoms and signs involving the musculoskeletal system Status: Acute Assessment and Plan: * Patient with acute LUE weakness that resolved completely on 05/09/20 * Head CT showing no acute findings. Carotid US showing 50-69% stenosis Rt ICA. * Echo showing EF 60-65%, severe pulm HTN and patent foramen ovaleGrade I diastolic dysfunction * Probably TIA * Continue ASA; agree with permissive HTN (2) Acute and chronic respiratory failure with hypercapnia: Code(s): J96.22 - Acute and chronic respiratory failure with hypercapnia Status: Acute Assessment and Plan: * Lethargic on admission so proceeded with cholecystostomy tube. Requiring BiPAP but ultimately failed so intubated on 05/03/20. * Extubated 05/12 but reintubated same day when struggled and could not tolerat e * Chest x-ray reviewed showing persistent mostly right sided airspace disease. * Continue albuterol and Atrovent * Wean mechanical ventilation as tolerated.. * Patient and family refusing trach so may proceed to extubation with possible terminal results (3) Acute cholecystitis: Code(s): K81.0 - Acute cholecystitis Status: Acute Assessment and Plan: * Patient presents with abdominal pain, nausea, and vomiting with CT abdomen showing acute cholecystitis. * Percutaneous cholecystostomy tube placed 05/03/20 and being followed by Gen Surg - appreciate their input. * Cx growing Enterococus; UCx Negative; BCx NGTD. WBC remaining normal * Abx adjusted to Vanco and Cefepime; Flagyl added 05/10 to cover GB pathology D# 14 of total IV antibiotics * Continue Reglan to help with gut motility. (4) Acute on chronic renal failure: Qualifiers: Acute renal failure type: unspecified Chronic kidney disease stage: stage 3 (moderate) Qualified Code(s): N17.9 - Acute kidney failure, unspecified; N18.3 - Chronic kidney disease, stage 3 (moderate) Code(s): N17.9 - Acute kidney failure, unspecified; N18.9 - Chronic kidney disease, unspecified Status: Acute Assessment and Plan: * Baseline creatinine 2.8 to 3.4 range. * Creatinine climbed to 4.3 before trending down to 3.9. Cr back up to 5.6 today down slightly . related to diuretics and resp failure * Patient was previously on hemodialysis in the past * Renal ultrasound showed normal size kidneys. No hydronephrosis. * Diuretics on hold; good UOP still (5) Essential hypertension: Code(s): I10 - Essential (primary) hypertension Status: Chronic Assessment and Plan: * Blood pressure reviewed on 05/16/2020. * Blood pressure well controlled * Currently on Norvasc, hydralazine and metoprolol. * Plan to keep BP elevated to help with renal perfusion and now for permissive HTN from probable TIA * Continue Hydralazine IV available PRN if needed. Monitor BP and adjust treatment as needed. (6) Hyperkalemia: Code(s): E87.5 - Hyperkalemia Status: Acute Assessment and Plan: * potassium 5.5 early in admission. * Hyperkalemia related to worsening renal function. * Potassium improved and remaining stable 4.1 05/15 . Continue to monitor. (7) Anemia of chronic kidney failure: Qualifiers: Chronic kidney disease stage: stage 3 (moderate) Qualified Code(s): N18.3 - Chronic kidney disease, stage 3 (moder
--- NOTE | 2020-05-16 17:02 | PM.IMPN ---
Progress Note: A&P Assessment and Plan (1) Left arm weakness: Code(s): R29.898 - Other symptoms and signs involving the musculoskeletal system Status: Acute Assessment and Plan: Patient with acute LUE weakness that resolved completely on 05/09/[address] showing no acute findings. Carotid US showing 50-69% stenosis Rt ICA. Echo showing EF 60-65%, severe pulm HTN and patent foramen ovaleGrade I diastolic dysfunction Probably TIA Continue ASA; agree with permissive HTN (2) Acute and chronic respiratory failure with hypercapnia: Code(s): J96.22 - Acute and chronic respiratory failure with hypercapnia Status: Acute Assessment and Plan: Lethargic on admission so proceeded with cholecystostomy tube. Requiring BiPAP but ultimately failed so intubated on 05/03/20. Extubated 05/12 but reintubated same day when struggled and could not tolerate Chest x-ray reviewed showing persistent mostly right sided airspace disease. Continue albuterol and Atrovent Wean mechanical ventilation as tolerated.. Patient and family refusing trach so may proceed to extubation with possible terminal results (3) Acute cholecystitis: Code(s): K81.0 - Acute cholecystitis Status: Acute Assessment and Plan: Patient presents with abdominal pain, nausea, and vomiting with CT abdomen showing acute cholecystitis. Percutaneous cholecystostomy tube placed 05/03/20 and being followed by Gen Surg - appreciate their input. Cx growing Enterococus; UCx Negative; BCx NGTD. WBC remaining normal Abx adjusted to Vanco and Cefepime; Flagyl added 05/10 to cover GB pathology D# 14 of total IV antibiotics Continue Reglan to help with gut motility. (4) Acute on chronic renal failure: Qualifiers: Acute renal failure type: unspecified Chronic kidney disease stage: stage 3 (moderate) Qualified Code(s): N17.9 - Acute kidney failure, unspecified; N18.3 - Chronic kidney disease, stage 3 (moderate) Code(s): N17.9 - Acute kidney failure, unspecified; N18.9 - Chronic kidney disease, unspecified Status: Acute Assessment and Plan: Baseline creatinine 2.8 to 3.4 range. Creatinine climbed to 4.3 before trending down to 3.9. Cr back up to 5.6 today down slightly . related to diuretics and resp failure Patient was previously on hemodialysis in the past Renal ultrasound showed normal size kidneys. No hydronephrosis. Diuretics on hold; good UOP still (5) Essential hypertension: Code(s): I10 - Essential (primary) hypertension Status: Chronic Assessment and Plan: Blood pressure reviewed on 05/16/2020. Blood pressure well controlled Currently on Norvasc, hydralazine and metoprolol. Plan to keep BP elevated to help with renal perfusion and now for permissive HTN from probable TIA Continue Hydralazine IV available PRN if needed. Monitor BP and adjust treatment as needed. (6) Hyperkalemia: Code(s): E87.5 - Hyperkalemia Status: Acute Assessment and Plan: potassium 5.5 early in admission. Hyperkalemia related to worsening renal function. Potassium improved and remaining stable 4.1 05/15 . Continue to monitor. (7) Anemia of chronic kidney failure: Qualifiers: Chronic kidney disease stage: stage 3 (moderate) Qualified Code(s): N18.3 - Chronic kidney disease, stage 3 (moderate); D63.1 - Anemia in chronic kidney disease Code(s): N18.9 - Chronic kidney disease, unspecified; D63.1 - Anemia in chronic kidney disease Status: Chronic Assessment and Plan: hemoglobin in the 10-11 range chronically Since admission, hemoglobin has dropped to 7-8 range but stable, No evidence of active bleeding. Continue Protonix. (8) Type
[2020-05-16 17:56] LABS: Glucose Point of Care 175 (65-105)
[2020-05-16 18:46] LABS: Vancomycin Random 17.9 ug/mL (10-20)
[2020-05-16 19:33] LABS: Albumin Pleural Fluid 1.7 g/dL
[2020-05-16] MEDS: PROPOFOL IV EMULSION 100 ML 14.2 MG IV CONT (19:38)
[2020-05-16 20:57] LABS: Glucose Point of Care 187 (65-105)
[2020-05-16 23:48] LABS: Glucose Point of Care 179 (65-105)
[2020-05-17] VITALS (24 sets, daily range): BP systolic 144–171; BP diastolic 50–95; PULSE 66–92; RESP 11–26; TEMP 36.5–37.1; O2SAT 93–100
[2020-05-17] MEDS: PROPOFOL IV EMULSION 100 ML 14.2 MG IV CONT ×2 (01:49→08:44)
[2020-05-17] MEDS: IPRATROPIUM BR 0.02% INH SOLN 0.5 MG/2.5 ML VIAL INHALATION ×3 (02:28→14:09)
[2020-05-17] MEDS: ALBUTEROL SULFATE NEB 2.5 MG/0.5 ML INH INHALATION ×3 (02:28→14:09)
[2020-05-17] MEDS: metroNIDAZOLE 500 MG/ISO 100ML 500 MG/100 ML BAG 100 MG IVPB ×2 (03:15→09:07)
[2020-05-17 05:52] LABS: Glucose Point of Care 203 (65-105)
[2020-05-17] MEDS: INSULIN ASPART (*BKC) 100 UNITS/ML SUB-Q (05:53)
[2020-05-17] MEDS: METOPROLOL TARTRATE INJ 5 MG/5 ML VIAL IV PUSH ×2 (05:54→11:53)
[2020-05-17] MEDS: HEPARIN SODIUM 5,000 UNITS/ML VIAL 5000 UNITS SUB-Q ×2 (05:54→13:48)
[2020-05-17] MEDS: amLODIPine BESYLATE 5 MG TABLET 10 MG PO (08:54)
[2020-05-17] MEDS: PANTOPRAZOLE SODIUM IV 40 MG VIAL IV PUSH (08:54)
[2020-05-17] MEDS: ASPIRIN 81 MG CHEWABLE TABLET 324 MG FEED TUBE (09:04)
[2020-05-17] MEDS: INSULIN DETEMIR 100 UNITS/ML 14 UNITS SUB-Q (09:07)
[2020-05-17 12:16] LABS: Glucose Point of Care 182 (65-105)
--- NOTE | 2020-05-17 13:21 | PCDIET ---
Nutrition Follow-Up Complete: Nutrition Diagnosis: Inadequate oral intake related to oral intubation as evidenced by need for enteral feedings. Nutrition Goal: Patient to meet estimated nutritional needs. Goal met. Patient tolerating Nepro at 40mL/hr goal rate without reported issues. Plan for withdrawal of care noted. Last recorded weight is 102.6 kg which is down from last review. Bowel Motility: +BM today. Labs Reviewed: Glu (182) Meds Noted: Propofol (rate of 10.7mL/hr provides 282kcal over 24 hour period), Albuterol, Retacrit, Cefepime, Fentanyl, Flagyl, Versed, Vancomycin, Novolog, Levemir, Atrovent, Protonix Additional Notes: Abdomen with drain. No documented pressure ulcers. Will continue to monitor for tube feeding tolerance if aggressive care is continued. Nutrition Monitoring and Evaluation: Follow up every Wednesday/Wednesday. Follow daily in ICU rounds.
--- NOTE | 2020-05-17 13:36 | P.PNNP_ITS ---
Progress Note: A&P Assessment and Plan (1) FELIPE (acute kidney injury): Code(s): N17.9 - Acute kidney failure, unspecified Status: Acute Assessment and Plan: * suspect due to acute infection (cholecystitis) on top of possible pre-renal factors * urine electrolytes non pre renal * renal ultrasound without hydronephrosis * He received diuretics again yesterday And made 2800cc of urine. * his creatinine peaked at 6.2 yesterday and is down to 5.6 today. * Will continue to hold diuretics. * Chest x-ray is better today. He had a thoracentesis yesterday. * We will check some labs tomorrow. Discussed with Dr. Cabrera (2) Chronic kidney disease, stage IV (severe): Code(s): N18.4 - Chronic kidney disease, stage 4 (severe) Status: Chronic Assessment and Plan: * baseline creatinine ~ 2.8 - 2.9mg/dl from review of outpatient records * His creatinine does vary quite a bit however and has been as high as 4 as an outpatient in the past. (3) Hyperkalemia: Code(s): E87.5 - Hyperkalemia Status: Acute Assessment and Plan: * resolved (4) Acute cholecystitis: Code(s): K81.0 - Acute cholecystitis Status: Acute Assessment and Plan: * General Surgery following * s/p cholecystostomy tube placement (5) Essential hypertension: Code(s): I10 - Essential (primary) hypertension Status: Chronic Assessment and Plan: * Blood pressure is target * blood pressure doing well. (6) Anemia: Qualifiers: Anemia type: unspecified type Qualified Code(s): D64.9 - Anemia, unspecified Code(s): D64.9 - Anemia, unspecified Status: Acute Assessment and Plan: * due to acute illness and CKD * Hemoglobin varies from 7.5-8.5. * on EPO. (7) Diabetes: Code(s): E11.9 - Type 2 diabetes mellitus without complications Status: Chronic Assessment and Plan: * follow accuchecks * on SSI (8) Acute and chronic respiratory failure with hypercapnia: Code(s): J96.22 - Acute and chronic respiratory failure with hypercapnia Status: Acute Assessment and Plan: Back on the ventilator. Additional Plan Subjective Date/time seen: 05/17/20 13:36 Interval history: The patient is comfortable. He is still on the ventilator. He is on sedatives. not very interactive. Review of Systems Review of Systems: ROS unobtainable: Yes unobtainable due to endotracheal tube Exam Narrative: Exam Narrative: General: WD/WN male in NAD; intubated and sedated Heart: normal S1 and S2; no rub Lungs: decreased at the bases and mild coarse breath sounds on both sides Abdomen: positive bowel sounds and no tenderness Extremities: Trace edema Skin: No rash Objective Data Vital Signs Vital Signs: Vital Signs - 24 hr 05/16/20 14:00 05/16/20 14:17 05/16/20 14:22 Temperature Pulse Rate 66 68 66 Respiratory Rate 22 H 22 H Blood Pressure 123/60 Pulse Oximetry 95 94 05/16/20 14:27 05/16/20 15:20 05/16/20 16:00 Temperature 36.8 C Pulse Rate 68 64 68 Respiratory Rate 22 H 22 H 22 H Blood Pressure 130/46 L Pulse Oximetry 95 05/16/20 17:11 05/16/20
--- NOTE | 2020-05-17 13:36 | PM.PNNEP ---
Progress Note: A&P Assessment and Plan (1) FELIPE (acute kidney injury): Code(s): N17.9 - Acute kidney failure, unspecified Status: Acute Assessment and Plan: suspect due to acute infection (cholecystitis) on top of possible pre-renal factors urine electrolytes non pre renal renal ultrasound without hydronephrosis He received diuretics again yesterday And made 2800cc of urine. his creatinine peaked at 6.2 yesterday and is down to 5.6 today. Will continue to hold diuretics. Chest x-ray is better today. He had a thoracentesis yesterday. We will check some labs tomorrow. Discussed with Dr. Cabrera (2) Chronic kidney disease, stage IV (severe): Code(s): N18.4 - Chronic kidney disease, stage 4 (severe) Status: Chronic Assessment and Plan: baseline creatinine ~ 2.8 - 2.9mg/dl from review of outpatient records His creatinine does vary quite a bit however and has been as high as 4 as an outpatient in the past. (3) Hyperkalemia: Code(s): E87.5 - Hyperkalemia Status: Acute Assessment and Plan: resolved (4) Acute cholecystitis: Code(s): K81.0 - Acute cholecystitis Status: Acute Assessment and Plan: General Surgery following s/p cholecystostomy tube placement (5) Essential hypertension: Code(s): I10 - Essential (primary) hypertension Status: Chronic Assessment and Plan: Blood pressure is target blood pressure doing well. (6) Anemia: Qualifiers: Anemia type: unspecified type Qualified Code(s): D64.9 - Anemia, unspecified Code(s): D64.9 - Anemia, unspecified Status: Acute Assessment and Plan: due to acute illness and CKD Hemoglobin varies from 7.5-8.5. on EPO. (7) Diabetes: Code(s): E11.9 - Type 2 diabetes mellitus without complications Status: Chronic Assessment and Plan: follow accuchecks on SSI (8) Acute and chronic respiratory failure with hypercapnia: Code(s): J96.22 - Acute and chronic respiratory failure with hypercapnia Status: Acute Assessment and Plan: Back on the ventilator. Additional Plan Subjective Date/time seen: 05/17/20 13:36 Interval history: The patient is comfortable. He is still on the ventilator. He is on sedatives. not very interactive. Review of Systems Review of Systems: ROS unobtainable: Yes unobtainable due to endotracheal tube Exam Narrative: Exam Narrative: General: WD/WN male in NAD; intubated and sedated Heart: normal S1 and S2; no rub Lungs: decreased at the bases and mild coarse breath sounds on both sides Abdomen: positive bowel sounds and no tenderness Extremities: Trace edema Skin: No rash Objective Data Vital Signs Vital Signs: Vital Signs - 24 hr 05/16/20 14:00 05/16/20 14:17 05/16/20 14:22 Temperature Pulse Rate 66 68 66 Respiratory Rate 22 H 22 H Blood Pressure 123/60 Pulse Oximetry 95 94 05/16/20 14:27 05/16/20 15:20 05/16/20 16:00 Temperature 36.8 C Pulse Rate 68 64 68 Respiratory Rate 22 H 22 H 22 H Blood Pressure 130/46 L Pulse Oximetry 95 05/16/20 17:11 05/16/20 17:25 05/16/20 18:00 Temperature Pulse Rate 67 63 66 Respiratory Rate 23 H Blood Pressure 138/52 L Pulse Oximetry 95 96 05/16/20 19:38 05/16/20 20:00 05/16/20 20:15 Temperature 37.1 C Pulse Rate 65 68 68 Respiratory Rate 22 H 22 H 22 H Blood Pressure 137/46 L Pulse Oximetry 94 05/16/20 20:19 05/16/20 20:23 05/16/20 22:00 Temperature Pulse Rate 68 68 65 Respiratory Rate 22 H 22 H Blood Pressure 145/45 H Pulse Oximetry 98 98 05/16/20 23:26 05/16/20 23:37 05/17/20 00:00 Temperature 36.8 C Pulse Rate 66 66 66 Respiratory Rate 22 H Blood Pressure 144/50 H Pulse Oximetry 100 97 05/17/20 01:49 05/17/20 02:00 05/17/20 02:27 Temperature Pulse Rate 72 70 6
--- NOTE | 2020-05-17 15:31 | WPDINTPN ---
Progress Note: A&P Assessment and Plan (1) Acute and chronic respiratory failure with hypercapnia: Code(s): J96.22 - Acute and chronic respiratory failure with hypercapnia Status: Acute Assessment and Plan: Patient with acute hypercapnic respiratory failure post cholecystostomy tube placement. Patient failed BiPAP and was intubated on 05/03/2020. - patient was extubated on 05/12/2020 and was reintubate later on the same day due to being less responsive, ABG showed respiratory acidosis, with respiratory distress. - place patient on ASV mode of ventilation - also tried him on SBT with a pressure support of 12/5, did not tolerate well as he was tachypneic in the 30s and tidal volumes were in the low 200s. Was placed back on ASV mode - patient had a thoracentesis done with removal of 150 mL on 05/14 - patient has failed weaning trials, had to be reintubated on 05/12/2020. - the patient, the p.o. and the family refusing tracheostomy or PEG tube placement - patient family wanting to withdraw support today. They stated that patient has quality of life is significantly poor and he does not want a tracheostomy or PEG tube and they will respect his wishes (2) Left arm weakness: Code(s): R29.898 - Other symptoms and signs involving the musculoskeletal system Status: Acute Assessment and Plan: RESOLVED Patient developed sudden onset left upper arm weakness. Resolved spontaneously - possible TIA. No findings on CT head. Continue ASA. Neurology has evaluated. He did c/o L shoulder pain on palpation and with passive ROM today - XR ordered but was negative for fracture or dislocation. Will need PT/OT. (3) Acute cholecystitis: Code(s): K81.0 - Acute cholecystitis Status: Acute Assessment and Plan: Status post cholecystostomy drain placement on 05/03/2020. Cultures from the gallbladder fluid growing Enterococcus species; continue vancomycin, Flagyl, and cefepime (stopped Zosyn due to FELIPE). (4) Acute on chronic renal failure: Qualifiers: Acute renal failure type: unspecified Chronic kidney disease stage: stage 3 (moderate) Qualified Code(s): N17.9 - Acute kidney failure, unspecified; N18.3 - Chronic kidney disease, stage 3 (moderate) Code(s): N17.9 - Acute kidney failure, unspecified; N18.9 - Chronic kidney disease, unspecified Status: Acute Assessment and Plan: Patient with acute on chronic kidney disease, baseline creatinine of 2.9-4.[address] White. Will maintain systolic blood pressures close to 140s; per Dr. White higher blood pressures improved his creatinine. - CREATININE WORSENING, urine output has been adequate - nephrology following the patient (5) Hyperkalemia: Code(s): E87.5 - Hyperkalemia Status: Acute Assessment and Plan: Resolved. (6) Essential hypertension: Code(s): I10 - Essential (primary) hypertension Status: Chronic Assessment and Plan: Patient with hypertension, continue amlodipine, hydralazine, and metoprolol. (7) Type 2 diabetes mellitus with hyperglycemia: Qualifiers: Diabetes mellitus shelter insulin use: with long term care phlebotomist use Qualified Code(s): E11.65 - Type 2 diabetes mellitus with hyperglycemia; Z79.4 - emt intermediate (current) use of insulin Code(s): E11.65 - Type 2 diabetes mellitus with hyperglycemia Status: Chronic Assessment and Plan: Continue Levemir, sliding scale insulin, and Accu-Cheks. (8) Anemia: Qualifiers: Anemia type: unspecified type Qualified Code(s): D64.9 - Anemia, unspecified Code(s): D64.9 - Anemia, unspecified Status: Acute Assessment and Plan: Anemia likely related to chronic kidney disease, stable. On EPO. (9) DVT prophylaxis: Code(s): Z29.9 - Encounter for prophylactic measures, unspecified Status: Acute Assessment and Plan: Heparin SQ Additional Plan discuss with BALA Stroud, sh
--- NOTE | 2020-05-17 16:26 | WPDNEUROPN ---
Progress Note: A&P Assessment and Plan (1) TIA (transient ischemic attack): Code(s): G45.9 - Transient cerebral ischemic attack, unspecified Status: Acute (2) Left arm weakness: Code(s): R29.898 - Other symptoms and signs involving the musculoskeletal system Status: Acute (3) DVT prophylaxis: Code(s): Z29.9 - Encounter for prophylactic measures, unspecified Status: Acute (4) Acute and chronic respiratory failure with hypercapnia: Code(s): J96.22 - Acute and chronic respiratory failure with hypercapnia Status: Acute (5) Anemia: Qualifiers: Anemia type: unspecified type Qualified Code(s): D64.9 - Anemia, unspecified Code(s): D64.9 - Anemia, unspecified Status: Acute (6) Diabetes: Code(s): E11.9 - Type 2 diabetes mellitus without complications Status: Chronic (7) Chronic kidney disease, stage IV (severe): Code(s): N18.4 - Chronic kidney disease, stage 4 (severe) Status: Chronic (8) Ventilator dependent: Code(s): Z99.11 - Dependence on respirator [ventilator] status Status: Acute Additional Plan from the neurological standpoint I nothing further to order at this point I am told by the attending nurse that the family is planning to have him extubated and looking into probably hospice care Review of Systems Review of Systems: All systems reviewed & are unremarkable except as noted in HPI and below Exam Const: General: comfortable and no acute distress HENMT: General nose exam: Normal nares present Mouth: Yes moist mucous membranes Eyes: General: appearance normal, both eyes and all related structures Neck: Neck: supple and no JVD Resp: Other: bilateral rhonchi Cardio: Rate: regular rate Rhythm: regular rhythm Skin: General skin exam: normal color and no rashes or lesions noted Neuro: Other: patient is a awake and alert Foreman follows simple commands does not have any lateralizing deficit Extrem: General: normal to inspection Psych: Mental Status: mental status grossly normal Objective Data Vital Signs Vital Signs: Vital Signs - 24 hr 05/16/20 17:11 05/16/20 17:25 05/16/20 18:00 Temperature Pulse Rate 67 63 66 Respiratory Rate 23 H Blood Pressure 138/52 L Pulse Oximetry 95 96 05/16/20 19:38 05/16/20 20:00 05/16/20 20:15 Temperature 37.1 C Pulse Rate 65 68 68 Respiratory Rate 22 H 22 H 22 H Blood Pressure 137/46 L Pulse Oximetry 94 05/16/20 20:19 05/16/20 20:23 05/16/20 22:00 Temperature Pulse Rate 68 68 65 Respiratory Rate 22 H 22 H Blood Pressure 145/45 H Pulse Oximetry 98 98 05/16/20 23:26 05/16/20 23:37 05/17/20 00:00 Temperature 36.8 C Pulse Rate 66 66 66 Respiratory Rate 22 H Blood Pressure 144/50 H Pulse Oximetry 100 97 05/17/20 01:49 05/17/20 02:00 05/17/20 02:27 Temperature Pulse Rate 72 70 68 Respiratory Rate 22 H 24 H 22 H Blood Pressure 163/55 H Pulse Oximetry 98 05/17/20 02:29 05/17/20 04:00 05/17/20 05:10 Temperature 36.8 C Pulse Rate 72 92 84 Respiratory Rate 24 H Blood Pressure 171/64 H Pulse Oximetry 94 93 100 05/17/20 05:54 05/17/20 06:00 05/17/20 06:22 Temperature Pulse Rate 86 75 74 Respiratory Rate 22 H 22 H Blood Pressure 147/95 H Pulse Oximetry 95 05/17/20 07:00 05/17/20 07:21 05/17/20 07:29 Temperature 37.1 C Pulse Rate 72 76 Respiratory Rate 22 H Blood Pressure Pulse Oximetry 99 05/17/20 07:31 05/17/20 08:00 05/17/20 08:01 Temperature Pulse Rate 72 67 79 Respiratory Rate 22 H 11 L 22 H Blood Pressure 165/58 H Pulse Oximetry 95 05/17/20 08:44 05/17/20 08:50 05/17/20 10:00 Temperature Pulse Rate 82 81 71 Respiratory Rate 22 H 22 H Blood Pressure Pulse Oximetry 05/17/20 11:53 05/17/20 12:00 05/17/20 14:09 Temperature 36.5 C Pulse Rate 72 71 73 Respiratory Rate 19 22 H Blood Pressure 157/79 H Pulse O
[2020-05-17] MEDS: MORPHINE SULFATE 4 MG/ML INJ 5 MG IV PUSH (16:32)
--- NOTE | 2020-05-17 16:48 | P.PNIM_ITS ---
Progress Note: A&P Assessment and Plan (1) Left arm weakness: Code(s): R29.898 - Other symptoms and signs involving the musculoskeletal system Status: Acute Assessment and Plan: * Patient with acute LUE weakness that resolved completely on 05/09/20 * Head CT showing no acute findings. Carotid US showing 50-69% stenosis Rt ICA. * Echo showing EF 60-65%, severe pulm HTN and patent foramen ovaleGrade I diastolic dysfunction * Probably TIA * Continue ASA; agree with permissive HTN * no recurrence (2) Acute and chronic respiratory failure with hypercapnia: Code(s): J96.22 - Acute and chronic respiratory failure with hypercapnia Status: Acute Assessment and Plan: * Lethargic on admission so proceeded with cholecystostomy tube. Requiring BiPAP but ultimately failed so intubated on 05/03/20. * Extubated 05/12 but reintubated same day when struggled and could not tolerate * Chest x-ray reviewed showing persistent mostly right sided airspace disease. * Continue albuterol and Atrovent. * Patient and family refusing trach so may proceed to extubation with possible terminal results, family still contemplating decision (3) Acute cholecystitis: Code(s): K81.0 - Acute cholecystitis Status: Acute Assessment and Plan: * Patient presents with abdominal pain, nausea, and vomiting with CT abdomen showing acute cholecystitis. * Percutaneous cholecystostomy tube placed 05/03/20 and being followed by Gen Surg - appreciate their input. * Cx growing Enterococus; UCx Negative; BCx NGTD. WBC remaining normal * Abx adjusted to Vanco and Cefepime; Flagyl added 05/10 to cover GB pathology D# 15 of total IV antibiotics * Continue Reglan to help with gut motility. (4) Acute on chronic renal failure: Qualifiers: Acute renal failure type: unspecified Chronic kidney disease stage: stage 3 (moderate) Qualified Code(s): N17.9 - Acute kidney failure, unspecified; N18.3 - Chronic kidney disease, stage 3 (moderate) Code(s): N17.9 - Acute kidney failure, unspecified; N18.9 - Chronic kidney disease, unspecified Status: Acute Assessment and Plan: * Baseline creatinine 2.8 to 3.4 range. * Creatinine climbed to 4.3 before trending down to 3.9. Cr back up to 5.6 05/16 down slightly . related to diuretics and resp failure * Not rechecked with anticipation of withdrawing care * Patient was previously on hemodialysis in the past * Renal ultrasound showed normal size kidneys. No hydronephrosis. * Diuretics on hold; good UOP still (5) Essential hypertension: Code(s): I10 - Essential (primary) hypertension Status: Chronic Assessment and Plan: * Blood pressure reviewed on 05/17/2020. * Blood pressure well controlled * Currently on Norvasc, hydralazine and metoprolol. * Plan to keep BP elevated to help with renal perfusion and now for permissive HTN from probable TIA * Continue Hydralazine IV available PRN if needed. Monitor BP and adjust treatment as needed. (6) Hyperkalemia: Code(s): E87.5 - Hyperkalemia Status: Acute Assessment and Plan: * potassium 5.5 early in admission. * Hyperkalemia related to worsening renal function. * Potassium improved and remaining stable 4.1 05/15 last checked . Continue to monitor. (7) Anemia of chronic kidney failure: Qualifiers: Chronic kidney disease stage: stag
--- NOTE | 2020-05-17 16:48 | PM.IMPN ---
Progress Note: A&P Assessment and Plan (1) Left arm weakness: Code(s): R29.898 - Other symptoms and signs involving the musculoskeletal system Status: Acute Assessment and Plan: Patient with acute LUE weakness that resolved completely on 05/09/[address] showing no acute findings. Carotid US showing 50-69% stenosis Rt ICA. Echo showing EF 60-65%, severe pulm HTN and patent foramen ovaleGrade I diastolic dysfunction Probably TIA Continue ASA; agree with permissive HTN no recurrence (2) Acute and chronic respiratory failure with hypercapnia: Code(s): J96.22 - Acute and chronic respiratory failure with hypercapnia Status: Acute Assessment and Plan: Lethargic on admission so proceeded with cholecystostomy tube. Requiring BiPAP but ultimately failed so intubated on 05/03/20. Extubated 05/12 but reintubated same day when struggled and could not tolerate Chest x-ray reviewed showing persistent mostly right sided airspace disease. Continue albuterol and Atrovent. Patient and family refusing trach so may proceed to extubation with possible terminal results, family still contemplating decision (3) Acute cholecystitis: Code(s): K81.0 - Acute cholecystitis Status: Acute Assessment and Plan: Patient presents with abdominal pain, nausea, and vomiting with CT abdomen showing acute cholecystitis. Percutaneous cholecystostomy tube placed 05/03/20 and being followed by Gen Surg - appreciate their input. Cx growing Enterococus; UCx Negative; BCx NGTD. WBC remaining normal Abx adjusted to Vanco and Cefepime; Flagyl added 05/10 to cover GB pathology D# 15 of total IV antibiotics Continue Reglan to help with gut motility. (4) Acute on chronic renal failure: Qualifiers: Acute renal failure type: unspecified Chronic kidney disease stage: stage 3 (moderate) Qualified Code(s): N17.9 - Acute kidney failure, unspecified; N18.3 - Chronic kidney disease, stage 3 (moderate) Code(s): N17.9 - Acute kidney failure, unspecified; N18.9 - Chronic kidney disease, unspecified Status: Acute Assessment and Plan: Baseline creatinine 2.8 to 3.4 range. Creatinine climbed to 4.3 before trending down to 3.9. Cr back up to 5.6 05/16 down slightly . related to diuretics and resp failure Not rechecked with anticipation of withdrawing care Patient was previously on hemodialysis in the past Renal ultrasound showed normal size kidneys. No hydronephrosis. Diuretics on hold; good UOP still (5) Essential hypertension: Code(s): I10 - Essential (primary) hypertension Status: Chronic Assessment and Plan: Blood pressure reviewed on 05/17/2020. Blood pressure well controlled Currently on Norvasc, hydralazine and metoprolol. Plan to keep BP elevated to help with renal perfusion and now for permissive HTN from probable TIA Continue Hydralazine IV available PRN if needed. Monitor BP and adjust treatment as needed. (6) Hyperkalemia: Code(s): E87.5 - Hyperkalemia Status: Acute Assessment and Plan: potassium 5.5 early in admission. Hyperkalemia related to worsening renal function. Potassium improved and remaining stable 4.1 05/15 last checked . Continue to monitor. (7) Anemia of chronic kidney failure: Qualifiers: Chronic kidney disease stage: stage 3 (moderate) Qualified Code(s): N18.3 - Chronic kidney disease, stage 3 (moderate); D63.1 - Anemia in chronic kidney disease Code(s): N18.9 - Chronic kidney disease, unspecified; D63.1 - Anemia in chronic kidney disease Status: Chronic Assessment and Plan: hemoglobin in the 10-11 range chronically Since admission, hemoglobin has dropped to 7-8 range but stable, No evidence of acti
--- NOTE | 2020-05-18 16:45 | PM.DDS ---
Discharge Sum: Prov Provider Primary care physician: Hai Newton, MD Admitting provider: Lobo Ruiz MD Consults: 05/02/20 23:58 Consult to Physician Routine Comment: Consulting Provider: Pretty Lawson call center receptionist/MD group to consult: katie Reason for consultation: cholecystitis Has provider been notified: Yes 05/03/20 Consult to Physician Routine Comment: Consulting Provider: Damien Barajas call center receptionist/MD group to consult: intensivisit Reason for consultation: resp failure Has provider been notified: Yes 05/03/20 07:21 Consult to Physician Routine Comment: Spoke with Dr Nath @ [phone] (,) Consulting Provider: Mary Nath call center receptionist/MD group to consult: nephrology Reason for consultation: acute on chronic renal failure Has provider been notified: Yes 05/09/20 11:12 Consult to Physician Routine Comment: LEFT MESSAGE FOR CONSULT WITH CALL BACK NUMBER Consulting Provider: Jordi Rogers call center receptionist/MD group to consult: NEUROLOGY Reason for consultation: possible acute stroke Has provider been notified: Yes 05/12/20 19:03 Consult to Physician Routine Comment: SPOKE WITH DR. ESPINOZA Consulting Provider: Belkis Espinoza call center receptionist/MD group to consult: pulm Reason for consultation: possible bronch Has provider been notified: Yes Discharge Sum: Diag Contributing Factors (1) Left arm weakness: (2) Acute and chronic respiratory failure with hypercapnia: (3) Acute cholecystitis: (4) Acute on chronic renal failure: (5) Essential hypertension: (6) Hyperkalemia: (7) Anemia of chronic kidney failure: (8) Type 2 diabetes mellitus with hyperglycemia: Discharge Sum: Summary Date and Time Date of admission: 05/03/20 09:52 Summary Details: 80-year-old hypertensive male type 2 diabetic with chronic renal failure stage 4 admitted with acute cholecystitis and worsening renal failure. Patient not a good surgical candidate so cholecystostomy tube placed and shortly thereafter had respiratory arrest and had to be intubated. Multiple attempts were made at weaning from ventilator and were unsuccessful. At 1 point he was extubated but shortly thereafter reintubated when became more hypoxic and hypercapnic. renal function worsened also. Patient had a history of respiratory failure necessitating tracheostomy and PEG tube feeding in the past. he and his family were again offered this form of treatment and they refused. On the afternoon of the he was extubated and shortly thereafter cause of ,acute on chronic respiratory failure, cholecystitis, and acute on chronic renal failure Additional Data Attending physician: Garett Love MD
--- NOTE | 2020-06-12 21:44 | PM.CNPUL ---
History of Present Illness History of Present Illness Consult date: 06/12/20 Chief complaint: cholecystitis Narrative: I was not informed about this patient and I did not see him in consultation PMFSH Past Medical History Medical History A-fib Acute and chronic respiratory failure with hypoxia Acute hypercapnic respiratory failure due to obstructive sleep apnea Anemia Arthritis CKD (chronic kidney disease) Complex sleep apnea syndrome Diabetes Dialysis patient Diaphragm paralysis Diverticulitis DM II (diabetes mellitus, type II), controlled Early cataracts, bilateral GERD (gastroesophageal reflux disease) History of colon cancer History of hemodialysis History of inguinal hernia History of kidney stones Hx: UTI (urinary tract infection) Hypercholesteremia Hypertension BILL (obstructive sleep apnea) Pancreatitis Restrictive lung disease Surgical History Surgical History H/O arthroscopy of knee H/O prostatectomy History of appendectomy History of bladder surgery History of colonoscopy History of hemorrhoidectomy History of inguinal hernia repair History of local excision of skin lesion History of spinal surgery History of transurethral resection of prostate Hx of arthroscopic knee surgery Hx of colectomy Hx of tracheostomy Family History Family History Mother Family history of cardiovascular disease, Onset Age: 94 Acute myocardial infarction Father Malignant neoplasm of prostate Sibling Diabetes mellitus Acute myocardial infarction Other Hypertension Social History Social History Smoking status: Never smoker Alcohol intake: never Substance use: never Substance use type: does not use Gender identity (if verbalized by the patient): Male Spiritual care concerns: No Meds Home Medications and Allergies Home Medications Medication Instructions Recorded Confirmed Type aspirin 81 mg tablet,delayed 81 mg PO DAILY 09/01/19 05/03/20 History release lutein 20 mg capsule 40 mg PO DAILY 09/01/19 05/03/20 History cholecalciferol (vitamin D3) 125 5,000 unit PO DAILY 12/13/19 05/03/20 History mcg (5,000 unit) capsule diltiazem HCl [DILT-XR] 240 mg PO DAILY 05/03/20 05/03/20 History hydralazine 50 mg PO Q8H 05/03/20 05/03/20 History insulin aspart U-100 [Novolog 5 - 15 unit SUBCUT 24XD 05/03/20 05/03/20 History Flexpen U-100 Insulin] insulin degludec [Tresiba 20 - 25 unit SUBCUT HS 05/03/20 05/03/20 History FlexTouch U-100] Allergies Allergy/AdvReac Type Severity Reaction Status Date / Time lisinopril Allergy Unknown Verified 03/08/20 15:48 lorazepam AdvReac Unknown unknown Verified 03/08/20 15:48 ranitidine AdvReac Unknown unknown Verified 03/08/20 15:48 tocainide AdvReac Unknown unknown Verified 03/08/20 15:48 Results Laboratory Findings CBC and BMP: 05/15/20 04:36 05/16/20 07:17 ABG, PT/INR, D-dimer: ABG ABG pH 7.340 (7.350-7.450) L 05/16/20 08:55 ABG pCO2 34.1 mmHg (35.0-45.0) L 05/16/20 08:55 ABG pO2 64.8 mmHg (80.0-100.0) L 05/16/20 08:55 ABG O2 Saturation 91.8 % (95.0-100.0) L 05/16/20 08:55 PT/INR, D-dimer PT 18.1 Seconds (11.1-14.7) H 05/14/20 09:40 INR 1.5 05/14/20 09:40 Abnormal lab findings: Abnormal Labs 05/02/20 05/02/20 05/02/20 22:02 22:02 23:12 WBC 13.2 H RBC 3.30 L Hgb 9.5 L Hct 30.4 L MCHC 31.3 L RDW Plt Count MPV Immature Gran % (Auto) Neut % (Auto) 87.4 H Lymph % (Auto) 5.3 L Baso % (Auto) Lymph # (Auto) 0.70 L [place] # (Auto) 0.8 H Abs Immat Gran (auto) 0.07 H Absolute Neuts (auto) 11.5 H Absolute Retic Retic Hgb Content PT APTT ABG pH ABG pCO2 ABG pO2 ABG HCO3 ABG O2 Saturation
== END 2020-05-17 17:11 | disposition expired | DRG 444 ==
LOC: ANHED 23:57 → ANH2MED 05-03 00:24 → ANHICU 05-06 20:52 → ANH2MED 05-20 12:13 → ANHICU 05-20 12:13
PROVIDERS: Family Medicine; Internal Medicine; Internal Medicine Critical Care Medicine; Internal Medicine Nephrology; Nurse Practitioner; Physician Assistant; Radiology Diagnostic Radiology; Surgery; Admitting Provider Family Medicine; Emergency Provider Emergency Medicine; PCP Family Medicine; Visit Provider Internal Medicine
PROC: 0F9430Z Drainage of Gallbladder with Drainage Device, Percutaneous Approach (ICD-10-PCS; principal; 2020-05-03 14:00)
DX: K81.0 Acute cholecystitis (principal); J96.22 Acute and chronic respiratory failure with hypercapnia; J96.21 Acute and chronic respiratory failure with hypoxia; J18.9 Pneumonia, unspecified organism; N17.9 Acute kidney failure, unspecified; N18.4 Chronic kidney disease, stage 4 (severe); I48.20 Chronic atrial fibrillation, unspecified; T85.698A Other mechanical complication of other specified internal prosthetic devices, implants and grafts, initial encounter; G45.9 Transient cerebral ischemic attack, unspecified; J90 Pleural effusion, not elsewhere classified; B95.2 Enterococcus as the cause of diseases classified elsewhere; D72.829 Elevated white blood cell count, unspecified; I12.9 Hypertensive chronic kidney disease with stage 1 through stage 4 chronic kidney disease, or unspecified chronic kidney disease; E11.22 Type 2 diabetes mellitus with diabetic chronic kidney disease; D63.1 Anemia in chronic kidney disease; E11.65 Type 2 diabetes mellitus with hyperglycemia; E87.5 Hyperkalemia; I10 Essential (primary) hypertension; G47.33 Obstructive sleep apnea (adult) (pediatric); K21.9 Gastro-esophageal reflux disease without esophagitis; M19.90 Unspecified osteoarthritis, unspecified site; J98.6 Disorders of diaphragm; E78.5 Hyperlipidemia, unspecified; J98.4 Other disorders of lung; Z66 Do not resuscitate; Z99.2 Dependence on renal dialysis; Z85.038 Personal history of other malignant neoplasm of large intestine; Z79.4 Long term (current) use of insulin; Z79.82 Long term (current) use of aspirin; Z93.1 Gastrostomy status
CPT/HCPCS: 31500; 32555; 36415; 36600; 70450; 71045; 73020; 74019; 74176; 75989; 76705; 76775; 80048; 80053; 80069; 80202; 81001; 81050; 82040; 82042; 82375; 82436; 82565; 82570; 82607; 82746; 82805; 82945; 83036; 83050; 83540; 83550; 83605; 83615; 83690; 83735; 83986; 84100; 84156; 84157; 84300; 84478; 85014; 85018; 85025; 85027; 85046; 85610; 85730; 85999; 87015; 87040; 87070; 87075; 87077; 87086; 87102; 87116; 87205; 87206; 88104; 88108; 88184; 88305; 89051; 93306; 93880; 94002; 94003; 94640; 94660; 96365; 96375; 97161; 99285; A9270; C1769; C9113; G0378; J0330; J0360; J0456; J0692; J0696; J1644; J1815; J1940; J2060; J2250; J2270; J2310; J2405; J2543; J2704; J2765; J3010; J3360; J3370; J7030; J7050; J7060; Q4081; Q5106